=== PATIENT | male | born 1930 | race Caucasian/White ===

== ENCOUNTER 2016-05-13 01:38 | Emergency (ER) | payer MEDICARE, OTHER ==
[2016-05-13 01:48] VITALS: BP 130/61; PULSE 77; RESP 18; TEMP 97.4
[2016-05-13 03:22] LABS: Appearance,Urine Turbid (Clear); Bacteria,Urine Occasional /hpf; Bilirubin,Urine Negative (Negative); Glucose,Urine (UA) Negative (Negative); Ketones,Urine Negative (Negative); Leukocyte Esterase,Urine Large (Negative); Nitrite,Urine Positive (Negative); Particle Count 47344; Protein,Urine 2+ (Negative); RBC,Urine >182 /hpf (0-5); Specific Gravity,Urine 1.015 (1.001-1.035); UA Billing (MACRO vs. MICRO) MICRO; Urobilinogen,Urine <2.0 mg/dL (<2.0); WBC,Urine >182 /hpf (0-5)
[2016-05-13] MEDS ORDERED: cefTRIAXone 1,000 MG VIAL (IM USE) IM STA (03:27)
--- NOTE | 2016-05-13 03:31 | ED ---
Male Urogenital HPI - General Chief complaint: Urogenital Stated complaint: blocked catheter Time Seen by Provider: 05/13/16 02:15 Source: patient, RN notes reviewed Mode of arrival: wheelchair Limitations: no limitations - History of Present Illness Initial comments: Patient is 86-year-old male presenting to the with chief complaint of a blocked catheter his evening. He reports that 10:30 today he attempted to empty his catheter bag when he replaced it in intact to to the Villa would not flush. He states that he has noticed some drainage around the urethra. He reports that he has been to the multiple times in the past few months for similar complaints of problems with his catheter. He reports that he has no abdominal pain or back pain at this time. He denies any fever or chills. Denies any abdominal pain.Patient denies any recent fever, chills, shortness of breath, chest pain, back pain, abdominal pain, nausea vomiting, numbness or tingling, dysuria or hematuria, constipation or diarrhea, headaches or visual changes, or any other current symptoms - Related Data Home Medications Medication Instructions Recorded Confirmed Alfuzosin HCl [Uroxatral ER] 10 mg PO QAM 11/11/14 05/13/16 Finasteride [Proscar] 5 mg PO HS 11/11/14 05/13/16 Multivitamins, Thera [Multivitamin] 1 tab PO DAILY 11/11/14 05/13/16 Fenofibrate Nanocrystallized 145 mg PO HS 02/09/16 05/13/16 [Tricor] Lovastatin 20 mg PO HS 02/09/16 05/13/16 Ferrous Sulfate [Feosol] 325 mg PO HS 03/22/16 05/13/16 Glucosamine Sulfate 500 mg PO DAILY 03/22/16 05/13/16 Docusate [Colace] 100 mg PO BID 04/11/16 05/13/16 Esomeprazole Magnesium [NexIUM] 40 mg PO DAILY 04/11/16 05/13/16 Furosemide [Lasix] 20 mg PO DAILY 04/11/16 05/13/16 Montelukast [Singulair] 10 mg PO HS 04/11/16 05/13/16 Rivaroxaban [Xarelto] 20 mg PO DAILY 04/11/16 05/13/16 predniSONE 20 mg PO DAILY 05/13/16 05/13/16 Previous Rx's Medication Instructions Recorded Cephalexin [Keflex] 500 mg PO Q8HR #21 cap 05/13/16 Allergies Allergy/AdvReac Type Severity Reaction Status Date / Time adhesive tape AdvReac tears skin Verified 05/13/16 01:48 chicken derived [Chicken] AdvReac Nausea & Verified 05/13/16 01:48 Vomiting & Diarrhea Review of Systems ROS Statement: Those systems with pertinent positive or pertinent negative responses have been documented in the HPI. ROS Other: All systems not noted in ROS Statement are negative. Past Medical History Past Medical History: Cancer, Deep Vein Thrombosis (DVT), GERD/Reflux, Hyperlipidemia, Musculoskeletal Disorder, Pneumonia, Prostate Disorder, Renal Disease Additional Past Medical History / Comment(s): Recent pneumonia, CYSTS ON KIDNEYS , ENLARGED PROSTATE, HX OF SKIN CA, 7 crushed vertebrae, BACK PAIN FROM PINCHED NERVES IN BACK- drop foot sharif feet, wears orthotics, hx kidney stones, dx hiatal hernia History of Any Multi-Drug Resistant Organisms: None Reported Additional Past Surgical History / Comment(s): 02/08/16 laparoscopic christopher fundoplasty. Other surgical hx: Hydrocele repair, EGD (2007). EPIDURAL STEROID INJECTIONS WITH DR. DIAZ. EGD 01/2016, skin cancer removals.SEVERAL BRONCHOSCOPIES,SEBACEOUS CYST ON BACK REMOVED Past Anesthesia/Blood Transfusion Reactions: No Reported Reaction Past Psychological History: No Psychological Hx Reported Smoking Status: Former smoker Past Alcohol Use History: None Reported Additional Past Alcohol Use History / Comment(s): smoked 60 years-pipe/cigars/ cigarettes- quit 2003 Past Drug Use History: None Reported - Past Family History Brother(s) Family Medical History: Cancer Additional Family Medical History / Comment(s): lung cancer Father Additional Family Medical History / Comment(s): FROM RESP FAILURE AT AGE 91 Mother Family Medical History: Cancer Additional Family Medical History / Comment(s): UNK TYPE General Exam - General Exam Comments Initial Comments: is a pleasant 86-year-old male. He does not appear to be in any acute distress. Limitations: no limitations General appearance: alert, in no apparent distress Head exam: Present: atraumatic, normocephalic, normal inspection Eye exam: Present: normal appearance, PERRL, EOMI. Absent: scleral icterus, conjunctival injection, periorbital swelling ENT exam: Present: normal exam, mucous membranes moist Neck exam: Present: normal inspection. Absent: tenderness, meningismus, lymphadenopathy Respiratory exam: Present: normal lung sounds bilaterally. Absent: respiratory distress, wheezes, rales, rhonchi, stridor Cardiovascular Exam: Present: regular rate, normal rhythm, normal heart sounds. Absent: systolic murmur, diastolic murmur, rubs, gallop, clicks GI/Abdominal exam: Present: soft, normal bowel sounds. Absent: distended, tenderness, guarding, rebound, rigid exam: Present: urethral discharge (patient has white purulent urethral discharge around meatus and villa). Absent: testicular tenderness, scrotal swelling, vertical testicular lie, circumcision Extremities exam: Present: normal inspection, full ROM, normal capillary refill. Absent: tenderness, pedal edema, joint swelling, calf tenderness Back exam: Present: normal inspection Neurological exam: Present: alert, oriented X3, CN II-XII intact Psychiatric exam: Present: normal affect, normal mood Skin exam: Present: warm, dry, intact, normal color. Absent: rash Course Vital Signs 05/13/16 01:45 Temperature 97.4 F L Pulse Rate 77 Respiratory 18 Rate Blood Pressure 130/61 O2 Sat by Pulse 91 L Oximetry Medical Decision Making - Medical Decision Making Patient is a 6 mL chief complaint of full a catheter complications. Patient's Villa was changed and is suctioning properly. Upon getting the urine is noted to be cloudy. Urinalysis was obtained. Patient has a urinary tract infection. Patient will be given IM Rocephin and a prescription for Keflex as this has worked for him in the past for urinary tract infections. Patient states that he has no abdominal pain or fevers or chills. He denies any back pain. Patient be discharged at this time with a prescription and instructed to follow- up with primary care provider. Patient received treatment plan will comply. - Lab Data Lab Results 05/13/16 Range/Units 03:00 Urine Color Light [place] Urine Appearance Turbid (Clear) Urine pH 8.0 (5.0-8.0) Ur Specific [place] 1.015 (1.001-1.035) Urine Protein 2+ H (Negative) Urine Glucose (UA) Negative (Negative) Urine Ketones Negative (Negative) Urine Blood Moderate H (Negative) Urine Nitrate Positive (Negative) Urine Bilirubin Negative (Negative) Urine Urobilinogen <2.0 (<2.0) mg/dL Ur Leukocyte Esterase Large H (Negative) Urine RBC >182 H (0-5) /hpf Urine WBC >182 H (0-5) /hpf Urine WBC Clumps Moderate H (None) /hpf Urine Bacteria Occasional H (None) /hpf Disposition Clinical Impression: Urinary tract infection, Villa catheter problem Disposition: HOME SELF-CARE Condition: Good Instructions: Urinary Tract Infection in Men (ED) Additional Instructions: Patient instructed to completely antibiotics. Return to the [facility] if any alarming signs or symptoms occur. Follow-up with primary care physician in the next 2-3 days. Prescriptions: Cephalexin [Keflex] 500 mg PO Q8HR #21 cap Referrals: Escobar Mcdaniels DO [Primary Care Provider] - 1-2 days Time of Disposition: 03:28
== END 2016-05-13 04:19 | disposition home or self-care (01) ==
LOC: EC 01:38
DX: N39.0 Urinary tract infection, site not specified (principal); T83.018A Breakdown (mechanical) of other urinary catheter, initial encounter; K21.9 Gastro-esophageal reflux disease without esophagitis; N40.0 Benign prostatic hyperplasia without lower urinary tract symptoms; E78.5 Hyperlipidemia, unspecified; N28.9 Disorder of kidney and ureter, unspecified; Z79.899 Other long term (current) drug therapy; Z79.01 Long term (current) use of anticoagulants; Z86.718 Personal history of other venous thrombosis and embolism; Z85.9 Personal history of malignant neoplasm, unspecified; Z87.442 Personal history of urinary calculi; Z87.891 Personal history of nicotine dependence; Z87.440 Personal history of urinary (tract) infections; Z79.52 Long term (current) use of systemic steroids
CPT/HCPCS: 99283; 96372; 81001; 87070; 87086; 87205; 87077; 87186; J0696

== ENCOUNTER → 2016-05-16 | Outpatient (CLI) | payer MEDICARE, OTHER ==
--- NOTE | 2016-05-16 17:05 | CT ---
EXAMINATION TYPE: CT chest wo con DATE OF EXAM: 05/16/2016 4:50 PM COMPARISON: 05/25/2015 HISTORY: Solitary pulmonary nodule. CT DLP: 464.00 mGycm Automated exposure control for dose reduction was used. FINDINGS: Compression deformities at the thoracolumbar junction appears severe. L1 compression deformity appear s increased from the previous exam. There is no pneumothorax. Subsegmental consolidation bilaterally suggestive of atelectasis or infiltr ate. Diffuse emphysematous changes are noted. The heart is enlarged and there is coronary artery calcification. Esophagus appears to be prominent i n size correlate for previous surgery. Atherosclerotic change of the aorta. Suspect for adenopathy limited. Cystic changes involving the kidneys are stable. Atherosclerotic change of the aorta. Tiny pericardia l effusion seen. Subcentimeter thyroid nodules noted bilaterally. IMPRESSION: NO SIZABLE PULMONARY NODULE. BILATERAL AREAS OF SCATTERED INFILTRATE OR ATELECTASIS NOTED. CORRELATE FOR PNEUMONIA. VAGUE 7 MM POSTERIOR SEGMENT LEFT LOWER LOBE NODULE IMAGE 24 LIKELY IS NONSPECIFIC. NO ADDITIONAL NOD ULES ARE SEEN. ASSESSMENT OF THE LUNG BASES SOMEWHAT LIMITED DUE TO AREAS OF CONSOLIDATION ESOPHAGUS APPEARS TO BE DISTENDED WITH FLUID AND DEBRIS TO THE CERVICAL LEVEL. CORRELATE FOR PREVIOUS COLONIC INTERPOSITION SURGERY. IF THE PATIENT HAS NOT HAD SURGERY THAN THIS MAY BE RELATED TO ACHALA TERRY OR OBSTRUCTIVE PROCESS AT THE GE 2. 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 CORRELATE WITH MRI CLINICALLY WARRANTED.
== END | disposition home or self-care (01) ==
LOC: RADCTMAIN 16:16
PROVIDERS: ATTEND Internal Medicine Sleep Medicine
DX: R91.1 Solitary pulmonary nodule (principal); J18.1 Lobar pneumonia, unspecified organism; G95.20 Unspecified cord compression
CPT/HCPCS: 71250

== ENCOUNTER 2016-05-24 16:10 | Emergency (ER) | payer MEDICARE, OTHER ==
[2016-05-24 16:33] VITALS: TEMP 96.9
[2016-05-24] MEDS ORDERED: RX INFO: IV CONTRAST WAS GIVEN 1 EACH MISC MISCELLANE PRN (17:07)
[2016-05-24] MEDS ORDERED: IOHEXOL 350 MG/ML 25 ML BOTTLE (ORAL USE) PO PRN (17:07)
[2016-05-24] MEDS ORDERED: MORPHINE SULFATE 4 MG/ML SYRINGE IV STA (17:07)
[2016-05-24] MEDS ORDERED: SODIUM CHLORIDE 0.9% 1,000 ML IV STA (17:07)
[2016-05-24] MEDS ORDERED: ONDANSETRON 4 MG/2 ML VIAL IVP STA (17:07)
[2016-05-24] MEDS ORDERED: SODIUM CHLORIDE 0.9% 500 ML IV STA (17:07)
[2016-05-24] MEDS ORDERED: FAMOTIDINE 20 MG/2 ML VIAL IV STA (17:08)
--- NOTE | 2016-05-24 17:11 | ED ---
General Adult HPI - General Chief complaint: Nausea/Vomiting/Diarrhea Stated complaint: VOMITING, POSS DEHYDRATION, ABDOMINAL DISTENTION Time Seen by Provider: 05/24/16 16:56 Source: patient, family, RN notes reviewed Mode of arrival: wheelchair Limitations: no limitations - History of Present Illness Initial comments: Patient is a pleasant 86-year-old male presenting to the emergency Department with concerns regarding nausea and vomiting and abdominal discomfort. Patient has somewhat chronic symptoms however much worse over the past week. did have surgery for his hiatal hernia a couple of months ago. Patient feels like his stomach is distended and feels and looks distended. Discomfort is mostly in the epigastric region. Nausea is not bad at this time however patient vomits almost every meal. Patient is starting to feel dehydrated. Patient had diarrhea several days ago however none in the past few days. - Related Data Home Medications Medication Instructions Recorded Confirmed Alfuzosin HCl [Uroxatral ER] 10 mg PO QA 11/11/14 05/24/16 Finasteride [Proscar] 5 mg PO HS 11/11/14 05/24/16 Multivitamins, Thera [Multivitamin] 1 tab PO DAILY 11/11/14 05/24/16 Fenofibrate Nanocrystallized 145 mg PO HS 02/09/16 05/24/16 [Tricor] Lovastatin 20 mg PO HS 02/09/16 05/24/16 Ferrous Sulfate [Feosol] 325 mg PO HS 03/22/16 05/24/16 Glucosamine Sulfate 500 mg PO DAILY 03/22/16 05/24/16 Docusate [Colace] 100 mg PO BID 04/11/16 05/24/16 Esomeprazole Magnesium [NexIUM] 40 mg PO DAILY 04/11/16 05/24/16 Furosemide [Lasix] 20 mg PO DAILY 04/11/16 05/24/16 Montelukast [Singulair] 10 mg PO HS 04/11/16 05/24/16 Rivaroxaban [Xarelto] 20 mg PO DAILY 04/11/16 05/24/16 predniSONE 20 mg PO DAILY 05/13/16 05/24/16 Cyclobenzaprine [Flexeril] 5 mg PO Q6H PRN 05/24/16 05/24/16 HYDROcodone/APAP 10-325MG [Waldo 1 tab PO Q4-6H PRN 05/24/16 05/24/16 10-325] Previous Rx's Medication Instructions Recorded Ondansetron Odt [Zofran Odt] 4 mg PO Q8HR PRN #10 tab 05/24/16 Allergies Allergy/AdvReac Type Severity Reaction Status Date / Time adhesive tape AdvReac tears skin Verified 05/24/16 17:11 chicken derived [Chicken] AdvReac Nausea & Verified 05/24/16 17:11 Vomiting & Diarrhea Review of Systems ROS Statement: Those systems with pertinent positive or pertinent negative responses have been documented in the HPI. ROS Other: All systems not noted in ROS Statement are negative. Constitutional: Denies: fever, chills Eyes: Denies: eye pain ENT: Denies: ear pain Respiratory: Denies: cough Cardiovascular: Denies: chest pain Endocrine: Denies: fatigue Gastrointestinal: Reports: abdominal pain, nausea, vomiting. Denies: constipation Genitourinary: Denies: dysuria Musculoskeletal: Reports: back pain (Chronic and unchanged) Skin: Denies: rash Past Medical History Past Medical History: Cancer, Deep Vein Thrombosis (DVT), GERD/Reflux, Hyperlipidemia, Musculoskeletal Disorder, Pneumonia, Prostate Disorder, Renal Disease Additional Past Medical History / Comment(s): Recent pneumonia, CYSTS ON KIDNEYS , ENLARGED PROSTATE, HX OF SKIN CA, 7 crushed vertebrae, BACK PAIN FROM PINCHED NERVES IN BACK- drop foot sharif feet, wears orthotics, hx kidney stones, dx hiatal hernia History of Any Multi-Drug Resistant Organisms: None Reported Additional Past Surgical History / Comment(s): 02/08/16 laparoscopic christopher fundoplasty. Other surgical hx: Hydrocele repair, EGD (2007). EPIDURAL STEROID INJECTIONS WITH DR. DIAZ. EGD 01/2016, skin cancer removals.SEVERAL BRONCHOSCOPIES,SEBACEOUS CYST ON BACK REMOVED Past Anesthesia/Blood Transfusion Reactions: No Reported Reaction Past Psychological History: No Psychological Hx Reported Smoking Status: Former smoker Past Alcohol Use History: None Reported Additional Past Alcohol Use History / Comment(s): smoked 60 years-pipe/cigars/ cigarettes- quit 2003 Past Drug Use History: None Reported - Past Family History Brother(s) Family Medical History: Cancer Additional Family Medical History / Comment(s): lung cancer Father Additional Family Medical History / Comment(s): FROM RESP FAILURE AT AGE 91 Mother Family Medical History: Cancer Additional Family Medical History / Comment(s): UNK TYPE General Exam Limitations: no limitations General appearance: alert, in no apparent distress Head exam: Present: atraumatic, normocephalic Eye exam: Present: normal appearance, PERRL ENT exam: Present: normal oropharynx Neck exam: Present: normal inspection Respiratory exam: Present: normal lung sounds bilaterally Cardiovascular Exam: Present: regular rate, normal rhythm GI/Abdominal exam: Present: soft, distended (Mild epigastric tenderness.), tenderness (Mild to moderate epigastric tenderness), normal bowel sounds. Absent: guarding, rebound, rigid, pulsatile mass Extremities exam: Present: normal inspection Neurological exam: Present: alert Psychiatric exam: Present: normal affect, normal mood Skin exam: Absent: rash Course Vital Signs 05/24/16 05/24/16 16:28 19:00 Temperature 96.9 F L Pulse Rate 64 59 L Respiratory 18 20 Rate Blood Pressure 99/51 108/52 O2 Sat by Pulse 96 96 Oximetry Medical Decision Making - Medical Decision Making Patient reexamined and resting comfortably in bed. Patient feels much better. Abdomen is soft and nontender. Patient and family are comfortable with discharge home. Patient does have a Henderson catheter and reportedly just finished antibiotics. Therefore culture will be obtained prior to starting antibiotics again. - Lab Data Result diagrams: 05/24/16 17:20 05/24/16 17:20 Lab Results 05/24/16 05/24/16 05/24/16 Range/Units 17:20 17:20 17:20 WBC 13.3 H (3.8-10.6) k/uL RBC 4.43 (4.30-5.90) m/uL Hgb 12.8 L (13.0-17.5) gm/dL Hct 42.8 (39.0-53.0) % MCV 96.7 (80.0-100.0) fL MCH 28.8 (25.0-35.0) pg MCHC 29.8 L (31.0-37.0) g/dL RDW 15.1 (11.5-15.5) % Plt Count 330 (150-450) k/uL Neutrophils % 85 % Lymphocytes % 8 % Monocytes % 4 % Eosinophils % 2 % Basophils % 1 % Neutrophils # 11.4 H (1.3-7.7) k/uL Lymphocytes # 1.1 (1.0-4.8) k/uL Monocytes # 0.5 (0-1.0) k/uL Eosinophils # 0.2 (0-0.7) k/uL Basophils # 0.1 (0-0.2) k/uL Hypochromasia Slight PT 12.6 H (9.0-12.0) sec INR 1.3 (<1.1) APTT 28.0 (22.0-30.0) sec Sodium 143 (137-145) mmol/L Potassium 4.3 (3.5-5.1) mmol/L Chloride 106 (98-107) mmol/L Carbon Dioxide 27 (22-30) mmol/L Anion Gap 10 mmol/L BUN 29 H (9-20) mg/dL Creatinine 0.98 (0.66-1.25) mg/dL Est GFR (MDRD) Af Amer >60 (>60 ml/min/1.73 sqM) Est GFR (MDRD) Non-Af >60 (>60 ml/min/1.73 sqM) Glucose 81 (74-99) mg/dL Calcium 9.6 (8.4-10.2) mg/dL Total Bilirubin 1.0 (0.2-1.3) mg/dL AST 27 (17-59) U/L ALT 36 (21-72) U/L Alkaline Phosphatase 92 (38-126) U/L Total Protein 6.6 (6.3-8.2) g/dL Albumin 3.3 L (3.5-5.0) g/dL Amylase <30 L (30-110) U/L Lipase 26 (23-300) U/L Urine Color Urine Appearance (Clear) Urine pH (5.0-8.0) Ur Specific [place] (1.001-1.035) Urine Protein (Negative) Urine Glucose (UA) (Negative) Urine Ketones (Negative) Urine Blood (Negative) Urine Nitrate (Negative) Urine Bilirubin (Negative) Urine Urobilinogen (<2.0) mg/dL Ur Leukocyte Esterase (Negative) Urine RBC (0-5) /hpf Urine WBC (0-5) /hpf Urine WBC Clumps (None) /hpf Urine Mucus (None) /hpf 05/24/16 Range/Units 17:30 WBC (3.8-10.6) k/uL RBC (4.30-5.90) m/uL Hgb (13.0-17.5) gm/dL Hct (39.0-53.0) % MCV (80.0-100.0) fL MCH (25.0-35.0) pg MCHC (31.0-37.0) g/dL RDW (11.5-15.5) % Plt Count (150-450) k/uL Neutrophils % % Lymphocytes % % Monocytes % % Eosinophils % % Basophils % % Neutrophils # (1.3-7.7) k/uL Lymphocytes # (1.0-4.8) k/uL Monocytes # (0-1.0) k/uL Eosinophils # (0-0.7) k/uL Basophils # (0-0.2) k/uL Hypochromasia PT (9.0-12.0) sec INR (<1.1) APTT (22.0-30.0) sec Sodium (137-145) mmol/L Potassium (3.5-5.1) mmol/L Chloride (98-107) mmol/L Carbon Dioxide (22-30) mmol/L Anion Gap mmol/L BUN (9-20) mg/dL Creatinine (0.66-1.25) mg/dL Est GFR (MDRD) Af Amer (>60 ml/min/1.73 sqM) Est GFR (MDRD) Non-Af (>60 ml/min/1.73 sqM) Glucose (74-99) mg/dL Calcium (8.4-10.2) mg/dL Total Bilirubin (0.2-1.3) mg/dL AST (17-59) U/L ALT (21-72) U/L Alkaline Phosphatase (38-126) U/L Total Protein (6.3-8.2) g/dL Albumin (3.5-5.0) g/dL Amylase (30-110) U/L Lipase (23-300) U/L Urine Color Yellow Urine Appearance Turbid (Clear) Urine pH 5.5 (5.0-8.0) Ur Specific [place] 1.014 (1.001-1.035) Urine Protein Trace H (Negative) Urine Glucose (UA) Negative (Negative) Urine Ketones Negative (Negative) Urine Blood Small H (Negative) Urine Nitrate Negative (Negative) Urine Bilirubin Negative (Negative) Urine Urobilinogen <2.0 (<2.0) mg/dL Ur Leukocyte Esterase Large H (Negative) Urine RBC 15 H (0-5) /hpf Urine WBC 136 H (0-5) /hpf Urine WBC Clumps Many H (None) /hpf Urine Mucus Moderate H (None) /hpf - Radiology Data Radiology results: image reviewed (Computed tomography scan of the abdomen and pelvis shows enlarged prostate. Multiple compression fractures.) Disposition Clinical Impression: Vomiting, Abdominal pain Disposition: HOME SELF-CARE Condition: Stable Instructions: Abdominal Pain (ED), Acute Nausea and Vomiting (ED) Additional Instructions: Please follow-up Dr. Mcdaniels in the beginning of the week. Return for increased pain, fevers, uncontrolled vomiting or worsening symptoms or any other concerns. Please continue Nexium. Prescriptions: Ondansetron Odt [Zofran Odt] 4 mg PO Q8HR PRN #10 tab PRN Reason: Nausea Referrals: Escobar Mcdaniels DO [Primary Care Provider] - 1-2 days
[2016-05-24 17:32] LABS: Basophils # (A) 0.1 k/uL (0-0.2); Basophils % (A) 1 %; CH 29.8; Eosinophils # (A) 0.2 k/uL (0-0.7); Eosinophils % (A) 2 %; HCT 42.8 % (39.0-53.0); HDW 2.38; HGB 12.8 gm/dL (13.0-17.5); Hypochromasia Slight; Luc # (Auto) 0.12; Luc % (Auto) 1; Lymphocytes # (A) 1.1 k/uL (1.0-4.8); Lymphocytes % (A) 8 %; MCH 28.8 pg (25.0-35.0); MCHC 29.8 g/dL (31.0-37.0); MCV 96.7 fL (80.0-100.0); Mean Platelet Volume 7.3; Monocytes # (A) 0.5 k/uL (0-1.0); Monocytes % (A) 4 %; Neutrophils # (A) 11.4 k/uL (1.3-7.7); Neutrophils % (A) 85 %; RBC 4.43 m/uL (4.30-5.90); RDW 15.1 % (11.5-15.5); WBC 13.3 k/uL (3.8-10.6); WBC (Perox) 13.13
[2016-05-24 17:42] LABS: INR 1.3 (<1.1); Prothrombin Time 12.6 sec (9.0-12.0)
[2016-05-24 17:43] LABS: ALT 36 U/L (21-72); AST 27 U/L (17-59); Alkaline Phosphatase 92 U/L (38-126); Amylase <30 U/L (30-110); Anion Gap 10 mmol/L; Blood Urea Nitrogen 29 mg/dL (9-20); Calcium 9.6 mg/dL (8.4-10.2); Carbon Dioxide 27 mmol/L (22-30); Chloride 106 mmol/L (98-107); Glucose 81 mg/dL (74-99); Non-African American GFR(MDRD) >60 (>60 ml/min/1.73 sqM); Potassium 4.3 mmol/L (3.5-5.1); Sodium 143 mmol/L (137-145); Total Protein 6.6 g/dL (6.3-8.2)
[2016-05-24 17:54] LABS: Appearance,Urine Turbid (Clear); Bilirubin,Urine Negative (Negative); Glucose,Urine (UA) Negative (Negative); Ketones,Urine Negative (Negative); Leukocyte Esterase,Urine Large (Negative); Mucus,Urine Moderate /hpf; Nitrite,Urine Negative (Negative); PH, Urine 5.5 (5.0-8.0); Particle Count 15321; Protein,Urine Trace (Negative); RBC,Urine 15 /hpf (0-5); Specific Gravity,Urine 1.014 (1.001-1.035); UA Billing (MACRO vs. MICRO) MICRO; Urobilinogen,Urine <2.0 mg/dL (<2.0); WBC,Urine 136 /hpf (0-5)
[2016-05-24 19:00] VITALS: BP 108/52; PULSE 59; RESP 20
--- NOTE | 2016-05-24 19:12 | CT ---
EXAMINATION TYPE: CT abdomen pelvis w con DATE OF EXAM: 05/24/2016 6:53 PM COMPARISON: 02/12/2016 HISTORY: Pt states of abdominal pain/distention, diarrhea, and vomiting. CT DLP: 847.9 mGycm Automated exposure control for dose reduction was used. TECHNIQUE: Helical acquisition of images was performed from the lung bases through the pelvis. CONTRAST: Performed with Oral Contrast and with IV Contrast, patient injected with 100 mL of Omnipaque 300. FINDINGS: There is patchy atelectasis at the lung bases. There is no pleural effusion. Liver shows no focal def ect. Spleen appears normal. There is no evidence of a pancreatic mass. Gallbladder appears normal. Bi le ducts are not dilated. There are bilateral multiple renal cortical cysts that measure up to 3 cm. There is no hydronephrosis. There is no retroperitoneal adenopathy. There is a Henderson catheter in the urinary bladder. There is a small amount of air in the bladder. The prostate is enlarged. There is no free fluid in the pelvis. I see no intestinal wall thickening. There are no dilated loops. Abdominal aorta is atheromatous. IMPRESSION: ENLARGED PROSTATE. MULTIPLE BILATERAL RENAL CORTICAL CYSTS. MILD SUBSEGMENTAL ATELECTASIS AT THE LUNG BASES. THERE IS CLEARING OF THE PLEURAL EFFUSIONS COMPARED TO OLD EXAM. NO ACUTE ABNORMALITY SEEN WI THIN THE ABDOMEN AND PELVIS. MULTIPLE THORACIC AND LUMBAR COMPRESSION FRACTURES. THERE IS A NEW L1 CO MPRESSION FRACTURE COMPARED TO OLD EXAM.
== END 2016-05-24 19:33 | disposition home or self-care (01) ==
LOC: EC 16:10
DX: R10.816 Epigastric abdominal tenderness (principal); R11.2 Nausea with vomiting, unspecified; E78.5 Hyperlipidemia, unspecified; G89.29 Other chronic pain; M54.9 Dorsalgia, unspecified; J98.11 Atelectasis; K21.9 Gastro-esophageal reflux disease without esophagitis; M48.56XA Collapsed vertebra, not elsewhere classified, lumbar region, initial encounter for fracture; M48.54XA Collapsed vertebra, not elsewhere classified, thoracic region, initial encounter for fracture; N40.0 Benign prostatic hyperplasia without lower urinary tract symptoms; Z79.01 Long term (current) use of anticoagulants; Z86.718 Personal history of other venous thrombosis and embolism; Z87.442 Personal history of urinary calculi; Z87.891 Personal history of nicotine dependence; Z79.899 Other long term (current) drug therapy; Z79.52 Long term (current) use of systemic steroids
CPT/HCPCS: 36415; 80053; 82150; 83690; 85025; 85610; 85730; 81001; 87086; 74177; 99284; 96374; 96375 ×2; 96361 ×2; J2270; J2405; Q9967; 87077; 87186

== ENCOUNTER 2016-05-27 11:41 | Inpatient (IN) | payer MEDICARE, OTHER ==
[2016-05-27] MEDS ORDERED: MORPHINE SULFATE 4 MG/ML SYRINGE IVP STA (15:56)
[2016-05-27] MEDS ORDERED: SODIUM CHLORIDE 0.9% 1,000 ML IV ONE (15:56)
[2016-05-27] MEDS ORDERED: ONDANSETRON 4 MG/2 ML VIAL IVP STA (15:56)
--- NOTE | 2016-05-27 16:09 | ED ---
Abdominal Pain HPI - General Source: patient, RN notes reviewed Mode of arrival: wheelchair Limitations: no limitations <Gina Page - Last Filed: 05/27/16 20:19> <Edgar Montenegro - Last Filed: 05/27/16 20:36> - General Chief Complaint: Abdominal Pain Stated Complaint: abd pain Time Seen by Provider: 05/27/16 15:19 - History of Present Illness Initial Comments: Patient is an 86-year-old male presents emergency room for evaluation of abdominal pain, nausea, vomiting and diarrhea. Patient states he was here a few days ago with nausea and vomiting. Patient states this morning he vomited more and began having increasing lower abdominal pain. Patient states that he' s had multiple episodes of diarrhea starting today. Patient states he followed up with his primary care provider today and was sent here for possible admission for dehydration. Patient states he's been on antibiotics for urinary tract infection. Patient states he's had persistent urinary tract infections. Patient states he has a Henderson catheter placed. Patient states he was on Cipro a few weeks ago and recently ended Keflex. Patient denies any recent travel outside the country. Patient denies history of C. diff. Patient denies any fevers or chills. Patient denies chest pain or shortness of breath. Patient denies headache or dizziness. (Gina Page) - Related Data Home Medications Medication Instructions Recorded Confirmed Alfuzosin HCl [Uroxatral ER] 10 mg PO QAM 11/11/14 05/27/16 Finasteride [Proscar] 5 mg PO HS 11/11/14 05/27/16 Multivitamins, Thera [Multivitamin] 1 tab PO DAILY 11/11/14 05/27/16 Fenofibrate Nanocrystallized 145 mg PO HS 02/09/16 05/27/16 [Tricor] Lovastatin 20 mg PO HS 02/09/16 05/27/16 Ferrous Sulfate [Feosol] 325 mg PO HS 03/22/16 05/27/16 Glucosamine Sulfate 500 mg PO DAILY 03/22/16 05/27/16 Docusate [Colace] 100 mg PO BID 04/11/16 05/27/16 Esomeprazole Magnesium [NexIUM] 40 mg PO DAILY 04/11/16 05/27/16 Furosemide [Lasix] 20 mg PO DAILY 04/11/16 05/27/16 Montelukast [Singulair] 10 mg PO HS 04/11/16 05/27/16 Rivaroxaban [Xarelto] 20 mg PO DAILY 04/11/16 05/27/16 predniSONE 20 mg PO DAILY 05/13/16 05/27/16 Cyclobenzaprine [Flexeril] 5 mg PO Q6H PRN 05/24/16 05/27/16 HYDROcodone/APAP 10-325MG [[place] 1 tab PO Q4H PRN 05/24/16 05/27/16 10-325] Lidocaine 5% Patch [Lidoderm] 1 patch TRANSDERM DAILY 05/27/16 05/27/16 Mirtazapine [Remeron] 15 mg PO HS 05/27/16 05/27/16 Previous Rx's Medication Instructions Recorded Ondansetron Odt [Zofran Odt] 4 mg PO Q8HR PRN #10 tab 05/24/16 Allergies Allergy/AdvReac Type Severity Reaction Status Date / Time adhesive tape AdvReac tears skin Verified 05/27/16 16:05 chicken derived [Chicken] AdvReac Nausea & Verified 05/27/16 16:05 Vomiting & Diarrhea Review of Systems ROS Other: All systems not noted in ROS Statement are negative. <Gina Page - Last Filed: 05/27/16 20:19> ROS Other: All systems not noted in ROS Statement are negative. <Edgar Montenegro - Last Filed: 05/27/16 20:36> ROS Statement: Those systems with pertinent positive or pertinent negative responses have been documented in the HPI. Past Medical History Past Medical History: Cancer, Deep Vein Thrombosis (DVT), GERD/Reflux, Hyperlipidemia, Musculoskeletal Disorder, Pneumonia, Prostate Disorder, Renal Disease Additional Past Medical History / Comment(s): Recent pneumonia, CYSTS ON KIDNEYS , ENLARGED PROSTATE, HX OF SKIN CA, 7 crushed vertebrae, BACK PAIN FROM PINCHED NERVES IN BACK- drop foot sharif feet, wears orthotics, hx kidney stones, dx hiatal hernia History of Any Multi-Drug Resistant Organisms: None Reported Additional Past Surgical History / Comment(s): 02/08/16 laparoscopic christopher fundoplasty. Other surgical hx: Hydrocele repair, EGD (2007). EPIDURAL STEROID INJECTIONS WITH DR. DIAZ. EGD 01/2016, skin cancer removals.SEVERAL BRONCHOSCOPIES,SEBACEOUS CYST ON BACK REMOVED Past Anesthesia/Blood Transfusion Reactions: No Reported Reaction Past Psychological History: No Psychological Hx Reported Smoking Status: Former smoker Past Alcohol Use History: None Reported Additional Past Alcohol Use History / Comment(s): smoked 60 years-pipe/cigars/ cigarettes- quit 2003 Past Drug Use History: None Reported - Past Family History Brother(s) Family Medical History: Cancer Additional Family Medical History / Comment(s): lung cancer Father Additional Family Medical History / Comment(s): FROM RESP FAILURE AT AGE 91 Mother Family Medical History: Cancer Additional Family Medical History / Comment(s): UNK TYPE <Gina Page - Last Filed: 05/27/16 20:19> General Exam Limitations: no limitations General appearance: alert, in no apparent distress Head exam: Present: atraumatic, normocephalic, normal inspection Eye exam: Present: normal appearance ENT exam: Present: normal exam Neck exam: Present: normal inspection Respiratory exam: Present: normal lung sounds bilaterally. Absent: respiratory distress Cardiovascular Exam: Present: regular rate, normal rhythm, normal heart sounds GI/Abdominal exam: Present: soft, tenderness (RLQ/LLQ), normal bowel sounds. Absent: distended, guarding Extremities exam: Present: normal inspection Back exam: Present: normal inspection Neurological exam: Present: alert, oriented X3, CN II-XII intact, normal gait Psychiatric exam: Present: normal affect, normal mood Skin exam: Present: warm, dry, intact, normal color. Absent: rash <Gina Page - Last Filed: 05/27/16 20:19> <Edgar Montenegro - Last Filed: 05/27/16 20:36> - General Exam Comments Initial Comments: Sitting on exam bed in no acute distress. (Gina Page) Medical Decision Making - Lab Data Result diagrams: 05/27/16 17:12 05/27/16 17:12 <Gina Page - Last Filed: 05/27/16 20:19> - Lab Data Result diagrams: 05/27/16 17:12 05/27/16 17:12 <Edgar Montenegro - Last Filed: 05/27/16 20:36> - Medical Decision Making The patient was seen and examined. All diagnostics were reviewed. The stool sample came back positive for C. diff colitis. The patient also has a urinary tract infection. Is felt as though he would require admission to the hospital. The case is discussed with Dr. Vergara and he is agreeable to Flagyl but would hold off on other antibiotics and consult Dr. Wei. The case is discussed with the PA and I agree with her findings as documented. (Edgar Montenegro) - Lab Data Lab Results 05/27/16 05/27/16 05/27/16 Range/Units 17:12 17:12 17:12 WBC 13.3 H (3.8-10.6) k/uL RBC 4.69 (4.30-5.90) m/uL Hgb 13.9 (13.0-17.5) gm/dL Hct 46.4 (39.0-53.0) % MCV 99.0 (80.0-100.0) fL MCH 29.7 (25.0-35.0) pg MCHC 30.0 L (31.0-37.0) g/dL RDW 14.8 (11.5-15.5) % Plt Count 295 (150-450) k/uL Neutrophils % 81 % Lymphocytes % 11 % Monocytes % 5 % Eosinophils % 1 % Basophils % 0 % Neutrophils # 10.9 H (1.3-7.7) k/uL Lymphocytes # 1.4 (1.0-4.8) k/uL Monocytes # 0.6 (0-1.0) k/uL Eosinophils # 0.2 (0-0.7) k/uL Basophils # 0.1 (0-0.2) k/uL Hypochromasia Marked Sodium 146 H (137-145) mmol/L Potassium 4.7 (3.5-5.1) mmol/L Chloride 110 H (98-107) mmol/L Carbon Dioxide 23 (22-30) mmol/L Anion Gap 13 mmol/L BUN 36 H (9-20) mg/dL Creatinine 0.80 (0.66-1.25) mg/dL Est GFR (MDRD) Af Amer >60 (>60 ml/min/1.73 sqM) Est GFR (MDRD) Non-Af >60 (>60 ml/min/1.73 sqM) Glucose 67 L (74-99) mg/dL Calcium 9.4 (8.4-10.2) mg/dL Magnesium 1.9 (1.6-2.3) mg/dL Total Bilirubin 1.0 (0.2-1.3) mg/dL AST 33 (17-59) U/L ALT 33 (21-72) U/L Alkaline Phosphatase 109 (38-126) U/L Total Protein 6.5 (6.3-8.2) g/dL Albumin 3.1 L (3.5-5.0) g/dL Amylase 37 (30-110) U/L Lipase 19 L (23-300) U/L Urine Color Urine Appearance (Clear) Urine pH (5.0-8.0) Ur Specific [place] (1.001-1.035) Urine Protein (Negative) Urine Glucose (UA) (Negative) Urine Ketones (Negative) Urine Blood (Negative) Urine Nitrate (Negative) Urine Bilirubin (Negative) Urine Urobilinogen (<2.0) mg/dL Ur Leukocyte Esterase (Negative) Urine RBC (0-5) /hpf Urine WBC (0-5) /hpf Urine WBC Clumps (None) /hpf Calcium Oxalate Crystal (None) /hpf Urine Bacteria (None) /hpf Hyaline Casts (0-2) /lpf Urine Mucus (None) /hpf Stool Occult Blood (Negative) C. difficile (EIA) Intrp (Negative) 05/27/16 05/27/16 05/27/16 Range/Units 18:37 19:14 19:14 WBC (3.8-10.6) k/uL RBC (4.30-5.90) m/uL Hgb (13.0-17.5) gm/dL Hct (39.0-53.0) % MCV (80.0-100.0) fL MCH (25.0-35.0) pg MCHC (31.0-37.0) g/dL RDW (11.5-15.5) % Plt Count (150-450) k/uL Neutrophils % % Lymphocytes % % Monocytes % % Eosinophils % % Basophils % % Neutrophils # (1.3-7.7) k/uL Lymphocytes # (1.0-4.8) k/uL Monocytes # (0-1.0) k/uL Eosinophils # (0-0.7) k/uL Basophils # (0-0.2) k/uL Hypochromasia Sodium (137-145) mmol/L Potassium (3.5-5.1) mmol/L Chloride (98-107) mmol/L Carbon Dioxide (22-30) mmol/L Anion Gap mmol/L BUN (9-20) mg/dL Creatinine (0.66-1.25) mg/dL Est GFR (MDRD) Af Amer (>60 ml/min/1.73 sqM) Est GFR (MDRD) Non-Af (>60 ml/min/1.73 sqM) Glucose (74-99) mg/dL Calcium (8.4-10.2) mg/dL Magnesium (1.6-2.3) mg/dL Total Bilirubin (0.2-1.3) mg/dL AST (17-59) U/L ALT (21-72) U/L Alkaline Phosphatase (38-126) U/L Total Protein (6.3-8.2) g/dL Albumin (3.5-5.0) g/dL Amylase (30-110) U/L Lipase (23-300) U/L Urine Color Yellow Urine Appearance Cloudy (Clear) Urine pH 5.0 (5.0-8.0) Ur Specific [place] 1.018 (1.001-1.035) Urine Protein Trace H (Negative) Urine Glucose (UA) Negative (Negative) Urine Ketones Negative (Negative) Urine Blood Trace H (Negative) Urine Nitrate Negative (Negative) Urine Bilirubin Negative (Negative) Urine Urobilinogen <2.0 (<2.0) mg/dL Ur Leukocyte Esterase Large H (Negative) Urine RBC 16 H (0-5) /hpf Urine WBC 109 H (0-5) /hpf Urine WBC Clumps Few H (None) /hpf Calcium Oxalate Crystal Occasional H (None) /hpf Urine Bacteria Occasional H (None) /hpf Hyaline Casts 4 H (0-2) /lpf Urine Mucus Rare H (None) /hpf Stool Occult Blood Negative (Negative) C. difficile (EIA) Intrp Positive (Negative) Disposition Decision Date: 05/27/16 <Gina Page - Last Filed: 05/27/16 20:19> <Edgar Montenegro - Last Filed: 05/27/16 20:36> Clinical Impression: Nausea and vomiting, Urinary tract infection, C. difficile diarrhea Disposition: ADMITTED IP TO THIS HOSP Condition: Stable Referrals: Escobar Mcdaniels DO [Primary Care Provider] - 1-2 days
--- NOTE | 2016-05-27 16:56 | XR ---
EXAMINATION TYPE: XR KUB DATE OF EXAM: 05/27/2016 4:52 PM COMPARISON: NONE HISTORY: Pain TECHNIQUE: Single supine KUB image of the abdomen is obtained FINDINGS: Small bowel demonstrates no evidence for dilatation or air fluid levels. Gas and moderate fecal material is seen in non-distended colon. No convincing evidence for pneumoperitoneum. No unusual calcifications. The lung bases are clear. The osseous structures are intact. IMPRESSION: 1. Overall nonobstructive bowel gas pattern.
[2016-05-27 17:38] LABS: Basophils # (A) 0.1 k/uL (0-0.2); Basophils % (A) 0 %; CH 29.1; CHCM 29.5; Eosinophils # (A) 0.2 k/uL (0-0.7); Eosinophils % (A) 1 %; HCT 46.4 % (39.0-53.0); HDW 2.29; HGB 13.9 gm/dL (13.0-17.5); Hypochromasia Marked; Luc # (Auto) 0.18; Luc % (Auto) 1; Lymphocytes # (A) 1.4 k/uL (1.0-4.8); Lymphocytes % (A) 11 %; MCH 29.7 pg (25.0-35.0); Mean Platelet Volume 7.6; Monocytes # (A) 0.6 k/uL (0-1.0); Monocytes % (A) 5 %; Neutrophils # (A) 10.9 k/uL (1.3-7.7); Neutrophils % (A) 81 %; RBC 4.69 m/uL (4.30-5.90); RDW 14.8 % (11.5-15.5); WBC 13.3 k/uL (3.8-10.6)
[2016-05-27 17:48] LABS: ALT 33 U/L (21-72); AST 33 U/L (17-59); Alkaline Phosphatase 109 U/L (38-126); Amylase 37 U/L (30-110); Anion Gap 13 mmol/L; Blood Urea Nitrogen 36 mg/dL (9-20); Calcium 9.4 mg/dL (8.4-10.2); Carbon Dioxide 23 mmol/L (22-30); Chloride 110 mmol/L (98-107); Glucose 67 mg/dL (74-99); Magnesium 1.9 mg/dL (1.6-2.3); Non-African American GFR(MDRD) >60 (>60 ml/min/1.73 sqM); Potassium 4.7 mmol/L (3.5-5.1); Sodium 146 mmol/L (137-145); Total Protein 6.5 g/dL (6.3-8.2)
[2016-05-27 18:52] LABS: Appearance,Urine Cloudy (Clear); Bacteria,Urine Occasional /hpf; Bilirubin,Urine Negative (Negative); Calcium Oxalate Crystals,Urine Occasional /hpf; Glucose,Urine (UA) Negative (Negative); Ketones,Urine Negative (Negative); Leukocyte Esterase,Urine Large (Negative); Mucus,Urine Rare /hpf; Nitrite,Urine Negative (Negative); Particle Count 26484; Protein,Urine Trace (Negative); RBC,Urine 16 /hpf (0-5); Specific Gravity,Urine 1.018 (1.001-1.035); UA Billing (MACRO vs. MICRO) MICRO; Urobilinogen,Urine <2.0 mg/dL (<2.0); WBC,Urine 109 /hpf (0-5)
[2016-05-27] MEDS ORDERED: LEVOFLOXACIN 500MG-D5W PMX 500 MG in DEXTROSE/WATER 1 100ML.BAG IVPB STA (20:06)
[2016-05-27] MEDS ORDERED: NALOXONE 0.4 MG/ML 1 ML VIAL IV PRN (20:14)
[2016-05-27] MEDS ORDERED: ACETAMINOPHEN TAB 325 MG TAB PO PRN (20:14)
[2016-05-27] MEDS ORDERED: ONDANSETRON 4 MG/2 ML VIAL IVP PRN (20:14)
[2016-05-27] MEDS ORDERED: MORPHINE SULFATE 4 MG/ML SYRINGE IV PRN (20:14)
[2016-05-27 22:23] VITALS: BMI 22.1
[2016-05-27] MEDS: metroNIDAZOLE 500 MG TAB PO SCH (22:57)
[2016-05-27] MEDS: SODIUM CHLORIDE 0.9% 1,000 ML IV SCH (23:10)
[2016-05-28] MEDS: metroNIDAZOLE 500 MG TAB PO SCH ×2 (07:06→12:09)
[2016-05-28] MEDS: LACTOBACILLUS ACIDOPH & BULGAR 1 EACH PACKET PO SCH ×3 (10:04→21:54)
[2016-05-28] MEDS: CHOLESTYRAMINE (WITH SUGAR) 4 GM PACKET PO SCH ×3 (10:04→21:58)
[2016-05-28] MEDS: SODIUM CHLORIDE 0.9% 1,000 ML IV SCH ×2 (10:07→21:56)
[2016-05-28] MEDS ORDERED: CYCLOBENZAPRINE 5 MG TAB PO PRN (12:55)
[2016-05-28] MEDS ORDERED: CHERRY FLAVOR 60 ML BOTTLE PO PRN (13:22)
--- NOTE | 2016-05-28 14:59 | P.CONS ---
History of Present Illness - Reason for Consult Consult date: 05/28/16 C. difficile colitis - History of Present Illness This is an 86-year-old male. He gives history that he has had ongoing problems with enlarged prostate and has a chronic Henderson catheter in place under the care of Dr. Encarnacion. He states he needs to have surgery on his prostate but because of ongoing problems with urinary infections this is been delayed. He is recently been on Cipro a few weeks ago and most recently on Keflex. He presented to [facility] emergency center due to abdominal pain, nausea, vomiting, diarrhea. He states the diarrhea started when he started his second day of Keflex approximately one week ago. He states the diarrhea has been as frequent as every 10-15 minutes and currently is at every 1 hour. He denies having any fever or chills. He states he had some vomiting for 3-4 days which is subsequently stopped. Patient was found to have leukocytosis at 13.3, GFR greater than 60. Urinalysis was leukoesterase large, WBC 109, bacteria occasional. C. difficile toxin was positive. Stool WBC negative. Occult blood in stool was negative. Review of Systems All systems: negative Constitutional: Denies chills, Denies fever Eyes: denies blurred vision, denies pain Ears, nose, mouth and throat: Denies headache, Denies sore throat Cardiovascular: Denies chest pain, Denies shortness of breath Respiratory: Denies cough Gastrointestinal: Reports abdominal pain, Reports diarrhea, Reports nausea, Reports vomiting Genitourinary: Reports urinary retention Musculoskeletal: Denies myalgias Integumentary: Denies pruritus, Denies rash Neurological: Denies numbness, Denies weakness Psychiatric: Denies anxiety, Denies depression Endocrine: Denies fatigue, Denies weight change Past Medical History Past Medical History: Deep Vein Thrombosis (DVT), GERD/Reflux, Hyperlipidemia, Musculoskeletal Disorder, Pneumonia, Prostate Disorder, Renal Disease Additional Past Medical History / Comment(s): Recent pneumonia, CYSTS ON KIDNEYS , ENLARGED PROSTATE, 7 crushed vertebrae, BACK PAIN FROM PINCHED NERVES IN BACK - drop foot sharif feet, wears orthotics, hx kidney stones, dx hiatal hernia History of Any Multi-Drug Resistant Organisms: None Reported Additional Past Surgical History / Comment(s): 02/08/16 laparoscopic christopher fundoplasty. Other surgical hx: Hydrocele repair, EGD (2007). EPIDURAL STEROID INJECTIONS WITH DR. DIAZ. EGD 01/2016, skin cancer removals.SEVERAL BRONCHOSCOPIES,SEBACEOUS CYST ON BACK REMOVED Past Anesthesia/Blood Transfusion Reactions: No Reported Reaction Past Psychological History: No Psychological Hx Reported Smoking Status: Former smoker Past Alcohol Use History: None Reported Additional Past Alcohol Use History / Comment(s): smoked 60 years-pipe/cigars/ cigarettes- quit 2003. He denies any medical marijuana, marijuana, street drug or alcohol use. He lives at home with his . Past Drug Use History: None Reported - Past Family History Brother(s) Family Medical History: Cancer Additional Family Medical History / Comment(s): lung cancer Father Additional Family Medical History / Comment(s): FROM RESP FAILURE AT AGE 91 Mother Family Medical History: Cancer Additional Family Medical History / Comment(s): UNK TYPE Medications and Allergies Home Medications Medication Instructions Recorded Confirmed Type Alfuzosin HCl [Uroxatral ER] 10 mg PO [facility] 11/11/14 05/27/16 History Finasteride [Proscar] 5 mg PO HS 11/11/14 05/27/16 History Multivitamins, Thera [Multivitamin] 1 tab PO DAILY 11/11/14 05/27/16 History Fenofibrate Nanocrystallized 145 mg PO HS 02/09/16 05/27/16 History [Tricor] Lovastatin 20 mg PO HS 02/09/16 05/27/16 History Ferrous Sulfate [Feosol] 325 mg PO HS 03/22/16 05/27/16 History Glucosamine Sulfate 500 mg PO DAILY 03/22/16 05/27/16 History Docusate [Colace] 100 mg PO BID 04/11/16 05/27/16 History Esomeprazole Magnesium [NexIUM] 40 mg PO DAILY 04/11/16 05/27/16 History Furosemide [Lasix] 20 mg PO DAILY 04/11/16 05/27/16 History Montelukast [Singulair] 10 mg PO HS 04/11/16 05/27/16 History Rivaroxaban [Xarelto] 20 mg PO DAILY 04/11/16 05/27/16 History predniSONE 20 mg PO DAILY 05/13/16 05/27/16 History Cyclobenzaprine [Flexeril] 5 mg PO Q6H PRN 05/24/16 05/27/16 History HYDROcodone/APAP 10-325MG [[place] 1 tab PO Q4H PRN 05/24/16 05/27/16 History 10-325] Lidocaine 5% Patch [Lidoderm] 1 patch TRANSDERM DAILY 05/27/16 05/27/16 History Mirtazapine [Remeron] 15 mg PO HS 05/27/16 05/27/16 History Allergies Allergy/AdvReac Type Severity Reaction Status Date / Time adhesive tape AdvReac tears skin Verified 05/27/16 16:05 chicken derived [Chicken] AdvReac Nausea & Verified 05/27/16 16:05 Vomiting & Diarrhea Physical Exam Vitals: Vital Signs Temp Pulse Pulse Resp BP BP Pulse Ox 05/28/16 07:00 97.6 F 89 16 135/80 96 05/28/16 02:00 97 F L 81 18 119/93 93 L 05/27/16 21:52 96.7 F L 84 18 114/70 93 L 05/27/16 20:33 97.4 F L 80 18 101/61 97 Intake and Output 05/27/16 05/28/16 05/28/16 22:59 06:59 14:59 Intake Total 560 Balance 560 Intake: IV 560 Sodium Chloride 0.9% 1, 560 000 ml @ 80 mls/hr IV . [id number] [facility] Rx#:[id number] Other: Voiding Method Indwelling Catheter Indwelling Catheter Weight 69.853 kg Gen: This is an 86-year-old male. He appears to be slightly uncomfortable due to abdominal cramping. HEENT: Head is atraumatic, normocephalic. Pupils equal, round. Sclerae is anicteric. Oral mucous membranes are slightly dry. NECK: Supple. No JVD. No lymphadenopathy. No thyromegaly. LUNGS: Clear to auscultation. No wheezes or rhonchi. No intercostal retractions. HEART: Regular rate and rhythm. No murmur. ABDOMEN: Soft. Bowel sounds are present. No masses. Mild generalized tenderness. Henderson catheter in place. EXTREMITIES: 3+ pedal edema. Dorsalis pedis is weak bilaterally. NEUROLOGICAL: Patient is awake, alert and oriented x3. Cranial nerves 2 through 12 are grossly intact. Results Results: Laboratory Results WBC 13.3 k/uL (3.8-10.6) H 05/27/16 17:12 RBC 4.69 m/uL (4.30-5.90) 05/27/16 17:12 Hgb 13.9 gm/dL (13.0-17.5) 05/27/16 17:12 Hct 46.4 % (39.0-53.0) 05/27/16 17:12 MCV 99.0 fL (80.0-100.0) 05/27/16 17:12 MCH 29.7 pg (25.0-35.0) 05/27/16 17:12 MCHC 30.0 g/dL (31.0-37.0) L 05/27/16 17:12 RDW 14.8 % (11.5-15.5) 05/27/16 17:12 Plt Count 295 k/uL (150-450) 05/27/16 17:12 Neutrophils % 81 % 05/27/16 17:12 Lymphocytes % 11 % 05/27/16 17:12 Monocytes % 5 % 05/27/16 17:12 Eosinophils % 1 % 05/27/16 17:12 Basophils % 0 % 05/27/16 17:12 Neutrophils # 10.9 k/uL (1.3-7.7) H 05/27/16 17:12 Lymphocytes # 1.4 k/uL (1.0-4.8) 05/27/16 17:12 Monocytes # 0.6 k/uL (0-1.0) 05/27/16 17:12 Eosinophils # 0.2 k/uL (0-0.7) 05/27/16 17:12 Basophils # 0.1 k/uL (0-0.2) 05/27/16 17:12 Hypochromasia Marked 05/27/16 17:12 Sodium 146 mmol/L (137-145) H 05/27/16 17:12 Potassium 4.7 mmol/L (3.5-5.1) 05/27/16 17:12 Chloride 110 mmol/L (98-107) H 05/27/16 17:12 Carbon Dioxide 23 mmol/L (22-30) 05/27/16 17:12 Anion Gap 13 mmol/L 05/27/16 17:12 BUN 36 mg/dL (9-20) H 05/27/16 17:12 Creatinine 0.80 mg/dL (0.66-1.25) 05/27/16 17:12 Est GFR (MDRD) Af Amer >60 (>60 ml/min/1.73 sqM) 05/27/16 17:12 Est GFR (MDRD) Non-Af >60 (>60 ml/min/1.73 sqM) 05/27/16 17:12 Glucose 67 mg/dL (74-99) L 05/27/16 17:12 Calcium 9.4 mg/dL (8.4-10.2) 05/27/16 17:12 Magnesium 1.9 mg/dL (1.6-2.3) 05/27/16 17:12 Total Bilirubin 1.0 mg/dL (0.2-1.3) 05/27/16 17:12 AST 33 U/L (17-59) 05/27/16 17:12 ALT 33 U/L (21-72) 05/27/16 17:12 Alkaline Phosphatase 109 U/L (38-126) 05/27/16 17:12 Total Protein 6.5 g/dL (6.3-8.2) 05/27/16 17:12 Albumin 3.1 g/dL (3.5-5.0) L 05/27/16 17:12 Amylase 37 U/L (30-110) 05/27/16 17:12 Lipase 19 U/L (23-300) L 05/27/16 17:12 Urine Color Yellow 05/27/16 18:37 Urine Appearance Cloudy (Clear) 05/27/16 18:37 Urine pH 5.0 (5.0-8.0) 05/27/16 18:37 Ur Specific [place] 1.018 (1.001-1.035) 05/27/16 18:37 Urine Protein Trace (Negative) H 05/27/16 18:37 Urine Glucose (UA) Negative (Negative) 05/27/16 18:37 Urine Ketones Negative (Negative) 05/27/16 18:37 Urine Blood Trace (Negative) H 05/27/16 18:37 Urine Nitrate Negative (Negative) 05/27/16 18:37 Urine Bilirubin Negative (Negative) 01/23/17 18:37 Urine Urobilinogen <2.0 mg/dL (<2.0) 05/27/16 18:37 Ur Leukocyte Esterase Large (Negative) H 05/27/16 18:37 Urine RBC 16 /hpf (0-5) H 05/27/16 18:37 Urine WBC 109 /hpf (0-5) H 05/27/16 18:37 Urine WBC Clumps Few /hpf (None) H 05/27/16 18:37 Calcium Oxalate Crystal Occasional /hpf (None) H 05/27/16 18:37 Urine Bacteria Occasional /hpf (None) H 05/27/16 18:37 Hyaline Casts 4 /lpf (0-2) H 05/27/16 18:37 Urine Mucus Rare /hpf (None) H 05/27/16 18:37 Stool Occult Blood Negative (Negative) 05/27/16 19:14 C. difficile (EIA) Intrp Positive (Negative) 05/27/16 19:14 CBC & Chem 7: 05/27/16 17:12 05/27/16 17:12 Assessment and Plan Plan: This is an 86-year-old male who presented to the hospital with C. difficile colitis after treatment for catheter associated urinary tract infection with history of urinary retention secondary to enlarged prostate. He has been started on Flagyl which will be changed to vancomycin orally. We will also add and Questran and lactobacillus. Patient will not eat yogurt. Urine cultures previously done were Enterococcus faecalis on May 24 and Proteus mirabilis on May 13. Continue supportive care. Further recommendations as patient progresses. The above dictated assessment and findings were discussed with Dr. Wei. The impression and plan of care have been directed as dictated. Do Almanza nurse practitioner acting as scribe for Dr. Wei. Time with Patient: Greater than 30
[2016-05-28] MEDS: HYDROCORTISONE SUCCINATE 100 MG/2 ML VIAL IV SCH ×2 (15:06→21:49)
[2016-05-28] MEDS: VANCOMYCIN ORAL SOLUTION 250 MG/5 ML BOTTLE PO SCH ×3 (15:13→23:35)
[2016-05-28] MEDS: RIVAROXABAN 10 MG TAB PO SCH (15:15)
[2016-05-28] MEDS: TAMSULOSIN 0.4 MG CAP.ER.24H PO SCH (15:15)
[2016-05-28] MEDS: LIDOCAINE 5% PATCH TOPICAL SCH (15:18)
--- NOTE | 2016-05-28 17:46 | HP ---
DATE OF ADMISSION: 05/27/2016 PRESENTING COMPLAINT: Diarrhea. HISTORY OF PRESENTING COMPLAINT: This is very pleasant 86-year-old patient of Dr. Mcdaniels. Patient has a rather extensive medical history. Patient was here in the hospital in February 17. Patient's chronic stable medical conditions include GERD, hyperlipidemia, osteoarthritis, and benign prostatic hypertrophy, chronic bilateral foot drop and COPD. Patient recently about a month ago was diagnosed to have right popliteal DVT for which he is on Xarelto. Also the patient has been diagnosed to have a corkscrew esophagus, which results in him vomiting things up. Patient had diarrhea for about a week, multiple times a day. No blood, abdominal pain, nausea. Feels weak, tired and rundown. Stool had come back positive for Clostridium difficile and patient admitted for the same. REVIEW OF SYSTEMS: CONSTITUTIONAL: Weak and tired. HEENT: None. RESPIRATORY: None. CARDIOVASCULAR: None. GASTROINTESTINAL: As above. GENITOURINARY: Denies urine output. DERMATOLOGICAL: None. HEMATOLOGIC: None. LYMPHATICS: None. PSYCHIATRY: None. NEUROLOGICAL: None. Past medical history of right foot DVT recently on Xarelto, GERD, hyperlipidemia, osteoarthritis, benign prostatic hypertrophy, enlarged prostate, 7 crushed vertebrae with back pain from patient squatting, bilateral foot drop, hiatal hernia. PAST SURGICAL HISTORY: ( ) 10/18, laparoscopic Екатерина fundoplasty, hydrocele repair, epidural injection by Dr. Mcclure, skin cancer removed, several bronchoscopies. SOCIAL HISTORY: The patient smokes 60-years of pipe, cigars, cigarettes, quite in 2003. . FAMILY HISTORY: Cancer, type unknown. HOME MEDICATIONS: 1. Prednisone 20 mg p.o. daily. 2. Xarelto 200 mg p.o. daily. 3. Zofran 4 mg q.8 p.r.n. 4. Multivitamin 1 tablet p.o. daily. 5. Singulair 10 mg p.o. q.h.s. 6. Remeron 50 mg p.o. q.h.s. 7. Lovastatin 20 mg q.h.s. 8. Lidocaine 5% patch daily. 9. [place] 10, 1 tablet q.6 p.r.n. 10. Lasix 20 mg p.o. daily. 11. Proscar 5 mg q.h.s. 12. Iron 355 p.o. q.h.s. 13. TriCor 145 p.o. q.h.s. 14. Nexium 40 mg p.o. daily. 15. Flexeril 5 mg p.o. q.6 p.r.n. 16. Uroxatral ER 10 mg p.o. daily. ALLERGIES: ADHESIVE AND CHICKEN ( ). PHYSICAL EXAMINATION: Vital signs on presentation: Temperature 97.4, pulse 77, respiration 18, blood pressure 110/61, pulse ox 95% on room air. GENERAL APPEARANCE: A thin build, sitting up, tired appearing. EYES: Pupils equal. Conjunctivae pale. HEENT: Oral cavity with dry mucous membrane. NECK: JVD not raised. Mass not palpable. RESPIRATORY: Effort normal. LUNGS: Diminished breath sounds. CARDIOVASCULAR: First and second sounds normal. No edema. ABDOMEN: Soft, mild diffuse tenderness. Liver and spleen not palpable. LYMPHATIC: No lymph node palpable in the neck or axillae. PSYCHIATRY: Alert and oriented x3. Mood and affect normal. MUSCULOSKELETAL: Evidence of osteoarthritis. NEUROLOGICAL: Bilateral foot drop. INVESTIGATIONS: White count 13.3, hemoglobin 13.9, platelets 295. Potassium 4.7. BUN 36, creatinine 0.80, glucose 67. UA positive for leukocyte esterase and WBC. Stool positive for C. difficile. ASSESSMENT: 1. Acute Clostridium difficile colitis. 2. Acute urinary tract infection. 3. Protein calorie malnutrition mild from decreased oral intake. The patient has been having diarrhea for about a week. Also patient has corkscrew esophagus. 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 5. Hypoglycemia with decreased oral intake. 6. Hypernatremia from free water deficit. 7. Chronic gastroesophageal reflux disease. 8. Hyperlipidemia. 9. Primary osteoarthritis of multiple joints, bilateral. 10. Benign prostatic hypertrophy. 11. Chronic bilateral foot drop. 12. Chronic obstructive pulmonary disease in an ex-smoker. PLAN: The patient is started on Flagyl. We will start the patient's home medications including Xarelto and put the patient on stress dose of steroids. Care was discussed with the patient's at the bedside. Questions were answered.
[2016-05-28] MEDS ORDERED: LEVOFLOXACIN 500MG-D5W PMX 500 MG in DEXTROSE/WATER 1 100ML.BAG IVPB SCH (20:15)
[2016-05-28] MEDS: MIRTAZAPINE 15 MG TAB PO SCH (21:48)
[2016-05-28] MEDS: MONTELUKAST 10 MG TAB PO SCH (21:48)
[2016-05-28] MEDS: FINASTERIDE 5 MG TAB PO SCH (21:48)
--- NOTE | 2016-05-28 22:14 | P.CON ---
Consult Note - . Consult date: 05/28/16 Assessment/Plan:: This is an 86-year-old male. He gives history that he has had ongoing problems with enlarged prostate and has a chronic Henderson catheter in place under the care of Dr. Encarnacion. He states he needs to have surgery on his prostate but because of ongoing problems with urinary infections this is been delayed. He is recently been on Cipro a few weeks ago and most recently on Keflex. He presented to [facility] emergency center due to abdominal pain, nausea, vomiting, diarrhea. He states the diarrhea started when he started his second day of Keflex approximately one week ago. He states the diarrhea has been as frequent as every 10-15 minutes and currently is at every 1 hour. He denies having any fever or chills. He states he had some vomiting for 3-4 days which is subsequently stopped. Patient was found to have leukocytosis at 13.3, GFR greater than 60. Urinalysis was leukoesterase large, WBC 109, bacteria occasional. C. difficile toxin was positive. Stool WBC negative. Occult blood in stool was negative. Please see the consult note as dictated by OTOLARYNGOLOGY SURGEON Abimael Almanza. Pleasant 86-year-old retired relates that he had the sudden onset of significant abdominal pain associated with frequent loose bowel movements. There were not grossly bloody. He also had some nausea with emesis. Because he felt so poorly eventually came to Hospital as noted was on evidence of C. difficile colitis. For antibiotic therapy given his age vancomycin will be utilized. Continue supportive care. Probiotic therapy. Questran to improve the quality of his stool. Pain management as needed. Protein supplements as possible. He will be monitored. I agree with evaluation, assessment and plan as dictated by nurse practitioner Mrs. keven Almanza.
[2016-05-29] MEDS: HYDROCORTISONE SUCCINATE 100 MG/2 ML VIAL IV SCH ×3 (05:20→20:54)
[2016-05-29] MEDS: VANCOMYCIN ORAL SOLUTION 250 MG/5 ML BOTTLE PO SCH ×3 (05:20→17:42)
[2016-05-29] MEDS: LACTOBACILLUS ACIDOPH & BULGAR 1 EACH PACKET PO SCH ×3 (07:52→21:00)
[2016-05-29] MEDS: CHOLESTYRAMINE (WITH SUGAR) 4 GM PACKET PO SCH ×3 (07:52→21:00)
[2016-05-29] MEDS: RIVAROXABAN 10 MG TAB PO SCH (07:52)
[2016-05-29] MEDS: LIDOCAINE 5% PATCH TOPICAL SCH (07:52)
[2016-05-29] MEDS: TAMSULOSIN 0.4 MG CAP.ER.24H PO SCH (07:53)
[2016-05-29 07:58] LABS: Basophils % (A) 0 %; CH 29.3; CHCM 30.5; Eosinophils % (A) 0 %; HDW 2.39; Hypochromasia Moderate; Luc # (Auto) 0.05; Luc % (Auto) 1; Lymphocytes # (A) 0.6 k/uL (1.0-4.8); Lymphocytes % (A) 6 %; MCH 29.8 pg (25.0-35.0); MCHC 30.8 g/dL (31.0-37.0); MCV 96.6 fL (80.0-100.0); Mean Platelet Volume 6.9; Monocytes # (A) 0.3 k/uL (0-1.0); Monocytes % (A) 3 %; Neutrophils # (A) 10.2 k/uL (1.3-7.7); Neutrophils % (A) 91 %; RBC 4.04 m/uL (4.30-5.90); WBC 11.2 k/uL (3.8-10.6)
[2016-05-29 08:22] LABS: Anion Gap 9 mmol/L; Blood Urea Nitrogen 19 mg/dL (9-20); Calcium 8.4 mg/dL (8.4-10.2); Carbon Dioxide 24 mmol/L (22-30); Chloride 111 mmol/L (98-107); Glucose 110 mg/dL (74-99); Non-African American GFR(MDRD) >60 (>60 ml/min/1.73 sqM); Potassium 4.1 mmol/L (3.5-5.1); Sodium 144 mmol/L (137-145)
[2016-05-29] MEDS: HYDROcodone/APAP 10-325MG 1 EACH TAB PO PRN ×2 (11:27→20:52)
[2016-05-29] MEDS: SODIUM CHLORIDE 0.9% 1,000 ML IV SCH ×2 (15:42→21:00)
[2016-05-29 19:32] VITALS: RESP 16
[2016-05-29] MEDS: MONTELUKAST 10 MG TAB PO SCH (20:53)
[2016-05-29] MEDS: FINASTERIDE 5 MG TAB PO SCH (20:53)
[2016-05-29] MEDS: MIRTAZAPINE 15 MG TAB PO SCH (20:53)
[2016-05-30] MEDS: VANCOMYCIN ORAL SOLUTION 250 MG/5 ML BOTTLE PO SCH ×3 (01:50→12:04)
[2016-05-30] MEDS: HYDROcodone/APAP 10-325MG 1 EACH TAB PO PRN ×2 (02:39→07:49)
[2016-05-30] MEDS: HYDROCORTISONE SUCCINATE 100 MG/2 ML VIAL IV SCH ×2 (06:14→12:05)
[2016-05-30] MEDS: CHOLESTYRAMINE (WITH SUGAR) 4 GM PACKET PO SCH (08:55)
[2016-05-30] MEDS: LIDOCAINE 5% PATCH TOPICAL SCH ×2 (08:55→12:08)
[2016-05-30] MEDS: LACTOBACILLUS ACIDOPH & BULGAR 1 EACH PACKET PO SCH (08:55)
[2016-05-30] MEDS: RIVAROXABAN 10 MG TAB PO SCH (08:57)
[2016-05-30] MEDS: TAMSULOSIN 0.4 MG CAP.ER.24H PO SCH (08:57)
[2016-05-30] MEDS: SODIUM CHLORIDE 0.9% 1,000 ML IV SCH (11:58)
--- NOTE | 2016-05-30 12:30 | P.GSHP ---
History of Present Illness H&P Date: 05/30/16 Chief Complaint: Dysphagia Is a 86-year-old male well-known to myself. Patient is been admitted to the hospital for treatment of C. diff colitis. He has complaints of dysphagia. He is known to have a corkscrew esophagus. Past Medical History Past Medical History: Deep Vein Thrombosis (DVT), GERD/Reflux, Hyperlipidemia, Musculoskeletal Disorder, Pneumonia, Prostate Disorder, Renal Disease Additional Past Medical History / Comment(s): Recent pneumonia, CYSTS ON KIDNEYS , ENLARGED PROSTATE, 7 crushed vertebrae, BACK PAIN FROM PINCHED NERVES IN BACK - drop foot sharif feet, wears orthotics, hx kidney stones, dx hiatal hernia History of Any Multi-Drug Resistant Organisms: None Reported Additional Past Surgical History / Comment(s): 02/08/16 laparoscopic christopher fundoplasty. Other surgical hx: Hydrocele repair, EGD (2007). EPIDURAL STEROID INJECTIONS WITH DR. DIAZ. EGD 01/2016, skin cancer removals.SEVERAL BRONCHOSCOPIES,SEBACEOUS CYST ON BACK REMOVED Past Anesthesia/Blood Transfusion Reactions: No Reported Reaction Past Psychological History: No Psychological Hx Reported Smoking Status: Former smoker Past Alcohol Use History: None Reported Additional Past Alcohol Use History / Comment(s): smoked 60 years-pipe/cigars/ cigarettes- quit 2003. He denies any medical marijuana, marijuana, street drug or alcohol use. He lives at home with his . Past Drug Use History: None Reported - Past Family History Brother(s) Family Medical History: Cancer Additional Family Medical History / Comment(s): lung cancer Father Additional Family Medical History / Comment(s): FROM RESP FAILURE AT AGE 91 Mother Family Medical History: Cancer Additional Family Medical History / Comment(s): UNK TYPE Medications and Allergies Home Medications Medication Instructions Recorded Confirmed Type Alfuzosin HCl [Uroxatral ER] 10 mg PO QAM 11/11/14 05/27/16 History Finasteride [Proscar] 5 mg PO HS 11/11/14 05/27/16 History Multivitamins, Thera [Multivitamin] 1 tab PO DAILY 11/11/14 05/27/16 History Fenofibrate Nanocrystallized 145 mg PO HS 02/09/16 05/27/16 History [Tricor] Lovastatin 20 mg PO HS 02/09/16 05/27/16 History Ferrous Sulfate [Feosol] 325 mg PO HS 03/22/16 05/27/16 History Glucosamine Sulfate 500 mg PO DAILY 03/22/16 05/27/16 History Docusate [Colace] 100 mg PO BID 04/11/16 05/27/16 History Esomeprazole Magnesium [NexIUM] 40 mg PO DAILY 04/11/16 05/27/16 History Furosemide [Lasix] 20 mg PO DAILY 04/11/16 05/27/16 History Montelukast [Singulair] 10 mg PO HS 04/11/16 05/27/16 History Rivaroxaban [Xarelto] 20 mg PO DAILY 04/11/16 05/27/16 History predniSONE 20 mg PO DAILY 05/13/16 05/27/16 History Cyclobenzaprine [Flexeril] 5 mg PO Q6H PRN 05/24/16 05/27/16 History HYDROcodone/APAP 10-325MG [[place] 1 tab PO Q4H PRN 05/24/16 05/27/16 History 10-325] Lidocaine 5% Patch [Lidoderm] 1 patch TRANSDERM DAILY 05/27/16 05/27/16 History Mirtazapine [Remeron] 15 mg PO HS 05/27/16 05/27/16 History Allergies Allergy/AdvReac Type Severity Reaction Status Date / Time adhesive tape AdvReac tears skin Verified 05/27/16 16:05 chicken derived [Chicken] AdvReac Nausea & Verified 05/27/16 16:05 Vomiting & Diarrhea Surgical - Exam Vital Signs Temp Pulse Resp BP Pulse Ox 98.2 F 83 18 108/55 96 05/27/16 12:33 05/27/16 12:33 05/27/16 12:33 05/27/16 12:33 05/27/16 12:33 - General well developed, no distress - Eyes PERRL - ENT normal pinna - Neck no masses - Respiratory normal expansion - Cardiovascular Rhythm: regular - Abdomen Abdomen: soft, non tender Results - Labs 05/29/16 07:40 05/29/16 07:40 Assessment and Plan Plan: Dysphagia. Corkscrew esophagus. Patient will be discharged home today. We will plan for EGD next week as an outpatient.
[2016-05-30 15:20] VITALS: BP 138/77; PULSE 77; TEMP 96.7
--- NOTE | 2016-05-30 15:47 | PN ---
DATE OF SERVICE: 05/29/2016 PRESENTING COMPLAINT: Diarrhea. INTERVAL HISTORY: This patient was seen by me yesterday on 05/29/2016 morning. I am doing the dictation today. Patient admitted with C. difficile colitis. Actually the diarrhea has gotten much better. Abdominal pain is better. No nausea, vomiting. Patient is requesting diet to be advanced. Review of systems done for constitutional, cardiovascular, GI, pulmonary; relevant findings as above. Current medications are reviewed that include oral vancomycin. On examination, temperature 97.2, pulse 97, respirations 16, blood pressure 110/59, pulse ox 93% on room air. GENERAL APPEARANCE: Lying in bed, comfortable. EYES: Pupils equal. Conjunctivae normal. NECK: JVD not raised. RESPIRATORY: Effort normal. LUNGS: Decreased breath sounds. CARDIOVASCULAR: First and second sounds normal. No edema. ABDOMEN: Soft, nontender. PSYCHIATRY: Alert and oriented x3. Mood and affect normal. INVESTIGATIONS: White count 11.2. Potassium 4.1, BUN and creatinine normal. ASSESSMENT: 1. Acute Clostridium difficile colitis with clinical response. 2. Acute urinary tract infection. 3. Protein calorie malnutrition, mild, from decreased oral intake. 4. 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 Vilchis. 5. Hypoglycemia from decreased oral intake. 6. Hypernatremia from free water deficit improved. 7. Chronic gastroesophageal reflux disease. 8. Hyperlipidemia. 9. Primary osteoarthritis, multiple joints, bilateral. 10. Benign prostatic hypertrophy. 11. Chronic bilateral foot drop. 12. Chronic obstructive pulmonary disease in an ex-smoker. PLAN: Care was discussed with the patient. Diet will be advanced. We will have patient follow up with Dr. Vilchis as an outpatient who he was scheduled to see. Encouraged to be out of bed.
[2016-05-30] MEDS ORDERED: HYDROCORTISONE SUCCINATE 100 MG/2 ML VIAL IV SCH (17:00)
--- NOTE | 2016-05-30 21:53 | P.PN ---
Subjective Principal diagnosis: Diarrhea This is an 86-year-old male. He gives history that he has had ongoing problems with enlarged prostate and has a chronic Henderson catheter in place under the care of Dr. Encarnacion. He states he needs to have surgery on his prostate but because of ongoing problems with urinary infections this is been delayed. He is recently been on Cipro a few weeks ago and most recently on Keflex. He presented to [facility] emergency center due to abdominal pain, nausea, vomiting, diarrhea. He states the diarrhea started when he started his second day of Keflex approximately one week ago. He states the diarrhea has been as frequent as every 10-15 minutes and currently is at every 1 hour. He denies having any fever or chills. He states he had some vomiting for 3-4 days which is subsequently stopped. Patient was found to have leukocytosis at 13.3, GFR greater than 60. Urinalysis was leukoesterase large, WBC 109, bacteria occasional. C. difficile toxin was positive. Patient was placed on therapy with vancomycin oral liquid. He has not had a marked improvement of his diarrhea. He only had 3 stools yesterday that were mostly with 4 material. No abdominal pain. Is getting ready for discharge to home. Objective - Vital Signs Vital signs: Vital Signs Temp 96.7 F L 05/30/16 15:00 Pulse 77 05/30/16 15:00 Resp 16 05/30/16 15:00 BP 138/77 05/30/16 15:00 Pulse Ox 93 L 05/30/16 15:00 Intake & Output 05/30/16 05/30/16 05/31/16 06:59 18:59 06:59 Intake Total 960 360 Output Total 100 1747 Balance 860 -1387 Intake: IV 960 Sodium Chloride 0.9% 1, 960 000 ml @ 80 mls/hr IV . [id number] [facility] Rx#:[id number] Oral 360 Output: Urine 100 1050 Uretheral(Henderson) 100 600 Post Void Residual 697 Other: Voiding Method Indwelling Catheter Indwelling Catheter # Voids 1 560 # Bowel Movements 1 - Exam Gen: This is an 86-year-old male. He appears to be slightly uncomfortable due to abdominal cramping. HEENT: Head is atraumatic, normocephalic. Pupils equal, round. Sclerae is anicteric. Oral mucous membranes are slightly dry. NECK: Supple. No JVD. No lymphadenopathy. No thyromegaly. LUNGS: Clear to auscultation. No wheezes or rhonchi. No intercostal retractions. HEART: Regular rate and rhythm. No murmur. ABDOMEN: Soft. Bowel sounds are present. No masses. Is only minimal left lower quadrant tenderness on deep palpation otherwise is improved on exam. Henderson catheter in place. EXTREMITIES: 3+ pedal edema. Dorsalis pedis is weak bilaterally. NEUROLOGICAL: Patient is awake, alert and oriented x3. - Labs CBC & Chem 7: 05/29/16 07:40 05/29/16 07:40 Labs: Laboratory Results WBC 11.2 k/uL (3.8-10.6) H 05/29/16 07:40 RBC 4.04 m/uL (4.30-5.90) L 05/29/16 07:40 Hgb 12.0 gm/dL (13.0-17.5) L 05/29/16 07:40 Hct 39.0 % (39.0-53.0) 05/29/16 07:40 MCV 96.6 fL (80.0-100.0) 05/29/16 07:40 MCH 29.8 pg (25.0-35.0) 05/29/16 07:40 MCHC 30.8 g/dL (31.0-37.0) L 05/29/16 07:40 RDW 15.0 % (11.5-15.5) 05/29/16 07:40 Plt Count 296 k/uL (150-450) 05/29/16 07:40 Neutrophils % 91 % 05/29/16 07:40 Lymphocytes % 6 % 05/29/16 07:40 Monocytes % 3 % 05/29/16 07:40 Eosinophils % 0 % 05/29/16 07:40 Basophils % 0 % 05/29/16 07:40 Neutrophils # 10.2 k/uL (1.3-7.7) H 05/29/16 07:40 Lymphocytes # 0.6 k/uL (1.0-4.8) L 05/29/16 07:40 Monocytes # 0.3 k/uL (0-1.0) 05/29/16 07:40 Eosinophils # 0.0 k/uL (0-0.7) 05/29/16 07:40 Basophils # 0.0 k/uL (0-0.2) 05/29/16 07:40 Hypochromasia Moderate 05/29/16 07:40 Sodium 144 mmol/L (137-145) 05/29/16 07:40 Potassium 4.1 mmol/L (3.5-5.1) 05/29/16 07:40 Chloride 111 mmol/L (98-107) H 05/29/16 07:40 Carbon Dioxide 24 mmol/L (22-30) 05/29/16 07:40 Anion Gap 9 mmol/L 05/29/16 07:40 BUN 19 mg/dL (9-20) 05/29/16 07:40 Creatinine 0.76 mg/dL (0.66-1.25) 05/29/16 07:40 Est GFR (MDRD) Af Amer >60 (>60 ml/min/1.73 sqM) 05/29/16 07:40 Est GFR (MDRD) Non-Af >60 (>60 ml/min/1.73 sqM) 05/29/16 07:40 Glucose 110 mg/dL (74-99) H 05/29/16 07:40 Calcium 8.4 mg/dL (8.4-10.2) 05/29/16 07:40 Magnesium 1.9 mg/dL (1.6-2.3) 05/27/16 17:12 Total Bilirubin 1.0 mg/dL (0.2-1.3) 05/27/16 17:12 AST 33 U/L (17-59) 05/27/16 17:12 ALT 33 U/L (21-72) 05/27/16 17:12 Alkaline Phosphatase 109 U/L (38-126) 05/27/16 17:12 Total Protein 6.5 g/dL (6.3-8.2) 05/27/16 17:12 Albumin 3.1 g/dL (3.5-5.0) L 05/27/16 17:12 Amylase 37 U/L (30-110) 05/27/16 17:12 Lipase 19 U/L (23-300) L 05/27/16 17:12 Urine Color Yellow 05/27/16 18:37 Urine Appearance Cloudy (Clear) 05/27/16 18:37 Urine pH 5.0 (5.0-8.0) 05/27/16 18:37 Ur Specific [place] 1.018 (1.001-1.035) 05/27/16 18:37 Urine Protein Trace (Negative) H 05/27/16 18:37 Urine Glucose (UA) Negative (Negative) 05/27/16 18:37 Urine Ketones Negative (Negative) 05/27/16 18:37 Urine Blood Trace (Negative) H 05/27/16 18:37 Urine Nitrate Negative (Negative) 05/27/16 18:37 Urine Bilirubin Negative (Negative) 05/27/16 18:37 Urine Urobilinogen <2.0 mg/dL (<2.0) 05/27/16 18:37 Ur Leukocyte Esterase Large (Negative) H 05/27/16 18:37 Urine RBC 16 /hpf (0-5) H 05/27/16 18:37 Urine WBC 109 /hpf (0-5) H 05/27/16 18:37 Urine WBC Clumps Few /hpf (None) H 05/27/16 18:37 Calcium Oxalate Crystal Occasional /hpf (None) H 05/27/16 18:37 Urine Bacteria Occasional /hpf (None) H 05/27/16 18:37 Hyaline Casts 4 /lpf (0-2) H 05/27/16 18:37 Urine Mucus Rare /hpf (None) H 05/27/16 18:37 Stool Occult Blood Negative (Negative) 05/27/16 19:14 C. difficile (EIA) Intrp Positive (Negative) 05/27/16 19:14 Microbiology 05/27/16 19:14 Stool Stool for WBCs - Final Assessment and Plan (1) C. difficile diarrhea Narrative/Plan: Pleasant 86-year-old male presented difficulties with urinary tract infections. Presents to Hospital with significant diarrhea. On evidence of C. difficile positive status. Therapy was initiated with vancomycin therapy. He is now markedly improved. 3 stools a day. His is present. The case is discussed with the patient and his . She is ready to take him home today. He will complete 7 days of oral vancomycin therapy in the home setting. May follow-up with infectious disease and have patient setting is any further issues. We discussed that C. diff may recur after treatment. Status: Acute
--- NOTE | 2016-05-31 09:02 | DS ---
DATE OF ADMISSION: 05/27/2016 DATE OF DISCHARGE: 05/30/2016 FINAL DIAGNOSES: 1. Acute Clostridium difficile colitis present on admission. 2. Acute urinary tract infection. 3. Protein calorie malnutrition mild from decreased oral intake. 4. 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 Vilchis. 5. Hypoglycemia from decreased oral intake on presentation. 6. Hypernatremia from free water deficit, improved. 7. Chronic gastroesophageal reflux disease. 8. Hyperlipidemia. 9. Primary osteoarthritis in multiple joints, bilateral. 10. Benign prostatic hypertrophy. 11. Chronic bilateral foot drop. 12. Chronic obstructive pulmonary disease in an ex-smoker. HOSPITAL COURSE: This patient presented with C. difficile colitis. Responded well to vancomycin. Diarrhea had settled down. By the time of discharge having formed stools. Tolerating a diet. Patient has been diagnosed to have presbyesophagus with occasional throwing up his food. Patient to follow with Dr. Vilchis as an outpatient. On day of discharge, care was discussed with the patient and his . Questions were answered. On exam, abdomen soft, nontender. 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 CONSULTATION: 1. Dr. Wei from Infectious Disease. 2. Dr. Vilchis from General Surgery. DISCHARGE MEDICATIONS: 1. Uroxatral ER 10 mg p.o. daily. 2. Proscar 5 mg p.o. q.h.s. 3. Multivitamin 1 tablet p.o. daily. 4. TriCor 145 mg p.o. q.h.s. 5. Lovastatin 20 mg q.h.s. 6. Glucosamine 500 mg p.o. daily. 7. Nexium 40 mg p.o. daily. 8. Singulair 10 mg p.o. q.h.s. 9. Xarelto 20 mg p.o. daily. 10. Prednisone 20 mg daily. 11. Flexeril 500 mg p.o. q.6 p.r.n. 12. [place] 10, 1 tablet q.4 p.r.n. 13. Zofran 4 mg p.o. q.8 p.r.n. 14. Lidoderm patch 1 patch topical daily. 15. Remeron 50 mg p.o. q.h.s. 16. Lactinex 1 tablet p.o. t.i.d. 17. Vancomycin 250 mg p.o. q.6 for 7 days. DIET: Soft, bland. Follow with Dr. Mcdaniels in one week; follow with Dr. Vilchis in one week. Discharge planning more than 35 minutes. On examination, LUNGS: Clear. CARDIOVASCULAR: First and second sounds are normal. ABDOMEN: Soft, nontender.
== END 2016-05-30 18:25 | disposition home health service (06) | DRG 372 ==
LOC: EC 11:41 → 3SUR 20:14
PROVIDERS: ADMIT Hospitalist; ATTEND Hospitalist
DX: A04.7 Enterocolitis due to Clostridium difficile (principal); E44.1 Mild protein-calorie malnutrition; E87.0 Hyperosmolality and hypernatremia; N39.0 Urinary tract infection, site not specified; J44.9 Chronic obstructive pulmonary disease, unspecified; R13.10 Dysphagia, unspecified; E16.2 Hypoglycemia, unspecified; E78.5 Hyperlipidemia, unspecified; K21.9 Gastro-esophageal reflux disease without esophagitis; K22.4 Dyskinesia of esophagus; M15.9 Polyosteoarthritis, unspecified; M21.371 Foot drop, right foot; M21.372 Foot drop, left foot; N40.0 Benign prostatic hyperplasia without lower urinary tract symptoms; K44.9 Diaphragmatic hernia without obstruction or gangrene; N28.1 Cyst of kidney, acquired; Z68.22 Body mass index [BMI] 22.0-22.9, adult; Z79.01 Long term (current) use of anticoagulants; Z79.52 Long term (current) use of systemic steroids; Z79.899 Other long term (current) drug therapy; Z85.828 Personal history of other malignant neoplasm of skin; Z87.891 Personal history of nicotine dependence
CPT/HCPCS: 36415; 74000; 80048; 80053; 80299; 81001; 82150; 82272; 83690; 83735; 85025; 87324; 89055; 96361; 96374; 96375; 99285

== ENCOUNTER 2016-06-03 07:33 | Day surgery (SDC) | payer MEDICARE, OTHER ==
[2016-05-31 13:36] VITALS: BMI 22.9
[~2016-06-03 07:33] MED LIST: LACTATED RINGERS 1,000 ML IV SCH
[2016-06-03 08:17] VITALS: RESP 18; TEMP 97.8
[2016-06-03] MEDS ORDERED: LIDOCAINE 1% 20 ML VIAL (10MG/ML) FOR IV START INTRADERMA ONE (08:19)
[2016-06-03] MEDS ORDERED: LIDOCAINE 1% INJ 10MG/ML (20 ML MDV) ONE (08:32)
[2016-06-03] MEDS ORDERED: PROPOFOL 10 MG/ML 20 ML VIAL IV ONE (08:32)
--- NOTE | 2016-06-03 08:37 | P.GSHP ---
History of Present Illness H&P Date: 06/03/16 Chief Complaint: Dysphagia This 86-year-old male who presents today for EGD. He's had trouble with dysphagia. Patient is known to have a corkscrew esophagus Past Medical History Past Medical History: Deep Vein Thrombosis (DVT), GERD/Reflux, Hyperlipidemia, Musculoskeletal Disorder, Pneumonia, Prostate Disorder, Renal Disease Additional Past Medical History / Comment(s): ENLARGED PROSTATE, 7 crushed vertebrae, BACK PAIN FROM PINCHED NERVES IN BACK- drop foot sharif feet, HAS A IDC- JONES History of Any Multi-Drug Resistant Organisms: None Reported Additional Past Surgical History / Comment(s): 02/08/16 laparoscopic christopher fundoplasty. Other surgical hx: Hydrocele repair, EGD (2007). EPIDURAL STEROID INJECTIONS WITH DR. DIAZ. skin cancer -LESIONS SEVERAL BRONCHOSCOPIES,SEBACEOUS CYST ON BACK REMOVED Past Anesthesia/Blood Transfusion Reactions: No Reported Reaction Past Psychological History: No Psychological Hx Reported Smoking Status: Former smoker Past Alcohol Use History: None Reported Additional Past Alcohol Use History / Comment(s): STARTED SMOKING AT AGE 16 QUIT 2006 SMOKED 1PPD Past Drug Use History: None Reported - Past Family History Brother(s) Family Medical History: Cancer Additional Family Medical History / Comment(s): COLON CANCER Father Family Medical History: Cancer Additional Family Medical History / Comment(s): FROM RESP FAILURE AT AGE 91 Sister(s) Family Medical History: Cancer Additional Family Medical History / Comment(s): LUNG CANCER Mother Family Medical History: Cancer Additional Family Medical History / Comment(s): COLON CANCER Medications and Allergies Home Medications Medication Instructions Recorded Confirmed Type Alfuzosin HCl [Uroxatral ER] 10 mg PO QAM 11/11/14 06/03/16 History Finasteride [Proscar] 5 mg PO HS 11/11/14 05/31/16 History Multivitamins, Thera [Multivitamin] 1 tab PO DAILY 11/11/14 05/31/16 History Fenofibrate Nanocrystallized 145 mg PO HS 02/09/16 06/03/16 History [Tricor] Lovastatin 20 mg PO HS 02/09/16 06/03/16 History Esomeprazole Magnesium [NexIUM] 40 mg PO DAILY 04/11/16 06/03/16 History Montelukast [Singulair] 10 mg PO HS 04/11/16 06/03/16 History Rivaroxaban [Xarelto] 20 mg PO DAILY 04/11/16 06/03/16 History Cyclobenzaprine [Flexeril] 5 mg PO Q6H PRN 05/24/16 06/03/16 History HYDROcodone/APAP 10-325MG [[place] 1 tab PO Q4H PRN 05/24/16 05/31/16 History 10-325] Lidocaine 5% Patch [Lidoderm 5% 1 patch TRANSDERM DAILY 05/27/16 06/03/16 History Patch] Mirtazapine [Remeron] 15 mg PO HS 05/27/16 06/03/16 History Allergies Allergy/AdvReac Type Severity Reaction Status Date / Time adhesive tape AdvReac tears skin Verified 05/31/16 13:22 chicken derived [Chicken] AdvReac Nausea & Verified 05/31/16 13:22 Vomiting & Diarrhea Surgical - Exam Vital Signs Temp Pulse Resp BP Pulse Ox 97.8 F 81 18 113/73 96 06/03/16 08:16 06/03/16 08:16 06/03/16 08:16 06/03/16 08:16 06/03/16 08:16 - General well developed, no distress - Eyes PERRL - ENT normal pinna - Neck no masses - Respiratory normal expansion - Cardiovascular Rhythm: regular - Abdomen Abdomen: soft, non tender Assessment and Plan Plan: Dysphagia. We'll perform EGD.
--- NOTE | 2016-06-03 08:54 | P.OP ---
Date of Procedure: 06/03/16 Preoperative Diagnosis: Dysphagia Postoperative Diagnosis: Omaira esophagitis Dysphagia Procedure(s) Performed: EGD with balloon dilatation Anesthesia: MAC Surgeon: Ruel Vilchis Pathology: other (Esophagus) Condition: stable Disposition: PACU Description of Procedure: The patient's placed on the endoscopy table in the lateral position. He received IV sedation. The gastroscope some placed oropharynx and passed into the esophagus. The esophagus appeared to have a Omaira infection. The scope was then placed level GE junction. The scope was then easily passed into the stomach. The stomach appeared normal. Scope was placed through the pylorus this appeared normal. Scope was withdrawn. Due to the patient's symptoms and dysphagia a 20 mm balloon was placed across the GE junction. This was held in position for 3 minutes. This was done sequentially 3 times. Scope was then withdrawn and there was a large amount of liquid fluid within the esophagus. This was aspirated. A biopsy the esophagus performed. Scope was withdrawn for patient.
[2016-06-03 10:05] VITALS: BP 121/70; PULSE 76
== END 2016-06-03 10:34 | disposition home or self-care (01) ==
LOC: ORWHC2ENDO 07:33
PROVIDERS: ATTEND Surgery
DX: B37.81 Candidal esophagitis (principal); K21.0 Gastro-esophageal reflux disease with esophagitis; E78.5 Hyperlipidemia, unspecified; N40.0 Benign prostatic hyperplasia without lower urinary tract symptoms; I12.9 Hypertensive chronic kidney disease with stage 1 through stage 4 chronic kidney disease, or unspecified chronic kidney disease; N18.9 Chronic kidney disease, unspecified; Z86.718 Personal history of other venous thrombosis and embolism; Z79.01 Long term (current) use of anticoagulants; Z79.891 Long term (current) use of opiate analgesic; Z79.899 Other long term (current) drug therapy; Z87.891 Personal history of nicotine dependence
CPT/HCPCS: 88305; 43239; 43249; J2001; J2704; C1726; 99153

== ENCOUNTER 2016-06-15 07:01 | Inpatient (IN) | payer MEDICARE, OTHER ==
--- NOTE | 2016-06-15 08:15 | ED ---
General Adult HPI - General Source: patient, family, RN notes reviewed Mode of arrival: wheelchair Limitations: no limitations <Jenaro Schultz - Last Filed: 06/15/16 08:43> - General Source: patient, family, RN notes reviewed <Power Wolff - Last Filed: 06/15/16 12:25> - General Chief complaint: Urogenital Stated complaint: Male Time Seen by Provider: 06/15/16 07:58 - History of Present Illness Initial comments: 86-year-old male presents emergency Department with chief complaint of Jones catheter problem. Patient states he has not been able to urinate since 2:00. Patient states is very uncomfortable states he needs to go to the bathroom. Patient states he tried flushing at home states that did not help. Patient states he had a Jones change on Friday. Patient had Jones for a long period of time. Patient denies fever, chills. Patient also complains of bilateral lower extremity swelling and some shortness breath. Patient has a chest pain or palpitations. Patient states that he said some swelling in the past but never to this extent. Patient denies any change in diet. Significant other the room states that he was on Lasix and was given a prescription recently but has not started it (Jenaro Schultz) Patient also examined by myself, Dr. Wolff. Patient resting in bed. Patient does complain of diffuse discomfort. Patient has had right lower abdominal discomfort. Patient had symptoms over mild this morning however have gotten much more severe since in route to the emergency department. Patient was unable to pass urine this morning and he felt the catheter does need to be changed. Patient now complains of fevers and myalgias. (Power Wolff) - Related Data Home Medications Medication Instructions Recorded Confirmed Alfuzosin HCl [Uroxatral ER] 10 mg PO QAM 11/11/14 06/15/16 Finasteride [Proscar] 5 mg PO HS 11/11/14 06/15/16 Multivitamins, Thera [Multivitamin] 1 tab PO DAILY 11/11/14 06/15/16 Fenofibrate Nanocrystallized 145 mg PO HS 02/09/16 06/15/16 [Tricor] Lovastatin 20 mg PO HS 02/09/16 06/15/16 Esomeprazole Magnesium [NexIUM] 40 mg PO DAILY 04/11/16 06/15/16 Montelukast [Singulair] 10 mg PO HS 04/11/16 06/15/16 Rivaroxaban [Xarelto] 20 mg PO DAILY 04/11/16 06/15/16 Cyclobenzaprine [Flexeril] 5 mg PO Q6H PRN 05/24/16 06/15/16 HYDROcodone/APAP 10-325MG [Banner 1 tab PO Q4H PRN 05/24/16 06/15/16 10-325] Lidocaine 5% Patch [Lidoderm 5% 1 patch TRANSDERM DAILY 05/27/16 06/15/16 Patch] Mirtazapine [Remeron] 15 mg PO HS 05/27/16 06/15/16 Furosemide [Lasix] 20 mg PO DAILY 06/15/16 06/15/16 Lactobacillus Acidoph & Bulgar 1 packet PO TID 06/15/16 06/15/16 [Lactinex] Nystatin 100,000 Unit/ml Susp 400,000 unit PO QID 06/15/16 06/15/16 [Mycostatin Oral Susp] Previous Rx's Medication Instructions Recorded Ondansetron Odt [Zofran ODT] 4 mg PO Q8HR PRN #10 tab 05/24/16 Allergies Allergy/AdvReac Type Severity Reaction Status Date / Time adhesive tape AdvReac tears skin Verified 06/15/16 12:05 chicken derived [Chicken] AdvReac Nausea & Verified 06/15/16 12:05 Vomiting & Diarrhea Review of Systems ROS Other: All systems not noted in ROS Statement are negative. <Jenaro Schultz - Last Filed: 06/15/16 08:43> ROS Other: All systems not noted in ROS Statement are negative. Constitutional: Reports: fever, chills Eyes: Denies: eye pain ENT: Denies: ear pain Respiratory: Denies: cough Cardiovascular: Denies: chest pain Endocrine: Reports: fatigue Gastrointestinal: Reports: abdominal pain Genitourinary: Reports: urgency Musculoskeletal: Denies: back pain Skin: Denies: rash Neurological: Reports: weakness <Power Wolff - Last Filed: 06/15/16 12:25> ROS Statement: Those systems with pertinent positive or pertinent negative responses have been documented in the HPI. Past Medical History Past Medical History: Deep Vein Thrombosis (DVT), GERD/Reflux, Hyperlipidemia, Musculoskeletal Disorder, Pneumonia, Prostate Disorder, Renal Disease Additional Past Medical History / Comment(s): ENLARGED PROSTATE, 7 crushed vertebrae, BACK PAIN FROM PINCHED NERVES IN BACK- drop foot sharif feet, HAS A IDC- JONES History of Any Multi-Drug Resistant Organisms: None Reported Additional Past Surgical History / Comment(s): 02/08/16 laparoscopic christopher fundoplasty. Other surgical hx: Hydrocele repair, EGD (2007). EPIDURAL STEROID INJECTIONS WITH DR. DIAZ. skin cancer -LESIONS SEVERAL BRONCHOSCOPIES,SEBACEOUS CYST ON BACK REMOVED Past Anesthesia/Blood Transfusion Reactions: No Reported Reaction Past Psychological History: No Psychological Hx Reported Smoking Status: Former smoker Past Alcohol Use History: None Reported Additional Past Alcohol Use History / Comment(s): STARTED SMOKING AT AGE 16 QUIT 2006 SMOKED 1PPD Past Drug Use History: None Reported - Past Family History Brother(s) Family Medical History: Cancer Additional Family Medical History / Comment(s): COLON CANCER Father Family Medical History: Cancer Additional Family Medical History / Comment(s): FROM RESP FAILURE AT AGE 91 Sister(s) Family Medical History: Cancer Additional Family Medical History / Comment(s): LUNG CANCER Mother Family Medical History: Cancer Additional Family Medical History / Comment(s): COLON CANCER <Jenaro Schultz M - Last Filed: 06/15/16 08:43> General Exam Limitations: no limitations General appearance: alert, in no apparent distress Head exam: Present: atraumatic, normocephalic, normal inspection Respiratory exam: Present: normal lung sounds bilaterally. Absent: respiratory distress, wheezes, rales, rhonchi, stridor Cardiovascular Exam: Present: normal rhythm, tachycardia, normal heart sounds. Absent: systolic murmur, diastolic murmur, rubs, gallop, clicks GI/Abdominal exam: Present: soft, tenderness (Suprapubic tenderness), normal bowel sounds. Absent: distended, guarding, rebound, rigid Extremities exam: Present: pedal edema (2+ pitting edema), other (Pulses equal bilaterally) Neurological exam: Present: alert, oriented X3, CN II-XII intact Skin exam: Present: warm, dry, intact, normal color. Absent: rash <Jenaro Schultz - Last Filed: 06/15/16 08:43> Limitations: no limitations General appearance: alert Head exam: Present: atraumatic Eye exam: Present: normal appearance ENT exam: Present: normal exam Neck exam: Present: normal inspection Respiratory exam: Present: normal lung sounds bilaterally Cardiovascular Exam: Present: tachycardia GI/Abdominal exam: Present: soft, tenderness (Right lower quadrant tenderness) Extremities exam: Present: pedal edema. Absent: calf tenderness Neurological exam: Present: alert Psychiatric exam: Present: normal affect, normal mood Skin exam: Present: normal color. Absent: rash <Power Wolff - Last Filed: 06/15/16 12:25> Course <Jenaro Schultz - Last Filed: 06/15/16 08:43> <Power Wolff - Last Filed: 06/15/16 12:25> Vital Signs 06/15/16 06/15/16 06/15/16 07:07 08:15 09:04 Temperature 98.0 F 106.0 F H Pulse Rate 63 134 H 142 H Pulse Rate [ [place] Polisher Operator ] Respiratory 20 22 22 Rate Blood Pressure 116/68 94/54 101/46 O2 Sat by Pulse 95 92 L Oximetry 06/15/16 06/15/16 06/15/16 09:18 09:22 09:27 Temperature Pulse Rate 140 H 140 H 137 H Pulse Rate [ [place] Polisher Operator ] Respiratory 26 H 26 H 24 Rate Blood Pressure 77/51 90/47 104/51 O2 Sat by Pulse 72 L 99 99 Oximetry 06/15/16 06/15/16 06/15/16 09:32 09:51 11:13 Temperature 103.4 F H 99.4 F Pulse Rate 138 H 118 H Pulse Rate [ 125 H [employer] Polisher Operator ] Respiratory 26 H 26 H 24 Rate Blood Pressure 96/46 68/39 O2 Sat by Pulse 100 95 Oximetry 06/15/16 06/15/16 06/15/16 11:23 11:27 11:29 Temperature Pulse Rate 114 H 116 H Pulse Rate [ [place] Polisher Operator ] Respiratory 22 24 Rate Blood Pressure 71/42 73/45 79/48 O2 Sat by Pulse 96 92 L Oximetry 06/15/16 06/15/16 06/15/16 11:35 11:41 12:12 Temperature Pulse Rate 111 H 112 H 114 H Pulse Rate [ [place] Polisher Operator ] Respiratory 22 18 24 Rate Blood Pressure 81/43 78/42 74/42 O2 Sat by Pulse 96 96 95 Oximetry 06/15/16 12:19 Temperature Pulse Rate 117 H Pulse Rate [ [place] Polisher Operator ] Respiratory 22 Rate Blood Pressure 66/32 O2 Sat by Pulse 97 Oximetry - Reevaluation(s) Reevaluation #1: 06/15/16 09:34 Patient does meet criteria for severe sepsis. IV antibiotics and IV fluid bolus has been started. 06/15/16 10:02 Repeat EKG shows sinus tachycardia 128. VT 154. QRS 118. QT 312. QTC 455. Left axis. I bundle branch block. No acute ST change. 06/15/16 11:[address] Rasmussen, who will consult. 06/15/16 12:22 Blood pressure has been intermittent despite fluids. Levophed will be started. Case was discussed in detail Dr. Rainey, who will admit for Dr. Mcdaniels. Admission orders written. Patient will be admitted to intensive care unit. Dr. Gutierrez has been paged. 06/15/16 12:24 Case was discussed with Dr. Gutierrez. (Power Wolff) EKG Findings - EKG Comments: EKG Findings:: Sinus tachycardia 140. VT 122. QRS 106. QT of 6. QTc 467. Superior axis. Incomplete right bundle-branch block. RVH nonspecific T waves. <Power Wolff - Last Filed: 06/15/16 12:25> Medical Decision Making <Jenaro Schultz - Last Filed: 06/15/16 08:43> - Lab Data Result diagrams: 06/15/16 08:51 06/15/16 08:51 - Radiology Data Radiology results: report reviewed (Abdominal x-ray concerning for constipation. Chest x-ray questions left lower lobe infiltrate), image reviewed (Computed tomography scan of the abdomen and pelvis shows possible urinary bladder mass. Limited evaluation. 0.3 cm right UVJ stone with mild Hudson. Prominent prostate.) <Power Wolff - Last Filed: 06/15/16 12:25> - Medical Decision Making Patient reevaluated again. 11:06 AM. Heart rate remains elevated. Heart sounds with regular tachycardia, no murmur. Lungs are clear to auscultation. Vital signs reviewed. Refill 3 seconds. Peripheral pulses radial and dorsalis pedis 2/4 throughout. Skin is normal color. Patient and family are updated on results and plan. is made aware of patient's severe illness. Patient does meet criteria for septic shock. Dr. Rainey has been paged her admission for Dr. Mcdaniels. Urology has also been paged. O2 sat 95% on nasal cannula. (Power Wolff) - Lab Data Lab Results 06/15/16 06/15/16 06/15/16 Range/Units 08:51 08:51 08:51 WBC 1.1 L* (3.8-10.6) k/uL RBC 4.43 (4.30-5.90) m/uL Hgb 13.1 (13.0-17.5) gm/dL Hct 43.2 (39.0-53.0) % MCV 97.6 (80.0-100.0) fL MCH 29.6 (25.0-35.0) pg MCHC 30.3 L (31.0-37.0) g/dL RDW 15.6 H (11.5-15.5) % Plt Count 245 (150-450) k/uL Neutrophils % 76 % Lymphocytes % 18 % Monocytes % 4 % Eosinophils % 1 % Basophils % 0 % Neutrophils # 0.8 L (1.3-7.7) k/uL Lymphocytes # 0.2 L (1.0-4.8) k/uL Monocytes # 0.0 (0-1.0) k/uL Eosinophils # 0.0 (0-0.7) k/uL Basophils # 0.0 (0-0.2) k/uL Hypochromasia Moderate Sodium 146 H (137-145) mmol/L Potassium 3.8 (3.5-5.1) mmol/L Chloride 109 H (98-107) mmol/L Carbon Dioxide 22 (22-30) mmol/L Anion Gap 15 mmol/L BUN 25 H (9-20) mg/dL Creatinine 1.53 H (0.66-1.25) mg/dL Est GFR (MDRD) Af Amer 53 (>60 ml/min/1.73 sqM) Est GFR (MDRD) Non-Af 43 (>60 ml/min/1.73 sqM) Glucose 82 (74-99) mg/dL Plasma Lactic Acid Michael (0.7-2.0) mmol/L Calcium 8.8 (8.4-10.2) mg/dL Total Bilirubin 0.8 (0.2-1.3) mg/dL AST 28 (17-59) U/L ALT 33 (21-72) U/L Alkaline Phosphatase 166 H (38-126) U/L Total Protein 5.7 L (6.3-8.2) g/dL Albumin 2.6 L (3.5-5.0) g/dL Lipase 50 (23-300) U/L Urine Color Red Urine Appearance Bloody (Clear) Urine RBC >182 H (0-5) /hpf Urine WBC >182 H (0-5) /hpf Urine WBC Clumps Many H (None) /hpf Urine Mucus Many H (None) /hpf 06/15/16 Range/Units 08:51 WBC (3.8-10.6) k/uL RBC (4.30-5.90) m/uL Hgb (13.0-17.5) gm/dL Hct (39.0-53.0) % MCV (80.0-100.0) fL MCH (25.0-35.0) pg MCHC (31.0-37.0) g/dL RDW (11.5-15.5) % Plt Count (150-450) k/uL Neutrophils % % Lymphocytes % % Monocytes % % Eosinophils % % Basophils % % Neutrophils # (1.3-7.7) k/uL Lymphocytes # (1.0-4.8) k/uL Monocytes # (0-1.0) k/uL Eosinophils # (0-0.7) k/uL Basophils # (0-0.2) k/uL Hypochromasia Sodium (137-145) mmol/L Potassium (3.5-5.1) mmol/L Chloride (98-107) mmol/L Carbon Dioxide (22-30) mmol/L Anion Gap mmol/L BUN (9-20) mg/dL Creatinine (0.66-1.25) mg/dL Est GFR (MDRD) Af Amer (>60 ml/min/1.73 sqM) Est GFR (MDRD) Non-Af (>60 ml/min/1.73 sqM) Glucose (74-99) mg/dL Plasma Lactic Acid Michael 5.7 H* (0.7-2.0) mmol/L Calcium (8.4-10.2) mg/dL Total Bilirubin (0.2-1.3) mg/dL AST (17-59) U/L ALT (21-72) U/L Alkaline Phosphatase (38-126) U/L Total Protein (6.3-8.2) g/dL Albumin (3.5-5.0) g/dL Lipase (23-300) U/L Urine Color Urine Appearance (Clear) Urine RBC (0-5) /hpf Urine WBC (0-5) /hpf Urine WBC Clumps (None) /hpf Urine Mucus (None) /hpf Critical Care Time Critical Care Time: Yes Total Critical Care Time: 52 <Power Wolff - Last Filed: 06/15/16 12:25> Disposition <Jenaro Schultz - Last Filed: 06/15/16 08:43> <Power Wolff - Last Filed: 06/15/16 12:25> Clinical Impression: Septic shock, Urinary tract infection Disposition: ADMITTED IP TO THIS HOSP Condition: Critical Referrals: Escobar Mcdaniels DO [Primary Care Provider] - 1-2 days
[2016-06-15] MEDS ORDERED: HYDROmorphone 1 MG/ML 1 ML SYRINGE IVP STA (08:25)
[2016-06-15] MEDS ORDERED: ONDANSETRON 4 MG/2 ML VIAL IVP STA (08:25)
[2016-06-15] MEDS ORDERED: SODIUM CHLORIDE 0.9% 500 ML IV ONE (08:33)
[2016-06-15 09:05] LABS: Basophils % (A) 0 %; CH 29.6; CHCM 30.4; Eosinophils % (A) 1 %; HCT 43.2 % (39.0-53.0); HDW 2.33; HGB 13.1 gm/dL (13.0-17.5); Hypochromasia Moderate; Luc # (Auto) 0.02; Luc % (Auto) 2; Lymphocytes # (A) 0.2 k/uL (1.0-4.8); Lymphocytes % (A) 18 %; MCH 29.6 pg (25.0-35.0); MCHC 30.3 g/dL (31.0-37.0); MCV 97.6 fL (80.0-100.0); Mean Platelet Volume 7.5; Monocytes % (A) 4 %; Neutrophils # (A) 0.8 k/uL (1.3-7.7); Neutrophils % (A) 76 %; RBC 4.43 m/uL (4.30-5.90); RDW 15.6 % (11.5-15.5); WBC (Perox) 1.23
[2016-06-15] MEDS ORDERED: IBUPROFEN 800 MG TAB PO STA (09:14)
[2016-06-15] MEDS ORDERED: LEVOFLOXACIN 750MG-D5W PMX 750 MG in DEXTROSE/WATER 1 150ML.BAG IVPB STA (09:14)
[2016-06-15] MEDS ORDERED: SODIUM CHLORIDE 0.9% 1,000 ML IV ONE ×2 (09:14→20:00)
[2016-06-15] MEDS ORDERED: ACETAMINOPHEN IV (For NPO) 1,000 MG in EMPTY BAG 1 BAG IVPB STA (09:14)
[2016-06-15 09:15] LABS: Calcium 8.8 mg/dL (8.4-10.2); Potassium 3.8 mmol/L (3.5-5.1); Total Bilirubin 0.8 mg/dL (0.2-1.3); Total Protein 5.7 g/dL (6.3-8.2); WBC 1.1 k/uL (3.8-10.6)
[2016-06-15 09:18] LABS: Mucus,Urine Many /hpf; Particle Count 347160; RBC,Urine >182 /hpf (0-5); WBC,Urine >182 /hpf (0-5)
[2016-06-15 09:27] LABS: Appearance,Urine Bloody (Clear)
[2016-06-15 09:28] LABS: UA Billing (MACRO vs. MICRO) MICRO
[2016-06-15] MEDS ORDERED: SODIUM CHLORIDE 0.9% 500 ML IV STA ×2 (10:13)
--- NOTE | 2016-06-15 10:40 | CT ---
EXAMINATION TYPE: CT abdomen pelvis wo con DATE OF EXAM: 06/15/2016 10:23 AM COMPARISON: 05/24/2016 INDICATION: Pain DLP: 607.2 mGycm, Automated exposure control for dose reduction was used. CONTRAST: TECHNIQUE: Axial images were obtained from above the diaphragm to the pubic rami in the axial plane a t 5 mm thick sections. Reconstructed images are reviewed on the computer in the coronal plane. FINDINGS: Limited CT sections are obtained the lung bases. The lung bases are clear. Distal esophagus appears patulous and filled with air CT ABDOMEN: Liver: Normal Spleen: Normal Pancreas: Atrophic fatty infiltrated Adrenal glands: The adrenal glands are normal. Gallbladder: Normal Kidneys: No masses are evident. No hydronephrosis is present. There is a cyst at the superior pole right kidney, Medial pole left kidney. Punctate calcification is within the mid left kidney without e vidence of obstruction. Some vascular calcifications also present. Aorta: Vascular calcification is within the aorta. Inferior vena cava: Normal. CT PELVIS: Loops of bowel within the abdomen and pelvis are normal. There are loops of bowel which are incom pletely distended or lack oral contrast limiting their evaluation. Appendix: Normal as visualized. Urinary bladder: Decompressed with Henderson catheter. Wall is suspected underlying mass may be present. There is a punctate calcification right ureterovesical junction. Correlate for obstructing stone. Mil d left hydroureter may be present. Calcification 0.3 cm present previously. Genitourinary structures: Prostate is enlarged and contains calcification Osseous structures: No suspicious lytic or sclerotic lesions. Facet degenerative change is present. Compression deformities of L4, L5 T12 are evident. Mild compression of L1 may be present and superior endplate of L2. IMPRESSIONS: 1. Suspected urinary bladder mass. Urinary bladder is limited in evaluation. 2. 0.3 cm right ureterovesical junction stone with mild right hydroureter. 3. Prominent prostate
--- NOTE | 2016-06-15 10:57 | XR ---
EXAMINATION TYPE: XR chest 1V DATE OF EXAM: 06/15/2016 10:42 AM COMPARISON: CT chest 05/16/2016 INDICATION: Cough TECHNIQUE: Single frontal view of the chest is obtained. FINDINGS: The heart size is normal. The pulmonary vasculature is normal. A mild right lower lobe infiltrate is present. Small amount of air is adjacent to the trachea which is likely related to the colonic interposition. Note is made of chronic rotator cuff tears bilaterally. IMPRESSION: 1. Mild left lower lobe infiltrate.
--- NOTE | 2016-06-15 10:58 | XR ---
EXAMINATION TYPE: XR KUB DATE OF EXAM: 06/15/2016 10:42 AM COMPARISON: 05/27/2016 INDICATION: Pain TECHNIQUE: Single view abdomen supine view FINDINGS: There is a normal bowel gas pattern. Psoas margins are normal. No organomegaly is present. Large fecal bolus at the level the rectum. Correlate for fecal impaction IMPRESSION: 1. Clinical correlation recommended
[2016-06-15] MEDS ORDERED: SODIUM CHLORIDE 0.9% 1,000 ML IV STA (11:36)
[2016-06-15] MEDS ORDERED: ACETAMINOPHEN TAB 325 MG TAB PO PRN (12:25)
[2016-06-15] MEDS ORDERED: NALOXONE 0.4 MG/ML 1 ML VIAL IV PRN ×2 (12:25→14:30)
[2016-06-15] MEDS ORDERED: PIPERACILLIN-TAZOBACTAM 3.375 GM in DEXTROSE/WATER 1 50ML.BAG IVPB STA (12:27)
[2016-06-15] MEDS: NOREPINEPHRIN 4 MG-0.9% NS PMX 4 MG in SALINE 1 250ML.BAG IV ONE ×2 (12:30→12:46)
[2016-06-15] MEDS ORDERED: SODIUM CHLORIDE 0.9% 1,000 ML IV SCH (12:30)
[2016-06-15] MEDS ORDERED: NOREPINEPHRINE 4 MG in SODIUM CHLORIDE 0.9% 250 ML IV SCH (12:45)
--- NOTE | 2016-06-15 13:35 | ED ---
Medical Decision Making - Lab Data Result diagrams: 06/15/16 08:51 06/15/16 08:51 Lab Results 06/15/16 06/15/16 06/15/16 Range/Units 08:51 08:51 08:51 WBC 1.1 L* (3.8-10.6) k/uL RBC 4.43 (4.30-5.90) m/uL Hgb 13.1 (13.0-17.5) gm/dL Hct 43.2 (39.0-53.0) % MCV 97.6 (80.0-100.0) fL MCH 29.6 (25.0-35.0) pg MCHC 30.3 L (31.0-37.0) g/dL RDW 15.6 H (11.5-15.5) % Plt Count 245 (150-450) k/uL Neutrophils % 76 % Lymphocytes % 18 % Monocytes % 4 % Eosinophils % 1 % Basophils % 0 % Neutrophils # 0.8 L (1.3-7.7) k/uL Lymphocytes # 0.2 L (1.0-4.8) k/uL Monocytes # 0.0 (0-1.0) k/uL Eosinophils # 0.0 (0-0.7) k/uL Basophils # 0.0 (0-0.2) k/uL Hypochromasia Moderate Sodium 146 H (137-145) mmol/L Potassium 3.8 (3.5-5.1) mmol/L Chloride 109 H (98-107) mmol/L Carbon Dioxide 22 (22-30) mmol/L Anion Gap 15 mmol/L BUN 25 H (9-20) mg/dL Creatinine 1.53 H (0.66-1.25) mg/dL Est GFR (MDRD) Af Amer 53 (>60 ml/min/1.73 sqM) Est GFR (MDRD) Non-Af 43 (>60 ml/min/1.73 sqM) Glucose 82 (74-99) mg/dL Plasma Lactic Acid Michael (0.7-2.0) mmol/L Calcium 8.8 (8.4-10.2) mg/dL Total Bilirubin 0.8 (0.2-1.3) mg/dL AST 28 (17-59) U/L ALT 33 (21-72) U/L Alkaline Phosphatase 166 H (38-126) U/L Total Protein 5.7 L (6.3-8.2) g/dL Albumin 2.6 L (3.5-5.0) g/dL Lipase 50 (23-300) U/L Urine Color Red Urine Appearance Bloody (Clear) Urine RBC >182 H (0-5) /hpf Urine WBC >182 H (0-5) /hpf Urine WBC Clumps Many H (None) /hpf Urine Mucus Many H (None) /hpf 06/15/16 Range/Units 08:51 WBC (3.8-10.6) k/uL RBC (4.30-5.90) m/uL Hgb (13.0-17.5) gm/dL Hct (39.0-53.0) % MCV (80.0-100.0) fL MCH (25.0-35.0) pg MCHC (31.0-37.0) g/dL RDW (11.5-15.5) % Plt Count (150-450) k/uL Neutrophils % % Lymphocytes % % Monocytes % % Eosinophils % % Basophils % % Neutrophils # (1.3-7.7) k/uL Lymphocytes # (1.0-4.8) k/uL Monocytes # (0-1.0) k/uL Eosinophils # (0-0.7) k/uL Basophils # (0-0.2) k/uL Hypochromasia Sodium (137-145) mmol/L Potassium (3.5-5.1) mmol/L Chloride (98-107) mmol/L Carbon Dioxide (22-30) mmol/L Anion Gap mmol/L BUN (9-20) mg/dL Creatinine (0.66-1.25) mg/dL Est GFR (MDRD) Af Amer (>60 ml/min/1.73 sqM) Est GFR (MDRD) Non-Af (>60 ml/min/1.73 sqM) Glucose (74-99) mg/dL Plasma Lactic Acid Michael 5.7 H* (0.7-2.0) mmol/L Calcium (8.4-10.2) mg/dL Total Bilirubin (0.2-1.3) mg/dL AST (17-59) U/L ALT (21-72) U/L Alkaline Phosphatase (38-126) U/L Total Protein (6.3-8.2) g/dL Albumin (3.5-5.0) g/dL Lipase (23-300) U/L Urine Color Urine Appearance (Clear) Urine RBC (0-5) /hpf Urine WBC (0-5) /hpf Urine WBC Clumps (None) /hpf Urine Mucus (None) /hpf - Radiology Data Interpreted by me: Chest x-ray shows central line in appropriate position without evidence of pneumothorax. Disposition Clinical Impression: Septic shock, Urinary tract infection Disposition: ADMITTED IP TO THIS [facility] Condition: Critical Procedures - Central Line Placement Right SC Consent Obtained: verbal consent, written consent Time Out Performed: Yes Patient Placed on Monitor/Pulse Ox: Yes Prep: mask, gown, gloves Central Line Prep: Povidone-Iodine 1% Local Anesthesia Used: Lidocaine 1% Amount of Anesthesia Used (mls): 2 Ultrasound Used for Placement: No Central Line Lumen Inserted: triple Central Line Position: good blood return, all ports aspirated, flushed, capped, sutured in place with 3-0 nylon Dressing Applied: Tegaderm Post Procedure X-Ray: tip of catheter in good position Patient Tolerated Procedure: well Complications: none
--- NOTE | 2016-06-15 14:05 | XR ---
EXAMINATION TYPE: XR chest 1V portable DATE OF EXAM: 06/15/2016 1:44 PM COMPARISON: Today HISTORY: Central line placement TECHNIQUE: Single frontal view of the chest is obtained. FINDINGS: There is a right central venous catheter with the tip in the right atrium. There is no pne umothorax. There are bilateral pulmonary interstitial infiltrates. Heart size is normal. There are ch est leads. IMPRESSION: Catheter appears in good position.
[2016-06-15 14:13] LABS: Glucose,Whole Blood 31 mg/dL (75-99)
[2016-06-15 14:13] LABS: Glucose,Whole Blood 33 mg/dL (75-99)
--- NOTE | 2016-06-15 14:16 | P.CNPUL ---
History of Present Illness Consult date: 06/15/16 Requesting physician: Nora Rainey Reason for consult: other (Sepsis/critical care management) Chief complaint: Generalized weakness History of present illness: This is an 87-year-old gentleman who has a history of DVT, GERD, hyperlipidemia , enlarged prostate with home indwelling Jones catheter. He presented to the emergency room this morning with complaints of problems with his catheter. He stated he hadn't been able to urinate since approximately 2:00 this morning. He is quite uncomfortable and felt as though he needed to void. They tried flushing the catheter at home in the outpatient setting with without success. He is making urine currently but it is quite bloody. The patient has also had increasing bilateral lower extremity edema and shortness of breath. He had a lactic acid of 5.7. In the ER he is found to be quite hypotensive and has received 3.5 L of 0.9 normal saline fluid boluses and required initiation of norepinephrine currently at 15 mcg/m. His chest x-ray revealed a mild left lower lobe infiltrate. He has been initiated on Zosyn and Levaquin. His white count is 1.1. Creatinine 1.53. 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 There is also noted prominent prostate. Review of Systems 14 point review of system was conducted. All negative other than as mentioned in HPI. Past Medical History Past Medical History: Deep Vein Thrombosis (DVT), GERD/Reflux, Hyperlipidemia, Musculoskeletal Disorder, Pneumonia, Prostate Disorder, Renal Disease Additional Past Medical History / Comment(s): ENLARGED PROSTATE, 7 crushed vertebrae, BACK PAIN FROM PINCHED NERVES IN BACK- drop foot sharif feet, HAS A IDC- JONES History of Any Multi-Drug Resistant Organisms: None Reported Additional Past Surgical History / Comment(s): 02/08/16 laparoscopic christopher fundoplasty. Other surgical hx: Hydrocele repair, EGD (2007). EPIDURAL STEROID INJECTIONS WITH DR. DIAZ. skin cancer -LESIONS SEVERAL BRONCHOSCOPIES,SEBACEOUS CYST ON BACK REMOVED Past Anesthesia/Blood Transfusion Reactions: No Reported Reaction Past Psychological History: No Psychological Hx Reported Smoking Status: Former smoker Past Alcohol Use History: None Reported Additional Past Alcohol Use History / Comment(s): STARTED SMOKING AT AGE 16 QUIT 2006 SMOKED 1PPD Past Drug Use History: None Reported - Past Family History Brother(s) Family Medical History: Cancer Additional Family Medical History / Comment(s): COLON CANCER Father Family Medical History: Cancer Additional Family Medical History / Comment(s): FROM RESP FAILURE AT AGE 91 Sister(s) Family Medical History: Cancer Additional Family Medical History / Comment(s): LUNG CANCER Mother Family Medical History: Cancer Additional Family Medical History / Comment(s): COLON CANCER Medications and Allergies Home Medications Medication Instructions Recorded Confirmed Type Alfuzosin HCl [Uroxatral ER] 10 mg PO QAM 11/11/14 06/15/16 History Finasteride [Proscar] 5 mg PO HS 11/11/14 06/15/16 History Multivitamins, Thera [Multivitamin] 1 tab PO DAILY 11/11/14 06/15/16 History Fenofibrate Nanocrystallized 145 mg PO HS 02/09/16 06/15/16 History [Tricor] Lovastatin 20 mg PO HS 02/09/16 06/15/16 History Esomeprazole Magnesium [NexIUM] 40 mg PO DAILY 04/11/16 06/15/16 History Montelukast [Singulair] 10 mg PO HS 04/11/16 06/15/16 History Rivaroxaban [Xarelto] 20 mg PO DAILY 04/11/16 06/15/16 History Cyclobenzaprine [Flexeril] 5 mg PO Q6H PRN 05/24/16 06/15/16 History HYDROcodone/APAP 10-325MG [[place] 1 tab PO Q4H PRN 05/24/16 06/15/16 History 10-325] Lidocaine 5% Patch [Lidoderm 5% 1 patch TRANSDERM DAILY 05/27/16 06/15/16 History Patch] Mirtazapine [Remeron] 15 mg PO HS 05/27/16 06/15/16 History Furosemide [Lasix] 20 mg PO DAILY 06/15/16 06/15/16 History Lactobacillus Acidoph & Bulgar 1 packet PO TID 06/15/16 06/15/16 History [Lactinex] Nystatin 100,000 Unit/ml Susp 400,000 unit PO QID 06/15/16 06/15/16 History [Mycostatin Oral Susp] Allergies Allergy/AdvReac Type Severity Reaction Status Date / Time adhesive tape AdvReac tears skin Verified 06/15/16 12:05 chicken derived [Chicken] AdvReac Nausea & Verified 06/15/16 12:05 Vomiting & Diarrhea Physical Exam Vitals: Vital Signs Temp Pulse Resp BP Pulse Ox 06/15/16 12:54 99.3 F 124 H 20 87/47 96 06/15/16 12:36 127 H 22 73/37 96 Intake and Output 06/14/16 06/15/16 06/15/16 22:59 06:59 14:59 Intake Total 14.922 Balance 14.922 Intake: Intake, IV Titration 14.922 Amount Norepinephrine 4 mg In 14.922 Sodium Chloride 0.9% 250 ml @ Titrate IV .Q0M [facility] Rx#:[id number] GENERAL EXAM: Alert, weak, dyspneic. Cachectic appearing. HEAD: Normocephalic. EYES: Normal reaction of pupils, equal size. NOSE: Clear with pink turbinates. THROAT: No erythema or exudates. NECK: No masses, no JVD. CHEST: No chest wall deformity. Right central line in place. LUNGS: Equal air entry with crackles in left posterior base.. CVS: S1 and S2 normal with no audible murmurs, regular rhythm. ABDOMEN: Slightly distended, normal bowel sounds, no guarding or rigidity. SKIN: No rashes CENTRAL NERVOUS SYSTEM: No focal deficits, tone is normal in all 4 extremities. Extremities: There is 2-3+ lower extremity peripheral edema. No clubbing no cyanosis. Peripheral pulses are intact. Results - Laboratory Findings CBC and BMP: 06/15/16 08:51 06/15/16 08:51 - Diagnostic Findings Chest x-ray: image reviewed Assessment and Plan Plan: Impression: #1 Acute sepsis secondary to suspected urinary tract infection. #2 Lactic acidosis secondary to above. 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 #4 History of DVT, maintained on Xarelto. #5 Acute renal failure, creatinine 1.53. #6 Leukopenia of unclear etiology. #7 Gastroesophageal reflux disease. #8 Hyperlipidemia. Plan: The patient was seen and evaluated by Dr. Gutierrez. His chest x-ray and labs were reviewed. He is been fluid resuscitated and show some evidence of fluid volume overload. We'll decrease his IV rate. Dr. Encarnacion is planning to see the patient and may take him for a stent placement if obstruction is noted.
[2016-06-15 14:33] LABS: Glucose,Whole Blood 91 mg/dL (75-99)
[2016-06-15] MEDS: DEXTROSE 50%-WATER 50 ML SYRINGE IVP ONE ×2 (14:52→15:40)
[2016-06-15] MEDS: PANTOPRAZOLE 40 MG/10 ML VIAL IV SCH (14:53)
[2016-06-15 15:38] LABS: Glucose,Whole Blood 50 mg/dL (75-99)
[2016-06-15] MEDS ORDERED: DEXTROSE 50%-WATER 50 ML SYRINGE IVP ONE ×2 (15:39→19:56)
[2016-06-15 16:13] LABS: Glucose,Whole Blood 86 mg/dL (75-99)
--- NOTE | 2016-06-15 16:18 | P.GSCN ---
History of Present Illness Consult date: 06/15/16 History of present illness: The patient is an 86-year-old gentleman known to me for urinary retention. The patient has multiple medical issues. He has had an indwelling catheter for several months due to the urine retention. Due to medical reasons we have been unable to proceed with a TURP. Most recent problem is that of deep venous thrombosis requiring anticoagulation. The patient has had right lower quadrant for the last couple days and then problems with his catheter subsequently. Presented to the emergency room was found to have uptake shock due to the urine infection, obstructing right ureteral stone. His white count is 1000, his creatinine is 1.6, his blood pressure requires Levophed, his heart rate is 122. Review of Systems - Constitutional Reports chills - Gastrointestinal Reports abdominal pain Past Medical History Past Medical History: Deep Vein Thrombosis (DVT), GERD/Reflux, Hyperlipidemia, Musculoskeletal Disorder, Pneumonia, Prostate Disorder, Renal Disease Additional Past Medical History / Comment(s): ENLARGED PROSTATE, 7 crushed vertebrae, BACK PAIN FROM PINCHED NERVES IN BACK- drop foot sharif feet, HAS A IDC- JONES History of Any Multi-Drug Resistant Organisms: None Reported Additional Past Surgical History / Comment(s): 02/08/16 laparoscopic christopher fundoplasty. Other surgical hx: Hydrocele repair, EGD (2007). EPIDURAL STEROID INJECTIONS WITH DR. DIAZ. skin cancer -LESIONS SEVERAL BRONCHOSCOPIES,SEBACEOUS CYST ON BACK REMOVED Past Anesthesia/Blood Transfusion Reactions: No Reported Reaction Past Psychological History: No Psychological Hx Reported Smoking Status: Former smoker Past Alcohol Use History: None Reported Additional Past Alcohol Use History / Comment(s): STARTED SMOKING AT AGE 16 QUIT 2006 SMOKED 1PPD Past Drug Use History: None Reported - Past Family History Brother(s) Family Medical History: Cancer Additional Family Medical History / Comment(s): COLON CANCER Father Family Medical History: Cancer Additional Family Medical History / Comment(s): FROM RESP FAILURE AT AGE 91 Sister(s) Family Medical History: Cancer Additional Family Medical History / Comment(s): LUNG CANCER Mother Family Medical History: Cancer Additional Family Medical History / Comment(s): COLON CANCER Medications and Allergies Home Medications Medication Instructions Recorded Confirmed Type Alfuzosin HCl [Uroxatral ER] 10 mg PO QAM 11/11/14 06/15/16 History Finasteride [Proscar] 5 mg PO HS 11/11/14 06/15/16 History Multivitamins, Thera [Multivitamin] 1 tab PO DAILY 11/11/14 06/15/16 History Fenofibrate Nanocrystallized 145 mg PO HS 02/09/16 06/15/16 History [Tricor] Lovastatin 20 mg PO HS 02/09/16 06/15/16 History Esomeprazole Magnesium [NexIUM] 40 mg PO DAILY 04/11/16 06/15/16 History Montelukast [Singulair] 10 mg PO HS 04/11/16 06/15/16 History Rivaroxaban [Xarelto] 20 mg PO DAILY 04/11/16 06/15/16 History Cyclobenzaprine [Flexeril] 5 mg PO Q6H PRN 05/24/16 06/15/16 History HYDROcodone/APAP 10-325MG [[place] 1 tab PO Q4H PRN 05/24/16 06/15/16 History 10-325] Lidocaine 5% Patch [Lidoderm 5% 1 patch TRANSDERM DAILY 05/27/16 06/15/16 History Patch] Mirtazapine [Remeron] 15 mg PO HS 05/27/16 06/15/16 History Furosemide [Lasix] 20 mg PO DAILY 06/15/16 06/15/16 History Lactobacillus Acidoph & Bulgar 1 packet PO TID 06/15/16 06/15/16 History [Lactinex] Nystatin 100,000 Unit/ml Susp 400,000 unit PO QID 06/15/16 06/15/16 History [Mycostatin Oral Susp] Allergies Allergy/AdvReac Type Severity Reaction Status Date / Time adhesive tape AdvReac tears skin Verified 06/15/16 12:05 chicken derived [Chicken] AdvReac Nausea & Verified 06/15/16 12:05 Vomiting & Diarrhea Surgical - Exam Vital Signs Temp Pulse Resp BP Pulse Ox 98.0 F 63 20 116/68 95 06/15/16 07:07 06/15/16 07:07 06/15/16 07:07 06/15/16 07:07 06/15/16 07:07 - General well developed, well nourished, moderate distress - Eyes PERRL - ENT no hearing loss - Neck no masses - Respiratory normal expansion, normal respiratory effort - Cardiovascular Heart Rate: 122 - Abdomen Abdomen: soft, non tender, tender - Genitourinary Chronic indwelling catheter with old dark urine normal penis with no external lesions, testicles present - Integumentary no rash - Neurologic normal coordination, normal sensation - Psychiatric oriented to time, oriented to person, oriented to place Results - Labs 06/15/16 08:51 06/15/16 08:51 Abnormal Lab Results - Last 24 Hours (Table) 06/15/16 06/15/16 06/15/16 Range/Units 14:09 14:10 14:42 POC Glucose (mg/dL) 31 L 33 L (75-99) mg/dL Plasma Lactic Acid Michael 6.9 H* (0.7-2.0) mmol/L 06/15/16 Range/Units 15:36 POC Glucose (mg/dL) 50 L (75-99) mg/dL Plasma Lactic Acid Michael (0.7-2.0) mmol/L Assessment and Plan Plan: Impression: Urinary tract infection with septic shock. Chronic indwelling catheter. Obstructing right ureteral stone with pyelonephrosis leading to the septic shock. The patient has multiple medical problems outlined in the history and physical. Recommendations: The patient needs an urgent placement of a double-J catheter to relieve the obstruction and drain the pyonephrosis to aid in the treatment of his septic shock.
[2016-06-15 16:36] LABS: Glucose,Whole Blood 100 mg/dL (75-99)
[2016-06-15] MEDS ORDERED: PROPOFOL 10 MG/ML 20 ML VIAL IV ONE (17:27)
[2016-06-15] MEDS ORDERED: KETAMINE 10 MG/ML 20 ML VIAL ONE (17:27)
[2016-06-15] MEDS ORDERED: LACTATED RINGERS 1,000 ML IV ONE (17:27)
[2016-06-15] MEDS ORDERED: MIDAZOLAM 2 MG/2 ML VIAL ONE (17:27)
[2016-06-15] MEDS ORDERED: HYDROmorphone (PF) 1 MG/ML ONE (17:27)
--- NOTE | 2016-06-15 17:42 | P.HPIM ---
History of Present Illness H&P Date: 06/15/16 Chief Complaint: abd distention 86 year old gentleman with history of DVT, GERD, enlarged prostate with chronic indwelling Jones catheter which was changed over on Friday by his home care nurse comes in to the hospital with abdominal distention, inability to urinate. Patient's Jones catheter was changed in the ER was noted to have a significant amount of urine. Patient was noted to have multiple clots that were seen in the Jones bag. Patient was noted to have a lactic acid, was also hypotensive. Patient received 3.5 L of crystalloids and was started on Levaquin initially. 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 At the time of my examination patient was seen in the ICU states that he feels much better. Patient is currently on 4 L supplement oxygen. Apparently at baseline he is pretty much bedbound. Review of Systems All systems: negative (Noted in HPI) Past Medical History Past Medical History: Deep Vein Thrombosis (DVT), GERD/Reflux, Hyperlipidemia, Musculoskeletal Disorder, Pneumonia, Prostate Disorder, Renal Disease Additional Past Medical History / Comment(s): ENLARGED PROSTATE, 7 crushed vertebrae, BACK PAIN FROM PINCHED NERVES IN BACK- drop foot sharif feet, HAS A IDC- JONES History of Any Multi-Drug Resistant Organisms: None Reported Additional Past Surgical History / Comment(s): 02/08/16 laparoscopic christopher fundoplasty. Other surgical hx: Hydrocele repair, EGD (2007). EPIDURAL STEROID INJECTIONS WITH DR. DIAZ. skin cancer -LESIONS SEVERAL BRONCHOSCOPIES,SEBACEOUS CYST ON BACK REMOVED Past Anesthesia/Blood Transfusion Reactions: No Reported Reaction Past Psychological History: No Psychological Hx Reported Smoking Status: Former smoker Past Alcohol Use History: None Reported Additional Past Alcohol Use History / Comment(s): STARTED SMOKING AT AGE 16 QUIT 2006 SMOKED 1PPD Past Drug Use History: None Reported - Past Family History Brother(s) Family Medical History: Cancer Additional Family Medical History / Comment(s): COLON CANCER Father Family Medical History: Cancer Additional Family Medical History / Comment(s): FROM RESP FAILURE AT AGE 91 Sister(s) Family Medical History: Cancer Additional Family Medical History / Comment(s): LUNG CANCER Mother Family Medical History: Cancer Additional Family Medical History / Comment(s): COLON CANCER Medications and Allergies Home Medications Medication Instructions Recorded Confirmed Type Alfuzosin HCl [Uroxatral ER] 10 mg PO QAM 11/11/14 06/15/16 History Finasteride [Proscar] 5 mg PO HS 11/11/14 06/15/16 History Multivitamins, Thera [Multivitamin] 1 tab PO DAILY 11/11/14 06/15/16 History Fenofibrate Nanocrystallized 145 mg PO HS 02/09/16 06/15/16 History [Tricor] Lovastatin 20 mg PO HS 02/09/16 06/15/16 History Esomeprazole Magnesium [NexIUM] 40 mg PO DAILY 04/11/16 06/15/16 History Montelukast [Singulair] 10 mg PO HS 04/11/16 06/15/16 History Rivaroxaban [Xarelto] 20 mg PO DAILY 04/11/16 06/15/16 History Cyclobenzaprine [Flexeril] 5 mg PO Q6H PRN 05/24/16 06/15/16 History HYDROcodone/APAP 10-325MG [[place] 1 tab PO Q4H PRN 05/24/16 06/15/16 History 10-325] Lidocaine 5% Patch [Lidoderm 5% 1 patch TRANSDERM DAILY 05/27/16 06/15/16 History Patch] Mirtazapine [Remeron] 15 mg PO HS 05/27/16 06/15/16 History Furosemide [Lasix] 20 mg PO DAILY 06/15/16 06/15/16 History Lactobacillus Acidoph & Bulgar 1 packet PO TID 06/15/16 06/15/16 History [Lactinex] Nystatin 100,000 Unit/ml Susp 400,000 unit PO QID 06/15/16 06/15/16 History [Mycostatin Oral Susp] Allergies Allergy/AdvReac Type Severity Reaction Status Date / Time adhesive tape AdvReac tears skin Verified 06/15/16 12:05 chicken derived [Chicken] AdvReac Nausea & Verified 06/15/16 12:05 Vomiting & Diarrhea Physical Exam Vitals: Vital Signs Temp Pulse Resp BP Pulse Ox 06/15/16 15:30 125 H 21 94/45 95 06/15/16 15:15 123 H 17 96/47 94 L 06/15/16 15:00 121 H 15 124/55 95 06/15/16 14:45 114 H 16 66/43 95 06/15/16 14:30 124 H 17 89/45 94 L 06/15/16 14:15 119 H 14 97/46 92 L 06/15/16 14:01 89 L 06/15/16 13:51 124 H 20 101/49 97 06/15/16 12:54 99.3 F 124 H 20 87/47 96 06/15/16 12:36 127 H 22 73/37 96 Intake and Output 06/15/16 06/15/16 06/15/16 06:59 14:59 22:59 Intake Total 14.922 200 Output Total 101 Balance 14.922 99 Intake: IV 150 Sodium Chloride 0.9% 1, 75 000 ml @ 75 mls/hr IV . [id number] [facility] Rx#:[id number] d5w 75 Intake, IV Titration 14.922 50 Amount Norepinephrine 4 mg In 14.922 Sodium Chloride 0.9% 250 ml @ Titrate IV .Q0M [facility] Rx#:[id number] Piperacillin-Tazobactam 3 50 .375 gm In Dextrose/Water 1 50ml.bag @ 12.5 mls/hr IVPB ONCE [facility] Rx#: [id number] Output: Urine 101 Other: Weight 73.2 kg Patient Weight 06/16/16 06:59 Weight 73.2 kg Gen. appearance oriented times he does not appear to be in distress Neck is supple no JVD Lungs diminished breath sounds however no rhonchi or wheezing noted Heart S1-S2 heard no murmurs appreciated Abdomen is soft nontender no organomegaly Patient has a Jones catheter in place Lower extremity is 2+ pitting edema that is noted. Results CBC & Chem 7: 06/15/16 08:51 06/15/16 08:51 Labs: Abnormal Lab Results - Last 24 Hours (Table) 06/15/16 06/15/16 06/15/16 Range/Units 14:09 14:10 14:42 POC Glucose (mg/dL) 31 L 33 L (75-99) mg/dL Plasma Lactic Acid Michael 6.9 H* (0.7-2.0) mmol/L 06/15/16 06/15/16 Range/Units 15:36 16:34 POC Glucose (mg/dL) 50 L 100 H (75-99) mg/dL Plasma Lactic Acid Michael (0.7-2.0) mmol/L Thrombosis Risk Factor Assmnt - Choose All That Apply Any of the Below Risk Factors Present?: Yes Each Factor Represents 1 point: Medical pt on bed rest, Minor surgery planned Each Risk Factor Represents 2 Points: Patient confined to bed Each Risk Factor Represents 3 Points: Age 75 years or older, History of DVT/PE Thrombosis Risk Factor Assessment Total Risk Factor Score: 10 Thrombosis Risk Factor Assessment Level: High Risk Assessment and Plan Plan: #1 septic shock likely secondary to urinary tract infection #2 leukopenia 1 radiology #3 lactic acidosis secondary to #1 #4 acute kidney injury likely secondary to dehydration #5 bladder mass #6 GERD #7 bph #8 acute DVT maintained on Cymbalta #9 chronic indwelling Jones catheter #10 hypernatremia likely hypovolemic #11 history of asthma #12 hypoglycemia, asymptomatic. Plan Asians case was discussed with Dr. Rasmussen by the pulmonology's. Patient apparently undergo a cystoscopy. Continue full ICU supportive including maintaining map greater than 65 and vasopressors. Empiric antibiotic therapy. Patient's case was discussed with the family and the instrument designer.
--- NOTE | 2016-06-15 18:03 | P.OP ---
Date of Procedure: 06/15/16 Preoperative Diagnosis: Urinary tract infection with septic shock, obstructing right ureteral calculus with pyonephrosis Postoperative Diagnosis: Same Procedure(s) Performed: Cystoscopy, placement of double-J catheter right 6 x 26 Anesthesia: MAC Surgeon: Jason Encarnacion Estimated Blood Loss (ml): 0 Pathology: none sent Disposition: PACU Indications for Procedure: The patient is an 86-year-old gentleman who came in the hospital in septic shock. Urine infection and obstructing ureteral calculus with pyelonephrosis. His white count is 1000. He is on levo fed for his blood pressure he comes for a placement of a stent to relieve the obstruction and drain the pyonephrosis Description of Procedure: The patient is brought to the operating suite and on the operating table he is given IV sedation. He is prepped and draped sterilely. Xylocaine jelly was introduced per urethra. Cystoscopy with a 22-Khmer sheath identifies normal urethra. The prostate is long large and obstructing, trilobar. Latter is entered. It is heavily trabeculated with multiple cellules. There is a bladder stone. Both ureteral orifices are identified. The right ureteral orifice is intubated with a 6-Khmer open-ended catheter and then through the open-ended catheters passed an 035 wire by the stone up into the renal pelvis. I remove the open-ended catheter. Over the wire is placed a 6 x 26 double-J catheter that coils in the renal pelvis and in the bladder. The cystoscope was removed. A Henderson is replaced. The patient returned to recovery room
[2016-06-15] MEDS ORDERED: CYCLOBENZAPRINE 5 MG TAB PO PRN (18:47)
[2016-06-15] MEDS ORDERED: ONDANSETRON ODT 4 MG TAB PO PRN (18:47)
[2016-06-15 19:26] LABS: Glucose,Whole Blood 60 mg/dL (75-99)
[2016-06-15] MEDS: NOREPINEPHRINE 16 MG in SODIUM CHLORIDE 0.9% 250 ML IV SCH (19:30)
[2016-06-15] MEDS: NYSTATIN 100,000 UNIT/ML SUSP 500,000 UNIT/5 ML CUP PO SCH ×2 (19:42→23:22)
[2016-06-15] MEDS: DEXTROSE 5% IN WATER 1,000 ML IV ONE (19:47)
[2016-06-15 19:57] LABS: Glucose,Whole Blood 64 mg/dL (75-99)
[2016-06-15 20:03] LABS: Glucose,Whole Blood 61 mg/dL (75-99)
[2016-06-15 20:17] LABS: Glucose,Whole Blood 101 mg/dL (75-99)
[2016-06-15 20:29] LABS: Calcium 7.5 mg/dL (8.4-10.2); Potassium 3.9 mmol/L (3.5-5.1)
[2016-06-15] MEDS: SODIUM CHLORIDE 0.9% 99 ML with VASOPRESSIN 20 UNIT IV SCH ×2 (20:31)
[2016-06-15 21:01] LABS: Glucose,Whole Blood 114 mg/dL (75-99)
[2016-06-15 22:11] LABS: Magnesium 1.3 mg/dL (1.6-2.3); Phosphorous 3.9 mg/dL (2.5-4.5)
[2016-06-15 22:14] LABS: Glucose,Whole Blood 100 mg/dL (75-99)
[2016-06-15] MEDS ORDERED: Potassium Replacement Protocol 1 EACH MISC MISCELLANE PRN (22:56)
[2016-06-15] MEDS ORDERED: Phosphorus Replacement Protoco 1 EACH MISC MISCELLANE PRN (22:56)
[2016-06-15] MEDS ORDERED: Magnesium Replacement Protocol 1 EACH MISC MISCELLANE PRN (22:56)
[2016-06-15] MEDS ORDERED: POTASSIUM CHLORIDE ER 20 MEQ TAB.ER PO SCH (23:00)
[2016-06-15 23:09] LABS: Glucose,Whole Blood 116 mg/dL (75-99)
[2016-06-15] MEDS: MAGNESIUM SULFATE-D5W PMX 1 GM in DEXTROSE/WATER 1 100ML.BAG IVPB SCH (23:18)
[2016-06-15] MEDS: FENOFIBRATE 160 MG TAB PO SCH (23:20)
[2016-06-15] MEDS: ATORVASTATIN 10 MG TAB PO SCH (23:20)
[2016-06-15] MEDS: MONTELUKAST 10 MG TAB PO SCH (23:21)
[2016-06-15] MEDS: FINASTERIDE 5 MG TAB PO SCH (23:21)
[2016-06-15] MEDS: MIRTAZAPINE 15 MG TAB PO SCH (23:21)
[2016-06-15] MEDS: LACTOBACILLUS ACIDOPH & BULGAR 1 EACH PACKET PO SCH (23:22)
[2016-06-16 00:06] LABS: Glucose,Whole Blood 119 mg/dL (75-99)
[2016-06-16] MEDS: MAGNESIUM SULFATE-D5W PMX 1 GM in DEXTROSE/WATER 1 100ML.BAG IVPB SCH ×2 (00:41→02:02)
[2016-06-16] MEDS: PIPERACILLIN-TAZOBACTAM 3.375 GM in DEXTROSE/WATER 1 50ML.BAG IVPB SCH ×3 (00:50→15:33)
[2016-06-16 01:03] LABS: Glucose,Whole Blood 115 mg/dL (75-99)
[2016-06-16 02:06] LABS: Glucose,Whole Blood 127 mg/dL (75-99)
[2016-06-16 03:12] LABS: Glucose,Whole Blood 114 mg/dL (75-99)
[2016-06-16] MEDS: HYDROcodone/APAP 10-325MG 1 EACH TAB PO PRN ×3 (04:09→21:30)
[2016-06-16 04:16] LABS: Glucose,Whole Blood 119 mg/dL (75-99)
[2016-06-16] MEDS: SODIUM CHLORIDE 0.9% 99 ML with VASOPRESSIN 20 UNIT IV SCH ×2 (04:24)
[2016-06-16] MEDS: DEXTROSE 5% IN WATER 1,000 ML IV ONE (04:25)
[2016-06-16 04:57] LABS: INR 2.1 (<1.1); Partial Thromboplastin Time 40.2 sec (22.0-30.0); Prothrombin Time 20.1 sec (9.0-12.0)
[2016-06-16 05:01] LABS: Calcium 7.6 mg/dL (8.4-10.2); Magnesium 2.2 mg/dL (1.6-2.3); Phosphorous 3.6 mg/dL (2.5-4.5); Potassium 3.7 mmol/L (3.5-5.1)
[2016-06-16 05:44] LABS: Glucose,Whole Blood 114 mg/dL (75-99)
[2016-06-16 06:24] LABS: CH 29.3; HCT 40.5 % (39.0-53.0); HDW 2.59; Hypochromasia Marked; Immature Gran Flag Marked; MCH 29.2 pg (25.0-35.0); MCHC 29.7 g/dL (31.0-37.0); MCV 98.5 fL (80.0-100.0); Macrocytosis Slight; Mean Platelet Volume 8.7; RBC 4.12 m/uL (4.30-5.90); RDW 15.8 % (11.5-15.5); WBC (Perox) 28.68
[2016-06-16 06:28] LABS: WBC 29.6 k/uL (3.8-10.6)
[2016-06-16 06:30] LABS: Add Differential Manual Differential
[2016-06-16 06:32] LABS: Nucleated Red Blood Cells 0 /100 WBC (0-0); Total Cells Counted 100
[2016-06-16] MEDS: NYSTATIN 100,000 UNIT/ML SUSP 500,000 UNIT/5 ML CUP PO SCH ×4 (07:50→21:31)
[2016-06-16] MEDS: MULTIVITAMINS, THERA 1 EACH TAB PO SCH (07:50)
[2016-06-16] MEDS: LACTOBACILLUS ACIDOPH & BULGAR 1 EACH PACKET PO SCH ×3 (07:50→21:31)
[2016-06-16] MEDS: RIVAROXABAN 10 MG TAB PO SCH (07:51)
[2016-06-16] MEDS: PANTOPRAZOLE 40 MG/10 ML VIAL IV SCH (07:52)
[2016-06-16] MEDS: TAMSULOSIN 0.4 MG CAP.ER.24H PO SCH (07:53)
[2016-06-16] MEDS: FUROSEMIDE 20 MG TAB PO SCH (07:54)
[2016-06-16 07:55] LABS: Glucose,Whole Blood 94 mg/dL (75-99)
[2016-06-16] MEDS ORDERED: POTASSIUM CHLORIDE ER 20 MEQ TAB.ER PO SCH (08:00)
[2016-06-16] MEDS: LIDOCAINE 5% PATCH TOPICAL SCH (08:41)
[2016-06-16] MEDS ORDERED: NON-FORMULARY DRUG (Esomeprazole Magnesium [Nexium] 40 MG) PO SCH (09:00)
[2016-06-16] MEDS ORDERED: LEVOFLOXACIN 750MG-D5W PMX 750 MG in DEXTROSE/WATER 1 150ML.BAG IVPB SCH (09:00)
--- NOTE | 2016-06-16 09:27 | FL ---
EXAMINATION TYPE: FL guidance operating room DATE OF EXAM: 06/15/2016 6:09 PM COMPARISON: KUB abdominal x-ray dated 05/27/2016. HISTORY: Nephrolithiasis TECHNIQUE: 8 seconds of fluoroscopy was utilized intraoperatively by Dr. Encarnacion with no images saved. FINDINGS/IMPRESSION: No fluoroscopic images were submitted, however 8 seconds of fluoroscopy was uti lized intraoperatively for right-sided nephrolithiasis.
--- NOTE | 2016-06-16 09:46 | P.PN ---
Subjective The patient is status post placement of a double-J catheter for an obstructing ureteral stone, urinary tract infection with septic shock. He is still requiring blood pressure support. His urine output is adequate. His creatinine is down to 1.5. He mounted a white count today of 29,000 which is an improvement from the leukopenia. The technical training specialist continue to care for him. Objective - Vital Signs Vital signs: Vital Signs Temp 97.9 F 06/16/16 08:00 Pulse 124 H 06/16/16 09:30 Resp 26 H 06/16/16 09:30 BP 98/51 06/16/16 09:30 Pulse Ox 99 06/16/16 09:30 Intake & Output 06/15/16 06/16/16 06/16/16 18:59 06:59 18:59 Intake Total 012.059 2404.087 462 Output Total 127 520 70 Balance 546.894 9897.087 392 Weight 73.2 kg 76 kg Intake: IV 325 300 Sodium Chloride 0.9% 1, 75 000 ml @ 75 mls/hr IV . [id number] [facility] Rx#:[id number] d5w 150 300 Intake, IV Titration 64.922 2255.087 462 Amount Dextrose 5% in Water 1, 450 225 000 ml @ 75 mls/hr IV . [id number] [facility] Rx#:[id number] Levofloxacin 750Mg-D5w 100 Pmx 750 mg In Dextrose/ Water 1 150ml.bag @ 100 mls/hr IVPB Q24H [facility] Rx#: [id number] Magnesium Sulfate-D5w Pmx 300 1 gm In Dextrose/Water 1 100ml.bag @ 100 mls/hr IVPB Q1H [facility] Rx#: [id number] Norepinephrine 16 mg In 258.587 Sodium Chloride 0.9% 250 ml @ Titrate IV .Q0M [facility] Rx#:[id number] Norepinephrine 4 mg In 14.922 Sodium Chloride 0.9% 250 ml @ Titrate IV .Q0M [facility] Rx#:[id number] Piperacillin-Tazobactam 3 50 .375 gm In Dextrose/Water 1 50ml.bag @ 12.5 mls/hr IVPB ONCE STA Rx#: [id number] Piperacillin-Tazobactam 3 50.0 50 .375 gm In Dextrose/Water 1 50ml.bag @ 12.5 mls/hr IVPB Q8HR [facility] Rx#: [id number] Sodium Chloride 0.9% 1, 120 60 000 ml @ 75 mls/hr IV . [id number] [facility] Rx#:[id number] Sodium Chloride 0.9% 1, 1000 000 ml @ 999 mls/hr IV . Q1H1M [facility] Rx#:[id number] Sodium Chloride 0.9% 99 76.5 27 ml @ 0.03 UNITS/MIN 9 mls /hr IV .Q11H7M [facility] with Vasopressin 20 unit Rx#: [id number] Oral 462 Output: Urine 127 520 70 Estimated Blood Loss 0 Other: Voiding Method Indwelling Catheter Indwelling Catheter ABP, PAP, CO, CI - Last Documented Arterial Blood Pressure 117/48 - Labs CBC & Chem 7: 06/16/16 05:40 06/16/16 04:14 Labs: Abnormal Lab Results - Last 24 Hours (Table) 06/15/16 06/15/16 06/15/16 Range/Units 14:09 14:10 14:42 WBC (3.8-10.6) k/uL RBC (4.30-5.90) m/uL Hgb (13.0-17.5) gm/dL MCHC (31.0-37.0) g/dL RDW (11.5-15.5) % Neutrophils # (Manual) (1.3-7.7) k/uL Lymphocytes # (Manual) (1.0-4.8) k/uL PT (9.0-12.0) sec APTT (22.0-30.0) sec ABG Lactic Acid (0.5-1.6) mmol/L Chloride (98-107) mmol/L Carbon Dioxide (22-30) mmol/L BUN (9-20) mg/dL Creatinine (0.66-1.25) mg/dL Glucose (74-99) mg/dL POC Glucose (mg/dL) 31 L 33 L (75-99) mg/dL Plasma Lactic Acid Michael 6.9 H* (0.7-2.0) mmol/L Calcium (8.4-10.2) mg/dL Magnesium (1.6-2.3) mg/dL 06/15/16 06/15/16 06/15/16 Range/Units 15:36 16:34 19:09 WBC (3.8-10.6) k/uL RBC (4.30-5.90) m/uL Hgb (13.0-17.5) gm/dL MCHC (31.0-37.0) g/dL RDW (11.5-15.5) % Neutrophils # (Manual) (1.3-7.7) k/uL Lymphocytes # (Manual) (1.0-4.8) k/uL PT (9.0-12.0) sec APTT (22.0-30.0) sec ABG Lactic Acid (0.5-1.6) mmol/L Chloride (98-107) mmol/L Carbon Dioxide (22-30) mmol/L BUN (9-20) mg/dL Creatinine (0.66-1.25) mg/dL Glucose (74-99) mg/dL POC Glucose (mg/dL) 50 L 100 H (75-99) mg/dL Plasma Lactic Acid Michael 6.3 H* (0.7-2.0) mmol/L Calcium (8.4-10.2) mg/dL Magnesium (1.6-2.3) mg/dL 06/15/16 06/15/16 06/15/16 Range/Units 19:09 19:23 19:30 WBC (3.8-10.6) k/uL RBC (4.30-5.90) m/uL Hgb (13.0-17.5) gm/dL MCHC (31.0-37.0) g/dL RDW (11.5-15.5) % Neutrophils # (Manual) (1.3-7.7) k/uL Lymphocytes # (Manual) (1.0-4.8) k/uL PT (9.0-12.0) sec APTT (22.0-30.0) sec ABG Lactic Acid (0.5-1.6) mmol/L Chloride 110 H (98-107) mmol/L Carbon Dioxide (22-30) mmol/L BUN 27 H (9-20) mg/dL Creatinine 1.72 H (0.66-1.25) mg/dL Glucose (74-99) mg/dL POC Glucose (mg/dL) 60 L (75-99) mg/dL Plasma Lactic Acid Michael (0.7-2.0) mmol/L Calcium 7.5 L (8.4-10.2) mg/dL Magnesium 1.3 L (1.6-2.3) mg/dL 06/15/16 06/15/16 06/15/16 Range/Units 19:55 19:59 20:15 WBC (3.8-10.6) k/uL RBC (4.30-5.90) m/uL Hgb (13.0-17.5) gm/dL MCHC (31.0-37.0) g/dL RDW (11.5-15.5) % Neutrophils # (Manual) (1.3-7.7) k/uL Lymphocytes # (Manual) (1.0-4.8) k/uL PT (9.0-12.0) sec APTT (22.0-30.0) sec ABG Lactic Acid (0.5-1.6) mmol/L Chloride (98-107) mmol/L Carbon Dioxide (22-30) mmol/L BUN (9-20) mg/dL Creatinine (0.66-1.25) mg/dL Glucose (74-99) mg/dL POC Glucose (mg/dL) 64 L 61 L 101 H (75-99) mg/dL Plasma Lactic Acid Michael (0.7-2.0) mmol/L Calcium (8.4-10.2) mg/dL Magnesium (1.6-2.3) mg/dL 06/15/16 06/15/16 06/15/16 Range/Units 20:40 20:59 22:12 WBC (3.8-10.6) k/uL RBC (4.30-5.90) m/uL Hgb (13.0-17.5) gm/dL MCHC (31.0-37.0) g/dL RDW (11.5-15.5) % Neutrophils # (Manual) (1.3-7.7) k/uL Lymphocytes # (Manual) (1.0-4.8) k/uL PT (9.0-12.0) sec APTT (22.0-30.0) sec ABG Lactic Acid 6.2 H* (0.5-1.6) mmol/L Chloride (98-107) mmol/L Carbon Dioxide (22-30) mmol/L BUN (9-20) mg/dL Creatinine (0.66-1.25) mg/dL Glucose (74-99) mg/dL POC Glucose (mg/dL) 114 H 100 H (75-99) mg/dL Plasma Lactic Acid Michael (0.7-2.0) mmol/L Calcium (8.4-10.2) mg/dL Magnesium (1.6-2.3) mg/dL 06/15/16 06/16/16 06/16/16 Range/Units 23:05 00:04 01:01 WBC (3.8-10.6) k/uL RBC (4.30-5.90) m/uL Hgb (13.0-17.5) gm/dL MCHC (31.0-37.0) g/dL RDW (11.5-15.5) % Neutrophils # (Manual) (1.3-7.7) k/uL Lymphocytes # (Manual) (1.0-4.8) k/uL PT (9.0-12.0) sec APTT (22.0-30.0) sec ABG Lactic Acid (0.5-1.6) mmol/L Chloride (98-107) mmol/L Carbon Dioxide (22-30) mmol/L BUN (9-20) mg/dL Creatinine (0.66-1.25) mg/dL Glucose (74-99) mg/dL POC Glucose (mg/dL) 116 H 119 H 115 H (75-99) mg/dL Plasma Lactic Acid Michael (0.7-2.0) mmol/L Calcium (8.4-10.2) mg/dL Magnesium (1.6-2.3) mg/dL 06/16/16 06/16/16 06/16/16 Range/Units 02:04 03:09 04:12 WBC (3.8-10.6) k/uL RBC (4.30-5.90) m/uL Hgb (13.0-17.5) gm/dL MCHC (31.0-37.0) g/dL RDW (11.5-15.5) % Neutrophils # (Manual) (1.3-7.7) k/uL Lymphocytes # (Manual) (1.0-4.8) k/uL PT (9.0-12.0) sec APTT (22.0-30.0) sec ABG Lactic Acid (0.5-1.6) mmol/L Chloride (98-107) mmol/L Carbon Dioxide (22-30) mmol/L BUN (9-20) mg/dL Creatinine (0.66-1.25) mg/dL Glucose (74-99) mg/dL POC Glucose (mg/dL) 127 H 114 H 119 H (75-99) mg/dL Plasma Lactic Acid Michael (0.7-2.0) mmol/L Calcium (8.4-10.2) mg/dL Magnesium (1.6-2.3) mg/dL 06/16/16 06/16/16 06/16/16 Range/Units 04:14 04:14 04:14 WBC (3.8-10.6) k/uL RBC (4.30-5.90) m/uL Hgb (13.0-17.5) gm/dL MCHC (31.0-37.0) g/dL RDW (11.5-15.5) % Neutrophils # (Manual) (1.3-7.7) k/uL Lymphocytes # (Manual) (1.0-4.8) k/uL PT 20.1 H (9.0-12.0) sec APTT 40.2 H (22.0-30.0) sec ABG Lactic Acid 5.2 H* (0.5-1.6) mmol/L Chloride 110 H (98-107) mmol/L Carbon Dioxide 16 L (22-30) mmol/L BUN 30 H (9-20) mg/dL Creatinine 1.50 H (0.66-1.25) mg/dL Glucose 125 H (74-99) mg/dL POC Glucose (mg/dL) (75-99) mg/dL Plasma Lactic Acid Michael (0.7-2.0) mmol/L Calcium 7.6 L (8.4-10.2) mg/dL Magnesium (1.6-2.3) mg/dL 06/16/16 06/16/16 Range/Units 05:40 05:41 WBC 29.6 H* (3.8-10.6) k/uL RBC 4.12 L (4.30-5.90) m/uL Hgb 12.0 L (13.0-17.5) gm/dL MCHC 29.7 L (31.0-37.0) g/dL RDW 15.8 H (11.5-15.5) % Neutrophils # (Manual) 28.4 H (1.3-7.7) k/uL Lymphocytes # (Manual) 0.3 L (1.0-4.8) k/uL PT (9.0-12.0) sec APTT (22.0-30.0) sec ABG Lactic Acid (0.5-1.6) mmol/L Chloride (98-107) mmol/L Carbon Dioxide (22-30) mmol/L BUN (9-20) mg/dL Creatinine (0.66-1.25) mg/dL Glucose (74-99) mg/dL POC Glucose (mg/dL) 114 H (75-99) mg/dL Plasma Lactic Acid Michael (0.7-2.0) mmol/L Calcium (8.4-10.2) mg/dL Magnesium (1.6-2.3) mg/dL
[2016-06-16 10:00] LABS: Glucose,Whole Blood 125 mg/dL (75-99)
--- NOTE | 2016-06-16 10:31 | XR ---
EXAMINATION TYPE: XR chest 1V portable DATE OF EXAM: 06/16/2016 10:20 AM COMPARISON: Chest radiograph dated June 15, 2016 HISTORY: CHF and shortness of breath TECHNIQUE: Single frontal view of the chest is obtained. FINDINGS: There is a new right infrahilar and right lung base focal opacity in addition to chronic i nterstitial prominence and mild pulmonary vascular congestion. Pleural parenchymal scarring is apprec iated along the periphery of the left mid-upper lung. There is thickening of the right minor fissure with a small amount of intrafissural fluid and new trace pleural effusions. There is generalized oste openia and degenerative changes of the left acromioclavicular joint as well as a high riding right hu meral head. Cardia mediastinal silhouette is obscured. Right central venous catheter is unchanged. IMPRESSION: 1. New right infrahilar/right lower lobe opacity worrisome for new developing pneumonia. 2. New mild pulmonary vascular congestion superimposed upon coarse chronic interstitial lung changes. 3. Unchanged right central venous catheter.
[2016-06-16 12:11] LABS: Glucose,Whole Blood 120 mg/dL (75-99)
--- NOTE | 2016-06-16 13:03 | P.PN ---
Subjective Principal diagnosis: Acute septic shock secondary to urinary tract infection This is an 87-year-old gentleman who has a history of DVT, GERD, hyperlipidemia , enlarged prostate with home indwelling Henderson catheter. He presented to the emergency room this morning with complaints of problems with his catheter. He stated he hadn't been able to urinate since approximately 2:00 this morning. He is quite uncomfortable and felt as though he needed to void. They tried flushing the catheter at home in the outpatient setting with without success. He is making urine currently but it is quite bloody. The patient has also had increasing bilateral lower extremity edema and shortness of breath. He had a lactic acid of 5.7. In the ER he is found to be quite hypotensive and has received 3.5 L of 0.9 normal saline fluid boluses and required initiation of norepinephrine currently at 15 mcg/m. His chest x-ray revealed a mild left lower lobe infiltrate. He has been initiated on Zosyn and Levaquin. His white count is 1.1. Creatinine 1.53. 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 There is also noted prominent prostate. Patient was reevaluated today on 06/16/2016, remains on significant amount of pressors including norepinephrine and on vasopressin. Remains on antibiotics in the form of Zosyn and Levaquin, his blood cultures came back positive for gram-negative bacilli however the final sensitivity and identification is pending. Patient is presently on 30 g of norepinephrine, and on 0.03 units per minute of vasopressin. Urine output has been marginal, hence I recommended more fluid boluses today, and he seems to have responded well to 500 mL of 0.9 normal saline, with a bit of improvement in the urine output, and we were able to come down a bit on his norepinephrine. Chest x-ray today is showing mild pulmonary vascular congestion, and the patient may have history of chronic interstitial lung disease changes. CVP however is ranging between 7 and 10. On 06/15/2016, patient underwent cystoscopy and placement of a double-J catheter right 626. This was done mostly because the patient presented with urine infection and obstructing ureteral calculus with pyelonephritis. Patient was clearly septic and his white count was very low. And he required pressors, overall presentation was a picture of sepsis and septic shock. Labs today showed a WBC count of 29.6, his bicarb is 16 BUN is 30 and creatinine is 1.50 hemoglobin of 12. Lactic acid this morning was 5.2. His urine Gram stain is showing gram-negative rods and his blood culture is showing gram-negative bacilli again the final sensitivity is pending. Objective - Vital Signs Vital signs: Vital Signs Temp 97.9 F 06/16/16 08:00 Pulse 124 H 06/16/16 09:30 Resp 26 H 06/16/16 09:30 BP 98/51 06/16/16 09:30 Pulse Ox 99 06/16/16 09:30 Intake & Output 06/15/16 06/16/16 06/16/16 18:59 06:59 18:59 Intake Total 776.559 2574.087 462 Output Total 127 520 70 Balance 434.885 8136.087 392 Weight 73.2 kg 76 kg Intake: IV 325 300 Sodium Chloride 0.9% 1, 75 000 ml @ 75 mls/hr IV . [id number] [facility] Rx#:[id number] d5w 150 300 Intake, IV Titration 64.922 2255.087 462 Amount Dextrose 5% in Water 1, 450 225 000 ml @ 75 mls/hr IV . [id number] [facility] Rx#:[id number] Levofloxacin 750Mg-D5w 100 Pmx 750 mg In Dextrose/ Water 1 150ml.bag @ 100 mls/hr IVPB Q24H [facility] Rx#: [id number] Magnesium Sulfate-D5w Pmx 300 1 gm In Dextrose/Water 1 100ml.bag @ 100 mls/hr IVPB Q1H [facility] Rx#: [id number] Norepinephrine 16 mg In 258.587 Sodium Chloride 0.9% 250 ml @ Titrate IV .Q0M [facility] Rx#:[id number] Norepinephrine 4 mg In 14.922 Sodium Chloride 0.9% 250 ml @ Titrate IV .Q0M [facility] Rx#:[id number] Piperacillin-Tazobactam 3 50 .375 gm In Dextrose/Water 1 50ml.bag @ 12.5 mls/hr IVPB ONCE STA Rx#: [id number] Piperacillin-Tazobactam 3 50.0 50 .375 gm In Dextrose/Water 1 50ml.bag @ 12.5 mls/hr IVPB Q8HR [facility] Rx#: [id number] Sodium Chloride 0.9% 1, 120 60 000 ml @ 75 mls/hr IV . [id number] [facility] Rx#:[id number] Sodium Chloride 0.9% 1, 1000 000 ml @ 999 mls/hr IV . Q1H1M [facility] Rx#:[id number] Sodium Chloride 0.9% 99 76.5 27 ml @ 0.03 UNITS/MIN 9 mls /hr IV .Q11H7M [facility] with Vasopressin 20 unit Rx#: [id number] Oral 462 Output: Urine 127 520 70 Estimated Blood Loss 0 Other: Voiding Method Indwelling Catheter Indwelling Catheter Indwelling Catheter ABP, PAP, CO, CI - Last Documented Arterial Blood Pressure 117/48 - Exam GENERAL EXAM: Alert, weak, dyspneic. Cachectic appearing. HEAD: Normocephalic. EYES: Normal reaction of pupils, equal size. NOSE: Clear with pink turbinates. THROAT: No erythema or exudates. NECK: No masses, no JVD. CHEST: No chest wall deformity. Right central line in place. LUNGS: Equal air entry with crackles in left posterior base.. CVS: S1 and S2 normal with no audible murmurs, regular rhythm. ABDOMEN: Slightly distended, normal bowel sounds, no guarding or rigidity. SKIN: No rashes CENTRAL NERVOUS SYSTEM: No focal deficits, tone is normal in all 4 extremities. Extremities: There is 2-3+ lower extremity peripheral edema. No clubbing no cyanosis. Peripheral pulses are intact. - Labs CBC & Chem 7: 06/16/16 05:40 06/16/16 04:14 Labs: Abnormal Lab Results - Last 24 Hours (Table) 06/15/16 06/15/16 06/15/16 Range/Units 14:09 14:10 14:42 WBC (3.8-10.6) k/uL RBC (4.30-5.90) m/uL Hgb (13.0-17.5) gm/dL MCHC (31.0-37.0) g/dL RDW (11.5-15.5) % Neutrophils # (Manual) (1.3-7.7) k/uL Lymphocytes # (Manual) (1.0-4.8) k/uL PT (9.0-12.0) sec APTT (22.0-30.0) sec ABG Lactic Acid (0.5-1.6) mmol/L Chloride (98-107) mmol/L Carbon Dioxide (22-30) mmol/L BUN (9-20) mg/dL Creatinine (0.66-1.25) mg/dL Glucose (74-99) mg/dL POC Glucose (mg/dL) 31 L 33 L (75-99) mg/dL Plasma Lactic Acid Michael 6.9 H* (0.7-2.0) mmol/L Calcium (8.4-10.2) mg/dL Magnesium (1.6-2.3) mg/dL 06/15/16 06/15/16 06/15/16 Range/Units 15:36 16:34 19:09 WBC (3.8-10.6) k/uL RBC (4.30-5.90) m/uL Hgb (13.0-17.5) gm/dL MCHC (31.0-37.0) g/dL RDW (11.5-15.5) % Neutrophils # (Manual) (1.3-7.7) k/uL Lymphocytes # (Manual) (1.0-4.8) k/uL PT (9.0-12.0) sec APTT (22.0-30.0) sec ABG Lactic Acid (0.5-1.6) mmol/L Chloride (98-107) mmol/L Carbon Dioxide (22-30) mmol/L BUN (9-20) mg/dL Creatinine (0.66-1.25) mg/dL Glucose (74-99) mg/dL POC Glucose (mg/dL) 50 L 100 H (75-99) mg/dL Plasma Lactic Acid Michael 6.3 H* (0.7-2.0) mmol/L Calcium (8.4-10.2) mg/dL Magnesium (1.6-2.3) mg/dL 06/15/16 06/15/16 06/15/16 Range/Units 19:09 19:23 19:30 WBC (3.8-10.6) k/uL RBC (4.30-5.90) m/uL Hgb (13.0-17.5) gm/dL MCHC (31.0-37.0) g/dL RDW (11.5-15.5) % Neutrophils # (Manual) (1.3-7.7) k/uL Lymphocytes # (Manual) (1.0-4.8) k/uL PT (9.0-12.0) sec APTT (22.0-30.0) sec ABG Lactic Acid (0.5-1.6) mmol/L Chloride 110 H (98-107) mmol/L Carbon Dioxide (22-30) mmol/L BUN 27 H (9-20) mg/dL Creatinine 1.72 H (0.66-1.25) mg/dL Glucose (74-99) mg/dL POC Glucose (mg/dL) 60 L (75-99) mg/dL Plasma Lactic Acid Michael (0.7-2.0) mmol/L Calcium 7.5 L (8.4-10.2) mg/dL Magnesium 1.3 L (1.6-2.3) mg/dL 06/15/16 06/15/16 06/15/16 Range/Units 19:55 19:59 20:15 WBC (3.8-10.6) k/uL RBC (4.30-5.90) m/uL Hgb (13.0-17.5) gm/dL MCHC (31.0-37.0) g/dL RDW (11.5-15.5) % Neutrophils # (Manual) (1.3-7.7) k/uL Lymphocytes # (Manual) (1.0-4.8) k/uL PT (9.0-12.0) sec APTT (22.0-30.0) sec ABG Lactic Acid (0.5-1.6) mmol/L Chloride (98-107) mmol/L Carbon Dioxide (22-30) mmol/L BUN (9-20) mg/dL Creatinine (0.66-1.25) mg/dL Glucose (74-99) mg/dL POC Glucose (mg/dL) 64 L 61 L 101 H (75-99) mg/dL Plasma Lactic Acid Michael (0.7-2.0) mmol/L Calcium (8.4-10.2) mg/dL Magnesium (1.6-2.3) mg/dL 02/11/17 02/11/17 02/11/17 Range/Units 20:40 20:59 22:12 WBC (3.8-10.6) k/uL RBC (4.30-5.90) m/uL Hgb (13.0-17.5) gm/dL MCHC (31.0-37.0) g/dL RDW (11.5-15.5) % Neutrophils # (Manual) (1.3-7.7) k/uL Lymphocytes # (Manual) (1.0-4.8) k/uL PT (9.0-12.0) sec APTT (22.0-30.0) sec ABG Lactic Acid 6.2 H* (0.5-1.6) mmol/L Chloride (98-107) mmol/L Carbon Dioxide (22-30) mmol/L BUN (9-20) mg/dL Creatinine (0.66-1.25) mg/dL Glucose (74-99) mg/dL POC Glucose (mg/dL) 114 H 100 H (75-99) mg/dL Plasma Lactic Acid Michael (0.7-2.0) mmol/L Calcium (8.4-10.2) mg/dL Magnesium (1.6-2.3) mg/dL 06/15/16 06/16/16 06/16/16 Range/Units 23:05 00:04 01:01 WBC (3.8-10.6) k/uL RBC (4.30-5.90) m/uL Hgb (13.0-17.5) gm/dL MCHC (31.0-37.0) g/dL RDW (11.5-15.5) % Neutrophils # (Manual) (1.3-7.7) k/uL Lymphocytes # (Manual) (1.0-4.8) k/uL PT (9.0-12.0) sec APTT (22.0-30.0) sec ABG Lactic Acid (0.5-1.6) mmol/L Chloride (98-107) mmol/L Carbon Dioxide (22-30) mmol/L BUN (9-20) mg/dL Creatinine (0.66-1.25) mg/dL Glucose (74-99) mg/dL POC Glucose (mg/dL) 116 H 119 H 115 H (75-99) mg/dL Plasma Lactic Acid Michael (0.7-2.0) mmol/L Calcium (8.4-10.2) mg/dL Magnesium (1.6-2.3) mg/dL 06/16/16 06/16/16 06/16/16 Range/Units 02:04 03:09 04:12 WBC (3.8-10.6) k/uL RBC (4.30-5.90) m/uL Hgb (13.0-17.5) gm/dL MCHC (31.0-37.0) g/dL RDW (11.5-15.5) % Neutrophils # (Manual) (1.3-7.7) k/uL Lymphocytes # (Manual) (1.0-4.8) k/uL PT (9.0-12.0) sec APTT (22.0-30.0) sec ABG Lactic Acid (0.5-1.6) mmol/L Chloride (98-107) mmol/L Carbon Dioxide (22-30) mmol/L BUN (9-20) mg/dL Creatinine (0.66-1.25) mg/dL Glucose (74-99) mg/dL POC Glucose (mg/dL) 127 H 114 H 119 H (75-99) mg/dL Plasma Lactic Acid Michael (0.7-2.0) mmol/L Calcium (8.4-10.2) mg/dL Magnesium (1.6-2.3) mg/dL 06/16/16 06/16/16 06/16/16 Range/Units 04:14 04:14 04:14 WBC (3.8-10.6) k/uL RBC (4.30-5.90) m/uL Hgb (13.0-17.5) gm/dL MCHC (31.0-37.0) g/dL RDW (11.5-15.5) % Neutrophils # (Manual) (1.3-7.7) k/uL Lymphocytes # (Manual) (1.0-4.8) k/uL PT 20.1 H (9.0-12.0) sec APTT 40.2 H (22.0-30.0) sec ABG Lactic Acid 5.2 H* (0.5-1.6) mmol/L Chloride 110 H (98-107) mmol/L Carbon Dioxide 16 L (22-30) mmol/L BUN 30 H (9-20) mg/dL Creatinine 1.50 H (0.66-1.25) mg/dL Glucose 125 H (74-99) mg/dL POC Glucose (mg/dL) (75-99) mg/dL Plasma Lactic Acid Michael (0.7-2.0) mmol/L Calcium 7.6 L (8.4-10.2) mg/dL Magnesium (1.6-2.3) mg/dL 06/16/16 06/16/16 06/16/16 Range/Units 05:40 05:41 09:58 WBC 29.6 H* (3.8-10.6) k/uL RBC 4.12 L (4.30-5.90) m/uL Hgb 12.0 L (13.0-17.5) gm/dL MCHC 29.7 L (31.0-37.0) g/dL RDW 15.8 H (11.5-15.5) % Neutrophils # (Manual) 28.4 H (1.3-7.7) k/uL Lymphocytes # (Manual) 0.3 L (1.0-4.8) k/uL PT (9.0-12.0) sec APTT (22.0-30.0) sec ABG Lactic Acid (0.5-1.6) mmol/L Chloride (98-107) mmol/L Carbon Dioxide (22-30) mmol/L BUN (9-20) mg/dL Creatinine (0.66-1.25) mg/dL Glucose (74-99) mg/dL POC Glucose (mg/dL) 114 H 125 H (75-99) mg/dL Plasma Lactic Acid Michael (0.7-2.0) mmol/L Calcium (8.4-10.2) mg/dL Magnesium (1.6-2.3) mg/dL 06/16/16 Range/Units 12:10 WBC (3.8-10.6) k/uL RBC (4.30-5.90) m/uL Hgb (13.0-17.5) gm/dL MCHC (31.0-37.0) g/dL RDW (11.5-15.5) % Neutrophils # (Manual) (1.3-7.7) k/uL Lymphocytes # (Manual) (1.0-4.8) k/uL PT (9.0-12.0) sec APTT (22.0-30.0) sec ABG Lactic Acid (0.5-1.6) mmol/L Chloride (98-107) mmol/L Carbon Dioxide (22-30) mmol/L BUN (9-20) mg/dL Creatinine (0.66-1.25) mg/dL Glucose (74-99) mg/dL POC Glucose (mg/dL) 120 H (75-99) mg/dL Plasma Lactic Acid Michael (0.7-2.0) mmol/L Calcium (8.4-10.2) mg/dL Magnesium (1.6-2.3) mg/dL Assessment and Plan Plan: #1 Acute sepsis and septic shock secondary to acute urinary tract infection and acute pyelonephritis #2 Lactic acidosis secondary to above. 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 #4 History of DVT, maintained on Xarelto. #5 Acute renal failure, creatinine 1.53. This is an acute kidney injury most likely secondary to acute tubular necrosis and hypotension #6 Leukopenia of unclear etiology. #7 Gastroesophageal reflux disease. #8 Hyperlipidemia. #9 status post cystoscopy and ureteral stent placement by urology. Postoperative day #1 10 acute gram-negative bacteremia secondary to urinary tract infection and pyelonephritis. Recommendation: Continue fluid resuscitation, pressors and titrate to maintain a mean arterial pressure of 65, antibiotics broad-spectrum in the form of Zosyn and Levaquin will continue for now continue GI prophylaxis, and continue to follow the sepsis protocol. The patient will remain in the ICU, he remains critically ill, and we'll continue to follow closely. Critical care time is 45 minutes. Time with Patient: Greater than 30
[2016-06-16] MEDS: HYDROCORTISONE SUCCINATE 100 MG/2 ML VIAL IV SCH (15:33)
[2016-06-16] MEDS ORDERED: HYDROmorphone 1 MG/ML 1 ML SYRINGE IVP PRN (16:44)
[2016-06-16] MEDS: NOREPINEPHRINE 16 MG in SODIUM CHLORIDE 0.9% 250 ML IV SCH (17:55)
--- NOTE | 2016-06-16 18:55 | P.PN ---
Subjective 86 year old gentleman with history of DVT, GERD, enlarged prostate with chronic indwelling Henderson catheter which was changed over on Friday by his home care nurse comes in to the hospital with abdominal distention, inability to urinate. Patient's Henderson catheter was changed in the ER was noted to have a significant amount of urine. Patient was noted to have multiple clots that were seen in the Henderson bag. Patient was noted to have a lactic acid, was also hypotensive. Patient received 3.5 L of crystalloids and was started on Levaquin initially. 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 At the time of my examination patient was seen in the ICU states that he feels much better. Patient is currently on 4 L supplement oxygen. Apparently at baseline he is pretty much bedbound. 2016 Currently on vasopressor support, complaints of pain in his abdomen. Underwent a stent placement. . Objective - Vital Signs Vital signs: Vital Signs Temp 98.2 F 06/16/16 16:00 Pulse 115 H 06/16/16 17:00 Resp 19 06/16/16 17:00 BP 92/51 06/16/16 15:45 Pulse Ox 96 06/16/16 17:00 Intake & Output 06/15/16 06/16/16 06/16/16 18:59 06:59 18:59 Intake Total 858.594 6091.087 1295.413 Output Total 127 520 340 Balance 192.863 4441.087 955.413 Weight 73.2 kg 76 kg Intake: IV 325 300 Sodium Chloride 0.9% 1, 75 000 ml @ 75 mls/hr IV . [id number] [facility] Rx#:[id number] d5w 150 300 Intake, IV Titration 64.922 2255.087 1295.413 Amount Dextrose 5% in Water 1, 450 825 000 ml @ 75 mls/hr IV . [id number] [facility] Rx#:[id number] Levofloxacin 750Mg-D5w 100 Pmx 750 mg In Dextrose/ Water 1 150ml.bag @ 100 mls/hr IVPB Q24H [facility] Rx#: [id number] Magnesium Sulfate-D5w Pmx 300 1 gm In Dextrose/Water 1 100ml.bag @ 100 mls/hr IVPB Q1H [facility] Rx#: [id number] Norepinephrine 16 mg In 258.587 7.413 Sodium Chloride 0.9% 250 ml @ Titrate IV .Q0M [facility] Rx#:[id number] Norepinephrine 4 mg In 14.922 Sodium Chloride 0.9% 250 ml @ Titrate IV .Q0M [facility] Rx#:[id number] Piperacillin-Tazobactam 3 50 .375 gm In Dextrose/Water 1 50ml.bag @ 12.5 mls/hr IVPB ONCE [facility] Rx#: [id number] Piperacillin-Tazobactam 3 50.0 50 .375 gm In Dextrose/Water 1 50ml.bag @ 12.5 mls/hr IVPB Q8HR [facility] Rx#: [id number] Sodium Chloride 0.9% 1, 120 220 000 ml @ 75 mls/hr IV . [id number] [facility] Rx#:[id number] Sodium Chloride 0.9% 1, 1000 000 ml @ 999 mls/hr IV . Q1H1M [facility] Rx#:[id number] Sodium Chloride 0.9% 99 76.5 93 ml @ 0.03 UNITS/MIN 9 mls /hr IV .Q11H7M [facility] with Vasopressin 20 unit Rx#: [id number] Oral 462 Output: Urine 127 520 340 Estimated Blood Loss 0 Other: Voiding Method Indwelling Catheter Indwelling Catheter Indwelling Catheter ABP, PAP, CO, CI - Last Documented Arterial Blood Pressure 108/48 - Exam Gen. appearance oriented times he does not appear to be in distress Neck is supple no JVD Lungs diminished breath sounds however no rhonchi or wheezing noted Heart S1-S2 heard no murmurs appreciated Abdomen is soft nontender no organomegaly Patient has a Henderson catheter in place Lower extremity is 2+ pitting edema that is noted - Labs CBC & Chem 7: 06/16/16 05:40 06/16/16 04:14 Labs: Abnormal Lab Results - Last 24 Hours (Table) 06/15/16 06/15/16 06/15/16 Range/Units 19:09 19:09 19:23 WBC (3.8-10.6) k/uL RBC (4.30-5.90) m/uL Hgb (13.0-17.5) gm/dL MCHC (31.0-37.0) g/dL RDW (11.5-15.5) % Neutrophils # (Manual) (1.3-7.7) k/uL Lymphocytes # (Manual) (1.0-4.8) k/uL PT (9.0-12.0) sec APTT (22.0-30.0) sec ABG Lactic Acid (0.5-1.6) mmol/L Chloride 110 H (98-107) mmol/L Carbon Dioxide (22-30) mmol/L BUN 27 H (9-20) mg/dL Creatinine 1.72 H (0.66-1.25) mg/dL Glucose (74-99) mg/dL POC Glucose (mg/dL) 60 L (75-99) mg/dL Plasma Lactic Acid Michael 6.3 H* (0.7-2.0) mmol/L Calcium 7.5 L (8.4-10.2) mg/dL Magnesium (1.6-2.3) mg/dL 06/15/16 06/15/16 06/15/16 Range/Units 19:30 19:55 19:59 WBC (3.8-10.6) k/uL RBC (4.30-5.90) m/uL Hgb (13.0-17.5) gm/dL MCHC (31.0-37.0) g/dL RDW (11.5-15.5) % Neutrophils # (Manual) (1.3-7.7) k/uL Lymphocytes # (Manual) (1.0-4.8) k/uL PT (9.0-12.0) sec APTT (22.0-30.0) sec ABG Lactic Acid (0.5-1.6) mmol/L Chloride (98-107) mmol/L Carbon Dioxide (22-30) mmol/L BUN (9-20) mg/dL Creatinine (0.66-1.25) mg/dL Glucose (74-99) mg/dL POC Glucose (mg/dL) 64 L 61 L (75-99) mg/dL Plasma Lactic Acid Michael (0.7-2.0) mmol/L Calcium (8.4-10.2) mg/dL Magnesium 1.3 L (1.6-2.3) mg/dL 06/15/16 06/15/16 06/15/16 Range/Units 20:15 20:40 20:59 WBC (3.8-10.6) k/uL RBC (4.30-5.90) m/uL Hgb (13.0-17.5) gm/dL MCHC (31.0-37.0) g/dL RDW (11.5-15.5) % Neutrophils # (Manual) (1.3-7.7) k/uL Lymphocytes # (Manual) (1.0-4.8) k/uL PT (9.0-12.0) sec APTT (22.0-30.0) sec ABG Lactic Acid 6.2 H* (0.5-1.6) mmol/L Chloride (98-107) mmol/L Carbon Dioxide (22-30) mmol/L BUN (9-20) mg/dL Creatinine (0.66-1.25) mg/dL Glucose (74-99) mg/dL POC Glucose (mg/dL) 101 H 114 H (75-99) mg/dL Plasma Lactic Acid Michael (0.7-2.0) mmol/L Calcium (8.4-10.2) mg/dL Magnesium (1.6-2.3) mg/dL 06/15/16 06/15/16 06/16/16 Range/Units 22:12 23:05 00:04 WBC (3.8-10.6) k/uL RBC (4.30-5.90) m/uL Hgb (13.0-17.5) gm/dL MCHC (31.0-37.0) g/dL RDW (11.5-15.5) % Neutrophils # (Manual) (1.3-7.7) k/uL Lymphocytes # (Manual) (1.0-4.8) k/uL PT (9.0-12.0) sec APTT (22.0-30.0) sec ABG Lactic Acid (0.5-1.6) mmol/L Chloride (98-107) mmol/L Carbon Dioxide (22-30) mmol/L BUN (9-20) mg/dL Creatinine (0.66-1.25) mg/dL Glucose (74-99) mg/dL POC Glucose (mg/dL) 100 H 116 H 119 H (75-99) mg/dL Plasma Lactic Acid Michael (0.7-2.0) mmol/L Calcium (8.4-10.2) mg/dL Magnesium (1.6-2.3) mg/dL 06/16/16 06/16/16 06/16/16 Range/Units 01:01 02:04 03:09 WBC (3.8-10.6) k/uL RBC (4.30-5.90) m/uL Hgb (13.0-17.5) gm/dL MCHC (31.0-37.0) g/dL RDW (11.5-15.5) % Neutrophils # (Manual) (1.3-7.7) k/uL Lymphocytes # (Manual) (1.0-4.8) k/uL PT (9.0-12.0) sec APTT (22.0-30.0) sec ABG Lactic Acid (0.5-1.6) mmol/L Chloride (98-107) mmol/L Carbon Dioxide (22-30) mmol/L BUN (9-20) mg/dL Creatinine (0.66-1.25) mg/dL Glucose (74-99) mg/dL POC Glucose (mg/dL) 115 H 127 H 114 H (75-99) mg/dL Plasma Lactic Acid Michael (0.7-2.0) mmol/L Calcium (8.4-10.2) mg/dL Magnesium (1.6-2.3) mg/dL 06/16/16 06/16/16 06/16/16 Range/Units 04:12 04:14 04:14 WBC (3.8-10.6) k/uL RBC (4.30-5.90) m/uL Hgb (13.0-17.5) gm/dL MCHC (31.0-37.0) g/dL RDW (11.5-15.5) % Neutrophils # (Manual) (1.3-7.7) k/uL Lymphocytes # (Manual) (1.0-4.8) k/uL PT (9.0-12.0) sec APTT (22.0-30.0) sec ABG Lactic Acid 5.2 H* (0.5-1.6) mmol/L Chloride 110 H (98-107) mmol/L Carbon Dioxide 16 L (22-30) mmol/L BUN 30 H (9-20) mg/dL Creatinine 1.50 H (0.66-1.25) mg/dL Glucose 125 H (74-99) mg/dL POC Glucose (mg/dL) 119 H (75-99) mg/dL Plasma Lactic Acid Michael (0.7-2.0) mmol/L Calcium 7.6 L (8.4-10.2) mg/dL Magnesium (1.6-2.3) mg/dL 06/16/16 06/16/16 06/16/16 Range/Units 04:14 05:40 05:41 WBC 29.6 H* (3.8-10.6) k/uL RBC 4.12 L (4.30-5.90) m/uL Hgb 12.0 L (13.0-17.5) gm/dL MCHC 29.7 L (31.0-37.0) g/dL RDW 15.8 H (11.5-15.5) % Neutrophils # (Manual) 28.4 H (1.3-7.7) k/uL Lymphocytes # (Manual) 0.3 L (1.0-4.8) k/uL PT 20.1 H (9.0-12.0) sec APTT 40.2 H (22.0-30.0) sec ABG Lactic Acid (0.5-1.6) mmol/L Chloride (98-107) mmol/L Carbon Dioxide (22-30) mmol/L BUN (9-20) mg/dL Creatinine (0.66-1.25) mg/dL Glucose (74-99) mg/dL POC Glucose (mg/dL) 114 H (75-99) mg/dL Plasma Lactic Acid Michael (0.7-2.0) mmol/L Calcium (8.4-10.2) mg/dL Magnesium (1.6-2.3) mg/dL 06/16/16 06/16/16 Range/Units 09:58 12:10 WBC (3.8-10.6) k/uL RBC (4.30-5.90) m/uL Hgb (13.0-17.5) gm/dL MCHC (31.0-37.0) g/dL RDW (11.5-15.5) % Neutrophils # (Manual) (1.3-7.7) k/uL Lymphocytes # (Manual) (1.0-4.8) k/uL PT (9.0-12.0) sec APTT (22.0-30.0) sec ABG Lactic Acid (0.5-1.6) mmol/L Chloride (98-107) mmol/L Carbon Dioxide (22-30) mmol/L BUN (9-20) mg/dL Creatinine (0.66-1.25) mg/dL Glucose (74-99) mg/dL POC Glucose (mg/dL) 125 H 120 H (75-99) mg/dL Plasma Lactic Acid Michael (0.7-2.0) mmol/L Calcium (8.4-10.2) mg/dL Magnesium (1.6-2.3) mg/dL Assessment and Plan Plan: #1 septic shock likely secondary to urinary tract infection #2 leukopenia 1 radiology #3 lactic acidosis secondary to #1 #4 acute kidney injury likely secondary to dehydration #5 bladder mass #6 GERD #7 bph #8 acute DVT maintained on Cymbalta #9 chronic indwelling Henderson catheter #10 hypernatremia likely hypovolemic #11 history of asthma #12 hypoglycemia, asymptomatic. 13. Acute hypoxic respiratory failure Plan Continue vasopressor support. Add solucortef ABx per ID Code status DNR Pain control o2 as needed DVT prophylaxis.
--- NOTE | 2016-06-16 20:05 | P.CONS ---
History of Present Illness - Reason for Consult Consult date: 06/16/16 - Chief Complaint Fever - History of Present Illness 86-year-old male who is known to the infectious disease service from his recent hospitalization where he had difficulties with urinary tract infection and the development of Clostridium difficile colitis. The colitis was being treated with vancomycin with significant improvement. The patient however developed significant fever generalized malaise and weakness. And upon presenting to the emergency center was found evidence of sepsis with shock. He was seen by urology and taken to the operating room where cystoscopy was performed. Double-J catheter was placed into the right collecting system for the pyelonephritis from the obstructive right ureteral calculus. Patient continues to have hypotension after fluid resuscitation requiring vasopressor therapy for his septic shock. Although is doing slightly better at this time. Patient is lethargic and somewhat of a poor historian at this time. It is not at his baseline mental status as noted on his last admission. Review of Systems ROS unobtainable: due to mental status Past Medical History Past Medical History: Deep Vein Thrombosis (DVT), GERD/Reflux, Hyperlipidemia, Musculoskeletal Disorder, Pneumonia, Prostate Disorder, Renal Disease Additional Past Medical History / Comment(s): ENLARGED PROSTATE, 7 crushed vertebrae, BACK PAIN FROM PINCHED NERVES IN BACK- drop foot sharif feet, HAS A IDC- JONES History of Any Multi-Drug Resistant Organisms: None Reported Additional Past Surgical History / Comment(s): 02/08/16 laparoscopic christopher fundoplasty. Other surgical hx: Hydrocele repair, EGD (2007). EPIDURAL STEROID INJECTIONS WITH DR. DIAZ. skin cancer -LESIONS SEVERAL BRONCHOSCOPIES,SEBACEOUS CYST ON BACK REMOVED Past Anesthesia/Blood Transfusion Reactions: No Reported Reaction Past Psychological History: No Psychological Hx Reported Smoking Status: Former smoker Past Alcohol Use History: None Reported Additional Past Alcohol Use History / Comment(s): STARTED SMOKING AT AGE 16 QUIT 2006 SMOKED 1PPD Past Drug Use History: None Reported - Past Family History Brother(s) Family Medical History: Cancer Additional Family Medical History / Comment(s): COLON CANCER Father Family Medical History: Cancer Additional Family Medical History / Comment(s): FROM RESP FAILURE AT AGE 91 Sister(s) Family Medical History: Cancer Additional Family Medical History / Comment(s): LUNG CANCER Mother Family Medical History: Cancer Additional Family Medical History / Comment(s): COLON CANCER Medications and Allergies Home Medications and Allergies Comment(s): Current Medications Acetaminophen (Tylenol Tab) 650 mg PO Q4HR PRN PRN Reason: Fever and/or Mild Pain Acetaminophen/Hydrocodone Bitart ([place] 10) 1 each PO Q4H PRN PRN Reason: Pain Last Admin: 06/16/16 13:13 Dose: 1 each Atorvastatin Calcium (Lipitor) 10 mg PO HS [facility] Last Admin: 06/15/16 23:20 Dose: 10 mg Cyclobenzaprine HCl (Flexeril) 5 mg PO Q6H PRN PRN Reason: Muscle Spasm Fenofibrate (Lofibra) 160 mg PO HS [facility] Last Admin: 06/15/16 23:20 Dose: 160 mg Finasteride (Proscar) 5 mg PO HS [facility] Last Admin: 06/15/16 23:21 Dose: 5 mg Furosemide (Lasix) 20 mg PO DAILY [facility] Last Admin: 06/16/16 07:54 Dose: Not Given Hydrocortisone Sodium Succinate (Solu-Cortef) 50 mg IV Q6HR [facility] Last Admin: 06/16/16 15:33 Dose: 50 mg Hydromorphone HCl (Dilaudid) 0.5 mg IVP Q6HR PRN PRN Reason: Breakthrough Pain Last Admin: 06/16/16 17:54 Dose: 0.5 mg Piperacillin/Tazobactam/ (Dextrose 3.375 gm/ IV Solution) 50 mls @ 12.5 mls/hr IVPB Q8HR [facility] Last Admin: 06/16/16 15:33 Dose: 12.5 mls/hr Norepinephrine Bitartrate 16 (mg/ Sodium Chloride) 266 mls @ 0 mls/hr IV .Q0M [facility]; Titrate PRN Reason: Protocol Last Admin: 06/16/16 17:55 Dose: 28 mcg/min, 27.93 mls/hr Vasopressin 20 unit/ Sodium (Chloride) 100 mls @ 9 mls/hr IV .Q11H7M AMELIA PRN Reason: 0.03 UNITS/MIN Last Admin: 06/16/16 04:24 Dose: 9 mls/hr Lactobacillus Acidoph/Bulgaricus (Lactinex) 1 each PO TID [facility] Last Admin: 06/16/16 15:33 Dose: 1 each Lidocaine (Lidoderm) 1 patch TOPICAL DAILY [facility] Last Admin: 06/16/16 08:41 Dose: 1 patch Mirtazapine (Remeron) 15 mg PO [facility] Last Admin: 06/15/16 23:21 Dose: 15 mg Miscellaneous Information (Magnesium Per Protocol) 1 each MISCELLANE DAILY PRN ; Protocol PRN Reason: Per Protocol Miscellaneous Information (Phosphorus Per Protocol) 1 each MISCELLANE DAILY PRN ; Protocol PRN Reason: Per Protocol Miscellaneous Information (Potassium Per Protocol) 1 each MISCELLANE DAILY PRN ; Protocol PRN Reason: Per Protocol Montelukast Sodium (Singulair) 10 mg PO [facility] Last Admin: 06/15/16 23:21 Dose: 10 mg Multivitamins (Theragran) 1 each PO 1200 [facility] Last Admin: 06/16/16 07:50 Dose: 1 each Naloxone HCl (Narcan) 0.2 mg IV Q2M PRN PRN Reason: Opioid Reversal Nystatin (Mycostatin Oral Susp) 400,000 unit PO QID [facility] Last Admin: 06/16/16 17:54 Dose: 400,000 unit Ondansetron HCl (Zofran Odt) 4 mg PO Q8HR PRN PRN Reason: Nausea Pantoprazole Sodium (Protonix) 40 mg IV DAILY [facility] Last Admin: 06/16/16 07:52 Dose: 40 mg Rivaroxaban (Xarelto) 20 mg PO DAILY [facility] Last Admin: 06/16/16 07:51 Dose: 20 mg Tamsulosin HCl (Flomax) 0.4 mg PO QAM [facility] Last Admin: 06/16/16 07:53 Dose: 0.4 mg Home Medications Medication Instructions Recorded Confirmed Type Alfuzosin HCl [Uroxatral ER] 10 mg PO [facility] 11/11/14 06/15/16 History Finasteride [Proscar] 5 mg PO 11/11/14 06/15/16 History Multivitamins, Thera [Multivitamin] 1 tab PO DAILY 11/11/14 06/15/16 History Fenofibrate Nanocrystallized 145 mg PO 02/09/16 06/15/16 History [Tricor] Lovastatin 20 mg PO 02/09/16 06/15/16 History Esomeprazole Magnesium [NexIUM] 40 mg PO DAILY 04/11/16 06/15/16 History Montelukast [Singulair] 10 mg PO HS 04/11/16 06/15/16 History Rivaroxaban [Xarelto] 20 mg PO DAILY 04/11/16 06/15/16 History Cyclobenzaprine [Flexeril] 5 mg PO Q6H PRN 05/24/16 06/15/16 History HYDROcodone/APAP 10-325MG [[place] 1 tab PO Q4H PRN 05/24/16 06/15/16 History 10-325] Lidocaine 5% Patch [Lidoderm 5% 1 patch TRANSDERM DAILY 05/27/16 06/15/16 History Patch] Mirtazapine [Remeron] 15 mg PO HS 05/27/16 06/15/16 History Furosemide [Lasix] 20 mg PO DAILY 06/15/16 06/15/16 History Lactobacillus Acidoph & Bulgar 1 packet PO TID 06/15/16 06/15/16 History [Lactinex] Nystatin 100,000 Unit/ml Susp 400,000 unit PO QID 06/15/16 06/15/16 History [Mycostatin Oral Susp] Allergies Allergy/AdvReac Type Severity Reaction Status Date / Time adhesive tape AdvReac tears skin Verified 06/15/16 12:05 chicken derived [Chicken] AdvReac Nausea & Verified 06/15/16 12:05 Vomiting & Diarrhea Physical Exam Vitals: Vital Signs Temp Pulse Pulse Resp BP Pulse Ox 06/16/16 19:00 115 H 22 97 06/16/16 18:45 116 H 22 98 06/16/16 18:30 113 H 20 98 06/16/16 18:15 118 H 20 97 06/16/16 18:00 115 H 22 98 06/16/16 17:45 123 H 24 95 06/16/16 17:30 112 H 23 97 06/16/16 17:15 109 H 21 98 06/16/16 17:00 115 H 19 96 06/16/16 16:45 115 H 23 97 06/16/16 16:30 109 H 21 96 06/16/16 16:15 110 H 21 97 06/16/16 16:00 98.2 F 112 H 22 97 06/16/16 15:45 112 H 17 92/51 97 06/16/16 15:30 112 H 21 92/51 97 06/16/16 15:15 112 H 21 92/51 97 06/16/16 15:00 113 H 23 92/51 97 06/16/16 14:45 124 H 29 H 92 L 06/16/16 14:30 122 H 24 97 06/16/16 14:15 115 H 23 98 06/16/16 14:00 118 H 27 H 76/39 96 06/16/16 13:45 116 H 23 95/58 97 06/16/16 13:30 120 H 23 95/58 96 06/16/16 13:15 125 H 23 95/58 94 L 06/16/16 13:00 114 H 19 95/58 97 06/16/16 12:45 113 H 21 95/46 98 06/16/16 12:30 107 H 18 95/46 98 06/16/16 12:15 119 H 29 H 95/46 96 06/16/16 12:00 98.3 F 115 H 25 H 95/46 99 06/16/16 11:45 109 H 20 97/53 96 06/16/16 11:30 124 H 23 97/53 96 06/16/16 11:15 121 H 21 97/53 98 06/16/16 11:00 121 H 24 97 06/16/16 10:45 117 H 22 97 06/16/16 10:30 124 H 24 88/51 96 06/16/16 10:15 124 H 24 89/52 97 06/16/16 10:00 134 H 20 89/52 06/16/16 09:45 128 H 28 H 98/51 96 06/16/16 09:30 124 H 26 H 98/51 99 06/16/16 09:15 129 H 18 98/51 98 06/16/16 09:00 123 H 24 98/51 98 06/16/16 08:45 123 H 24 91/54 98 06/16/16 08:30 120 H 23 91/54 97 06/16/16 08:15 121 H 23 91/54 94 L 06/16/16 08:00 97.9 F 126 H 119 H 26 H 91/54 94 L 06/16/16 07:45 121 H 23 101/50 06/16/16 07:30 130 H 19 101/50 97 06/16/16 07:15 124 H 19 101/50 98 06/16/16 07:00 114 H 21 101/50 98 06/16/16 06:45 114 H 20 99/52 96 06/16/16 06:30 116 H 21 99/52 96 06/16/16 06:15 116 H 23 99/52 97 06/16/16 06:00 113 H 22 99/52 98 06/16/16 05:45 118 H 20 93/53 97 06/16/16 05:30 109 H 22 93/53 97 06/16/16 05:15 119 H 22 93/53 97 06/16/16 05:00 121 H 17 93/53 98 06/16/16 04:45 117 H 21 107/57 06/16/16 04:30 114 H 20 98 06/16/16 04:15 113 H 20 98 06/16/16 04:00 97.7 F 124 H 22 107/57 98 06/16/16 03:45 112 H 21 98 06/16/16 03:30 113 H 19 98 06/16/16 03:15 110 H 20 98 06/16/16 03:00 115 H 21 95/47 98 06/16/16 02:45 127 H 21 114/53 96 06/16/16 02:30 110 H 19 114/53 98 06/16/16 02:15 108 H 18 114/53 98 06/16/16 02:00 107 H 19 114/53 96 06/16/16 01:45 94 24 106/52 97 06/16/16 01:30 116 H 20 106/52 98 06/16/16 01:15 111 H 18 106/52 97 06/16/16 01:00 115 H 24 106/52 97 06/16/16 00:45 114 H 22 97 06/16/16 00:30 121 H 27 H 95 06/16/16 00:15 124 H 22 97 06/16/16 00:00 97.9 F 126 H 20 68/52 93 L 06/15/16 23:45 127 H 22 99/52 95 06/15/16 23:30 131 H 19 99/52 95 06/15/16 23:15 115 H 17 99/52 98 06/15/16 23:00 118 H 20 99/52 98 06/15/16 22:45 116 H 19 98 06/15/16 22:30 120 H 18 99 06/15/16 22:15 120 H 19 98 06/15/16 22:00 119 H 18 79/40 98 06/15/16 21:45 123 H 20 99 06/15/16 21:30 121 H 18 78/43 99 06/15/16 21:15 120 H 21 107/46 99 06/15/16 21:00 111 H 16 107/57 99 06/15/16 20:45 121 H 18 97/42 98 06/15/16 20:30 126 H 21 97 06/15/16 20:15 127 H 19 108/47 97 06/15/16 20:00 97.6 F 125 H 24 69/36 97 Intake and Output 06/16/16 06/16/16 06/16/16 06:59 14:59 22:59 Intake Total 1129.354 982 515.413 Output Total 165 230 195 Balance 964.354 752 320.413 Intake: Intake, IV Titration 1129.354 982 515.413 Amount Dextrose 5% in Water 1, 450 600 375 000 ml @ 75 mls/hr IV . [id number] [facility] Rx#:[id number] Levofloxacin 750Mg-D5w 100 Pmx 750 mg In Dextrose/ Water 1 150ml.bag @ 100 mls/hr IVPB Q24H [facility] Rx#: [id number] Magnesium Sulfate-D5w Pmx 300 1 gm In Dextrose/Water 1 100ml.bag @ 100 mls/hr IVPB Q1H [facility] Rx#: [id number] Norepinephrine 16 mg In 155.354 7.413 Sodium Chloride 0.9% 250 ml @ Titrate IV .Q0M [facility] Rx#:[id number] Piperacillin-Tazobactam 3 50.0 50 .375 gm In Dextrose/Water 1 50ml.bag @ 12.5 mls/hr IVPB Q8HR [facility] Rx#: [id number] Sodium Chloride 0.9% 1, 120 160 100 000 ml @ 75 mls/hr IV . [id number] [facility] Rx#:[id number] Sodium Chloride 0.9% 99 54 72 33 ml @ 0.03 UNITS/MIN 9 mls /hr IV .Q11H7M AMELIA with Vasopressin 20 unit Rx#: [id number] Output: Urine 165 230 195 Other: Voiding Method Indwelling Catheter Indwelling Catheter Indwelling Catheter Weight 76 kg ABP, PAP, CO, CI - Last 8 Hours Arterial Blood Pressure 107/47 Arterial Blood Pressure 110/48 Arterial Blood Pressure 108/48 Arterial Blood Pressure 110/48 Arterial Blood Pressure 113/47 Arterial Blood Pressure 119/49 Arterial Blood Pressure 113/49 Arterial Blood Pressure 103/47 Arterial Blood Pressure 108/48 Arterial Blood Pressure 108/49 Arterial Blood Pressure 106/47 Arterial Blood Pressure 117/47 Arterial Blood Pressure 120/48 Arterial Blood Pressure 127/50 Arterial Blood Pressure 121/49 Arterial Blood Pressure 114/48 Arterial Blood Pressure 126/51 Arterial Blood Pressure 82/49 Arterial Blood Pressure 109/47 Arterial Blood Pressure 113/47 Arterial Blood Pressure 94/44 Arterial Blood Pressure 112/45 Arterial Blood Pressure 108/45 Arterial Blood Pressure 116/48 Arterial Blood Pressure 116/45 Arterial Blood Pressure 135/52 Arterial Blood Pressure 117/45 Arterial Blood Pressure 106/43 Arterial Blood Pressure 122/47 86-year-old male comfortable at this time. Cloudy urine is draining. Not having large amounts of diarrhea at this time HEENT: Anicteric conjunctiva are with pallor but moist nasal mucosa grossly intact without significant lesions, there is no thrush. Neck: The neck is supple without significant lymphadenopathy or thyromegaly. Lungs: Good bilateral air entry without significant crackles or wheezing. There is no significant bronchial sounds. There is no egophony or dullness. Heart: Irregular with an audible S1 and S2 without S4 no distinct murmur click or rub is noted. PMI is nondisplaced Abdomen: Nondistended, Positive bowel sounds soft and nontender without palpable masses or organomegaly. There was no guarding or rebound. Extremities: The upper extremities have excellent pulses they are symmetric, no significant petechiae or telangiectasia. No splinter hemorrhages were noted. The lower extremities are free from significant edema. The peripheral pulses were 2+ and symmetric. Neuro: Awake alert to person and place is very lethargic able to follow some simple commands. Not a good historian his last visit. Results CBC & Chem 7: 06/16/16 05:40 06/16/16 04:14 Labs: Abnormal Lab Results - Last 24 Hours (Table) 06/15/16 06/15/16 06/15/16 Range/Units 19:09 19:09 19:30 WBC (3.8-10.6) k/uL RBC (4.30-5.90) m/uL Hgb (13.0-17.5) gm/dL MCHC (31.0-37.0) g/dL RDW (11.5-15.5) % Neutrophils # (Manual) (1.3-7.7) k/uL Lymphocytes # (Manual) (1.0-4.8) k/uL PT (9.0-12.0) sec APTT (22.0-30.0) sec ABG Lactic Acid (0.5-1.6) mmol/L Chloride 110 H (98-107) mmol/L Carbon Dioxide (22-30) mmol/L BUN 27 H (9-20) mg/dL Creatinine 1.72 H (0.66-1.25) mg/dL Glucose (74-99) mg/dL POC Glucose (mg/dL) (75-99) mg/dL Plasma Lactic Acid Michael 6.3 H* (0.7-2.0) mmol/L Calcium 7.5 L (8.4-10.2) mg/dL Magnesium 1.3 L (1.6-2.3) mg/dL 06/15/16 06/15/16 06/15/16 Range/Units 19:55 19:59 20:15 WBC (3.8-10.6) k/uL RBC (4.30-5.90) m/uL Hgb (13.0-17.5) gm/dL MCHC (31.0-37.0) g/dL RDW (11.5-15.5) % Neutrophils # (Manual) (1.3-7.7) k/uL Lymphocytes # (Manual) (1.0-4.8) k/uL PT (9.0-12.0) sec APTT (22.0-30.0) sec ABG Lactic Acid (0.5-1.6) mmol/L Chloride (98-107) mmol/L Carbon Dioxide (22-30) mmol/L BUN (9-20) mg/dL Creatinine (0.66-1.25) mg/dL Glucose (74-99) mg/dL POC Glucose (mg/dL) 64 L 61 L 101 H (75-99) mg/dL Plasma Lactic Acid Michael (0.7-2.0) mmol/L Calcium (8.4-10.2) mg/dL Magnesium (1.6-2.3) mg/dL 06/15/16 06/15/16 06/15/16 Range/Units 20:40 20:59 22:12 WBC (3.8-10.6) k/uL RBC (4.30-5.90) m/uL Hgb (13.0-17.5) gm/dL MCHC (31.0-37.0) g/dL RDW (11.5-15.5) % Neutrophils # (Manual) (1.3-7.7) k/uL Lymphocytes # (Manual) (1.0-4.8) k/uL PT (9.0-12.0) sec APTT (22.0-30.0) sec ABG Lactic Acid 6.2 H* (0.5-1.6) mmol/L Chloride (98-107) mmol/L Carbon Dioxide (22-30) mmol/L BUN (9-20) mg/dL Creatinine (0.66-1.25) mg/dL Glucose (74-99) mg/dL POC Glucose (mg/dL) 114 H 100 H (75-99) mg/dL Plasma Lactic Acid Michael (0.7-2.0) mmol/L Calcium (8.4-10.2) mg/dL Magnesium (1.6-2.3) mg/dL 06/15/16 06/16/16 06/16/16 Range/Units 23:05 00:04 01:01 WBC (3.8-10.6) k/uL RBC (4.30-5.90) m/uL Hgb (13.0-17.5) gm/dL MCHC (31.0-37.0) g/dL RDW (11.5-15.5) % Neutrophils # (Manual) (1.3-7.7) k/uL Lymphocytes # (Manual) (1.0-4.8) k/uL PT (9.0-12.0) sec APTT (22.0-30.0) sec ABG Lactic Acid (0.5-1.6) mmol/L Chloride (98-107) mmol/L Carbon Dioxide (22-30) mmol/L BUN (9-20) mg/dL Creatinine (0.66-1.25) mg/dL Glucose (74-99) mg/dL POC Glucose (mg/dL) 116 H 119 H 115 H (75-99) mg/dL Plasma Lactic Acid Michael (0.7-2.0) mmol/L Calcium (8.4-10.2) mg/dL Magnesium (1.6-2.3) mg/dL 06/16/16 06/16/16 06/16/16 Range/Units 02:04 03:09 04:12 WBC (3.8-10.6) k/uL RBC (4.30-5.90) m/uL Hgb (13.0-17.5) gm/dL MCHC (31.0-37.0) g/dL RDW (11.5-15.5) % Neutrophils # (Manual) (1.3-7.7) k/uL Lymphocytes # (Manual) (1.0-4.8) k/uL PT (9.0-12.0) sec APTT (22.0-30.0) sec ABG Lactic Acid (0.5-1.6) mmol/L Chloride (98-107) mmol/L Carbon Dioxide (22-30) mmol/L BUN (9-20) mg/dL Creatinine (0.66-1.25) mg/dL Glucose (74-99) mg/dL POC Glucose (mg/dL) 127 H 114 H 119 H (75-99) mg/dL Plasma Lactic Acid Michael (0.7-2.0) mmol/L Calcium (8.4-10.2) mg/dL Magnesium (1.6-2.3) mg/dL 06/16/16 06/16/16 06/16/16 Range/Units 04:14 04:14 04:14 WBC (3.8-10.6) k/uL RBC (4.30-5.90) m/uL Hgb (13.0-17.5) gm/dL MCHC (31.0-37.0) g/dL RDW (11.5-15.5) % Neutrophils # (Manual) (1.3-7.7) k/uL Lymphocytes # (Manual) (1.0-4.8) k/uL PT 20.1 H (9.0-12.0) sec APTT 40.2 H (22.0-30.0) sec ABG Lactic Acid 5.2 H* (0.5-1.6) mmol/L Chloride 110 H (98-107) mmol/L Carbon Dioxide 16 L (22-30) mmol/L BUN 30 H (9-20) mg/dL Creatinine 1.50 H (0.66-1.25) mg/dL Glucose 125 H (74-99) mg/dL POC Glucose (mg/dL) (75-99) mg/dL Plasma Lactic Acid Michael (0.7-2.0) mmol/L Calcium 7.6 L (8.4-10.2) mg/dL Magnesium (1.6-2.3) mg/dL 06/16/16 06/16/16 06/16/16 Range/Units 05:40 05:41 09:58 WBC 29.6 H* (3.8-10.6) k/uL RBC 4.12 L (4.30-5.90) m/uL Hgb 12.0 L (13.0-17.5) gm/dL MCHC 29.7 L (31.0-37.0) g/dL RDW 15.8 H (11.5-15.5) % Neutrophils # (Manual) 28.4 H (1.3-7.7) k/uL Lymphocytes # (Manual) 0.3 L (1.0-4.8) k/uL PT (9.0-12.0) sec APTT (22.0-30.0) sec ABG Lactic Acid (0.5-1.6) mmol/L Chloride (98-107) mmol/L Carbon Dioxide (22-30) mmol/L BUN (9-20) mg/dL Creatinine (0.66-1.25) mg/dL Glucose (74-99) mg/dL POC Glucose (mg/dL) 114 H 125 H (75-99) mg/dL Plasma Lactic Acid Michael (0.7-2.0) mmol/L Calcium (8.4-10.2) mg/dL Magnesium (1.6-2.3) mg/dL 06/16/16 Range/Units 12:10 WBC (3.8-10.6) k/uL RBC (4.30-5.90) m/uL Hgb (13.0-17.5) gm/dL MCHC (31.0-37.0) g/dL RDW (11.5-15.5) % Neutrophils # (Manual) (1.3-7.7) k/uL Lymphocytes # (Manual) (1.0-4.8) k/uL PT (9.0-12.0) sec APTT (22.0-30.0) sec ABG Lactic Acid (0.5-1.6) mmol/L Chloride (98-107) mmol/L Carbon Dioxide (22-30) mmol/L BUN (9-20) mg/dL Creatinine (0.66-1.25) mg/dL Glucose (74-99) mg/dL POC Glucose (mg/dL) 120 H (75-99) mg/dL Plasma Lactic Acid Michael (0.7-2.0) mmol/L Calcium (8.4-10.2) mg/dL Magnesium (1.6-2.3) mg/dL Laboratory Results WBC 29.6 k/uL (3.8-10.6) H* 06/16/16 05:40 RBC 4.12 m/uL (4.30-5.90) L 06/16/16 05:40 Hgb 12.0 gm/dL (13.0-17.5) L 06/16/16 05:40 Hct 40.5 % (39.0-53.0) 06/16/16 05:40 MCV 98.5 fL (80.0-100.0) 06/16/16 05:40 MCH 29.2 pg (25.0-35.0) 06/16/16 05:40 MCHC 29.7 g/dL (31.0-37.0) L 06/16/16 05:40 RDW 15.8 % (11.5-15.5) H 06/16/16 05:40 Plt Count 184 k/uL (150-450) 06/16/16 05:40 Neutrophils % 76 % 06/15/16 08:51 Neutrophils % (Manual) 88.0 % 06/16/16 05:40 Band Neutrophils % 8.0 % 06/16/16 05:40 Lymphocytes % 18 % 06/15/16 08:51 Lymphocytes % (Manual) 1.0 % 06/16/16 05:40 Monocytes % 4 % 06/15/16 08:51 Monocytes % (Manual) 3.0 % 06/16/16 05:40 Eosinophils % 1 % 06/15/16 08:51 Basophils % 0 % 06/15/16 08:51 Neutrophils # 0.8 k/uL (1.3-7.7) L 06/15/16 08:51 Neutrophils # (Manual) 28.4 k/uL (1.3-7.7) H 06/16/16 05:40 Lymphocytes # 0.2 k/uL (1.0-4.8) L 06/15/16 08:51 Lymphocytes # (Manual) 0.3 k/uL (1.0-4.8) L 06/16/16 05:40 Monocytes # 0.0 k/uL (0-1.0) 06/15/16 08:51 Monocytes # (Manual) 0.9 k/uL (0-1.0) 06/16/16 05:40 Eosinophils # 0.0 k/uL (0-0.7) 06/15/16 08:51 Basophils # 0.0 k/uL (0-0.2) 06/15/16 08:51 Nucleated RBCs 0 /100 WBC (0-0) 06/16/16 05:40 Hypochromasia Marked 06/16/16 05:40 Macrocytosis Slight 06/16/16 05:40 PT 20.1 sec (9.0-12.0) H 06/16/16 04:14 INR 2.1 (<1.1) 06/16/16 04:14 APTT 40.2 sec (22.0-30.0) H 06/16/16 04:14 ABG Lactic Acid 5.2 mmol/L (0.5-1.6) H* 06/16/16 04:14 Sodium 139 mmol/L (137-145) 06/16/16 04:14 Potassium 3.7 mmol/L (3.5-5.1) 06/16/16 04:14 Chloride 110 mmol/L (98-107) H 06/16/16 04:14 Carbon Dioxide 16 mmol/L (22-30) L 06/16/16 04:14 Anion Gap 13 mmol/L 06/16/16 04:14 BUN 30 mg/dL (9-20) H 06/16/16 04:14 Creatinine 1.50 mg/dL (0.66-1.25) H 06/16/16 04:14 Est GFR (MDRD) Af Amer 54 (>60 ml/min/1.73 sqM) 06/16/16 04:14 Est GFR (MDRD) Non-Af 44 (>60 ml/min/1.73 sqM) 06/16/16 04:14 Glucose 125 mg/dL (74-99) H 06/16/16 04:14 POC Glucose (mg/dL) 120 mg/dL (75-99) H 06/16/16 12:10 POC Glu Set Builder ID Kristen Lo 06/16/16 12:10 Plasma Lactic Acid Michael 6.3 mmol/L (0.7-2.0) H* 06/15/16 19:09 Calcium 7.6 mg/dL (8.4-10.2) L 06/16/16 04:14 Phosphorus 3.6 mg/dL (2.5-4.5) 06/16/16 04:14 Magnesium 2.2 mg/dL (1.6-2.3) 06/16/16 04:14 Total Bilirubin 0.8 mg/dL (0.2-1.3) 06/15/16 08:51 AST 28 U/L (17-59) 06/15/16 08:51 ALT 33 U/L (21-72) 06/15/16 08:51 Alkaline Phosphatase 166 U/L (38-126) H 06/15/16 08:51 Total Protein 5.7 g/dL (6.3-8.2) L 06/15/16 08:51 Albumin 2.6 g/dL (3.5-5.0) L 06/15/16 08:51 Lipase 50 U/L (23-300) 06/15/16 08:51 Urine Color Red 06/15/16 08:51 Urine Appearance Bloody (Clear) 06/15/16 08:51 Urine RBC >182 /hpf (0-5) H 06/15/16 08:51 Urine WBC >182 /hpf (0-5) H 06/15/16 08:51 Urine WBC Clumps Many /hpf (None) H 06/15/16 08:51 Urine Mucus Many /hpf (None) H 06/15/16 08:51 Microbiology 06/15/16 08:51 Blood Blood Culture Gram Stain - Preliminary 06/15/16 08:51 Blood Blood Culture - Preliminary Gram Neg Bacilli 06/15/16 08:51 Urine,Catheterized Urine Culture - Preliminary Gram Neg Bacilli 06/15/16 08:51 Blood Blood Culture - Preliminary Assessment and Plan (1) Septic shock Narrative/Plan: 86-year-old male presents to Hospital feeling quite poorly presented with evidence of septic shock on the basis of obstructive uropathy. There is evidence of positive blood cultures with gram-negative bacilli as well as a positive urine culture. Review of prior culture shows evidence of Proteus mirabilis as a common agent in the past. However he is also had enterococcus and MSSA in his urine in the recent past. For antibiotic therapy for persistent on tazobactam can be utilized to cover for the 3 recent pathogens. And we'll streamline antibiotic therapy as soon as possible especially given his history of recent Clostridium difficile colitis. We'll monitor him for recurrence of the C. diff. He has just completed his course of vancomycin therapy. He is at high risk of relapse. He does have acute renal failure with a peak creatinine of 1.72. Slightly improved today with hydration. He does have septic shock requiring multiple vasopressors. Receiving further fluid and will be receiving hydrocortisone to ensure there is not some adrenal insufficiency with his advanced age and current sepsis and multiple recent illnesses. Follow up blood cultures have been requested At admission the patient actually had leukopenia from his overwhelming sepsis and now has rebounded back to significant leukocytosis also on the basis of his significant sepsis. Prognosis is somewhat poor. Status: Acute (2) Urinary tract infection Status: Acute (3) Pyonephrosis Status: Acute
[2016-06-16] MEDS: DEXTROSE 50%-WATER 50 ML SYRINGE IVP ONE ×2 (20:25→21:38)
[2016-06-16 20:29] LABS: Glucose,Whole Blood 62 mg/dL (75-99)
[2016-06-16 20:29] LABS: Glucose,Whole Blood 67 mg/dL (75-99)
[2016-06-16 20:44] LABS: Glucose,Whole Blood 159 mg/dL (75-99)
[2016-06-16] MEDS: MIRTAZAPINE 15 MG TAB PO SCH (21:30)
[2016-06-16] MEDS: MONTELUKAST 10 MG TAB PO SCH (21:30)
[2016-06-16] MEDS: FINASTERIDE 5 MG TAB PO SCH (21:31)
[2016-06-16] MEDS: ATORVASTATIN 10 MG TAB PO SCH (21:31)
[2016-06-17] MEDS ORDERED: HALOPERIDOL LACTATE 5 MG/ML 1 ML VIAL IM PRN (03:05)
[2016-06-17] MEDS: HYDROCORTISONE SUCCINATE 100 MG/2 ML VIAL IV SCH ×4 (03:22→17:17)
[2016-06-17] MEDS: PIPERACILLIN-TAZOBACTAM 3.375 GM in DEXTROSE/WATER 1 50ML.BAG IVPB SCH ×2 (03:23→09:57)
[2016-06-17] MEDS: NOREPINEPHRINE 16 MG in SODIUM CHLORIDE 0.9% 250 ML IV SCH (03:27)
[2016-06-17 05:39] LABS: CH 29.4; CHCM 30.4; HCT 36.2 % (39.0-53.0); HDW 2.63; HGB 11.3 gm/dL (13.0-17.5); Hypochromasia Moderate; Immature Gran Flag Marked; MCH 30.3 pg (25.0-35.0); MCHC 31.2 g/dL (31.0-37.0); MCV 97.1 fL (80.0-100.0); Mean Platelet Volume 8.9; RBC 3.72 m/uL (4.30-5.90); RDW 15.8 % (11.5-15.5); WBC (Perox) 26.42
[2016-06-17 05:51] LABS: Anion Gap 12 mmol/L; Blood Urea Nitrogen 35 mg/dL (9-20); Calcium 7.8 mg/dL (8.4-10.2); Carbon Dioxide 15 mmol/L (22-30); Chloride 110 mmol/L (98-107); Glucose 77 mg/dL (74-99); Magnesium 1.9 mg/dL (1.6-2.3); Non-African American GFR(MDRD) 57 (>60 ml/min/1.73 sqM); Phosphorous 3.7 mg/dL (2.5-4.5); Potassium 3.9 mmol/L (3.5-5.1); Sodium 137 mmol/L (137-145)
[2016-06-17 06:02] LABS: WBC 25.9 k/uL (3.8-10.6)
[2016-06-17 07:18] LABS: Add Differential Manual Differential
[2016-06-17 07:23] LABS: Nucleated Red Blood Cells 0 /100 WBC (0-0); Total Cells Counted 100
[2016-06-17 07:27] LABS: Toxic Vacuolation Present
[2016-06-17 07:31] LABS: Manual Review Performed
--- NOTE | 2016-06-17 07:35 | P.PN ---
Subjective The patient is slightly improved today. He is down to 10 g of Levophed. White count is down to 25,000 from 29,000. He is confused probably due to the sepsis. He continues with medical treatment there is nothing further urologically can be done at point in time. Objective - Vital Signs Vital signs: Vital Signs Temp 98.1 F 06/16/16 20:00 Pulse 114 H 06/16/16 22:00 Resp 23 06/16/16 22:00 BP 101/55 06/16/16 21:00 Pulse Ox 96 06/16/16 22:00 Intake & Output 06/16/16 06/17/16 06/17/16 18:59 06:59 18:59 Intake Total 1396.413 580.152 Output Total 385 280 Balance 1011.413 300.152 Intake: IV 18 Pressure bags 18 Intake, IV Titration 1396.413 562.152 Amount Dextrose 5% in Water 1, 900 300 000 ml @ 75 mls/hr IV . [id number] [facility] Rx#:[id number] Levofloxacin 750Mg-D5w 100 Pmx 750 mg In Dextrose/ Water 1 150ml.bag @ 100 mls/hr IVPB Q24H [facility] Rx#: [id number] Norepinephrine 16 mg In 7.413 218.152 Sodium Chloride 0.9% 250 ml @ Titrate IV .Q0M [facility] Rx#:[id number] Piperacillin-Tazobactam 3 50 .375 gm In Dextrose/Water 1 50ml.bag @ 12.5 mls/hr IVPB Q8HR [facility] Rx#: [id number] Sodium Chloride 0.9% 1, 240 20 000 ml @ 75 mls/hr IV . [id number] [facility] Rx#:[id number] Sodium Chloride 0.9% 99 99 24 ml @ 0.03 UNITS/MIN 9 mls /hr IV .Q11H7M [facility] with Vasopressin 20 unit Rx#: [id number] Output: Urine 385 280 Other: Voiding Method Indwelling Catheter Indwelling Catheter ABP, PAP, CO, CI - Last Documented Arterial Blood Pressure 102/48 - Labs CBC & Chem 7: 06/17/16 05:20 06/17/16 05:20 Labs: Abnormal Lab Results - Last 24 Hours (Table) 06/16/16 06/16/16 06/16/16 Range/Units 09:58 12:10 20:14 WBC (3.8-10.6) k/uL RBC (4.30-5.90) m/uL Hgb (13.0-17.5) gm/dL Hct (39.0-53.0) % RDW (11.5-15.5) % Plt Count (150-450) k/uL Neutrophils # (Manual) (1.3-7.7) k/uL Monocytes # (Manual) (0-1.0) k/uL ABG Lactic Acid (0.5-1.6) mmol/L Chloride (98-107) mmol/L Carbon Dioxide (22-30) mmol/L BUN (9-20) mg/dL POC Glucose (mg/dL) 125 H 120 H 62 L (75-99) mg/dL Calcium (8.4-10.2) mg/dL 06/16/16 06/16/16 06/17/16 Range/Units 20:16 20:41 05:20 WBC 25.9 H* (3.8-10.6) k/uL RBC 3.72 L (4.30-5.90) m/uL Hgb 11.3 L (13.0-17.5) gm/dL Hct 36.2 L (39.0-53.0) % RDW 15.8 H (11.5-15.5) % Plt Count 77 L D (150-450) k/uL Neutrophils # (Manual) 22.8 H (1.3-7.7) k/uL Monocytes # (Manual) 2.1 H (0-1.0) k/uL ABG Lactic Acid (0.5-1.6) mmol/L Chloride (98-107) mmol/L Carbon Dioxide (22-30) mmol/L BUN (9-20) mg/dL POC Glucose (mg/dL) 67 L 159 H (75-99) mg/dL Calcium (8.4-10.2) mg/dL 06/17/16 06/17/16 Range/Units 05:20 05:20 WBC (3.8-10.6) k/uL RBC (4.30-5.90) m/uL Hgb (13.0-17.5) gm/dL Hct (39.0-53.0) % RDW (11.5-15.5) % Plt Count (150-450) k/uL Neutrophils # (Manual) (1.3-7.7) k/uL Monocytes # (Manual) (0-1.0) k/uL ABG Lactic Acid 5.6 H* (0.5-1.6) mmol/L Chloride 110 H (98-107) mmol/L Carbon Dioxide 15 L (22-30) mmol/L BUN 35 H (9-20) mg/dL POC Glucose (mg/dL) (75-99) mg/dL Calcium 7.8 L (8.4-10.2) mg/dL
[2016-06-17] MEDS: FENOFIBRATE 160 MG TAB PO SCH ×2 (08:34→21:31)
[2016-06-17 08:39] LABS: Glucose,Whole Blood 49 mg/dL (75-99)
[2016-06-17] MEDS: DEXTROSE 50%-WATER 50 ML SYRINGE IVP ONE (08:50)
--- NOTE | 2016-06-17 08:54 | XR ---
EXAMINATION TYPE: XR chest 1V portable DATE OF EXAM: 06/17/2016 8:50 AM COMPARISON: 06/16/2016 HISTORY: Shortness of breath TECHNIQUE: Single frontal view of the chest is obtained. FINDINGS: Diffuse interstitial pattern seen with bilateral infiltrate and pleural effusion. Right-si ded central line stable in appearance. No pneumothorax. IMPRESSION: 1. Airspace disease and interstitial pattern stable. Differential includes pneumonia or CHF.
[2016-06-17 09:00] LABS: Glucose,Whole Blood 63 mg/dL (75-99)
[2016-06-17] MEDS: RIVAROXABAN 10 MG TAB PO SCH (09:13)
[2016-06-17] MEDS: TAMSULOSIN 0.4 MG CAP.ER.24H PO SCH (09:13)
[2016-06-17] MEDS: PANTOPRAZOLE 40 MG/10 ML VIAL IV SCH (09:13)
[2016-06-17] MEDS: POTASSIUM CHLORIDE 10 MEQ in WATER FOR INJECTION 1 100ML.BAG IVPB SCH ×2 (09:14→11:39)
[2016-06-17] MEDS: LACTOBACILLUS ACIDOPH & BULGAR 1 EACH PACKET PO SCH ×3 (09:18→21:29)
[2016-06-17] MEDS: LIDOCAINE 5% PATCH TOPICAL SCH (09:18)
[2016-06-17] MEDS: NYSTATIN 100,000 UNIT/ML SUSP 500,000 UNIT/5 ML CUP PO SCH ×4 (09:18→21:29)
[2016-06-17 09:27] LABS: Glucose,Whole Blood 156 mg/dL (75-99)
[2016-06-17] MEDS: FUROSEMIDE 20 MG TAB PO SCH (10:00)
[2016-06-17] MEDS: HYDROcodone/APAP 10-325MG 1 EACH TAB PO PRN ×2 (10:06→15:56)
--- NOTE | 2016-06-17 10:37 | P.PN ---
Subjective Principal diagnosis: Acute sepsis secondary to urinary tract infection with E. coli This is an 87-year-old gentleman who has a history of DVT, GERD, hyperlipidemia , enlarged prostate with home indwelling Henderson catheter. He presented to the emergency room this morning with complaints of problems with his catheter. He stated he hadn't been able to urinate since approximately 2:00 this morning. He is quite uncomfortable and felt as though he needed to void. They tried flushing the catheter at home in the outpatient setting with without success. He is making urine currently but it is quite bloody. The patient has also had increasing bilateral lower extremity edema and shortness of breath. He had a lactic acid of 5.7. In the ER he is found to be quite hypotensive and has received 3.5 L of 0.9 normal saline fluid boluses and required initiation of norepinephrine currently at 15 mcg/m. His chest x-ray revealed a mild left lower lobe infiltrate. He has been initiated on Zosyn and Levaquin. His white count is 1.1. Creatinine 1.53. 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 There is also noted prominent prostate. The patient is seen again today 06/17/2016 in the intensive care unit. He did undergo cystoscopy with double-J catheter insertion to the right on 06/15/2016. His urine culture was positive for E. coli. He is still requiring 10 g of levothyroid, 0.02 micrograms of vasopressin. He is receiving stress doses Solu- Cortef 50 mg IV every 6 hours. He has a D5W at 75 mL per hour for continued ongoing issues with low blood sugars. He has required D50 pushes as well. His lactic acid remains elevated at 5.6. Current white count 25.9. Platelets are 77,000. C. difficile toxin screen was negative. Chest x-ray reveals bilateral infiltrates and small effusions. He is maintaining good O2 saturations in the 90s on 3 L/m per nasal cannula. Objective - Vital Signs Vital signs: Vital Signs Temp 97.4 F L 06/17/16 09:00 Pulse 102 H 06/17/16 09:00 Resp 22 06/17/16 09:00 BP 92/52 06/17/16 09:00 Pulse Ox 100 06/17/16 09:00 Intake & Output 06/16/16 06/17/16 06/17/16 18:59 06:59 18:59 Intake Total 8121.440 9345.652 326.377 Output Total 385 508 225 Balance 1011.413 780.652 101.377 Weight 78 kg 78 kg Intake: IV 66 18 Pressure bags 66 18 Intake, IV Titration 3636.128 2465.652 308.377 Amount Dextrose 5% in Water 1, 900 900 75 000 ml @ 75 mls/hr IV . [id number] [facility] Rx#:[id number] Levofloxacin 750Mg-D5w 100 Pmx 750 mg In Dextrose/ Water 1 150ml.bag @ 100 mls/hr IVPB Q24H [facility] Rx#: [id number] Norepinephrine 16 mg In 7.413 218.152 115.377 Sodium Chloride 0.9% 250 ml @ Titrate IV .Q0M [facility] Rx#:[id number] Piperacillin-Tazobactam 3 50 12.5 .375 gm In Dextrose/Water 1 50ml.bag @ 12.5 mls/hr IVPB Q8HR [facility] Rx#: [id number] Potassium Chloride 10 meq 100 In Water For Injection 1 100ml.bag @ 100 mls/hr IVPB Q1H [facility] Rx#: [id number] Sodium Chloride 0.9% 1, 240 20 000 ml @ 75 mls/hr IV . [id number] [facility] Rx#:[id number] Sodium Chloride 0.9% 99 99 72 18 ml @ 0.03 UNITS/MIN 9 mls /hr IV .Q11H7M [facility] with Vasopressin 20 unit Rx#: [id number] Output: Urine 385 508 225 Other: Voiding Method Indwelling Catheter Indwelling Catheter # Bowel Movements 1 ABP, PAP, CO, CI - Last Documented Arterial Blood Pressure 95/35 - Exam GENERAL EXAM: Drowsy, responds to verbal stimuli. Cachectic. HEAD: Normocephalic. EYES: Normal reaction of pupils, equal size. NOSE: Clear with pink turbinates. THROAT: No erythema or exudates. NECK: No masses, no JVD. CHEST: No chest wall deformity. LUNGS: Equal air entry with faint crackles in the posterior bases. CVS: S1 and S2 normal with no audible murmurs, regular rhythm. ABDOMEN: No hepatosplenomegaly, normal bowel sounds, no guarding or rigidity. Extremities: There is no significant peripheral edema. No clubbing, no cyanosis. Peripheral pulses are intact. - Labs CBC & Chem 7: 06/17/16 05:20 06/17/16 05:20 Labs: Abnormal Lab Results - Last 24 Hours (Table) 06/16/16 06/16/16 06/16/16 Range/Units 12:10 20:14 20:16 WBC (3.8-10.6) k/uL RBC (4.30-5.90) m/uL Hgb (13.0-17.5) gm/dL Hct (39.0-53.0) % RDW (11.5-15.5) % Plt Count (150-450) k/uL Neutrophils # (Manual) (1.3-7.7) k/uL Monocytes # (Manual) (0-1.0) k/uL ABG Lactic Acid (0.5-1.6) mmol/L Chloride (98-107) mmol/L Carbon Dioxide (22-30) mmol/L BUN (9-20) mg/dL POC Glucose (mg/dL) 120 H 62 L 67 L (75-99) mg/dL Calcium (8.4-10.2) mg/dL 06/16/16 06/17/16 06/17/16 Range/Units 20:41 05:20 05:20 WBC 25.9 H* (3.8-10.6) k/uL RBC 3.72 L (4.30-5.90) m/uL Hgb 11.3 L (13.0-17.5) gm/dL Hct 36.2 L (39.0-53.0) % RDW 15.8 H (11.5-15.5) % Plt Count 77 L D (150-450) k/uL Neutrophils # (Manual) 22.8 H (1.3-7.7) k/uL Monocytes # (Manual) 2.1 H (0-1.0) k/uL ABG Lactic Acid (0.5-1.6) mmol/L Chloride 110 H (98-107) mmol/L Carbon Dioxide 15 L (22-30) mmol/L BUN 35 H (9-20) mg/dL POC Glucose (mg/dL) 159 H (75-99) mg/dL Calcium 7.8 L (8.4-10.2) mg/dL 06/17/16 06/17/16 06/17/16 Range/Units 05:20 08:37 08:58 WBC (3.8-10.6) k/uL RBC (4.30-5.90) m/uL Hgb (13.0-17.5) gm/dL Hct (39.0-53.0) % RDW (11.5-15.5) % Plt Count (150-450) k/uL Neutrophils # (Manual) (1.3-7.7) k/uL Monocytes # (Manual) (0-1.0) k/uL ABG Lactic Acid 5.6 H* (0.5-1.6) mmol/L Chloride (98-107) mmol/L Carbon Dioxide (22-30) mmol/L BUN (9-20) mg/dL POC Glucose (mg/dL) 49 L 63 L (75-99) mg/dL Calcium (8.4-10.2) mg/dL 06/17/16 Range/Units 09:24 WBC (3.8-10.6) k/uL RBC (4.30-5.90) m/uL Hgb (13.0-17.5) gm/dL Hct (39.0-53.0) % RDW (11.5-15.5) % Plt Count (150-450) k/uL Neutrophils # (Manual) (1.3-7.7) k/uL Monocytes # (Manual) (0-1.0) k/uL ABG Lactic Acid (0.5-1.6) mmol/L Chloride (98-107) mmol/L Carbon Dioxide (22-30) mmol/L BUN (9-20) mg/dL POC Glucose (mg/dL) 156 H (75-99) mg/dL Calcium (8.4-10.2) mg/dL Assessment and Plan Plan: Impression: #1 Acute sepsis secondary to urinary tract infection of E. coli. #2 Lactic acidosis secondary to above. 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 Status post double-J stent to the right. #4 History of DVT, maintained on Xarelto. #5 Acute renal failure, improved current creatinine 1.20. #6 leukocytosis secondary to #1. #7 Gastroesophageal reflux disease. #8 Hyperlipidemia. Plan: The patient was seen and evaluated by Dr. Zheng. His chest x-ray and labs were reviewed. We will attempt to wean off the vasopressin and continue with just the norepinephrine. We'll obtain a cortisol level. We'll continue to monitor him here closely in the intensive care unit. The patient is a DO NOT RESUSCITATE/DO NOT INTUBATE CODE STATUS. We'll continue to follow make further recommendations based on his clinical status.
[2016-06-17] MEDS: MULTIVITAMINS, THERA 1 EACH TAB PO SCH (11:40)
[2016-06-17 11:49] LABS: Glucose,Whole Blood 114 mg/dL (75-99)
[2016-06-17] MEDS ORDERED: SODIUM CHLORIDE 0.9% 1,000 ML IV ONE (14:09)
[2016-06-17] MEDS: cefTRIAXone 2,000 MG in SODIUM CHLORIDE 0.9% 100 ML IVPB SCH (14:58)
[2016-06-17 17:05] LABS: Glucose,Whole Blood 63 mg/dL (75-99)
[2016-06-17 17:19] LABS: Glucose,Whole Blood 96 mg/dL (75-99)
[2016-06-17] MEDS: DEXTROSE 10% IN WATER 1,000 ML in EMPTY BAG 1 BAG IV SCH (18:23)
--- NOTE | 2016-06-17 18:23 | P.PN ---
Subjective Principal diagnosis: Sepsis 86-year-old male who is known to the infectious disease service from his recent hospitalization where he had difficulties with urinary tract infection and the development of Clostridium difficile colitis. The colitis was being treated with vancomycin with significant improvement. The patient however developed significant fever generalized malaise and weakness. And upon presenting to the emergency center was found evidence of sepsis with shock. He was seen by urology and taken to the operating room where cystoscopy was performed. Double-J catheter was placed into the right collecting system for the pyelonephritis from the obstructive right ureteral calculus. Patient continues to have hypotension after fluid resuscitation requiring vasopressor therapy for his septic shock. Although is doing slightly better at this time. Patient remains lethargic but is arousable. He knows he is in the hospital. Is able to call [facility]. Earlier new the year and the president but not so cooperative at the moment. Easily recognizes his . And correctly states that 20 year marriage history. Objective - Vital Signs Vital signs: Vital Signs Temp 97.5 F L 06/17/16 11:30 Pulse 87 06/17/16 17:00 Resp 18 06/17/16 17:00 BP 126/47 06/17/16 11:30 Pulse Ox 97 06/17/16 17:00 Intake & Output 06/16/16 06/17/16 06/17/16 18:59 06:59 18:59 Intake Total 3607.553 0285.652 1759.156 Output Total 729 451 7532 Balance 1011.413 780.652 159.156 Weight 78 kg 78 kg Intake: IV 66 90 Pressure bags 66 90 Intake, IV Titration 1696.050 7047.652 1629.156 Amount Dextrose 5% in Water 1, 900 900 75 000 ml @ 75 mls/hr IV . [id number] [facility] Rx#:[id number] Levofloxacin 750Mg-D5w 100 Pmx 750 mg In Dextrose/ Water 1 150ml.bag @ 100 mls/hr IVPB Q24H [facility] Rx#: [id number] Norepinephrine 16 mg In 7.413 218.152 191.656 Sodium Chloride 0.9% 250 ml @ Titrate IV .Q0M [facility] Rx#:[id number] Piperacillin-Tazobactam 3 50 12.5 37.5 .375 gm In Dextrose/Water 1 50ml.bag @ 12.5 mls/hr IVPB Q8HR [facility] Rx#: [id number] Potassium Chloride 10 meq 200 In Water For Injection 1 100ml.bag @ 100 mls/hr IVPB Q1H [facility] Rx#: [id number] Sodium Chloride 0.9% 1, 240 20 000 ml @ 75 mls/hr IV . [id number] [facility] Rx#:[id number] Sodium Chloride 0.9% 1, 999 000 ml @ 999 mls/hr IV . Q1H1M [facility] Rx#:[id number] Sodium Chloride 0.9% 99 99 72 26 ml @ 0.03 UNITS/MIN 9 mls /hr IV .Q11H7M [facility] with Vasopressin 20 unit Rx#: [id number] cefTRIAXone 2,000 mg In 100 Sodium Chloride 0.9% 100 ml @ 100 mls/hr IVPB DAILY@1200 [facility] Rx#: [id number] Oral 40 Output: Urine 382 375 1605 Other: Voiding Method Indwelling Catheter Indwelling Catheter Indwelling Catheter # Bowel Movements 1 ABP, PAP, CO, CI - Last Documented Arterial Blood Pressure 113/38 - Exam 86-year-old male comfortable at this time. Cloudy urine is draining. Not having large amounts of diarrhea at this time HEENT: Anicteric conjunctiva are with pallor but moist nasal mucosa grossly intact without significant lesions, there is no thrush. Neck: The neck is supple without significant lymphadenopathy or thyromegaly. Lungs: Good bilateral air entry without significant crackles or wheezing. There is no significant bronchial sounds. There is no egophony or dullness. Heart: Irregular with an audible S1 and S2 without S4 no distinct murmur click or rub is noted. PMI is nondisplaced Abdomen: Nondistended, Positive bowel sounds soft and nontender without palpable masses or organomegaly. There was no guarding or rebound. Extremities: The upper extremities have excellent pulses they are symmetric, no significant petechiae or telangiectasia. No splinter hemorrhages were noted. The lower extremities are free from significant edema. The peripheral pulses were 2+ and symmetric. Neuro: Awake alert to person and place is very lethargic able to follow some simple commands. Not a good historian his last visit. - Labs CBC & Chem 7: 06/17/16 05:20 06/17/16 05:20 Labs: Abnormal Lab Results - Last 24 Hours (Table) 06/16/16 06/16/16 06/16/16 Range/Units 20:14 20:16 20:41 WBC (3.8-10.6) k/uL RBC (4.30-5.90) m/uL Hgb (13.0-17.5) gm/dL Hct (39.0-53.0) % RDW (11.5-15.5) % Plt Count (150-450) k/uL Neutrophils # (Manual) (1.3-7.7) k/uL Monocytes # (Manual) (0-1.0) k/uL ABG Lactic Acid (0.5-1.6) mmol/L Chloride (98-107) mmol/L Carbon Dioxide (22-30) mmol/L BUN (9-20) mg/dL POC Glucose (mg/dL) 62 L 67 L 159 H (75-99) mg/dL Calcium (8.4-10.2) mg/dL 06/17/16 06/17/16 06/17/16 Range/Units 05:20 05:20 05:20 WBC 25.9 H* (3.8-10.6) k/uL RBC 3.72 L (4.30-5.90) m/uL Hgb 11.3 L (13.0-17.5) gm/dL Hct 36.2 L (39.0-53.0) % RDW 15.8 H (11.5-15.5) % Plt Count 77 L D (150-450) k/uL Neutrophils # (Manual) 22.8 H (1.3-7.7) k/uL Monocytes # (Manual) 2.1 H (0-1.0) k/uL ABG Lactic Acid 5.6 H* (0.5-1.6) mmol/L Chloride 110 H (98-107) mmol/L Carbon Dioxide 15 L (22-30) mmol/L BUN 35 H (9-20) mg/dL POC Glucose (mg/dL) (75-99) mg/dL Calcium 7.8 L (8.4-10.2) mg/dL 06/17/16 06/17/16 06/17/16 Range/Units 08:37 08:58 09:24 WBC (3.8-10.6) k/uL RBC (4.30-5.90) m/uL Hgb (13.0-17.5) gm/dL Hct (39.0-53.0) % RDW (11.5-15.5) % Plt Count (150-450) k/uL Neutrophils # (Manual) (1.3-7.7) k/uL Monocytes # (Manual) (0-1.0) k/uL ABG Lactic Acid (0.5-1.6) mmol/L Chloride (98-107) mmol/L Carbon Dioxide (22-30) mmol/L BUN (9-20) mg/dL POC Glucose (mg/dL) 49 L 63 L 156 H (75-99) mg/dL Calcium (8.4-10.2) mg/dL 06/17/16 06/17/16 Range/Units 11:46 17:03 WBC (3.8-10.6) k/uL RBC (4.30-5.90) m/uL Hgb (13.0-17.5) gm/dL Hct (39.0-53.0) % RDW (11.5-15.5) % Plt Count (150-450) k/uL Neutrophils # (Manual) (1.3-7.7) k/uL Monocytes # (Manual) (0-1.0) k/uL ABG Lactic Acid (0.5-1.6) mmol/L Chloride (98-107) mmol/L Carbon Dioxide (22-30) mmol/L BUN (9-20) mg/dL POC Glucose (mg/dL) 114 H 63 L (75-99) mg/dL Calcium (8.4-10.2) mg/dL Laboratory Results WBC 25.9 k/uL (3.8-10.6) H* 06/17/16 05:20 RBC 3.72 m/uL (4.30-5.90) L 06/17/16 05:20 Hgb 11.3 gm/dL (13.0-17.5) L 06/17/16 05:20 Hct 36.2 % (39.0-53.0) L 06/17/16 05:20 MCV 97.1 fL (80.0-100.0) 06/17/16 05:20 MCH 30.3 pg (25.0-35.0) 06/17/16 05:20 MCHC 31.2 g/dL (31.0-37.0) 06/17/16 05:20 RDW 15.8 % (11.5-15.5) H 06/17/16 05:20 Plt Count 77 k/uL (150-450) L D 06/17/16 05:20 Neutrophils % 76 % 06/15/16 08:51 Neutrophils % (Manual) 80.0 % 06/17/16 05:20 Band Neutrophils % 8.0 % 06/17/16 05:20 Lymphocytes % 18 % 06/15/16 08:51 Lymphocytes % (Manual) 4.0 % 06/17/16 05:20 Monocytes % 4 % 06/15/16 08:51 Monocytes % (Manual) 8.0 % 06/17/16 05:20 Eosinophils % 1 % 06/15/16 08:51 Basophils % 0 % 06/15/16 08:51 Neutrophils # 0.8 k/uL (1.3-7.7) L 06/15/16 08:51 Neutrophils # (Manual) 22.8 k/uL (1.3-7.7) H 06/17/16 05:20 Lymphocytes # 0.2 k/uL (1.0-4.8) L 06/15/16 08:51 Lymphocytes # (Manual) 1.0 k/uL (1.0-4.8) 06/17/16 05:20 Monocytes # 0.0 k/uL (0-1.0) 06/15/16 08:51 Monocytes # (Manual) 2.1 k/uL (0-1.0) H 06/17/16 05:20 Eosinophils # 0.0 k/uL (0-0.7) 06/15/16 08:51 Basophils # 0.0 k/uL (0-0.2) 06/15/16 08:51 Nucleated RBCs 0 /100 WBC (0-0) 06/17/16 05:20 Manual Slide Review Performed 06/17/16 05:20 Toxic Vacuolation Present 06/17/16 05:20 Hypochromasia Moderate 06/17/16 05:20 Anisocytosis (manual) Present 06/17/16 05:20 Macrocytosis Slight 06/16/16 05:40 PT 20.1 sec (9.0-12.0) H 06/16/16 04:14 INR 2.1 (<1.1) 06/16/16 04:14 APTT 40.2 sec (22.0-30.0) H 06/16/16 04:14 ABG Lactic Acid 5.6 mmol/L (0.5-1.6) H* 06/17/16 05:20 Sodium 137 mmol/L (137-145) 06/17/16 05:20 Potassium 3.9 mmol/L (3.5-5.1) 06/17/16 05:20 Chloride 110 mmol/L (98-107) H 06/17/16 05:20 Carbon Dioxide 15 mmol/L (22-30) L 06/17/16 05:20 Anion Gap 12 mmol/L 06/17/16 05:20 BUN 35 mg/dL (9-20) H 06/17/16 05:20 Creatinine 1.20 mg/dL (0.66-1.25) 06/17/16 05:20 Est GFR (MDRD) Af Amer >60 (>60 ml/min/1.73 sqM) 06/17/16 05:20 Est GFR (MDRD) Non-Af 57 (>60 ml/min/1.73 sqM) 06/17/16 05:20 Glucose 77 mg/dL (74-99) 06/17/16 05:20 POC Glucose (mg/dL) 96 mg/dL (75-99) 06/17/16 17:17 POC Glu Counter Molder ID Laura Govea 06/17/16 17:17 Plasma Lactic Acid Michael 6.3 mmol/L (0.7-2.0) H* 06/15/16 19:09 Calcium 7.8 mg/dL (8.4-10.2) L 06/17/16 05:20 Phosphorus 3.7 mg/dL (2.5-4.5) 06/17/16 05:20 Magnesium 1.9 mg/dL (1.6-2.3) 06/17/16 05:20 Total Bilirubin 0.8 mg/dL (0.2-1.3) 06/15/16 08:51 AST 28 U/L (17-59) 06/15/16 08:51 ALT 33 U/L (21-72) 06/15/16 08:51 Alkaline Phosphatase 166 U/L (38-126) H 06/15/16 08:51 Total Protein 5.7 g/dL (6.3-8.2) L 06/15/16 08:51 Albumin 2.6 g/dL (3.5-5.0) L 06/15/16 08:51 Lipase 50 U/L (23-300) 06/15/16 08:51 Cortisol >123 ug/dL 06/17/16 05:20 Urine Color Red 06/15/16 08:51 Urine Appearance Bloody (Clear) 06/15/16 08:51 Urine RBC >182 /hpf (0-5) H 06/15/16 08:51 Urine WBC >182 /hpf (0-5) H 06/15/16 08:51 Urine WBC Clumps Many /hpf (None) H 06/15/16 08:51 Urine Mucus Many /hpf (None) H 06/15/16 08:51 C. difficile (EIA) Intrp Negative (Negative) 06/17/16 08:42 Microbiology 06/15/16 08:51 Urine,Catheterized Urine Culture - Final Escherichia coli 06/15/16 08:51 Blood Blood Culture Gram Stain - Preliminary 06/15/16 08:51 Blood Blood Culture - Preliminary Escherichia coli 06/15/16 08:51 Blood Blood Culture - Preliminary Assessment and Plan (1) Septic shock Narrative/Plan: 86-year-old male presents to Hospital feeling quite poorly presented with evidence of septic shock on the basis of obstructive uropathy. There is evidence of positive blood cultures with gram-negative bacilli as well as a positive urine culture. Review of prior culture shows evidence of Proteus mirabilis as a common agent in the past. However he is also had enterococcus and MSSA in his urine in the recent past. For antibiotic therapy piperacillin tazobactam was utilized to cover for the 3 recent pathogens. Given that E. coli was isolated antibiotic therapy changed to Rocephin, especially given his history of recent Clostridium difficile colitis. We'll monitor him for recurrence of the C. diff. He has just completed his course of vancomycin therapy. He is at high risk of relapse. Current C. diff testing is negative He does have acute renal failure with a peak creatinine of 1.72. Creatinine improved to 1.20 today He does have septic shock requiring multiple vasopressors. Receiving further fluid and will be receiving hydrocortisone to ensure there is not some adrenal insufficiency with his advanced age and current sepsis and multiple recent illnesses. Vasopressors are being weaned. Follow up blood cultures have been requested At admission the patient actually had leukopenia from his overwhelming sepsis and now has rebounded back to significant leukocytosis also on the basis of his significant sepsis. The blood cultures come positive for the Escherichia coli. It is quite susceptible. When he is improved we'll have the option for oral antibiotic therapy if his discharge. Prognosis is somewhat poor. Status: Acute (2) Urinary tract infection Status: Acute (3) Pyonephrosis Status: Acute
[2016-06-17] MEDS: FINASTERIDE 5 MG TAB PO SCH (21:29)
[2016-06-17] MEDS: MONTELUKAST 10 MG TAB PO SCH (21:30)
[2016-06-17] MEDS: ATORVASTATIN 10 MG TAB PO SCH (21:30)
[2016-06-17] MEDS: QUEtiapine 25 MG TAB PO SCH (21:30)
[2016-06-17] MEDS: MIRTAZAPINE 15 MG TAB PO SCH (21:31)
[2016-06-17 22:01] LABS: Glucose,Whole Blood 95 mg/dL (75-99)
[2016-06-18] MEDS: HYDROCORTISONE SUCCINATE 100 MG/2 ML VIAL IV SCH ×2 (00:58→05:59)
[2016-06-18 01:06] LABS: Glucose,Whole Blood 98 mg/dL (75-99)
[2016-06-18 04:44] LABS: CH 29.5; HCT 36.6 % (39.0-53.0); HGB 11.4 gm/dL (13.0-17.5); Hypochromasia Slight; Immature Gran Flag Slight; MCH 29.8 pg (25.0-35.0); MCHC 31.1 g/dL (31.0-37.0); MCV 95.7 fL (80.0-100.0); Mean Platelet Volume 9.8; RBC 3.83 m/uL (4.30-5.90); WBC (Perox) 30.63
[2016-06-18 04:58] LABS: Anion Gap 6 mmol/L; Blood Urea Nitrogen 35 mg/dL (9-20); Calcium 8.3 mg/dL (8.4-10.2); Carbon Dioxide 20 mmol/L (22-30); Chloride 114 mmol/L (98-107); Glucose 108 mg/dL (74-99); Non-African American GFR(MDRD) >60 (>60 ml/min/1.73 sqM); Phosphorous 2.7 mg/dL (2.5-4.5); Potassium 3.9 mmol/L (3.5-5.1); Sodium 140 mmol/L (137-145); WBC 30.7 k/uL (3.8-10.6)
[2016-06-18 05:33] LABS: Add Differential Manual Differential
[2016-06-18 05:36] LABS: Nucleated Red Blood Cells 0 /100 WBC (0-0); Total Cells Counted 100
[2016-06-18 05:37] LABS: Dohle Bodies Present; Toxic Granulation Present
[2016-06-18] MEDS: DEXTROSE 10% IN WATER 1,000 ML in EMPTY BAG 1 BAG IV SCH (05:37)
[2016-06-18 05:38] LABS: Toxic Vacuolation Present
[2016-06-18] MEDS: NOREPINEPHRINE 16 MG in SODIUM CHLORIDE 0.9% 250 ML IV SCH (05:38)
[2016-06-18 05:39] LABS: Manual Review Performed
[2016-06-18] MEDS: POTASSIUM CHLORIDE 10 MEQ, LIDOCAINE 2% INJ 10 MG in SODIUM CHLORIDE 0.9% 100 ML IV SCH ×2 (06:24→08:24)
[2016-06-18 08:25] LABS: Glucose,Whole Blood 104 mg/dL (75-99)
[2016-06-18] MEDS: LIDOCAINE 5% PATCH TOPICAL SCH (08:25)
[2016-06-18] MEDS: LACTOBACILLUS ACIDOPH & BULGAR 1 EACH PACKET PO SCH ×3 (08:26→21:32)
[2016-06-18] MEDS: NYSTATIN 100,000 UNIT/ML SUSP 500,000 UNIT/5 ML CUP PO SCH ×4 (08:27→21:32)
[2016-06-18] MEDS: FUROSEMIDE 20 MG TAB PO SCH (08:27)
[2016-06-18] MEDS: PANTOPRAZOLE 40 MG/10 ML VIAL IV SCH (08:27)
[2016-06-18] MEDS: RIVAROXABAN 10 MG TAB PO SCH ×2 (08:28→09:49)
[2016-06-18] MEDS: TAMSULOSIN 0.4 MG CAP.ER.24H PO SCH (08:28)
[2016-06-18] MEDS: HYDROcodone/APAP 10-325MG 1 EACH TAB PO PRN ×2 (08:43→14:45)
--- NOTE | 2016-06-18 09:15 | P.PN ---
Subjective Progress note dated 06/18/2016 This is a 86-year-old male who was seen again on June 17. He had a cystoscopy performed with a double-J catheter insertion on the right. This was done on 06/15/2016. His urine curved culture was positive for E. coli. Apparently his antibiotics were changed to Rocephin. Yesterday he was both on levophed and vasopressin. I asked the nurses to get him on 1 drug. He is currently just on levophed at 10 mics per minute. He was having problems with hypoglycemia which required insulin IV push infusions of D50. I change his IV fluids to D10 at 50 mL an hour. Getting O2 at 2 L. He is getting appointment 90 KVO. Again vasopressin is off. The patient seemed poor weight. No distress. No pain. Objective - Vital Signs Vital signs: Vital Signs Temp 97.4 F L 06/18/16 08:00 Pulse 81 06/18/16 08:00 Resp 17 06/18/16 08:00 BP 126/47 06/17/16 11:30 Pulse Ox 98 06/18/16 08:26 Intake & Output 06/17/16 06/18/16 06/18/16 18:59 06:59 18:59 Intake Total 1831.523 768.977 346.248 Output Total 1950 970 110 Balance -118.477 -201.023 236.248 Weight 78 kg 78.2 kg 78.2 kg Intake: IV 99 658 118 Dextrose 10% in Water 1, 550 100 000 ml In Empty Bag 1 bag @ 50 mls/hr IV .Q20H [facility] Rx#:[id number] Pressure bags 99 108 18 Intake, IV Titration 1692.523 110.977 228.248 Amount Dextrose 10% in Water 1, 50 50 000 ml In Empty Bag 1 bag @ 50 mls/hr IV .Q20H [facility] Rx#:[id number] Dextrose 5% in Water 1, 75 000 ml @ 75 mls/hr IV . [id number] [facility] Rx#:[id number] Norepinephrine 16 mg In 205.023 60.977 28.248 Sodium Chloride 0.9% 250 ml @ Titrate IV .Q0M [facility] Rx#:[id number] Piperacillin-Tazobactam 3 37.5 .375 gm In Dextrose/Water 1 50ml.bag @ 12.5 mls/hr IVPB Q8HR [facility] Rx#: [id number] Potassium Chloride 10 meq 200 In Water For Injection 1 100ml.bag @ 100 mls/hr IVPB Q1H [facility] Rx#: [id number] Potassium Chloride 10 meq 100 Lidocaine 2% Inj 10 mg In Sodium Chloride 0.9% 100 ml @ 100 mls/hr IV Q1HR [facility] Rx#:[id number] Sodium Chloride 0.9% 1, 999 000 ml @ 999 mls/hr IV . Q1H1M [facility] Rx#:[id number] Sodium Chloride 0.9% 99 26 ml @ 0.03 UNITS/MIN 9 mls /hr IV .Q11H7M [facility] with Vasopressin 20 unit Rx#: [id number] cefTRIAXone 2,000 mg In 100 100 Sodium Chloride 0.9% 100 ml @ 100 mls/hr IVPB DAILY@1200 [facility] Rx#: [id number] Oral 40 Output: Urine 1950 970 110 Other: Voiding Method Indwelling Catheter Indwelling Catheter Indwelling Catheter # Bowel Movements 1 ABP, PAP, CO, CI - Last Documented Arterial Blood Pressure 110/49 - Exam No acute distress, oriented 3. HEENT examination is grossly unremarkable. Mucous membranes are moist. No oral lesions. Neck supple. Full range of motion. No adenopathy or thyromegaly. Cardiovascular examination reveals regular rhythm rate. No S3-S4 murmur. Lungs are clear breath sounds are equal. No wheezes or rhonchi. No adventitious sounds. Abdomen soft bowel sounds are heard. Extremities are intact. - Labs CBC & Chem 7: 06/18/16 04:28 06/18/16 04:28 Labs: Abnormal Lab Results - Last 24 Hours (Table) 06/17/16 06/17/16 06/17/16 Range/Units 09:24 11:46 17:03 WBC (3.8-10.6) k/uL RBC (4.30-5.90) m/uL Hgb (13.0-17.5) gm/dL Hct (39.0-53.0) % RDW (11.5-15.5) % Plt Count (150-450) k/uL Neutrophils # (Manual) (1.3-7.7) k/uL Lymphocytes # (Manual) (1.0-4.8) k/uL ABG Lactic Acid (0.5-1.6) mmol/L Chloride (98-107) mmol/L Carbon Dioxide (22-30) mmol/L BUN (9-20) mg/dL Glucose (74-99) mg/dL POC Glucose (mg/dL) 156 H 114 H 63 L (75-99) mg/dL Calcium (8.4-10.2) mg/dL 06/18/16 06/18/16 06/18/16 Range/Units 04:28 04:28 04:28 WBC 30.7 H* (3.8-10.6) k/uL RBC 3.83 L (4.30-5.90) m/uL Hgb 11.4 L (13.0-17.5) gm/dL Hct 36.6 L (39.0-53.0) % RDW 16.0 H (11.5-15.5) % Plt Count 43 L* (150-450) k/uL Neutrophils # (Manual) 29.2 H (1.3-7.7) k/uL Lymphocytes # (Manual) 0.6 L (1.0-4.8) k/uL ABG Lactic Acid 3.9 H* (0.5-1.6) mmol/L Chloride 114 H (98-107) mmol/L Carbon Dioxide 20 L (22-30) mmol/L BUN 35 H (9-20) mg/dL Glucose 108 H (74-99) mg/dL POC Glucose (mg/dL) (75-99) mg/dL Calcium 8.3 L (8.4-10.2) mg/dL 06/18/16 Range/Units 08:22 WBC (3.8-10.6) k/uL RBC (4.30-5.90) m/uL Hgb (13.0-17.5) gm/dL Hct (39.0-53.0) % RDW (11.5-15.5) % Plt Count (150-450) k/uL Neutrophils # (Manual) (1.3-7.7) k/uL Lymphocytes # (Manual) (1.0-4.8) k/uL ABG Lactic Acid (0.5-1.6) mmol/L Chloride (98-107) mmol/L Carbon Dioxide (22-30) mmol/L BUN (9-20) mg/dL Glucose (74-99) mg/dL POC Glucose (mg/dL) 104 H (75-99) mg/dL Calcium (8.4-10.2) mg/dL Assessment and Plan (1) Pyonephrosis Status: Acute (2) Septic shock Status: Acute (3) Urinary tract infection Status: Acute (4) Acute kidney failure Status: Acute (5) Acute urinary retention Status: Acute Plan: Plan X The patient seemed be doing relatively well. He is levophed is off. The vasopressin is off. The D10 has help with the hypoglycemia. Antibiotics have been changed. X-rays labs and medications are reviewed. Prognosis is guarded. Time with Patient: Less than 30
--- NOTE | 2016-06-18 09:44 | PN ---
DATE OF SERVICE: 06/17/2016 PRESENTING COMPLAINT: Septic shock. INTERVAL HISTORY: This is a patient with extensive history of DVT, GERD, hyperlipidemia, enlarged prostate with chronic Henderson catheter. Patient presented with lactic acidosis, was hypotensive on presentation, been on Levophed. Patient's blood cultures were positive and patient was found to have obstructive ureteral calculus with and patient underwent double-J catheter replacement. Patient has a diagnosis of septic shock. Patient is tired and diet was advanced today. Patient is on antibiotics too. Review of systems done for constitutional, cardiovascular, GI, pulmonary; relevant findings as above. Current medications are reviewed that include IV ceftriaxone, IV fluids, Levophed earlier, Xarelto. On examination, pulse 81, respirations 19, blood pressure 84/38, pulse ox 98%. GENERAL APPEARANCE: Lying in bed. EYES: Pupils equal. Conjunctivae are pale. NECK: JVD unable to assess. Respiratory effort normal. LUNGS: Diminished breath sounds. CARDIOVASCULAR: First and second sounds, mild edema. ABDOMEN: Soft, nontender. PSYCH: Able to answer simple questions. INVESTIGATIONS: White count 25.9, hemoglobin 11.3, potassium 3.9. BUN 35, creatinine 1.2. Clostridium diff negative, urine and blood cultures growing E. coli. ASSESSMENT: 1. Acute urinary tract infection with severe sepsis with acute pyelonephritis causing septic shock and sepsis present on admission. 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 2. Chronic deep venous thrombosis, maintained on Xarelto. 3. Acute renal failure, probably acute tubular necrosis from sepsis, present on admission. 4. Leukopenia, from severe sepsis present on admission. 5. Gastroesophageal reflux disease. 6. Hyperlipidemia. 7. Procedure of cystoscopy with right double J stent. Ureteric stent placed. 8. Thrombocytopenia, could be from sepsis. 9. Benign prostatic hypertrophy. 10. 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 PLAN: Continue current medication and treatment plan. Supportive care. Patient still in the ICU. Blood pressure on the lower side, slow to respond.
[2016-06-18 12:15] LABS: Glucose,Whole Blood 100 mg/dL (75-99)
[2016-06-18] MEDS: cefTRIAXone 2,000 MG in SODIUM CHLORIDE 0.9% 100 ML IVPB SCH (12:52)
[2016-06-18] MEDS: MULTIVITAMINS, THERA 1 EACH TAB PO SCH (12:53)
[2016-06-18 17:26] LABS: Glucose,Whole Blood 115 mg/dL (75-99)
--- NOTE | 2016-06-18 18:32 | P.CONS ---
History of Present Illness - Reason for Consult Consult date: 06/18/16 thrombocytopenia Requesting physician: Sandor Vergara - Chief Complaint obstructed jones - History of Present Illness Mr. Castro is a very pleasant 86 year old caucsian male pt who has seen Dr. Chavez for evaluation as pt had a MRI on 11/30/15 due to progressive symptoms MS symptoms. The imaging revealed multilevel degenerative disease including compression fractures and heterogenous appearing bone marrow with increased edema and fatty change. As marrow infiltrative process /blood dyscrasia was in the differential pt was referred to Dr. Chavez for further work up. There was no suspicion for a major primary marrow disorder. 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 He had mild sed rate elevation which was non specific. No further work up was felt necessary at that time. Pt came to the hospital due to obstructed jones catheter. He is in the ICU with sepsis and being treated for the same. When seen today the pt was alert and oriented, he denied any history of low platelets, he states he has been on blood thinners for about 3 months for a RLE blood clot, he was switched to Xarelto about 1 1/2 months ago, denies any bleeding, tolerating the xarelto rather well. He is feeling weak, denies nausea or need to go to the bathroom. Review of Systems All systems: negative Constitutional: Reports as per HPI Past Medical History Past Medical History: Blood Disorder, Deep Vein Thrombosis (DVT), GERD/Reflux, Hyperlipidemia, Musculoskeletal Disorder, Pneumonia, Prostate Disorder, Renal Disease Additional Past Medical History / Comment(s): ENLARGED PROSTATE, 7 crushed vertebrae, BACK PAIN FROM PINCHED NERVES IN BACK- drop foot sharif feet, HAS A IDC- JONES History of Any Multi-Drug Resistant Organisms: None Reported Additional Past Surgical History / Comment(s): 02/08/16 laparoscopic christopher fundoplasty. Other surgical hx: Hydrocele repair, EGD (2007). EPIDURAL STEROID INJECTIONS WITH DR. DIAZ. skin cancer -LESIONS SEVERAL BRONCHOSCOPIES,SEBACEOUS CYST ON BACK REMOVED Past Anesthesia/Blood Transfusion Reactions: No Reported Reaction Past Psychological History: No Psychological Hx Reported Smoking Status: Former smoker Past Alcohol Use History: None Reported Additional Past Alcohol Use History / Comment(s): STARTED SMOKING AT AGE 16 QUIT 2006 SMOKED 1PPD Past Drug Use History: None Reported - Past Family History Brother(s) Family Medical History: Cancer Additional Family Medical History / Comment(s): COLON CANCER Father Family Medical History: Cancer Additional Family Medical History / Comment(s): FROM RESP FAILURE AT AGE 91 Sister(s) Family Medical History: Cancer Additional Family Medical History / Comment(s): LUNG CANCER Mother Family Medical History: Cancer Additional Family Medical History / Comment(s): COLON CANCER Medications and Allergies Home Medications Medication Instructions Recorded Confirmed Type Alfuzosin HCl [Uroxatral ER] 10 mg PO QAM 11/11/14 06/15/16 History Finasteride [Proscar] 5 mg PO HS 11/11/14 06/15/16 History Multivitamins, Thera [Multivitamin] 1 tab PO DAILY 11/11/14 06/15/16 History Fenofibrate Nanocrystallized 145 mg PO HS 02/09/16 06/15/16 History [Tricor] Lovastatin 20 mg PO HS 02/09/16 06/15/16 History Esomeprazole Magnesium [NexIUM] 40 mg PO DAILY 04/11/16 06/15/16 History Montelukast [Singulair] 10 mg PO HS 04/11/16 06/15/16 History Rivaroxaban [Xarelto] 20 mg PO DAILY 04/11/16 06/15/16 History Cyclobenzaprine [Flexeril] 5 mg PO Q6H PRN 05/24/16 06/15/16 History HYDROcodone/APAP 10-325MG [[place] 1 tab PO Q4H PRN 05/24/16 06/15/16 History 10-325] Lidocaine 5% Patch [Lidoderm 5% 1 patch TRANSDERM DAILY 05/27/16 06/15/16 History Patch] Mirtazapine [Remeron] 15 mg PO HS 05/27/16 06/15/16 History Furosemide [Lasix] 20 mg PO DAILY 06/15/16 06/15/16 History Lactobacillus Acidoph & [place] 1 packet PO TID 06/15/16 06/15/16 History [Lactinex] Nystatin 100,000 Unit/ml Susp 400,000 unit PO QID 06/15/16 06/15/16 History [Mycostatin Oral Susp] Allergies Allergy/AdvReac Type Severity Reaction Status Date / Time adhesive tape AdvReac tears skin Verified 06/15/16 12:05 chicken derived [Chicken] AdvReac Nausea & Verified 06/15/16 12:05 Vomiting & Diarrhea Physical Exam Vitals: Vital Signs Temp Pulse Pulse Resp Pulse Ox 06/18/16 17:00 74 26 H 97 06/18/16 16:30 71 15 89 L 06/18/16 16:00 97.4 F L 79 15 97 06/18/16 15:30 83 15 99 06/18/16 15:00 78 16 100 06/18/16 14:30 93 16 96 06/18/16 14:00 85 16 96 06/18/16 13:30 89 20 97 06/18/16 13:00 91 20 99 06/18/16 12:30 81 15 100 06/18/16 12:00 97.5 F L 86 29 H 100 06/18/16 11:30 85 17 99 06/18/16 11:00 82 18 100 06/18/16 10:30 97.5 F L 89 16 99 06/18/16 10:00 83 16 99 06/18/16 09:30 80 16 100 06/18/16 09:00 76 16 100 06/18/16 08:30 86 17 98 06/18/16 08:26 98 06/18/16 08:00 97.4 F L 81 17 99 06/18/16 07:30 74 16 99 06/18/16 07:00 80 16 99 06/18/16 06:30 80 16 98 06/18/16 06:00 79 16 98 06/18/16 05:30 80 16 98 06/18/16 05:00 78 18 97 06/18/16 04:30 107 H 28 H 98 06/18/16 04:00 97.5 F L 84 20 98 06/18/16 03:30 78 15 97 06/18/16 03:00 81 18 96 06/18/16 02:30 81 18 97 06/18/16 02:00 80 17 97 06/18/16 01:30 80 15 98 06/18/16 01:00 78 16 98 06/18/16 00:30 78 18 99 06/18/16 00:00 97.5 F L 82 119 H 16 98 06/17/16 23:42 85 18 98 02/13/17 23:30 81 19 98 06/17/16 23:00 103 H 18 99 06/17/16 22:30 97 19 98 06/17/16 22:00 93 17 99 06/17/16 21:30 80 22 95 06/17/16 21:00 83 15 98 06/17/16 20:30 83 15 98 06/17/16 20:00 97.6 F 85 119 H 15 98 06/17/16 19:30 82 17 98 06/17/16 19:00 82 18 99 06/17/16 18:30 85 16 99 Intake and Output 06/18/16 06/18/16 06/18/16 06:59 14:59 22:59 Intake Total 501.571 914.998 199.743 Output Total 410 385 260 Balance 91.571 529.998 -60.257 Intake: IV 472 472 177 Dextrose 10% in Water 1, 400 400 150 000 ml In Empty Bag 1 bag @ 50 mls/hr IV .Q20H [facility] Rx#:[id number] Pressure bags 72 72 27 Intake, IV Titration 29.571 382.998 22.743 Amount Norepinephrine 16 mg In 29.571 82.998 22.743 Sodium Chloride 0.9% 250 ml @ Titrate IV .Q0M [facility] Rx#:[id number] Potassium Chloride 10 meq 100 Lidocaine 2% Inj 10 mg In Sodium Chloride 0.9% 100 ml @ 100 mls/hr IV Q1HR [facility] Rx#:[id number] cefTRIAXone 2,000 mg In 200 Sodium Chloride 0.9% 100 ml @ 100 mls/hr IVPB DAILY@1200 [facility] Rx#: [id number] Oral 60 Output: Urine 410 385 260 Other: Voiding Method Indwelling Catheter Indwelling Catheter Indwelling Catheter # Bowel Movements 1 1 Weight 78.2 kg 78.2 kg 78.2 kg Patient Weight 06/19/16 06:59 Weight 78.2 kg ABP, PAP, CO, CI - Last 8 Hours Arterial Blood Pressure 124/53 Arterial Blood Pressure 108/46 Arterial Blood Pressure 112/46 Arterial Blood Pressure 100/42 Arterial Blood Pressure 113/47 Arterial Blood Pressure 116/48 Arterial Blood Pressure 102/42 Arterial Blood Pressure 87/41 Arterial Blood Pressure 108/46 Arterial Blood Pressure 100/44 Arterial Blood Pressure 103/44 Arterial Blood Pressure 99/42 Arterial Blood Pressure 80/37 Arterial Blood Pressure 114/48 - Constitutional General appearance: average body habitus, cooperative, no acute distress - EENT Eyes: anicteric sclerae ENT: normal oropharynx - Neck Neck: no lymphadenopathy - Respiratory Respiratory: bilateral: CTA, diminished - Cardiovascular Rhythm: regular Heart sounds: normal: S1, S2 - Gastrointestinal General gastrointestinal: no absent bowel sounds, no decreased bowel sounds, no distended, no hepatomegaly, no hyperactive bowel sounds, normal bowel sounds, no organomegaly, no rigid, no scaphoid, soft, no splenomegaly, no tenderness, no umbilical hernia, no ventral hernia - Integumentary Integumentary: pale - Neurologic Neurologic: CNII-XII intact - Musculoskeletal Musculoskeletal: generalized weakness - Psychiatric Psychiatric: A&O x's 3, appropriate affect, intact judgment & insight Results CBC & Chem 7: 06/18/16 04:28 06/18/16 04:28 Labs: Abnormal Lab Results - Last 24 Hours (Table) 06/18/16 06/18/16 06/18/16 Range/Units 04:28 04:28 04:28 WBC 30.7 H* (3.8-10.6) k/uL RBC 3.83 L (4.30-5.90) m/uL Hgb 11.4 L (13.0-17.5) gm/dL Hct 36.6 L (39.0-53.0) % RDW 16.0 H (11.5-15.5) % Plt Count 43 L* (150-450) k/uL Neutrophils # (Manual) 29.2 H (1.3-7.7) k/uL Lymphocytes # (Manual) 0.6 L (1.0-4.8) k/uL ABG Lactic Acid 3.9 H* (0.5-1.6) mmol/L Chloride 114 H (98-107) mmol/L Carbon Dioxide 20 L (22-30) mmol/L BUN 35 H (9-20) mg/dL Glucose 108 H (74-99) mg/dL POC Glucose (mg/dL) (75-99) mg/dL Calcium 8.3 L (8.4-10.2) mg/dL 02/14/17 02/14/17 02/14/17 Range/Units 08:22 12:13 17:24 WBC (3.8-10.6) k/uL RBC (4.30-5.90) m/uL Hgb (13.0-17.5) gm/dL Hct (39.0-53.0) % RDW (11.5-15.5) % Plt Count (150-450) k/uL Neutrophils # (Manual) (1.3-7.7) k/uL Lymphocytes # (Manual) (1.0-4.8) k/uL ABG Lactic Acid (0.5-1.6) mmol/L Chloride (98-107) mmol/L Carbon Dioxide (22-30) mmol/L BUN (9-20) mg/dL Glucose (74-99) mg/dL POC Glucose (mg/dL) 104 H 100 H 115 H (75-99) mg/dL Calcium (8.4-10.2) mg/dL Assessment and Plan (1) Thrombocytopenia Narrative/Plan: This is new, sudden onset. Medical record reviewed back to Feb 2016. There does appear to be any exposure to heparin this hospitalization-nursing is helping us to verify this in case. 1 dose of 5000 units given SQ on 02/08/16. There is no reason to suspect HIT at this time, pt is not on heparin. It is felt more likely that this is reactive to sepsis. Hold anticoagulation, ASA, NSAIDs for platelet count <50,000 at this time. We will continue to monitor counts and would suspect that the platelet count will recover as pt is treated and recovers from sepsis. Status: Acute
--- NOTE | 2016-06-18 18:44 | PN ---
DATE OF SERVICE: 06/18/2016 PRESENTING COMPLAINT: Septic shock. INTERVAL HISTORY: Patient with extensive history of DVT, GERD, hyperlipidemia, large prostate, chronic Henderson catheter, presented with lactic acidosis, hypertensive shock, has been on Levophed and vasopressin, the latter of which was discontinued. Patient also had obstructive ureteral calculus and had double-J stent catheter placed. Patient is more awake this morning. is at the bedside. Did tolerate some diet. Remains in the ICU , A. fib is controlled. Review of systems done for constitutional, cardiovascular, GI, pulmonary; relevant findings as above. Patient has been having liquid stools, Clostridium difficile has been negative. Current medications are reviewed and include IV ceftriaxone. Levophed is still present. On examination, temperature 97.5, pulse 86, respiration 29, blood pressure 103/44, pulse ox 100% on 2 liters. GENERAL APPEARANCE: Lying in bed. Tired -appearing. EYES: Pupils equal. Conjunctivae pale. NECK: JVD is unable to assess. Mass not palpable. RESPIRATORY: Effort normal. LUNGS: Diminished breath sounds. CARDIOVASCULAR: First and second sounds normal. No edema. ABDOMEN: Soft, nontender. Liver and spleen not palpable. PSYCHIATRY: Awake, answering questions. INVESTIGATIONS: White count 13.7, hemoglobin 11.4. Potassium 3.9. BUN 35, creatinine 1.0. ASSESSMENT: 1. Acute urinary tract infection with severe sepsis, acute pyelonephritis, causing septic shock and sepsis, present at admission also causing lactic acidosis, associated with chronic Henderson catheter and with ( ) the patient obstruction. 2. Positive urine cultures positive for Escherichia coli. 3. Chronic deep venous thromboses maintained on Xarelto 4. Acute renal failure, probably acute tubular necrosis from sepsis, present on admission. 5. Gastroesophageal reflux disease. 6. Hyperlipidemia. 7. Procedure cystoscopy for right double-J stent catheter placed in the ureter. 8. Thrombocytopenia could be from sepsis. 9. Benign prostatic hypertrophy. 10. 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 11. Septic shock on presentation from urinary tract infection with sepsis. PLAN: Continue current medication and treatment plan. Care was discussed with the at the bedside. Repeat blood cultures today.
[2016-06-18] MEDS: FENOFIBRATE 160 MG TAB PO SCH (21:28)
[2016-06-18] MEDS: SODIUM CHLORIDE 0.9% 1,000 ML IV SCH (21:28)
[2016-06-18] MEDS: MIRTAZAPINE 15 MG TAB PO SCH (21:28)
[2016-06-18] MEDS: ATORVASTATIN 10 MG TAB PO SCH (21:28)
[2016-06-18] MEDS: QUEtiapine 25 MG TAB PO SCH (21:29)
[2016-06-18 22:30] LABS: Glucose,Whole Blood 113 mg/dL (75-99)
--- NOTE | 2016-06-18 22:44 | P.PN ---
Subjective Principal diagnosis: Sepsis 86-year-old male who is known to the infectious disease service from his recent hospitalization where he had difficulties with urinary tract infection and the development of Clostridium difficile colitis. The colitis was being treated with vancomycin with significant improvement. The patient however developed significant fever generalized malaise and weakness. And upon presenting to the emergency center was found evidence of sepsis with shock. He was seen by urology and taken to the operating room where cystoscopy was performed. Double-J catheter was placed into the right collecting system for the pyelonephritis from the obstructive right ureteral calculus. Patient continues to have hypotension after fluid resuscitation requiring vasopressor therapy for his septic shock. Although is doing slightly better at this time. Patient remains lethargic but is arousable. He knows he is in the hospital. Is able to call [facility]. Earlier, knew the year and the president but not so cooperative at the moment. Easily recognizes his . And correctly states that 20 year marriage history.is actually with a brighter affect today Objective - Vital Signs Vital signs: Vital Signs Temp 97.4 F L 06/18/16 16:00 Pulse 79 06/18/16 22:00 Resp 18 06/18/16 22:00 BP 94/58 06/18/16 20:30 Pulse Ox 97 06/18/16 22:00 Intake & Output 06/18/16 06/18/16 06/19/16 06:59 18:59 06:59 Intake Total 362.656 2780.741 261.020 Output Total 970 695 120 Balance -201.023 598.741 141.020 Weight 78.2 kg 78.2 kg Intake: IV 658 708 236 Dextrose 10% in Water 1, 550 600 200 000 ml In Empty Bag 1 bag @ 50 mls/hr IV .Q20H [facility] Rx#:[id number] Pressure bags 108 108 36 Intake, IV Titration 110.977 405.741 25.020 Amount Dextrose 10% in Water 1, 50 000 ml In Empty Bag 1 bag @ 50 mls/hr IV .Q20H [facility] Rx#:[id number] Norepinephrine 16 mg In 60.977 105.741 25.020 Sodium Chloride 0.9% 250 ml @ Titrate IV .Q0M [facility] Rx#:[id number] Potassium Chloride 10 meq 100 Lidocaine 2% Inj 10 mg In Sodium Chloride 0.9% 100 ml @ 100 mls/hr IV Q1HR [facility] Rx#:[id number] cefTRIAXone 2,000 mg In 200 Sodium Chloride 0.9% 100 ml @ 100 mls/hr IVPB DAILY@1200 [facility] Rx#: [id number] Oral 180 Output: Urine 970 695 120 Other: Voiding Method Indwelling Catheter Indwelling Catheter # Bowel Movements 1 ABP, PAP, CO, CI - Last Documented Arterial Blood Pressure 89/42 - Exam 86-year-old male comfortable at this time. Cloudy urine is draining. Not having large amounts of diarrhea at this time HEENT: Anicteric conjunctiva are with pallor but moist nasal mucosa grossly intact without significant lesions, there is no thrush. Neck: The neck is supple without significant lymphadenopathy or thyromegaly. Lungs: Good bilateral air entry without significant crackles or wheezing. There is no significant bronchial sounds. There is no egophony or dullness. Heart: Irregular with an audible S1 and S2 without S4 no distinct murmur click or rub is noted. PMI is nondisplaced Abdomen: Nondistended, Positive bowel sounds soft and nontender without palpable masses or organomegaly. There was no guarding or rebound. Extremities: The upper extremities have excellent pulses they are symmetric, no significant petechiae or telangiectasia. No splinter hemorrhages were noted. The lower extremities are free from significant edema. The peripheral pulses were 2+ and symmetric. Neuro: Awake alert to person and place is much less lethargic able to follow commands. Not a good historian his last visit. - Labs CBC & Chem 7: 06/18/16 04:28 06/18/16 04:28 Labs: Abnormal Lab Results - Last 24 Hours (Table) 06/18/16 06/18/16 06/18/16 Range/Units 04:28 04:28 04:28 WBC 30.7 H* (3.8-10.6) k/uL RBC 3.83 L (4.30-5.90) m/uL Hgb 11.4 L (13.0-17.5) gm/dL Hct 36.6 L (39.0-53.0) % RDW 16.0 H (11.5-15.5) % Plt Count 43 L* (150-450) k/uL Neutrophils # (Manual) 29.2 H (1.3-7.7) k/uL Lymphocytes # (Manual) 0.6 L (1.0-4.8) k/uL ABG Lactic Acid 3.9 H* (0.5-1.6) mmol/L Chloride 114 H (98-107) mmol/L Carbon Dioxide 20 L (22-30) mmol/L BUN 35 H (9-20) mg/dL Glucose 108 H (74-99) mg/dL POC Glucose (mg/dL) (75-99) mg/dL Calcium 8.3 L (8.4-10.2) mg/dL 06/18/16 06/18/16 06/18/16 Range/Units 08:22 12:13 17:24 WBC (3.8-10.6) k/uL RBC (4.30-5.90) m/uL Hgb (13.0-17.5) gm/dL Hct (39.0-53.0) % RDW (11.5-15.5) % Plt Count (150-450) k/uL Neutrophils # (Manual) (1.3-7.7) k/uL Lymphocytes # (Manual) (1.0-4.8) k/uL ABG Lactic Acid (0.5-1.6) mmol/L Chloride (98-107) mmol/L Carbon Dioxide (22-30) mmol/L BUN (9-20) mg/dL Glucose (74-99) mg/dL POC Glucose (mg/dL) 104 H 100 H 115 H (75-99) mg/dL Calcium (8.4-10.2) mg/dL 06/18/16 Range/Units 22:27 WBC (3.8-10.6) k/uL RBC (4.30-5.90) m/uL Hgb (13.0-17.5) gm/dL Hct (39.0-53.0) % RDW (11.5-15.5) % Plt Count (150-450) k/uL Neutrophils # (Manual) (1.3-7.7) k/uL Lymphocytes # (Manual) (1.0-4.8) k/uL ABG Lactic Acid (0.5-1.6) mmol/L Chloride (98-107) mmol/L Carbon Dioxide (22-30) mmol/L BUN (9-20) mg/dL Glucose (74-99) mg/dL POC Glucose (mg/dL) 113 H (75-99) mg/dL Calcium (8.4-10.2) mg/dL Microbiology - Last 24 Hours (Table) 06/17/16 18:51 Blood Culture - Preliminary Blood No Growth after 24 hours 06/17/16 18:50 Blood Culture - Preliminary Blood No Growth after 24 hours Laboratory Results WBC 30.7 k/uL (3.8-10.6) H* 06/18/16 04:28 RBC 3.83 m/uL (4.30-5.90) L 06/18/16 04:28 Hgb 11.4 gm/dL (13.0-17.5) L 06/18/16 04:28 Hct 36.6 % (39.0-53.0) L 06/18/16 04:28 MCV 95.7 fL (80.0-100.0) 06/18/16 04:28 MCH 29.8 pg (25.0-35.0) 06/18/16 04:28 MCHC 31.1 g/dL (31.0-37.0) 06/18/16 04:28 RDW 16.0 % (11.5-15.5) H 06/18/16 04:28 Plt Count 43 k/uL (150-450) L* 06/18/16 04:28 Neutrophils % 76 % 06/15/16 08:51 Neutrophils % (Manual) 89.0 % 06/18/16 04:28 Band Neutrophils % 6.0 % 06/18/16 04:28 Lymphocytes % 18 % 06/15/16 08:51 Lymphocytes % (Manual) 2.0 % 06/18/16 04:28 Monocytes % 4 % 06/15/16 08:51 Monocytes % (Manual) 3.0 % 06/18/16 04:28 Eosinophils % 1 % 06/15/16 08:51 Basophils % 0 % 06/15/16 08:51 Neutrophils # 0.8 k/uL (1.3-7.7) L 06/15/16 08:51 Neutrophils # (Manual) 29.2 k/uL (1.3-7.7) H 06/18/16 04:28 Lymphocytes # 0.2 k/uL (1.0-4.8) L 06/15/16 08:51 Lymphocytes # (Manual) 0.6 k/uL (1.0-4.8) L 06/18/16 04:28 Monocytes # 0.0 k/uL (0-1.0) 06/15/16 08:51 Monocytes # (Manual) 0.9 k/uL (0-1.0) 06/18/16 04:28 Eosinophils # 0.0 k/uL (0-0.7) 06/15/16 08:51 Basophils # 0.0 k/uL (0-0.2) 06/15/16 08:51 Nucleated RBCs 0 /100 WBC (0-0) 06/18/16 04:28 Manual Slide Review Performed 06/18/16 04:28 Toxic Granulation Present 06/18/16 04:28 Toxic Vacuolation Present 06/18/16 04:28 Dohle Bodies Present 06/18/16 04:28 Hypochromasia Slight 06/18/16 04:28 Poikilocytosis (manual Present 06/18/16 04:28 Anisocytosis (manual) Present 06/18/16 04:28 Macrocytosis Slight 06/16/16 05:40 PT 20.1 sec (9.0-12.0) H 06/16/16 04:14 INR 2.1 (<1.1) 06/16/16 04:14 APTT 40.2 sec (22.0-30.0) H 06/16/16 04:14 ABG Lactic Acid 3.9 mmol/L (0.5-1.6) H* 06/18/16 04:28 Sodium 140 mmol/L (137-145) 06/18/16 04:28 Potassium 3.9 mmol/L (3.5-5.1) 06/18/16 04:28 Chloride 114 mmol/L (98-107) H 06/18/16 04:28 Carbon Dioxide 20 mmol/L (22-30) L 06/18/16 04:28 Anion Gap 6 mmol/L 06/18/16 04:28 BUN 35 mg/dL (9-20) H 06/18/16 04:28 Creatinine 1.00 mg/dL (0.66-1.25) 06/18/16 04:28 Est GFR (MDRD) Af Amer >60 (>60 ml/min/1.73 sqM) 06/18/16 04:28 Est GFR (MDRD) Non-Af >60 (>60 ml/min/1.73 sqM) 06/18/16 04:28 Glucose 108 mg/dL (74-99) H 06/18/16 04:28 POC Glucose (mg/dL) 113 mg/dL (75-99) H 06/18/16 22:27 POC Glu [employer] ID 06/18/16 22:27 Plasma Lactic Acid Michael 6.3 mmol/L (0.7-2.0) H* 06/15/16 19:09 Calcium 8.3 mg/dL (8.4-10.2) L 06/18/16 04:28 Phosphorus 2.7 mg/dL (2.5-4.5) 06/18/16 04:28 Magnesium 2.0 mg/dL (1.6-2.3) 06/18/16 04:28 Total Bilirubin 0.8 mg/dL (0.2-1.3) 06/15/16 08:51 AST 28 U/L (17-59) 06/15/16 08:51 ALT 33 U/L (21-72) 06/15/16 08:51 Alkaline Phosphatase 166 U/L (38-126) H 06/15/16 08:51 Total Protein 5.7 g/dL (6.3-8.2) L 06/15/16 08:51 Albumin 2.6 g/dL (3.5-5.0) L 06/15/16 08:51 Lipase 50 U/L (23-300) 06/15/16 08:51 Cortisol >123 ug/dL 06/17/16 05:20 Urine Color Red 06/15/16 08:51 Urine Appearance Bloody (Clear) 06/15/16 08:51 Urine RBC >182 /hpf (0-5) H 06/15/16 08:51 Urine WBC >182 /hpf (0-5) H 06/15/16 08:51 Urine WBC Clumps Many /hpf (None) H 06/15/16 08:51 Urine Mucus Many /hpf (None) H 06/15/16 08:51 C. difficile (EIA) Intrp Negative (Negative) 06/17/16 08:42 Microbiology 06/17/16 18:51 Blood Blood Culture - Preliminary No Growth after 24 hours 06/17/16 18:50 Blood Blood Culture - Preliminary No Growth after 24 hours 06/15/16 08:51 Blood Blood Culture Gram Stain - Preliminary 06/15/16 08:51 Blood Blood Culture - Preliminary Escherichia coli Proteus mirabilis 06/15/16 08:51 Urine,Catheterized Urine Culture - Final Escherichia coli 06/15/16 08:51 Blood Blood Culture - Preliminary Assessment and Plan (1) Septic shock Narrative/Plan: 86-year-old male presents to Hospital feeling quite poorly presented with evidence of septic shock on the basis of obstructive uropathy. There is evidence of positive blood cultures with gram-negative bacilli as well as a positive urine culture. Review of prior culture shows evidence of Proteus mirabilis as a common agent in the past. However he is also had enterococcus and MSSA in his urine in the recent past. For antibiotic therapy piperacillin tazobactam was utilized to cover for the 3 recent pathogens. Given that E. coli was isolated antibiotic therapy changed to Rocephin, especially given his history of recent Clostridium difficile colitis. We'll monitor him for recurrence of the C. diff. He has just completed his course of vancomycin therapy. He is at high risk of relapse. Current C. diff testing is negative He does have acute renal failure with a peak creatinine of 1.72. Creatinine improved to 1.00 today He does have septic shock requiring multiple vasopressors. Receiving further fluid and will be receiving hydrocortisone to ensure there is not some adrenal insufficiency with his advanced age and current sepsis and multiple recent illnesses. Vasopressors are being weaned. Follow up blood cultures have been requested At admission the patient actually had leukopenia from his overwhelming sepsis and now has rebounded back to significant leukocytosis also on the basis of his significant sepsis. The blood cultures come positive for the Escherichia coli. It is quite susceptible. When he is improved we'll have the option for oral antibiotic therapy at his discharge. Prognosis is somewhat poor. Status: Acute (2) Urinary tract infection Status: Acute (3) Pyonephrosis Status: Acute
[2016-06-19] MEDS: SODIUM CHLORIDE 0.9% 1,000 ML IV SCH
[2016-06-19 01:03] LABS: Glucose,Whole Blood 98 mg/dL (75-99)
[2016-06-19] MEDS: DEXTROSE 10% IN WATER 1,000 ML in EMPTY BAG 1 BAG IV SCH (01:55)
[2016-06-19 04:53] LABS: Glucose,Whole Blood 92 mg/dL (75-99)
[2016-06-19 05:04] LABS: Anisocytosis Slight; Basophils % (A) 0 %; CH 29.5; CHCM 31.4; Eosinophils % (A) 0 %; HCT 36.2 % (39.0-53.0); HDW 2.73; HGB 11.4 gm/dL (13.0-17.5); Hypochromasia Slight; Luc # (Auto) 0.35; Luc % (Auto) 1; Lymphocytes # (A) 1.1 k/uL (1.0-4.8); Lymphocytes % (A) 4 %; MCH 29.8 pg (25.0-35.0); MCHC 31.5 g/dL (31.0-37.0); MCV 94.6 fL (80.0-100.0); Mean Platelet Volume 9.5; Monocytes # (A) 0.7 k/uL (0-1.0); Monocytes % (A) 2 %; Neutrophils # (A) 25.7 k/uL (1.3-7.7); Neutrophils % (A) 92 %; RBC 3.83 m/uL (4.30-5.90); RDW 16.2 % (11.5-15.5); WBC (Perox) 29.25
[2016-06-19 05:13] LABS: WBC 27.9 k/uL (3.8-10.6)
[2016-06-19 05:26] LABS: Anion Gap 6 mmol/L; Blood Urea Nitrogen 38 mg/dL (9-20); Carbon Dioxide 21 mmol/L (22-30); Chloride 115 mmol/L (98-107); Glucose 102 mg/dL (74-99); Magnesium 1.9 mg/dL (1.6-2.3); Non-African American GFR(MDRD) >60 (>60 ml/min/1.73 sqM); Phosphorous 2.3 mg/dL (2.5-4.5); Potassium 3.9 mmol/L (3.5-5.1); Sodium 142 mmol/L (137-145)
[2016-06-19 08:37] LABS: Glucose,Whole Blood 88 mg/dL (75-99)
--- NOTE | 2016-06-19 08:39 | P.PN ---
Subjective Progress note dated 06/18/2016 This is a 86-year-old male who was seen again on June 17. He had a cystoscopy performed with a double-J catheter insertion on the right. This was done on 06/15/2016. His urine curved culture was positive for E. coli. Apparently his antibiotics were changed to Rocephin. Yesterday he was both on levophed and vasopressin. I asked the nurses to get him on 1 drug. He is currently just on levophed at 10 mics per minute. He was having problems with hypoglycemia which required insulin IV push infusions of D50. I change his IV fluids to D10 at 50 mL an hour. Getting O2 at 2 L. He is getting appointment 90 KVO. Again vasopressin is off. The patient seemed poor weight. No distress. No pain. Progress note dated 06/19/2016 This is an 86-year-old male who was again seen on June 19. The patient has a history of a cystoscopy with double-J catheter insertion on the right. This was done on June 15. The urine culture was positive for Escherichia coli. His antibiotics were changed to Rocephin. Still on a small amount levophed at 2 mics per minute. The patient's currently D10 IV at 50 mL an hour appointment 9 IV at KVO. The patient is a DO NOT RESUSCITATE. Hope we can get the patient off the levo fed today. Other than that the patient seems be doing better. No additional recommendations we made today. Hopefully get the patient out of the ICU. Objective - Vital Signs Vital signs: Vital Signs Temp 96.4 F L 06/19/16 04:00 Pulse 69 06/19/16 07:00 Resp 14 06/19/16 07:00 BP 94/58 06/18/16 20:30 Pulse Ox 96 06/19/16 06:00 Intake & Output 06/18/16 06/19/16 06/19/16 18:59 06:59 18:59 Intake Total 1293.741 752.226 56 Output Total 695 645 50 Balance 598.741 107.226 6 Weight 78.2 kg 84.2 kg Intake: IV 708 696 56 Dextrose 10% in Water 1, 600 600 50 000 ml In Empty Bag 1 bag @ 50 mls/hr IV .Q20H [facility] Rx#:[id number] Pressure bags 108 96 6 Intake, IV Titration 405.741 56.226 Amount Norepinephrine 16 mg In 105.741 56.226 Sodium Chloride 0.9% 250 ml @ Titrate IV .Q0M [facility] Rx#:[id number] Potassium Chloride 10 meq 100 Lidocaine 2% Inj 10 mg In Sodium Chloride 0.9% 100 ml @ 100 mls/hr IV Q1HR [facility] Rx#:[id number] cefTRIAXone 2,000 mg In 200 Sodium Chloride 0.9% 100 ml @ 100 mls/hr IVPB DAILY@1200 [facility] Rx#: [id number] Oral 180 Output: Urine 695 645 50 Other: Voiding Method Indwelling Catheter Indwelling Catheter # Bowel Movements 1 ABP, PAP, CO, CI - Last Documented Arterial Blood Pressure 101/40 - Exam No acute distress, oriented 3. HEENT examination is grossly unremarkable. Mucous membranes are moist. No oral lesions. Neck supple. Full range of motion. No adenopathy or thyromegaly. Cardiovascular examination reveals regular rhythm rate. No S3-S4 murmur. Lungs are clear breath sounds are equal. No wheezes or rhonchi. No adventitious sounds. Abdomen soft bowel sounds are heard. Extremities are intact. - Labs CBC & Chem 7: 06/19/16 04:50 06/19/16 04:50 Labs: Abnormal Lab Results - Last 24 Hours (Table) 06/18/16 06/18/16 06/18/16 Range/Units 12:13 17:24 22:27 WBC (3.8-10.6) k/uL RBC (4.30-5.90) m/uL Hgb (13.0-17.5) gm/dL Hct (39.0-53.0) % RDW (11.5-15.5) % Plt Count (150-450) k/uL Neutrophils # (1.3-7.7) k/uL ABG Lactic Acid (0.5-1.6) mmol/L Chloride (98-107) mmol/L Carbon Dioxide (22-30) mmol/L BUN (9-20) mg/dL Glucose (74-99) mg/dL POC Glucose (mg/dL) 100 H 115 H 113 H (75-99) mg/dL Calcium (8.4-10.2) mg/dL Phosphorus (2.5-4.5) mg/dL 06/19/16 06/19/16 06/19/16 Range/Units 04:50 04:50 04:50 WBC 27.9 H* (3.8-10.6) k/uL RBC 3.83 L (4.30-5.90) m/uL Hgb 11.4 L (13.0-17.5) gm/dL Hct 36.2 L (39.0-53.0) % RDW 16.2 H (11.5-15.5) % Plt Count 45 L* (150-450) k/uL Neutrophils # 25.7 H (1.3-7.7) k/uL ABG Lactic Acid 1.7 H (0.5-1.6) mmol/L Chloride 115 H (98-107) mmol/L Carbon Dioxide 21 L (22-30) mmol/L BUN 38 H (9-20) mg/dL Glucose 102 H (74-99) mg/dL POC Glucose (mg/dL) (75-99) mg/dL Calcium 8.0 L (8.4-10.2) mg/dL Phosphorus 2.3 L (2.5-4.5) mg/dL Microbiology - Last 24 Hours (Table) 06/17/16 18:51 Blood Culture - Preliminary Blood No Growth after 24 hours 06/17/16 18:50 Blood Culture - Preliminary Blood No Growth after 24 hours Assessment and Plan (1) Pyonephrosis Status: Acute (2) Septic shock Status: Acute (3) Urinary tract infection Status: Acute (4) Acute kidney failure Status: Acute (5) Acute urinary retention Status: Acute Plan: Plan X The patient seemed be doing relatively well. He is levophed is off. The vasopressin is off. The D10 has help with the hypoglycemia. Antibiotics have been changed. X-rays labs and medications are reviewed. Prognosis is guarded. Plan dated 06/19/2016 The patient seemed be doing a bit better. Still remains on a very small dose of vasopressor. Is on D10 IV at 50 mL an hour for hypoglycemia. We'll switch him to D5 IV. No additional recommendations are made. Prognosis is poor. He is a DO NOT RESUSCITATE. His bladder did show evidence of Escherichia coli which is being treated with Rocephin. Time with Patient: Less than 30
[2016-06-19] MEDS: LIDOCAINE 5% PATCH TOPICAL SCH (08:54)
[2016-06-19] MEDS: LACTOBACILLUS ACIDOPH & BULGAR 1 EACH PACKET PO SCH ×3 (08:54→23:14)
[2016-06-19] MEDS: MULTIVITAMINS, THERA 1 EACH TAB PO SCH (08:55)
[2016-06-19] MEDS: NYSTATIN 100,000 UNIT/ML SUSP 500,000 UNIT/5 ML CUP PO SCH ×4 (08:55→23:14)
[2016-06-19] MEDS: PANTOPRAZOLE 40 MG/10 ML VIAL IV SCH (08:55)
[2016-06-19] MEDS ORDERED: SODIUM CHLORIDE 0.9% 1,000 ML IV ONE (10:16)
[2016-06-19 13:53] LABS: Glucose,Whole Blood 88 mg/dL (75-99)
[2016-06-19] MEDS: DEXTROSE 5%-0.9% NACL 1,000 ML IV SCH ×2 (14:04→23:13)
[2016-06-19] MEDS: cefTRIAXone 2,000 MG in SODIUM CHLORIDE 0.9% 100 ML IVPB SCH (14:05)
[2016-06-19] MEDS: HYDROcodone/APAP 10-325MG 1 EACH TAB PO PRN (15:44)
[2016-06-19] MEDS: QUEtiapine 25 MG TAB PO SCH (18:52)
[2016-06-19] MEDS: FENOFIBRATE 160 MG TAB PO SCH (18:52)
[2016-06-19] MEDS: MIRTAZAPINE 15 MG TAB PO SCH (18:52)
[2016-06-19] MEDS: ATORVASTATIN 10 MG TAB PO SCH (18:52)
--- NOTE | 2016-06-19 19:43 | P.PN ---
Subjective Principal diagnosis: Sepsis 86-year-old male who is known to the infectious disease service from his recent hospitalization where he had difficulties with urinary tract infection and the development of Clostridium difficile colitis. The colitis was being treated with vancomycin with significant improvement. The patient however developed significant fever generalized malaise and weakness. And upon presenting to the emergency center was found evidence of sepsis with shock. He was seen by urology and taken to the operating room where cystoscopy was performed. Double-J catheter was placed into the right collecting system for the pyelonephritis from the obstructive right ureteral calculus. Patient continues to have hypotension after fluid resuscitation requiring vasopressor therapy for his septic shock. Although is doing slightly better at this time. Patient's mentation is now much improved. Sitting upright reading the paper. Easily recognizes me by name. Easily states that he is a [facility]. Objective - Vital Signs Vital signs: Vital Signs Temp 96.8 F L 06/19/16 16:00 Pulse 69 06/19/16 16:00 Resp 26 H 06/19/16 16:00 BP 94/58 06/18/16 20:30 Pulse Ox 96 06/19/16 16:00 Intake & Output 06/19/16 06/19/16 06/20/16 06:59 18:59 06:59 Intake Total 281.408 4994 Output Total 645 495 Balance 627.211 4883 Weight 84.2 kg 84.2 kg Intake: IV 696 960 Dextrose 10% in Water 1, 600 100 000 ml In Empty Bag 1 bag @ 50 mls/hr IV .Q20H [facility] Rx#:[id number] Pressure bags 96 60 d5ns 800 Intake, IV Titration 56.226 1000 Amount Norepinephrine 16 mg In 56.226 Sodium Chloride 0.9% 250 ml @ Titrate IV .Q0M [facility] Rx#:[id number] Sodium Chloride 0.9% 1, 1000 000 ml @ 999 mls/hr IV . Q1H1M [facility] Rx#:[id number] Output: Urine 645 495 Other: Voiding Method Indwelling Catheter Indwelling Catheter ABP, PAP, CO, CI - Last Documented Arterial Blood Pressure 110/41 - Exam 86-year-old male comfortable at this time. Cloudy urine is draining. Not having large amounts of diarrhea at this time HEENT: Anicteric conjunctiva are with pallor but moist nasal mucosa grossly intact without significant lesions, there is no thrush. Neck: The neck is supple without significant lymphadenopathy or thyromegaly. Lungs: Good bilateral air entry without significant crackles or wheezing. There is no significant bronchial sounds. There is no egophony or dullness. Heart: Irregular with an audible S1 and S2 without S4 no distinct murmur click or rub is noted. PMI is nondisplaced Abdomen: Nondistended, Positive bowel sounds soft and nontender without palpable masses or organomegaly. There was no guarding or rebound. Extremities: The upper extremities have excellent pulses they are symmetric, no significant petechiae or telangiectasia. No splinter hemorrhages were noted. The lower extremities are free from significant edema. The peripheral pulses were 2+ and symmetric. Neuro: Awake alert oriented to person place and time reading the newspaper - Labs CBC & Chem 7: 06/19/16 04:50 06/19/16 04:50 Labs: Abnormal Lab Results - Last 24 Hours (Table) 06/18/16 06/19/16 06/19/16 Range/Units 22:27 04:50 04:50 WBC 27.9 H* (3.8-10.6) k/uL RBC 3.83 L (4.30-5.90) m/uL Hgb 11.4 L (13.0-17.5) gm/dL Hct 36.2 L (39.0-53.0) % RDW 16.2 H (11.5-15.5) % Plt Count 45 L* (150-450) k/uL Neutrophils # 25.7 H (1.3-7.7) k/uL ABG Lactic Acid (0.5-1.6) mmol/L Chloride 115 H (98-107) mmol/L Carbon Dioxide 21 L (22-30) mmol/L BUN 38 H (9-20) mg/dL Glucose 102 H (74-99) mg/dL POC Glucose (mg/dL) 113 H (75-99) mg/dL Calcium 8.0 L (8.4-10.2) mg/dL Phosphorus 2.3 L (2.5-4.5) mg/dL 06/19/16 Range/Units 04:50 WBC (3.8-10.6) k/uL RBC (4.30-5.90) m/uL Hgb (13.0-17.5) gm/dL Hct (39.0-53.0) % RDW (11.5-15.5) % Plt Count (150-450) k/uL Neutrophils # (1.3-7.7) k/uL ABG Lactic Acid 1.7 H (0.5-1.6) mmol/L Chloride (98-107) mmol/L Carbon Dioxide (22-30) mmol/L BUN (9-20) mg/dL Glucose (74-99) mg/dL POC Glucose (mg/dL) (75-99) mg/dL Calcium (8.4-10.2) mg/dL Phosphorus (2.5-4.5) mg/dL Microbiology - Last 24 Hours (Table) 06/17/16 18:51 Blood Culture - Preliminary Blood No Growth after 24 hours 06/17/16 18:50 Blood Culture - Preliminary Blood No Growth after 24 hours Laboratory Results WBC 27.9 k/uL (3.8-10.6) H* 06/19/16 04:50 RBC 3.83 m/uL (4.30-5.90) L 06/19/16 04:50 Hgb 11.4 gm/dL (13.0-17.5) L 06/19/16 04:50 Hct 36.2 % (39.0-53.0) L 06/19/16 04:50 MCV 94.6 fL (80.0-100.0) 06/19/16 04:50 MCH 29.8 pg (25.0-35.0) 06/19/16 04:50 MCHC 31.5 g/dL (31.0-37.0) 06/19/16 04:50 RDW 16.2 % (11.5-15.5) H 06/19/16 04:50 Plt Count 45 k/uL (150-450) L* 06/19/16 04:50 Neutrophils % 92 % 06/19/16 04:50 Neutrophils % (Manual) 89.0 % 06/18/16 04:28 Band Neutrophils % 6.0 % 06/18/16 04:28 Lymphocytes % 4 % 06/19/16 04:50 Lymphocytes % (Manual) 2.0 % 06/18/16 04:28 Monocytes % 2 % 06/19/16 04:50 Monocytes % (Manual) 3.0 % 06/18/16 04:28 Eosinophils % 0 % 06/19/16 04:50 Basophils % 0 % 06/19/16 04:50 Neutrophils # 25.7 k/uL (1.3-7.7) H 06/19/16 04:50 Neutrophils # (Manual) 29.2 k/uL (1.3-7.7) H 06/18/16 04:28 Lymphocytes # 1.1 k/uL (1.0-4.8) 06/19/16 04:50 Lymphocytes # (Manual) 0.6 k/uL (1.0-4.8) L 06/18/16 04:28 Monocytes # 0.7 k/uL (0-1.0) 06/19/16 04:50 Monocytes # (Manual) 0.9 k/uL (0-1.0) 06/18/16 04:28 Eosinophils # 0.0 k/uL (0-0.7) 06/19/16 04:50 Basophils # 0.0 k/uL (0-0.2) 06/19/16 04:50 Nucleated RBCs 0 /100 WBC (0-0) 06/18/16 04:28 Manual Slide Review Performed 06/18/16 04:28 Toxic Granulation Present 06/18/16 04:28 Toxic Vacuolation Present 06/18/16 04:28 Dohle Bodies Present 06/18/16 04:28 Hypochromasia Slight 06/19/16 04:50 Poikilocytosis (manual Present 06/18/16 04:28 Anisocytosis Slight 06/19/16 04:50 Anisocytosis (manual) Present 06/18/16 04:28 Macrocytosis Slight 06/16/16 05:40 PT 20.1 sec (9.0-12.0) H 06/16/16 04:14 INR 2.1 (<1.1) 06/16/16 04:14 APTT 40.2 sec (22.0-30.0) H 06/16/16 04:14 ABG Lactic Acid 1.7 mmol/L (0.5-1.6) H 06/19/16 04:50 Sodium 142 mmol/L (137-145) 06/19/16 04:50 Potassium 3.9 mmol/L (3.5-5.1) 06/19/16 04:50 Chloride 115 mmol/L (98-107) H 06/19/16 04:50 Carbon Dioxide 21 mmol/L (22-30) L 06/19/16 04:50 Anion Gap 6 mmol/L 06/19/16 04:50 BUN 38 mg/dL (9-20) H 06/19/16 04:50 Creatinine 0.90 mg/dL (0.66-1.25) 06/19/16 04:50 Est GFR (MDRD) Af Amer >60 (>60 ml/min/1.73 sqM) 06/19/16 04:50 Est GFR (MDRD) Non-Af >60 (>60 ml/min/1.73 sqM) 06/19/16 04:50 Glucose 102 mg/dL (74-99) H 06/19/16 04:50 POC Glucose (mg/dL) 88 mg/dL (75-99) 06/19/16 13:52 POC Glu Compensation Manager ID SarahStephen 06/19/16 13:52 Plasma Lactic Acid Michael 6.3 mmol/L (0.7-2.0) H* 06/15/16 19:09 Calcium 8.0 mg/dL (8.4-10.2) L 06/19/16 04:50 Phosphorus 2.3 mg/dL (2.5-4.5) L 06/19/16 04:50 Magnesium 1.9 mg/dL (1.6-2.3) 06/19/16 04:50 Total Bilirubin 0.8 mg/dL (0.2-1.3) 06/15/16 08:51 AST 28 U/L (17-59) 06/15/16 08:51 ALT 33 U/L (21-72) 06/15/16 08:51 Alkaline Phosphatase 166 U/L (38-126) H 06/15/16 08:51 Total Protein 5.7 g/dL (6.3-8.2) L 06/15/16 08:51 Albumin 2.6 g/dL (3.5-5.0) L 06/15/16 08:51 Lipase 50 U/L (23-300) 06/15/16 08:51 Cortisol >123 ug/dL 06/17/16 05:20 Urine Color Red 06/15/16 08:51 Urine Appearance Bloody (Clear) 06/15/16 08:51 Urine RBC >182 /hpf (0-5) H 06/15/16 08:51 Urine WBC >182 /hpf (0-5) H 06/15/16 08:51 Urine WBC Clumps Many /hpf (None) H 06/15/16 08:51 Urine Mucus Many /hpf (None) H 06/15/16 08:51 C. difficile (EIA) Intrp Negative (Negative) 06/17/16 08:42 Microbiology 06/15/16 08:51 Blood Blood Culture - Final 06/15/16 08:51 Blood Blood Culture Gram Stain - Final 06/15/16 08:51 Blood Blood Culture - Final Escherichia coli Proteus mirabilis Pseudomonas aeruginosa 06/17/16 18:51 Blood Blood Culture - Preliminary No Growth after 24 hours 06/17/16 18:50 Blood Blood Culture - Preliminary No Growth after 24 hours 06/15/16 08:51 Urine,Catheterized Urine Culture - Final Escherichia coli Assessment and Plan (1) Septic shock Narrative/Plan: 86-year-old male presents to Hospital feeling quite poorly presented with evidence of septic shock on the basis of obstructive uropathy. There is evidence of positive blood cultures with gram-negative bacilli as well as a positive urine culture. Review of prior culture shows evidence of Proteus mirabilis as a common agent in the past. However he is also had enterococcus and MSSA in his urine in the recent past. For antibiotic therapy piperacillin tazobactam was utilized to cover for the 3 recent pathogens. Given that E. coli was isolated antibiotic therapy changed to Rocephin, especially given his history of recent Clostridium difficile colitis. We'll monitor him for recurrence of the C. diff. He has just completed his course of vancomycin therapy. He is at high risk of relapse. Current C. diff testing is negative He does have acute renal failure with a peak creatinine of 1.72. Creatinine improved to 1.00 today He does have septic shock requiring multiple vasopressors. Receiving further fluid and will be receiving hydrocortisone to ensure there is not some adrenal insufficiency with his advanced age and current sepsis and multiple recent illnesses. Vasopressors have been weaned. Follow up blood cultures have been requested and are negative so far At admission the patient actually had leukopenia from his overwhelming sepsis and now has rebounded back to significant leukocytosis also on the basis of his significant sepsis. The blood cultures come positive for the Escherichia coli. It is quite susceptible. When he is improved we'll have the option for oral antibiotic therapy at his discharge. Patient has marked improvement today. Status: Acute (2) Urinary tract infection Status: Acute (3) Pyonephrosis Status: Acute
[2016-06-19 19:51] LABS: Glucose,Whole Blood 69 mg/dL (75-99)
[2016-06-19 20:10] LABS: Glucose,Whole Blood 60 mg/dL (75-99)
[2016-06-19 20:30] LABS: Glucose,Whole Blood 78 mg/dL (75-99)
--- NOTE | 2016-06-19 20:56 | PN ---
DATE OF SERVICE: 06/19/2016 PRESENTING COMPLAINT: Septic shock. INTERVAL HISTORY: This is a patient who presented extensive history of DVT, GERD, hyperlipidemia, enlarged prostate, chronic Henderson catheter, presented with lactic acidosis, hypotensive shock, now also taken off Levophed. Patient did tolerate some diet. Patient notes somewhat delirious per the is at bedside. The patient also had obstructive ureteral calculus and had a double-J catheter placed. Patient being negative for Clostridium difficile, stool was down about 4 times in 24 hours, A. fib was controlled. Review of systems done for constitutional, cardiovascular, GI, pulmonary; relevant findings as above. Current medications are reviewed and include IV ceftriaxone. On examination, temperature 97.1, pulse 58, respiration 18, blood pressure 92/36, pulse ox 95% on room air. GENERAL APPEARANCE: Lying in bed, tired -appearing, but awake. EYES: Pupils equal. Conjunctivae pale. NECK: JVD unable to assess. Mass not palpable. Respiratory effort increased. LUNGS: Diminished breath sounds. CARDIOVASCULAR: First and second seconds normal. No edema. ABDOMEN: Soft, nontender. Liver and spleen not palpable. PSYCHIATRY: Awake, answering simple questions. INVESTIGATIONS: White count 27.9, hemoglobin 11.4, platelets 45, lactic acid 1.7. BUN 38, creatinine 0.9. Clostridium difficile negative. ASSESSMENT: 1. Acute urinary tract infection with severe sepsis. 2. Acute pyelonephritis causing septic shock and sepsis, present on admission causing lactic acidosis associated with chronic Henderson catheter and right ureter with stone causing obstruction. 3. Positive urine culture, positive for E. coli and also blood cultures, positive for Escherichia coli Proteus mirabilis and pseudomonas aeruginosa. 4. Chronic deep venous thrombosis maintained on Xarelto. 5. Acute renal failure, probably acute tubular necrosis from sepsis, present on admission with biochemical improvement. 6. Gastroesophageal reflux disease. 7. Hyperlipidemia. 8. Procedure cystoscopy for right double-J stent catheter placed. 9. ( ) from sepsis. 10. Benign prostatic hypertrophy. 11. 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 12. Acute delirium, multifactorial, like, probably underlying infection. PLAN: Continue current medication and treatment plan. Supportive care. Care was discussed with the at bedside. Patient is slowly responding. Getting better. Follow closely. Patient repeat blood cultures are pending. Additional note: It is quite interesting that the patient urine culture is growing Escherichia coli and the blood cultures are growing Escherichia coli, Proteus mirabilis and Pseudomonas aeruginosa, kind of unusual to have these multiple organisms. I am not sure the relevance of the same. Clinically patient is doing better.
[2016-06-19 23:54] LABS: Magnesium 1.7 mg/dL (1.6-2.3); Potassium 4.1 mmol/L (3.5-5.1)
[2016-06-20 01:51] LABS: Glucose,Whole Blood 86 mg/dL (75-99)
[2016-06-20] MEDS: MAGNESIUM SULFATE-D5W PMX 1 GM in DEXTROSE/WATER 1 100ML.BAG IVPB SCH ×2 (03:20→04:21)
[2016-06-20 04:25] LABS: Glucose,Whole Blood 73 mg/dL (75-99)
[2016-06-20] MEDS: DEXTROSE 5%-0.9% NACL 1,000 ML IV SCH ×2 (05:25→21:58)
[2016-06-20 05:58] LABS: Anisocytosis Slight; Basophils % (A) 0 %; CH 29.3; CHCM 30.8; Eosinophils # (A) 0.2 k/uL (0-0.7); Eosinophils % (A) 2 %; HCT 35.7 % (39.0-53.0); HDW 2.65; HGB 11.1 gm/dL (13.0-17.5); Hypochromasia Slight; Large Platelets Flag Slight; Luc # (Auto) 0.37; Luc % (Auto) 4; Lymphocytes # (A) 1.2 k/uL (1.0-4.8); Lymphocytes % (A) 11 %; MCH 29.6 pg (25.0-35.0); MCHC 30.9 g/dL (31.0-37.0); MCV 95.7 fL (80.0-100.0); Mean Platelet Volume 11.1; Monocytes # (A) 0.5 k/uL (0-1.0); Monocytes % (A) 5 %; Neutrophils # (A) 8.5 k/uL (1.3-7.7); Neutrophils % (A) 79 %; RBC 3.74 m/uL (4.30-5.90); RDW 16.2 % (11.5-15.5); WBC 10.8 k/uL (3.8-10.6); WBC (Perox) 10.68
[2016-06-20 06:01] LABS: Anion Gap 5 mmol/L; Blood Urea Nitrogen 36 mg/dL (9-20); Carbon Dioxide 22 mmol/L (22-30); Chloride 116 mmol/L (98-107); Glucose 80 mg/dL (74-99); Magnesium 2.2 mg/dL (1.6-2.3); Non-African American GFR(MDRD) >60 (>60 ml/min/1.73 sqM); Phosphorous 2.4 mg/dL (2.5-4.5); Potassium 3.8 mmol/L (3.5-5.1); Sodium 143 mmol/L (137-145)
[2016-06-20 06:20] LABS: Large Platelets Present; Manual Review Performed
[2016-06-20] MEDS ORDERED: SODIUM PHOSPHATE 10 MMOL in SODIUM CHLORIDE 0.9% 250 ML IVPB ONE (06:24)
[2016-06-20] MEDS: POTASSIUM CHLORIDE ER 20 MEQ TAB.ER PO SCH ×2 (07:15→08:20)
[2016-06-20] MEDS: HYDROcodone/APAP 10-325MG 1 EACH TAB PO PRN ×2 (08:00→20:25)
[2016-06-20] MEDS: LIDOCAINE 5% PATCH TOPICAL SCH (08:18)
[2016-06-20] MEDS: LACTOBACILLUS ACIDOPH & BULGAR 1 EACH PACKET PO SCH ×3 (08:18→21:58)
[2016-06-20] MEDS: PANTOPRAZOLE 40 MG TABLET PO SCH (08:18)
[2016-06-20] MEDS: NYSTATIN 100,000 UNIT/ML SUSP 500,000 UNIT/5 ML CUP PO SCH ×4 (08:18→21:58)
[2016-06-20] MEDS: MULTIVITAMINS, THERA 1 EACH TAB PO SCH (08:19)
[2016-06-20 08:31] LABS: Glucose,Whole Blood 57 mg/dL (75-99)
[2016-06-20 08:56] LABS: Glucose,Whole Blood 66 mg/dL (75-99)
[2016-06-20 09:10] LABS: Glucose,Whole Blood 64 mg/dL (75-99)
[2016-06-20] MEDS ORDERED: DEXTROSE 50%-WATER 50 ML SYRINGE IVP ONE (09:12)
[2016-06-20] MEDS ORDERED: ONDANSETRON 4 MG/2 ML VIAL IVP STA (09:28)
[2016-06-20 09:43] LABS: Glucose,Whole Blood 141 mg/dL (75-99)
--- NOTE | 2016-06-20 11:17 | P.PN ---
Subjective Principal diagnosis: Acute sepsis secondary to urinary tract infection with E. coli This is an 87-year-old gentleman who has a history of DVT, GERD, hyperlipidemia , enlarged prostate with home indwelling Henderson catheter. He presented to the emergency room this morning with complaints of problems with his catheter. He stated he hadn't been able to urinate since approximately 2:00 this morning. He is quite uncomfortable and felt as though he needed to void. They tried flushing the catheter at home in the outpatient setting with without success. He is making urine currently but it is quite bloody. The patient has also had increasing bilateral lower extremity edema and shortness of breath. He had a lactic acid of 5.7. In the ER he is found to be quite hypotensive and has received 3.5 L of 0.9 normal saline fluid boluses and required initiation of norepinephrine currently at 15 mcg/m. His chest x-ray revealed a mild left lower lobe infiltrate. He has been initiated on Zosyn and Levaquin. His white count is 1.1. Creatinine 1.53. 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 There is also noted prominent prostate. The patient is seen again today 06/20/2016 in the intensive care unit. He did undergo cystoscopy with double-J catheter insertion to the right on 06/15/2016. His urine culture was positive for E. coli. His blood cultures positive for E. coli, Proteus mirabilis and Pseudomonas aeruginosa. He is currently on ceftazidime. He's been having ongoing issues with hypoglycemia and hypotension. He is currently receiving D5W at 100 mL per hour. His systolic pressure has been borderline and dependent at the 70s. He is receiving 500 mL bolus and may need to restart the norepinephrine. Objective - Vital Signs Vital signs: Vital Signs Temp 97.4 F L 06/20/16 08:00 Pulse 68 06/20/16 08:00 Resp 22 06/20/16 08:00 BP 82/54 06/20/16 08:00 Pulse Ox 95 06/20/16 08:00 Intake & Output 06/19/16 06/20/16 06/20/16 18:59 06:59 18:59 Intake Total 2172 1212 400 Output Total 620 685 250 Balance 1552 527 150 Weight 84.2 kg 84.9 kg Intake: IV 1172 1012 400 Dextrose 10% in Water 1, 100 000 ml In Empty Bag 1 bag @ 50 mls/hr IV .Q20H [facility] Rx#:[id number] Pressure bags 72 12 d5ns 1000 1000 400 Intake, IV Titration 1000 200 Amount Magnesium Sulfate-D5w Pmx 200 1 gm In Dextrose/Water 1 100ml.bag @ 100 mls/hr IVPB Q1H [facility] Rx#: [id number] Sodium Chloride 0.9% 1, 1000 000 ml @ 999 mls/hr IV . Q1H1M [facility] Rx#:[id number] Output: Urine 620 685 250 Other: Voiding Method Indwelling Catheter Indwelling Catheter ABP, PAP, CO, CI - Last Documented Arterial Blood Pressure 110/40 - Exam GENERAL EXAM: Drowsy, responds to verbal stimuli. Cachectic. HEAD: Normocephalic. EYES: Normal reaction of pupils, equal size. NOSE: Clear with pink turbinates. THROAT: No erythema or exudates. NECK: No masses, no JVD. CHEST: No chest wall deformity. LUNGS: Equal air entry with faint crackles in the posterior bases. CVS: S1 and S2 normal with no audible murmurs, regular rhythm. ABDOMEN: No hepatosplenomegaly, normal bowel sounds, no guarding or rigidity. Extremities: There is no significant peripheral edema. No clubbing, no cyanosis. Peripheral pulses are intact. - Labs CBC & Chem 7: 06/20/16 05:35 06/20/16 05:35 Labs: Abnormal Lab Results - Last 24 Hours (Table) 06/19/16 06/19/16 06/20/16 Range/Units 19:49 20:08 04:23 WBC (3.8-10.6) k/uL RBC (4.30-5.90) m/uL Hgb (13.0-17.5) gm/dL Hct (39.0-53.0) % MCHC (31.0-37.0) g/dL RDW (11.5-15.5) % Plt Count (150-450) k/uL Neutrophils # (1.3-7.7) k/uL Chloride (98-107) mmol/L BUN (9-20) mg/dL POC Glucose (mg/dL) 69 L 60 L 73 L (75-99) mg/dL Calcium (8.4-10.2) mg/dL Phosphorus (2.5-4.5) mg/dL 06/20/16 06/20/16 06/20/16 Range/Units 05:35 05:35 08:29 WBC 10.8 H (3.8-10.6) k/uL RBC 3.74 L (4.30-5.90) m/uL Hgb 11.1 L (13.0-17.5) gm/dL Hct 35.7 L (39.0-53.0) % MCHC 30.9 L (31.0-37.0) g/dL RDW 16.2 H (11.5-15.5) % Plt Count 35 L* (150-450) k/uL Neutrophils # 8.5 H (1.3-7.7) k/uL Chloride 116 H (98-107) mmol/L BUN 36 H (9-20) mg/dL POC Glucose (mg/dL) 57 L (75-99) mg/dL Calcium 8.0 L (8.4-10.2) mg/dL Phosphorus 2.4 L (2.5-4.5) mg/dL 06/20/16 06/20/16 06/20/16 Range/Units 08:55 09:09 09:41 WBC (3.8-10.6) k/uL RBC (4.30-5.90) m/uL Hgb (13.0-17.5) gm/dL Hct (39.0-53.0) % MCHC (31.0-37.0) g/dL RDW (11.5-15.5) % Plt Count (150-450) k/uL Neutrophils # (1.3-7.7) k/uL Chloride (98-107) mmol/L BUN (9-20) mg/dL POC Glucose (mg/dL) 66 L 64 L 141 H (75-99) mg/dL Calcium (8.4-10.2) mg/dL Phosphorus (2.5-4.5) mg/dL Microbiology - Last 24 Hours (Table) 06/17/16 18:51 Blood Culture - Preliminary Blood No Growth after 48 hours 06/17/16 18:50 Blood Culture - Preliminary Blood No Growth after 48 hours Assessment and Plan Plan: Impression: #1 Acute sepsis secondary to urinary tract infection of E. coli and bacteremia of E. coli, Proteus mirabilis, Pseudomonas aeruginosa. Currently maintaining on ceftaz edema. #2 Lactic acidosis secondary to above. 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 Status post double-J stent to the right. #4 History of DVT. #5 Acute renal failure, improved current creatinine 0.70. #6 leukocytosis secondary to #1. #7 Gastroesophageal reflux disease. #8 Hyperlipidemia. #9 Thrombocytopenia. Plan: The patient was seen and evaluated by Dr. Zheng. His chest x-ray and labs were reviewed. We were planning to possibly transfer the patient out later today however his blood pressure remains borderline with systolic pressure in the 70s. We'll give an additional 500 mL fluid bolus and restart the norepinephrine if necessary. We'll continue to monitor him here closely in the intensive care unit. Hypoglycemia remains the issue as well. The patient is a DO NOT RESUSCITATE/DO NOT INTUBATE CODE STATUS. We'll continue to follow make further recommendations based on his clinical status.
[2016-06-20] MEDS ORDERED: SODIUM CHLORIDE 0.9% 500 ML IV ONE (12:15)
[2016-06-20] MEDS ORDERED: NOREPINEPHRINE 16 MG in SODIUM CHLORIDE 0.9% 250 ML IV SCH (12:30)
[2016-06-20 13:36] LABS: Glucose,Whole Blood 84 mg/dL (75-99)
[2016-06-20 16:18] LABS: Glucose,Whole Blood 54 mg/dL (75-99)
[2016-06-20 17:06] LABS: Glucose,Whole Blood 82 mg/dL (75-99)
--- NOTE | 2016-06-20 18:57 | PN ---
DATE OF SERVICE: 06/20/2016 PRESENTING COMPLAINT: Septic shock. INTERVAL HISTORY: This is a patient with history of DVT, GERD, hyperlipidemia, enlarged prostate, chronic Henderson catheter, who presented with lactic acidosis, hypotensive shock. Patient also has obstructive ureteral calculus with a double-J catheter placed. Patient had some diarrhea, negative for C difficile. Patient again dropped his blood pressure today, was given some fluid bolus. Did tolerate some diet. Feeling weak and tired, though answering questions. Delirium is better. Review of systems done for constitutional, cardiovascular, GI, pulmonary; relevant findings as above. Current medications include IV ceftazidime. On examination, temperature 97.3, pulse 71, respiration 20, blood pressure 81/52, pulse ox 96% on room air. GENERAL APPEARANCE: Lying in bed, tired-appearing. EYES: Pupils equal. Conjunctivae pale. NECK: JVD unable to assess. Mass not palpable. RESPIRATORY: Effort increased. LUNGS: Diminished breath sounds. CARDIOVASCULAR: First and second sounds normal. No edema. ABDOMEN: Soft, nontender. Liver and spleen not palpable. PSYCHIATRY: Awake. Answering questions. INVESTIGATIONS: Accu-Cheks are noted; 57 this morning. White count 10.8, hemoglobin 11.1, platelets 35. Potassium 3.8. ASSESSMENT: 1. Acute urinary tract infection with severe sepsis. 2. Acute pyelonephritis causing septic shock and sepsis, present on admission, causing lactic acidosis associated with his chronic Henderson catheter and right ureter stone causing obstruction. 3. Positive urine culture, positive for Escherichia coli, and blood culture positive for Escherichia coli and Proteus mirabilis and Pseudomonas aeruginosa. 4. Chronic deep venous thrombosis, maintained on Xarelto. 5. Acute renal failure, probably acute tubular necrosis from sepsis, present on admission with biochemical improvement. 6. Gastroesophageal reflux disease. 7. Hyperlipidemia. 8. Cystoscopy done for right double-J catheter with stent placement. 9. Benign prostatic hypertrophy. 10. 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 11. Acute delirium, multifactorial, probably from underlying infection, improving. 12. Severe thrombocytopenia, likely from sepsis. PLAN: Continue current medication and treatment plan, supportive care. Back on IV fluids. Overall prognosis guarded. Follow closely.
[2016-06-20 19:46] LABS: Glucose,Whole Blood 89 mg/dL (75-99)
[2016-06-20] MEDS: ATORVASTATIN 10 MG TAB PO SCH (20:24)
[2016-06-20] MEDS: FENOFIBRATE 160 MG TAB PO SCH (20:25)
[2016-06-20] MEDS: QUEtiapine 25 MG TAB PO SCH (20:25)
[2016-06-20] MEDS: MIRTAZAPINE 15 MG TAB PO SCH (20:25)
[2016-06-20] MEDS: DEXTROSE 4 GM CHEWABLE PO SCH ×2 (20:27→20:31)
--- NOTE | 2016-06-20 22:10 | P.PN ---
Subjective Principal diagnosis: Sepsis 86-year-old male who is known to the infectious disease service from his recent hospitalization where he had difficulties with urinary tract infection and the development of Clostridium difficile colitis. The colitis was being treated with vancomycin with significant improvement. The patient however developed significant fever generalized malaise and weakness. And upon presenting to the emergency center was found evidence of sepsis with shock. He was seen by urology and taken to the operating room where cystoscopy was performed. Double-J catheter was placed into the right collecting system for the pyelonephritis from the obstructive right ureteral calculus. Patient continues to have hypotension after fluid resuscitation requiring vasopressor therapy for his septic shock. Although is doing slightly better at this time. Patient's mentation is now much improved. Sitting upright reading the paper. Easily recognizes me by name. Easily states that he is a [facility]. Definitely is further improved but required some further vasopressor therapy today. Objective - Vital Signs Vital signs: Vital Signs Temp 97.9 F 06/20/16 20:00 Pulse 78 06/20/16 22:00 Resp 20 06/20/16 22:00 BP 98/46 06/20/16 22:00 Pulse Ox 94 L 06/20/16 22:00 Intake & Output 06/20/16 06/20/16 06/21/16 06:59 18:59 06:59 Intake Total 1212 2000 640 Output Total 685 825 525 Balance 527 1175 115 Weight 84.9 kg Intake: IV 1012 1400 400 Pressure bags 12 d5ns 1000 1400 400 Intake, IV Titration 200 600 Amount Magnesium Sulfate-D5w Pmx 200 1 gm In Dextrose/Water 1 100ml.bag @ 100 mls/hr IVPB Q1H [facility] Rx#: [id number] Sodium Chloride 0.9% 500 500 ml @ 999 mls/hr IV .Q31M [facility] Rx#:[id number] cefTAZidime 2 gm In 100 Sodium Chloride 0.9% 100 ml @ 100 mls/hr IVPB Q8HR [facility] Rx#:[id number] Oral 240 Output: Urine 685 825 525 Other: Voiding Method Indwelling Catheter Indwelling Catheter ABP, PAP, CO, CI - Last Documented Arterial Blood Pressure 110/40 - Exam 86-year-old male comfortable at this time. Cloudy urine is draining. Not having large amounts of diarrhea at this time HEENT: Anicteric conjunctiva are with pallor but moist nasal mucosa grossly intact without significant lesions, there is no thrush. Neck: The neck is supple without significant lymphadenopathy or thyromegaly. Lungs: Good bilateral air entry without significant crackles or wheezing. There is no significant bronchial sounds. There is no egophony or dullness. Heart: Irregular with an audible S1 and S2 without S4 no distinct murmur click or rub is noted. PMI is nondisplaced Abdomen: Nondistended, Positive bowel sounds soft and nontender without palpable masses or organomegaly. There was no guarding or rebound. Extremities: The upper extremities have excellent pulses they are symmetric, no significant petechiae or telangiectasia. No splinter hemorrhages were noted. The lower extremities are free from significant edema. The peripheral pulses were 2+ and symmetric. Neuro: Awake alert oriented to person place and time reading the newspaper - Labs CBC & Chem 7: 06/20/16 05:35 06/20/16 05:35 Labs: Abnormal Lab Results - Last 24 Hours (Table) 06/20/16 06/20/16 06/20/16 Range/Units 04:23 05:35 05:35 WBC 10.8 H (3.8-10.6) k/uL RBC 3.74 L (4.30-5.90) m/uL Hgb 11.1 L (13.0-17.5) gm/dL Hct 35.7 L (39.0-53.0) % MCHC 30.9 L (31.0-37.0) g/dL RDW 16.2 H (11.5-15.5) % Plt Count 35 L* (150-450) k/uL Neutrophils # 8.5 H (1.3-7.7) k/uL Chloride 116 H (98-107) mmol/L BUN 36 H (9-20) mg/dL POC Glucose (mg/dL) 73 L (75-99) mg/dL C-Peptide (0.81-3.85) ng/mL Calcium 8.0 L (8.4-10.2) mg/dL Phosphorus 2.4 L (2.5-4.5) mg/dL 06/20/16 06/20/16 06/20/16 Range/Units 05:35 08:29 08:55 WBC (3.8-10.6) k/uL RBC (4.30-5.90) m/uL Hgb (13.0-17.5) gm/dL Hct (39.0-53.0) % MCHC (31.0-37.0) g/dL RDW (11.5-15.5) % Plt Count (150-450) k/uL Neutrophils # (1.3-7.7) k/uL Chloride (98-107) mmol/L BUN (9-20) mg/dL POC Glucose (mg/dL) 57 L 66 L (75-99) mg/dL C-Peptide 3.98 H (0.81-3.85) ng/mL Calcium (8.4-10.2) mg/dL Phosphorus (2.5-4.5) mg/dL 06/20/16 06/20/16 06/20/16 Range/Units 09:09 09:41 16:16 WBC (3.8-10.6) k/uL RBC (4.30-5.90) m/uL Hgb (13.0-17.5) gm/dL Hct (39.0-53.0) % MCHC (31.0-37.0) g/dL RDW (11.5-15.5) % Plt Count (150-450) k/uL Neutrophils # (1.3-7.7) k/uL Chloride (98-107) mmol/L BUN (9-20) mg/dL POC Glucose (mg/dL) 64 L 141 H 54 L (75-99) mg/dL C-Peptide (0.81-3.85) ng/mL Calcium (8.4-10.2) mg/dL Phosphorus (2.5-4.5) mg/dL Microbiology - Last 24 Hours (Table) 06/17/16 18:51 Blood Culture - Preliminary Blood No Growth after 72 hours 06/17/16 18:50 Blood Culture - Preliminary Blood No Growth after 72 hours Laboratory Results WBC 10.8 k/uL (3.8-10.6) H 06/20/16 05:35 RBC 3.74 m/uL (4.30-5.90) L 06/20/16 05:35 Hgb 11.1 gm/dL (13.0-17.5) L 06/20/16 05:35 Hct 35.7 % (39.0-53.0) L 06/20/16 05:35 MCV 95.7 fL (80.0-100.0) 06/20/16 05:35 MCH 29.6 pg (25.0-35.0) 06/20/16 05:35 MCHC 30.9 g/dL (31.0-37.0) L 06/20/16 05:35 RDW 16.2 % (11.5-15.5) H 06/20/16 05:35 Plt Count 35 k/uL (150-450) L* 06/20/16 05:35 Neutrophils % 79 % 06/20/16 05:35 Neutrophils % (Manual) 89.0 % 06/18/16 04:28 Band Neutrophils % 6.0 % 06/18/16 04:28 Lymphocytes % 11 % 06/20/16 05:35 Lymphocytes % (Manual) 2.0 % 06/18/16 04:28 Monocytes % 5 % 06/20/16 05:35 Monocytes % (Manual) 3.0 % 06/18/16 04:28 Eosinophils % 2 % 06/20/16 05:35 Basophils % 0 % 06/20/16 05:35 Neutrophils # 8.5 k/uL (1.3-7.7) H 06/20/16 05:35 Neutrophils # (Manual) 29.2 k/uL (1.3-7.7) H 06/18/16 04:28 Lymphocytes # 1.2 k/uL (1.0-4.8) 06/20/16 05:35 Lymphocytes # (Manual) 0.6 k/uL (1.0-4.8) L 06/18/16 04:28 Monocytes # 0.5 k/uL (0-1.0) 06/20/16 05:35 Monocytes # (Manual) 0.9 k/uL (0-1.0) 06/18/16 04:28 Eosinophils # 0.2 k/uL (0-0.7) 06/20/16 05:35 Basophils # 0.0 k/uL (0-0.2) 06/20/16 05:35 Nucleated RBCs 0 /100 WBC (0-0) 06/18/16 04:28 Manual Slide Review Performed 06/20/16 05:35 Toxic Granulation Present 06/18/16 04:28 Toxic Vacuolation Present 06/18/16 04:28 Dohle Bodies Present 06/18/16 04:28 Large Platelets Present 06/20/16 05:35 Hypochromasia Slight 06/20/16 05:35 Poikilocytosis (manual Present 06/18/16 04:28 Anisocytosis Slight 06/20/16 05:35 Anisocytosis (manual) Present 06/18/16 04:28 Macrocytosis Slight 06/16/16 05:40 PT 20.1 sec (9.0-12.0) H 06/16/16 04:14 INR 2.1 (<1.1) 06/16/16 04:14 APTT 40.2 sec (22.0-30.0) H 06/16/16 04:14 ABG Lactic Acid 1.7 mmol/L (0.5-1.6) H 06/19/16 04:50 Sodium 143 mmol/L (137-145) 06/20/16 05:35 Potassium 3.8 mmol/L (3.5-5.1) 06/20/16 05:35 Chloride 116 mmol/L (98-107) H 06/20/16 05:35 Carbon Dioxide 22 mmol/L (22-30) 06/20/16 05:35 Anion Gap 5 mmol/L 06/20/16 05:35 BUN 36 mg/dL (9-20) H 06/20/16 05:35 Creatinine 0.70 mg/dL (0.66-1.25) 06/20/16 05:35 Est GFR (MDRD) Af Amer >60 (>60 ml/min/1.73 sqM) 06/20/16 05:35 Est GFR (MDRD) Non-Af >60 (>60 ml/min/1.73 sqM) 06/20/16 05:35 Glucose 80 mg/dL (74-99) 06/20/16 05:35 POC Glucose (mg/dL) 89 mg/dL (75-99) 06/20/16 19:45 POC Glu Telephone Switchboard Operator Chantelle Yoon 06/20/16 19:45 Insulin Level 8.4 mIU/mL (3.0-25.0) 06/20/16 05:35 C-Peptide 3.98 ng/mL (0.81-3.85) H 06/20/16 05:35 Plasma Lactic Acid Michael 1.0 mmol/L (0.7-2.0) 06/20/16 05:35 Calcium 8.0 mg/dL (8.4-10.2) L 06/20/16 05:35 Phosphorus 2.4 mg/dL (2.5-4.5) L 06/20/16 05:35 Magnesium 2.2 mg/dL (1.6-2.3) 06/20/16 05:35 Total Bilirubin 0.8 mg/dL (0.2-1.3) 06/15/16 08:51 AST 28 U/L (17-59) 06/15/16 08:51 ALT 33 U/L (21-72) 06/15/16 08:51 Alkaline Phosphatase 166 U/L (38-126) H 06/15/16 08:51 Total Protein 5.7 g/dL (6.3-8.2) L 06/15/16 08:51 Albumin 2.6 g/dL (3.5-5.0) L 06/15/16 08:51 Lipase 50 U/L (23-300) 06/15/16 08:51 Cortisol >123 ug/dL 06/17/16 05:20 Urine Color Red 06/15/16 08:51 Urine Appearance Bloody (Clear) 06/15/16 08:51 Urine RBC >182 /hpf (0-5) H 06/15/16 08:51 Urine WBC >182 /hpf (0-5) H 06/15/16 08:51 Urine WBC Clumps Many /hpf (None) H 06/15/16 08:51 Urine Mucus Many /hpf (None) H 06/15/16 08:51 C. difficile (EIA) Intrp Negative (Negative) 06/17/16 08:42 Microbiology 06/17/16 18:51 Blood Blood Culture - Preliminary No Growth after 72 hours 06/17/16 18:50 Blood Blood Culture - Preliminary No Growth after 72 hours 06/15/16 08:51 Blood Blood Culture - Final 06/15/16 08:51 Blood Blood Culture Gram Stain - Final 06/15/16 08:51 Blood Blood Culture - Final Escherichia coli Proteus mirabilis Pseudomonas aeruginosa 06/15/16 08:51 Urine,Catheterized Urine Culture - Final Escherichia coli Assessment and Plan (1) Septic shock Narrative/Plan: 86-year-old male presents to Hospital feeling quite poorly presented with evidence of septic shock on the basis of obstructive uropathy. There is evidence of positive blood cultures with gram-negative bacilli as well as a positive urine culture. Review of prior culture shows evidence of Proteus mirabilis as a common agent in the past. However he is also had enterococcus and MSSA in his urine in the recent past. For antibiotic therapy piperacillin tazobactam was utilized to cover for the 3 recent pathogens. Given that E. coli was isolated antibiotic therapy changed to Rocephin, especially given his history of recent Clostridium difficile colitis. We'll monitor him for recurrence of the C. diff. He has just completed his course of vancomycin therapy. He is at high risk of relapse. Current C. diff testing is negative He does have acute renal failure with a peak creatinine of 1.72. Creatinine improved to 1.00 today He does have septic shock requiring multiple vasopressors. Receiving further fluid and will be receiving hydrocortisone to ensure there is not some adrenal insufficiency with his advanced age and current sepsis and multiple recent illnesses. Vasopressors have been weaned. Follow up blood cultures have been requested and are negative so far At admission the patient actually had leukopenia from his overwhelming sepsis and now has rebounded back to significant leukocytosis also on the basis of his significant sepsis. The blood cultures come positive for the Escherichia coli. It has however now been amended and there is also evidence of Proteus mirabilis and Pseudomonas aeruginosa. Antibiotic therapy was altered to cefotaxime at this time. The follow up blood cultures are negative so far. The urine culture only has Escherichia coli. Patient has marked improvement today. Status: Acute (2) Urinary tract infection Status: Acute (3) Pyonephrosis Status: Acute
[2016-06-21 00:13] LABS: Glucose,Whole Blood 68 mg/dL (75-99)
[2016-06-21] MEDS: DEXTROSE 4 GM CHEWABLE PO SCH ×7 (00:20→23:59)
[2016-06-21 00:32] LABS: Glucose,Whole Blood 72 mg/dL (75-99)
[2016-06-21 01:15] LABS: Glucose,Whole Blood 70 mg/dL (75-99)
[2016-06-21 03:22] LABS: Glucose,Whole Blood 66 mg/dL (75-99)
[2016-06-21] MEDS: DEXTROSE 5%-0.9% NACL 1,000 ML IV SCH (03:28)
[2016-06-21 03:49] LABS: Glucose,Whole Blood 70 mg/dL (75-99)
[2016-06-21] MEDS: HYDROcodone/APAP 10-325MG 1 EACH TAB PO PRN ×3 (03:56→19:54)
[2016-06-21 04:38] LABS: Glucose,Whole Blood 74 mg/dL (75-99)
[2016-06-21 05:07] LABS: Anisocytosis Slight; CH 29.3; HGB 11.5 gm/dL (13.0-17.5); Hypochromasia Moderate
[2016-06-21 05:15] LABS: CHCM 30.5; HCT 37.1 % (39.0-53.0); MCH 29.9 pg (25.0-35.0); MCV 96.5 fL (80.0-100.0); RBC 3.85 m/uL (4.30-5.90); RDW 16.2 % (11.5-15.5); WBC 14.5 k/uL (3.8-10.6); WBC (Perox) 14.36
[2016-06-21 05:17] LABS: Anion Gap 4 mmol/L; Blood Urea Nitrogen 27 mg/dL (9-20); Carbon Dioxide 23 mmol/L (22-30); Chloride 117 mmol/L (98-107); Glucose 100 mg/dL (74-99); Magnesium 1.6 mg/dL (1.6-2.3); Non-African American GFR(MDRD) >60 (>60 ml/min/1.73 sqM); Phosphorous 2.9 mg/dL (2.5-4.5); Sodium 144 mmol/L (137-145)
[2016-06-21 05:50] LABS: Add Differential Manual Differential
[2016-06-21 05:51] LABS: Nucleated Red Blood Cells 0 /100 WBC (0-0); Total Cells Counted 100
[2016-06-21 05:52] LABS: Manual Review Performed
[2016-06-21] MEDS: MAGNESIUM SULFATE-D5W PMX 1 GM in DEXTROSE/WATER 1 100ML.BAG IVPB SCH ×2 (06:12→07:15)
[2016-06-21 08:23] LABS: Glucose,Whole Blood 79 mg/dL (75-99)
[2016-06-21] MEDS: NYSTATIN 100,000 UNIT/ML SUSP 500,000 UNIT/5 ML CUP PO SCH ×4 (08:37→21:48)
[2016-06-21] MEDS: PANTOPRAZOLE 40 MG TABLET PO SCH (08:39)
[2016-06-21] MEDS: LACTOBACILLUS ACIDOPH & BULGAR 1 EACH PACKET PO SCH ×3 (08:40→21:50)
--- NOTE | 2016-06-21 08:41 | XR ---
EXAMINATION TYPE: XR chest 1V portable DATE OF EXAM: 06/21/2016 6:42 AM HISTORY: Shortness of breath. REFERENCE: Previous study dated 06/17/2016. FINDINGS: The heart is mildly enlarged. There is bibasilar infiltrates. There are small, bilateral ef fusions. There is platelike atelectasis in both upper lobes. Pulmonary vasculature has improved. IMPRESSION: 1. CONTINUING BIBASILAR INFILTRATES. 2. BILATERAL EFFUSIONS. 3. IMPROVING VASCULAR CONGESTION.
--- NOTE | 2016-06-21 09:40 | P.PN ---
Subjective Progress note dated 06/18/2016 This is a 86-year-old male who was seen again on June 17. He had a cystoscopy performed with a double-J catheter insertion on the right. This was done on 06/15/2016. His urine curved culture was positive for E. coli. Apparently his antibiotics were changed to Rocephin. Yesterday he was both on levophed and vasopressin. I asked the nurses to get him on 1 drug. He is currently just on levophed at 10 mics per minute. He was having problems with hypoglycemia which required insulin IV push infusions of D50. I change his IV fluids to D10 at 50 mL an hour. Getting O2 at 2 L. He is getting appointment 90 KVO. Again vasopressin is off. The patient seemed poor weight. No distress. No pain. Progress note dated 06/19/2016 This is an 86-year-old male who was again seen on June 19. The patient has a history of a cystoscopy with double-J catheter insertion on the right. This was done on June 15. The urine culture was positive for Escherichia coli. His antibiotics were changed to Rocephin. Still on a small amount levophed at 2 mics per minute. The patient's currently D10 IV at 50 mL an hour appointment 9 IV at KVO. The patient is a DO NOT RESUSCITATE. Hope we can get the patient off the levo fed today. Other than that the patient seems be doing better. No additional recommendations we made today. Hopefully get the patient out of the ICU. Progress note dated 06/21/2016 The patient continues to improve. He is an 86-year-old man with a history of E. coli urinary tract infection. The patient the patient was able be weaned off of pressors. He seems to be eating well today. Only receiving a room air. No supplemental oxygen. Levo fed is off. His D5.9 IV at 100 mL an hour. He did look like he's doing much better. No particular complaints today. The patient can be transferred out to the floor. He is a DO NOT RESUSCITATE. Objective - Vital Signs Vital signs: Vital Signs Temp 97.8 F 06/21/16 08:00 Pulse 73 06/21/16 09:00 Resp 23 06/21/16 09:00 BP 104/59 06/21/16 09:00 Pulse Ox 98 06/21/16 09:00 Intake & Output 06/20/16 06/21/16 06/21/16 18:59 06:59 18:59 Intake Total 1999 2135.512 605.059 Output Total 825 1425 375 Balance 1175 710.512 230.059 Weight 86.9 kg Intake: IV 1400 1200 400 Dextrose 5%-0.9% NaCl 1, 200 000 ml @ 100 mls/hr IV . Q10H [facility] Rx#:[id number] cefTAZidime 2 gm In 100 Sodium Chloride 0.9% 100 ml @ 100 mls/hr IVPB Q8HR [facility] Rx#:[id number] d5ns 1400 1200 100 Intake, IV Titration 600 125.512 205.059 Amount Norepinephrine 16 mg In 25.512 5.059 Sodium Chloride 0.9% 250 ml @ Titrate IV .Q0M [facility] Rx#:[id number] Sodium Chloride 0.9% 500 500 200 ml @ 999 mls/hr IV .Q31M [facility] Rx#:[id number] cefTAZidime 2 gm In 100 Sodium Chloride 0.9% 100 ml @ 100 mls/hr IVPB Q8HR [facility] Rx#:[id number] cefTRIAXone 2,000 mg In 100 Sodium Chloride 0.9% 100 ml @ 100 mls/hr IVPB DAILY@1200 [facility] Rx#: [id number] Oral 810 Output: Urine 825 1425 375 Other: Voiding Method Indwelling Catheter Indwelling Catheter Indwelling Catheter ABP, PAP, CO, CI - Last Documented Arterial Blood Pressure 110/40 - Exam No acute distress, oriented 3. HEENT examination is grossly unremarkable. Mucous membranes are moist. No oral lesions. Neck supple. Full range of motion. No adenopathy or thyromegaly. Cardiovascular examination reveals regular rhythm rate. No S3-S4 murmur. Lungs are clear breath sounds are equal. No wheezes or rhonchi. No adventitious sounds. Abdomen soft bowel sounds are heard. Extremities are intact. - Labs CBC & Chem 7: 06/21/16 05:00 06/21/16 05:00 Labs: Abnormal Lab Results - Last 24 Hours (Table) 06/20/16 06/20/16 06/20/16 Range/Units 05:35 09:41 16:16 WBC (3.8-10.6) k/uL RBC (4.30-5.90) m/uL Hgb (13.0-17.5) gm/dL Hct (39.0-53.0) % RDW (11.5-15.5) % Plt Count (150-450) k/uL Neutrophils # (Manual) (1.3-7.7) k/uL Eosinophils # (Manual) (0-0.7) k/uL Chloride (98-107) mmol/L BUN (9-20) mg/dL Glucose (74-99) mg/dL POC Glucose (mg/dL) 141 H 54 L (75-99) mg/dL C-Peptide 3.98 H (0.81-3.85) ng/mL Calcium (8.4-10.2) mg/dL 06/21/16 06/21/16 06/21/16 Range/Units 00:11 00:29 01:13 WBC (3.8-10.6) k/uL RBC (4.30-5.90) m/uL Hgb (13.0-17.5) gm/dL Hct (39.0-53.0) % RDW (11.5-15.5) % Plt Count (150-450) k/uL Neutrophils # (Manual) (1.3-7.7) k/uL Eosinophils # (Manual) (0-0.7) k/uL Chloride (98-107) mmol/L BUN (9-20) mg/dL Glucose (74-99) mg/dL POC Glucose (mg/dL) 68 L 72 L 70 L (75-99) mg/dL C-Peptide (0.81-3.85) ng/mL Calcium (8.4-10.2) mg/dL 06/21/16 06/21/16 06/21/16 Range/Units 03:21 03:48 04:36 WBC (3.8-10.6) k/uL RBC (4.30-5.90) m/uL Hgb (13.0-17.5) gm/dL Hct (39.0-53.0) % RDW (11.5-15.5) % Plt Count (150-450) k/uL Neutrophils # (Manual) (1.3-7.7) k/uL Eosinophils # (Manual) (0-0.7) k/uL Chloride (98-107) mmol/L BUN (9-20) mg/dL Glucose (74-99) mg/dL POC Glucose (mg/dL) 66 L 70 L 74 L (75-99) mg/dL C-Peptide (0.81-3.85) ng/mL Calcium (8.4-10.2) mg/dL 06/21/16 06/21/16 Range/Units 05:00 05:00 WBC 14.5 H (3.8-10.6) k/uL RBC 3.85 L (4.30-5.90) m/uL Hgb 11.5 L (13.0-17.5) gm/dL Hct 37.1 L (39.0-53.0) % RDW 16.2 H (11.5-15.5) % Plt Count 67 L D (150-450) k/uL Neutrophils # (Manual) 11.5 H (1.3-7.7) k/uL Eosinophils # (Manual) 0.9 H (0-0.7) k/uL Chloride 117 H (98-107) mmol/L BUN 27 H (9-20) mg/dL Glucose 100 H (74-99) mg/dL POC Glucose (mg/dL) (75-99) mg/dL C-Peptide (0.81-3.85) ng/mL Calcium 8.0 L (8.4-10.2) mg/dL Microbiology - Last 24 Hours (Table) 06/17/16 18:51 Blood Culture - Preliminary Blood No Growth after 72 hours 06/17/16 18:50 Blood Culture - Preliminary Blood No Growth after 72 hours Assessment and Plan (1) Pyonephrosis Status: Acute (2) Septic shock Status: Acute (3) Urinary tract infection Status: Acute (4) Acute kidney failure Status: Acute (5) Acute urinary retention Status: Acute Plan: Plan X The patient seemed be doing relatively well. He is levophed is off. The vasopressin is off. The D10 has help with the hypoglycemia. Antibiotics have been changed. X-rays labs and medications are reviewed. Prognosis is guarded. Plan dated 06/19/2016 The patient seemed be doing a bit better. Still remains on a very small dose of vasopressor. Is on D10 IV at 50 mL an hour for hypoglycemia. We'll switch him to D5 IV. No additional recommendations are made. Prognosis is poor. He is a DO NOT RESUSCITATE. His bladder did show evidence of Escherichia coli which is being treated with Rocephin. Plan dated 06/21/2016 The patient's IV will be dropped to 50 mL an hour. Chest x-rays reviewed. Levo fed is off. He is a DO NOT RESUSCITATE. Labs x-rays medications are all reviewed. Prognosis is guarded. Time with Patient: Less than 30
[2016-06-21] MEDS: LIDOCAINE 5% PATCH TOPICAL SCH (10:23)
[2016-06-21 12:09] LABS: Glucose,Whole Blood 73 mg/dL (75-99)
[2016-06-21] MEDS: MULTIVITAMINS, THERA 1 EACH TAB PO SCH (13:53)
--- NOTE | 2016-06-21 14:33 | P.PN ---
Subjective Principal diagnosis: Sepsis 86-year-old male who is known to the infectious disease service from his recent hospitalization where he had difficulties with urinary tract infection and the development of Clostridium difficile colitis. The colitis was being treated with vancomycin with significant improvement. The patient however developed significant fever generalized malaise and weakness. And upon presenting to the emergency center was found evidence of sepsis with shock. He was seen by urology and taken to the operating room where cystoscopy was performed. Double-J catheter was placed into the right collecting system for the pyelonephritis from the obstructive right ureteral calculus. Patient continues to have hypotension after fluid resuscitation requiring vasopressor therapy for his septic shock. Although is doing slightly better at this time. Patient's mentation is now much improved. Sitting upright reading the paper. Easily recognizes me by name. Easily states that he is a [facility]. is further improved , vasopressor therapy has been removed. He is feeling considerably better. He remains with very clear mentation. Objective - Vital Signs Vital signs: Vital Signs Temp 97.8 F 06/21/16 08:00 Pulse 70 06/21/16 14:00 Resp 23 06/21/16 14:00 BP 101/52 06/21/16 14:00 Pulse Ox 92 L 06/21/16 14:00 Intake & Output 06/20/16 06/21/16 06/21/16 18:59 06:59 18:59 Intake Total 1999 2135.512 655.059 Output Total 825 1425 660 Balance 1175 710.512 -4.941 Weight 86.9 kg 86.9 kg Intake: IV 1400 1200 450 Dextrose 5%-0.9% NaCl 1, 250 000 ml @ 50 mls/hr IV . Q20H [facility] Rx#:[id number] cefTAZidime 2 gm In 100 Sodium Chloride 0.9% 100 ml @ 100 mls/hr IVPB Q8HR [facility] Rx#:[id number] d5ns 1400 1200 100 Intake, IV Titration 600 125.512 205.059 Amount Norepinephrine 16 mg In 25.512 5.059 Sodium Chloride 0.9% 250 ml @ Titrate IV .Q0M [facility] Rx#:[id number] Sodium Chloride 0.9% 500 500 200 ml @ 999 mls/hr IV .Q31M [facility] Rx#:[id number] cefTAZidime 2 gm In 100 Sodium Chloride 0.9% 100 ml @ 100 mls/hr IVPB Q8HR [facility] Rx#:[id number] cefTRIAXone 2,000 mg In 100 Sodium Chloride 0.9% 100 ml @ 100 mls/hr IVPB DAILY@1200 [facility] Rx#: [id number] Oral 810 Output: Urine 825 1425 660 Other: Voiding Method Indwelling Catheter Indwelling Catheter Indwelling Catheter ABP, PAP, CO, CI - Last Documented Arterial Blood Pressure 110/40 - Exam 86-year-old male comfortable at this time. Cloudy urine is draining. Not having large amounts of diarrhea at this time HEENT: Anicteric conjunctiva are with pallor but moist nasal mucosa grossly intact without significant lesions, there is no thrush. Neck: The neck is supple without significant lymphadenopathy or thyromegaly. Lungs: Good bilateral air entry without significant crackles or wheezing. There is no significant bronchial sounds. There is no egophony or dullness. Heart: Irregular with an audible S1 and S2 without S4 no distinct murmur click or rub is noted. PMI is nondisplaced Abdomen: Nondistended, Positive bowel sounds soft and nontender without palpable masses or organomegaly. There was no guarding or rebound. Extremities: The upper extremities have excellent pulses they are symmetric, no significant petechiae or telangiectasia. No splinter hemorrhages were noted. The lower extremities are having improvement of the significant edema. The peripheral pulses were 2+ and symmetric. Neuro: Awake alert oriented to person place and time reading the newspaper - Labs CBC & Chem 7: 06/21/16 05:00 06/21/16 05:00 Labs: Abnormal Lab Results - Last 24 Hours (Table) 06/20/16 06/20/16 06/21/16 Range/Units 05:35 16:16 00:11 WBC (3.8-10.6) k/uL RBC (4.30-5.90) m/uL Hgb (13.0-17.5) gm/dL Hct (39.0-53.0) % RDW (11.5-15.5) % Plt Count (150-450) k/uL Neutrophils # (Manual) (1.3-7.7) k/uL Eosinophils # (Manual) (0-0.7) k/uL Chloride (98-107) mmol/L BUN (9-20) mg/dL Glucose (74-99) mg/dL POC Glucose (mg/dL) 54 L 68 L (75-99) mg/dL C-Peptide 3.98 H (0.81-3.85) ng/mL Calcium (8.4-10.2) mg/dL 06/21/16 06/21/16 06/21/16 Range/Units 00:29 01:13 03:21 WBC (3.8-10.6) k/uL RBC (4.30-5.90) m/uL Hgb (13.0-17.5) gm/dL Hct (39.0-53.0) % RDW (11.5-15.5) % Plt Count (150-450) k/uL Neutrophils # (Manual) (1.3-7.7) k/uL Eosinophils # (Manual) (0-0.7) k/uL Chloride (98-107) mmol/L BUN (9-20) mg/dL Glucose (74-99) mg/dL POC Glucose (mg/dL) 72 L 70 L 66 L (75-99) mg/dL C-Peptide (0.81-3.85) ng/mL Calcium (8.4-10.2) mg/dL 06/21/16 06/21/16 06/21/16 Range/Units 03:48 04:36 05:00 WBC (3.8-10.6) k/uL RBC (4.30-5.90) m/uL Hgb (13.0-17.5) gm/dL Hct (39.0-53.0) % RDW (11.5-15.5) % Plt Count (150-450) k/uL Neutrophils # (Manual) (1.3-7.7) k/uL Eosinophils # (Manual) (0-0.7) k/uL Chloride 117 H (98-107) mmol/L BUN 27 H (9-20) mg/dL Glucose 100 H (74-99) mg/dL POC Glucose (mg/dL) 70 L 74 L (75-99) mg/dL C-Peptide (0.81-3.85) ng/mL Calcium 8.0 L (8.4-10.2) mg/dL 06/21/16 06/21/16 Range/Units 05:00 12:07 WBC 14.5 H (3.8-10.6) k/uL RBC 3.85 L (4.30-5.90) m/uL Hgb 11.5 L (13.0-17.5) gm/dL Hct 37.1 L (39.0-53.0) % RDW 16.2 H (11.5-15.5) % Plt Count 67 L D (150-450) k/uL Neutrophils # (Manual) 11.5 H (1.3-7.7) k/uL Eosinophils # (Manual) 0.9 H (0-0.7) k/uL Chloride (98-107) mmol/L BUN (9-20) mg/dL Glucose (74-99) mg/dL POC Glucose (mg/dL) 73 L (75-99) mg/dL C-Peptide (0.81-3.85) ng/mL Calcium (8.4-10.2) mg/dL Microbiology - Last 24 Hours (Table) 06/17/16 18:51 Blood Culture - Preliminary Blood No Growth after 72 hours 06/17/16 18:50 Blood Culture - Preliminary Blood No Growth after 72 hours Assessment and Plan (1) Septic shock Status: Acute (2) Urinary tract infection Status: Acute (3) Pyonephrosis Status: Acute
--- NOTE | 2016-06-21 14:42 | P.PN ---
Subjective Principal diagnosis: Sepsis 86-year-old male who is known to the infectious disease service from his recent hospitalization where he had difficulties with urinary tract infection and the development of Clostridium difficile colitis. The colitis was being treated with vancomycin with significant improvement. The patient however developed significant fever generalized malaise and weakness. And upon presenting to the emergency center was found evidence of sepsis with shock. He was seen by urology and taken to the operating room where cystoscopy was performed. Double-J catheter was placed into the right collecting system for the pyelonephritis from the obstructive right ureteral calculus. Patient continues to have hypotension after fluid resuscitation requiring vasopressor therapy for his septic shock. Although is doing slightly better at this time. Patient's mentation is now much improved. Sitting upright reading the paper. Easily recognizes me by name. Easily states that he is a [facility]. is further improved , doing well since transfer out of the intensive care unit He is feeling considerably better. He remains with very clear mentation. Objective - Vital Signs Vital signs: Vital Signs Temp 97.8 F 06/21/16 08:00 Pulse 70 06/21/16 14:00 Resp 23 06/21/16 14:00 BP 101/52 06/21/16 14:00 Pulse Ox 92 L 06/21/16 14:00 Intake & Output 06/20/16 06/21/16 06/21/16 18:59 06:59 18:59 Intake Total 1999 2135.512 655.059 Output Total 825 1425 660 Balance 1175 710.512 -4.941 Weight 86.9 kg 86.9 kg Intake: IV 1400 1200 450 Dextrose 5%-0.9% NaCl 1, 250 000 ml @ 50 mls/hr IV . Q20H [facility] Rx#:[id number] cefTAZidime 2 gm In 100 Sodium Chloride 0.9% 100 ml @ 100 mls/hr IVPB Q8HR [facility] Rx#:[id number] d5ns 1400 1200 100 Intake, IV Titration 600 125.512 205.059 Amount Norepinephrine 16 mg In 25.512 5.059 Sodium Chloride 0.9% 250 ml @ Titrate IV .Q0M [facility] Rx#:[id number] Sodium Chloride 0.9% 500 500 200 ml @ 999 mls/hr IV .Q31M [facility] Rx#:[id number] cefTAZidime 2 gm In 100 Sodium Chloride 0.9% 100 ml @ 100 mls/hr IVPB Q8HR [facility] Rx#:[id number] cefTRIAXone 2,000 mg In 100 Sodium Chloride 0.9% 100 ml @ 100 mls/hr IVPB DAILY@1200 [facility] Rx#: [id number] Oral 810 Output: Urine 825 1425 660 Other: Voiding Method Indwelling Catheter Indwelling Catheter Indwelling Catheter ABP, PAP, CO, CI - Last Documented Arterial Blood Pressure 110/40 - Exam 86-year-old male comfortable at this time. Cloudy urine is draining. No diarrhea has occurred HEENT: Anicteric conjunctiva are with pallor but moist nasal mucosa grossly intact without significant lesions, there is no thrush. Neck: The neck is supple without significant lymphadenopathy or thyromegaly. Lungs: Good bilateral air entry without significant crackles or wheezing. There is no significant bronchial sounds. There is no egophony or dullness. Heart: Irregular with an audible S1 and S2 without S4 no distinct murmur click or rub is noted. PMI is nondisplaced Abdomen: Nondistended, Positive bowel sounds soft and nontender without palpable masses or organomegaly. There was no guarding or rebound. Extremities: The upper extremities have excellent pulses they are symmetric, no significant petechiae or telangiectasia. No splinter hemorrhages were noted. The lower extremities are having improvement of the significant edema. The peripheral pulses were 2+ and symmetric. Neuro: Awake alert oriented to person place and time reading the newspaper - Labs CBC & Chem 7: 06/21/16 05:00 06/21/16 05:00 Labs: Abnormal Lab Results - Last 24 Hours (Table) 06/20/16 06/20/16 06/21/16 Range/Units 05:35 16:16 00:11 WBC (3.8-10.6) k/uL RBC (4.30-5.90) m/uL Hgb (13.0-17.5) gm/dL Hct (39.0-53.0) % RDW (11.5-15.5) % Plt Count (150-450) k/uL Neutrophils # (Manual) (1.3-7.7) k/uL Eosinophils # (Manual) (0-0.7) k/uL Chloride (98-107) mmol/L BUN (9-20) mg/dL Glucose (74-99) mg/dL POC Glucose (mg/dL) 54 L 68 L (75-99) mg/dL C-Peptide 3.98 H (0.81-3.85) ng/mL Calcium (8.4-10.2) mg/dL 06/21/16 06/21/16 06/21/16 Range/Units 00:29 01:13 03:21 WBC (3.8-10.6) k/uL RBC (4.30-5.90) m/uL Hgb (13.0-17.5) gm/dL Hct (39.0-53.0) % RDW (11.5-15.5) % Plt Count (150-450) k/uL Neutrophils # (Manual) (1.3-7.7) k/uL Eosinophils # (Manual) (0-0.7) k/uL Chloride (98-107) mmol/L BUN (9-20) mg/dL Glucose (74-99) mg/dL POC Glucose (mg/dL) 72 L 70 L 66 L (75-99) mg/dL C-Peptide (0.81-3.85) ng/mL Calcium (8.4-10.2) mg/dL 06/21/16 06/21/16 06/21/16 Range/Units 03:48 04:36 05:00 WBC (3.8-10.6) k/uL RBC (4.30-5.90) m/uL Hgb (13.0-17.5) gm/dL Hct (39.0-53.0) % RDW (11.5-15.5) % Plt Count (150-450) k/uL Neutrophils # (Manual) (1.3-7.7) k/uL Eosinophils # (Manual) (0-0.7) k/uL Chloride 117 H (98-107) mmol/L BUN 27 H (9-20) mg/dL Glucose 100 H (74-99) mg/dL POC Glucose (mg/dL) 70 L 74 L (75-99) mg/dL C-Peptide (0.81-3.85) ng/mL Calcium 8.0 L (8.4-10.2) mg/dL 06/21/16 06/21/16 Range/Units 05:00 12:07 WBC 14.5 H (3.8-10.6) k/uL RBC 3.85 L (4.30-5.90) m/uL Hgb 11.5 L (13.0-17.5) gm/dL Hct 37.1 L (39.0-53.0) % RDW 16.2 H (11.5-15.5) % Plt Count 67 L D (150-450) k/uL Neutrophils # (Manual) 11.5 H (1.3-7.7) k/uL Eosinophils # (Manual) 0.9 H (0-0.7) k/uL Chloride (98-107) mmol/L BUN (9-20) mg/dL Glucose (74-99) mg/dL POC Glucose (mg/dL) 73 L (75-99) mg/dL C-Peptide (0.81-3.85) ng/mL Calcium (8.4-10.2) mg/dL Microbiology - Last 24 Hours (Table) 06/17/16 18:51 Blood Culture - Preliminary Blood No Growth after 72 hours 06/17/16 18:50 Blood Culture - Preliminary Blood No Growth after 72 hours Laboratory Results WBC 14.5 k/uL (3.8-10.6) H 06/21/16 05:00 RBC 3.85 m/uL (4.30-5.90) L 06/21/16 05:00 Hgb 11.5 gm/dL (13.0-17.5) L 06/21/16 05:00 Hct 37.1 % (39.0-53.0) L 06/21/16 05:00 MCV 96.5 fL (80.0-100.0) 06/21/16 05:00 MCH 29.9 pg (25.0-35.0) 06/21/16 05:00 MCHC 31.0 g/dL (31.0-37.0) 06/21/16 05:00 RDW 16.2 % (11.5-15.5) H 06/21/16 05:00 Plt Count 67 k/uL (150-450) L D 06/21/16 05:00 Neutrophils % 79 % 06/20/16 05:35 Neutrophils % (Manual) 79.0 % 06/21/16 05:00 Band Neutrophils % 6.0 % 06/18/16 04:28 Lymphocytes % 11 % 06/20/16 05:35 Lymphocytes % (Manual) 10.0 % 06/21/16 05:00 Monocytes % 5 % 06/20/16 05:35 Monocytes % (Manual) 5.0 % 06/21/16 05:00 Eosinophils % 2 % 06/20/16 05:35 Eosinophils % (Manual) 6.0 % 06/21/16 05:00 Basophils % 0 % 06/20/16 05:35 Neutrophils # 8.5 k/uL (1.3-7.7) H 06/20/16 05:35 Neutrophils # (Manual) 11.5 k/uL (1.3-7.7) H 06/21/16 05:00 Lymphocytes # 1.2 k/uL (1.0-4.8) 06/20/16 05:35 Lymphocytes # (Manual) 1.5 k/uL (1.0-4.8) 06/21/16 05:00 Monocytes # 0.5 k/uL (0-1.0) 06/20/16 05:35 Monocytes # (Manual) 0.7 k/uL (0-1.0) 06/21/16 05:00 Eosinophils # 0.2 k/uL (0-0.7) 06/20/16 05:35 Eosinophils # (Manual) 0.9 k/uL (0-0.7) H 06/21/16 05:00 Basophils # 0.0 k/uL (0-0.2) 06/20/16 05:35 Nucleated RBCs 0 /100 WBC (0-0) 06/21/16 05:00 Manual Slide Review Performed 06/21/16 05:00 Toxic Granulation Present 06/18/16 04:28 Toxic Vacuolation Present 06/18/16 04:28 Dohle Bodies Present 06/18/16 04:28 Large Platelets Present 06/20/16 05:35 Hypochromasia Moderate 06/21/16 05:00 Poikilocytosis (manual Present 06/18/16 04:28 Anisocytosis Slight 06/21/16 05:00 Anisocytosis (manual) Present 06/18/16 04:28 Macrocytosis Slight 06/16/16 05:40 PT 20.1 sec (9.0-12.0) H 06/16/16 04:14 INR 2.1 (<1.1) 06/16/16 04:14 APTT 40.2 sec (22.0-30.0) H 06/16/16 04:14 ABG Lactic Acid 1.7 mmol/L (0.5-1.6) H 06/19/16 04:50 Sodium 144 mmol/L (137-145) 06/21/16 05:00 Potassium 4.0 mmol/L (3.5-5.1) 06/21/16 05:00 Chloride 117 mmol/L (98-107) H 06/21/16 05:00 Carbon Dioxide 23 mmol/L (22-30) 06/21/16 05:00 Anion Gap 4 mmol/L 06/21/16 05:00 BUN 27 mg/dL (9-20) H 06/21/16 05:00 Creatinine 0.70 mg/dL (0.66-1.25) 06/21/16 05:00 Est GFR (MDRD) Af Amer >60 (>60 ml/min/1.73 sqM) 06/21/16 05:00 Est GFR (MDRD) Non-Af >60 (>60 ml/min/1.73 sqM) 06/21/16 05:00 Glucose 100 mg/dL (74-99) H 06/21/16 05:00 POC Glucose (mg/dL) 73 mg/dL (75-99) L 06/21/16 12:07 POC Glu [employer] ID Kristen Lo 06/21/16 12:07 Insulin Level 8.4 mIU/mL (3.0-25.0) 06/20/16 05:35 C-Peptide 3.98 ng/mL (0.81-3.85) H 06/20/16 05:35 Plasma Lactic Acid Michael 1.0 mmol/L (0.7-2.0) 06/20/16 05:35 Calcium 8.0 mg/dL (8.4-10.2) L 06/21/16 05:00 Phosphorus 2.9 mg/dL (2.5-4.5) 06/21/16 05:00 Magnesium 1.6 mg/dL (1.6-2.3) 06/21/16 05:00 Total Bilirubin 0.8 mg/dL (0.2-1.3) 06/15/16 08:51 AST 28 U/L (17-59) 06/15/16 08:51 ALT 33 U/L (21-72) 06/15/16 08:51 Alkaline Phosphatase 166 U/L (38-126) H 06/15/16 08:51 Total Protein 5.7 g/dL (6.3-8.2) L 06/15/16 08:51 Albumin 2.6 g/dL (3.5-5.0) L 06/15/16 08:51 Lipase 50 U/L (23-300) 06/15/16 08:51 Cortisol >123 ug/dL 06/17/16 05:20 Urine Color Red 06/15/16 08:51 Urine Appearance Bloody (Clear) 06/15/16 08:51 Urine RBC >182 /hpf (0-5) H 06/15/16 08:51 Urine WBC >182 /hpf (0-5) H 06/15/16 08:51 Urine WBC Clumps Many /hpf (None) H 06/15/16 08:51 Urine Mucus Many /hpf (None) H 06/15/16 08:51 C. difficile (EIA) Intrp Negative (Negative) 06/17/16 08:42 Microbiology 06/17/16 18:51 Blood Blood Culture - Preliminary No Growth after 72 hours 06/17/16 18:50 Blood Blood Culture - Preliminary No Growth after 72 hours 06/15/16 08:51 Blood Blood Culture - Final 06/15/16 08:51 Blood Blood Culture Gram Stain - Final 06/15/16 08:51 Blood Blood Culture - Final Escherichia coli Proteus mirabilis Pseudomonas aeruginosa 06/15/16 08:51 Urine,Catheterized Urine Culture - Final Escherichia coli Assessment and Plan (1) Septic shock Narrative/Plan: 86-year-old male presents to Hospital feeling quite poorly presented with evidence of septic shock on the basis of obstructive uropathy. There is evidence of positive blood cultures with gram-negative bacilli as well as a positive urine culture. Review of prior culture shows evidence of Proteus mirabilis as a common agent in the past. However he is also had enterococcus and MSSA in his urine in the recent past. For antibiotic therapy piperacillin tazobactam was utilized to cover for the 3 recent pathogens. Given that E. coli was isolated antibiotic therapy changed to Rocephin, especially given his history of recent Clostridium difficile colitis. We'll monitor him for recurrence of the C. diff. He has just completed his course of vancomycin therapy. He is at high risk of relapse. Current C. diff testing is negative He does have acute renal failure with a peak creatinine of 1.72. Creatinine improved to 1.00 today He does have septic shock requiring multiple vasopressors. Receiving further fluid and will be receiving hydrocortisone to ensure there is not some adrenal insufficiency with his advanced age and current sepsis and multiple recent illnesses. Vasopressors have been weaned. Follow up blood cultures have been requested and are negative so far At admission the patient actually had leukopenia from his overwhelming sepsis and now has rebounded back to significant leukocytosis also on the basis of his significant sepsis. At 14.5 today. Creatinine is normalized. The blood cultures come positive for the Escherichia coli. It has however now been amended and there is also evidence of Proteus mirabilis and Pseudomonas aeruginosa. The intravenous antibiotic therapy will continue for now. Antibiotic therapy was altered to cefepime at this time. The follow up blood cultures are negative so far. The urine culture only has Escherichia coli. Patient has marked improvement today. As he improves will attempt to formulate a discharge plan for his antibiotic therapy. Status: Acute (2) Urinary tract infection Status: Acute (3) Pyonephrosis Status: Acute
[2016-06-21 16:03] LABS: Glucose,Whole Blood 67 mg/dL (75-99)
[2016-06-21 16:18] LABS: Glucose,Whole Blood 61 mg/dL (75-99)
[2016-06-21 16:20] LABS: Glucose,Whole Blood 84 mg/dL (75-99)
[2016-06-21] MEDS: SODIUM CHLORIDE 0.9% 99 ML with VASOPRESSIN 20 UNIT IV SCH ×2 (17:37)
[2016-06-21 19:59] LABS: Glucose,Whole Blood 68 mg/dL (75-99)
[2016-06-21 20:37] LABS: Glucose,Whole Blood 63 mg/dL (75-99)
[2016-06-21 21:01] LABS: Glucose,Whole Blood 68 mg/dL (75-99)
[2016-06-21 21:21] LABS: Glucose,Whole Blood 87 mg/dL (75-99)
[2016-06-21] MEDS: QUEtiapine 25 MG TAB PO SCH (21:46)
[2016-06-21] MEDS: FENOFIBRATE 160 MG TAB PO SCH (21:46)
[2016-06-21] MEDS: ATORVASTATIN 10 MG TAB PO SCH (21:46)
[2016-06-21] MEDS: MIRTAZAPINE 15 MG TAB PO SCH (21:46)
[2016-06-21] MEDS: DEXTROSE 10% IN WATER 1,000 ML IV SCH (21:59)
--- NOTE | 2016-06-21 22:50 | PN ---
DATE OF SERVICE: 06/21/2016 PRESENTING COMPLAINT: Septic shock. INTERVAL HISTORY: This is a patient with a history of DVT, GERD, hyperlipidemia, enlarged prostate, chronic Henderson catheter, presented with lactic acidosis, hypertension, shock. Patient also had obstructive ureteral calculus with a double-J catheter placed. Patient was having diarrhea negative for C. diff. Patient was on pressure support. Patient has been moved out of the ICU, eating better, though still tired. Delirium is much improved. Review of systems done for constitutional, cardiovascular, GI, pulmonary; relevant findings as above. Current medications include IV ceftazidime. On examination, temperature 97.1, pulse 83, respirations 19, blood pressure 99/36, pulse ox 93% on room air. GENERAL APPEARANCE: Lying in bed, tired-appearing. EYES: Pupils equal. Conjunctivae are pale. NECK: JVD not raised. Mass not palpable. Oral cavity: Dry mucous membrane. RESPIRATORY: Effort increased. LUNGS: Diminished breath sounds. CARDIOVASCULAR: First and second sounds normal. No edema. ABDOMEN: Soft, nontender. Liver and spleen not palpable. PSYCHIATRY: Awake, answering simple questions. INVESTIGATIONS: Accu-Cheks are noted. Sodium low. White count 14.5, hemoglobin 11.5, platelets 67. Potassium 4. ASSESSMENT: 1. Acute urinary tract infection with severe sepsis, present on admission. 2. Acute pyelonephritis causing septic shock and sepsis, present on admission causing lactic acidosis with chronic catheter and right ureteral stone causing obstruction. 3. Positive urine culture positive for Escherichia coli and blood culture positive for Escherichia coli and Proteus mirabilis and Pseudomonas. 4. Chronic deep venous thrombosis maintained on Xarelto. 5. Acute renal failure, chronic acute tubular necrosis from sepsis, present on admission with resolution. 6. Gastroesophageal reflux disease. 7. Hyperlipidemia. 8. Cystoscopy done for a right double-J catheter with stent placement. 9. Benign prostatic hypertrophy. 10. 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 11. Acute delirium, multifactorial, underlying infection improved. 12. Severe thrombocytopenia likely from sepsis, improved. PLAN: Patient still weak and tired. Continue with supportive care. Patient is responding well, but slowly. White count has come down nicely. Follow.
[2016-06-22] MEDS: DEXTROSE 4 GM CHEWABLE PO SCH ×6 (00:01→20:43)
[2016-06-22] MEDS: HYDROcodone/APAP 10-325MG 1 EACH TAB PO PRN ×3 (00:04→17:39)
[2016-06-22 00:25] LABS: Glucose,Whole Blood 96 mg/dL (75-99)
[2016-06-22 04:16] LABS: Glucose,Whole Blood 84 mg/dL (75-99)
[2016-06-22 07:56] LABS: Anion Gap 5 mmol/L; Anisocytosis Slight; Basophils % (A) 0 %; Blood Urea Nitrogen 22 mg/dL (9-20); CH 29.4; CHCM 30.8; Calcium 7.8 mg/dL (8.4-10.2); Carbon Dioxide 25 mmol/L (22-30); Chloride 111 mmol/L (98-107); Eosinophils # (A) 0.4 k/uL (0-0.7); Eosinophils % (A) 3 %; Glucose 79 mg/dL (74-99); HCT 34.7 % (39.0-53.0); HDW 2.49; HGB 10.9 gm/dL (13.0-17.5); Hypochromasia Slight; Luc # (Auto) 0.24; Luc % (Auto) 2; Lymphocytes # (A) 1.3 k/uL (1.0-4.8); Lymphocytes % (A) 10 %; MCH 30.1 pg (25.0-35.0); MCHC 31.3 g/dL (31.0-37.0); MCV 95.9 fL (80.0-100.0); Magnesium 1.7 mg/dL (1.6-2.3); Mean Platelet Volume 9.6; Monocytes # (A) 0.5 k/uL (0-1.0); Monocytes % (A) 3 %; Neutrophils # (A) 11.4 k/uL (1.3-7.7); Neutrophils % (A) 83 %; Non-African American GFR(MDRD) >60 (>60 ml/min/1.73 sqM); Phosphorous 3.2 mg/dL (2.5-4.5); RBC 3.62 m/uL (4.30-5.90); RDW 16.2 % (11.5-15.5); Sodium 141 mmol/L (137-145); WBC 13.8 k/uL (3.8-10.6); WBC (Perox) 13.72
[2016-06-22] MEDS: NYSTATIN 100,000 UNIT/ML SUSP 500,000 UNIT/5 ML CUP PO SCH ×4 (08:19→20:44)
[2016-06-22] MEDS: LACTOBACILLUS ACIDOPH & BULGAR 1 EACH PACKET PO SCH ×3 (08:19→20:44)
[2016-06-22] MEDS: LIDOCAINE 5% PATCH TOPICAL SCH (08:19)
[2016-06-22] MEDS: PANTOPRAZOLE 40 MG TABLET PO SCH (08:19)
[2016-06-22 08:24] LABS: Glucose,Whole Blood 69 mg/dL (75-99)
[2016-06-22 08:38] LABS: Glucose,Whole Blood 59 mg/dL (75-99)
[2016-06-22 08:39] LABS: Manual Review Performed
[2016-06-22 09:01] LABS: Glucose,Whole Blood 90 mg/dL (75-99)
--- NOTE | 2016-06-22 09:18 | XR ---
EXAMINATION TYPE: XR chest 1V portable DATE OF EXAM: 06/22/2016 8:52 AM CLINICAL HISTORY: Difficulty breathing progress study. TECHNIQUE: Single AP portable upright view of the chest is obtained. COMPARISON: Chest x-ray from one day earlier FINDINGS: A right-sided subclavian central venous catheter are stable in appearance. There is persis tent bibasilar opacity consistent with small bilateral pleural effusions and associated bibasilar ate lectasis and/or infiltrate. Right midlung linear atelectasis and left suprahilar linear atelectasis i s redemonstrated. Cardiac silhouette size is mildly enlarged with atherosclerotic and ectatic thoraci c aorta. Prominent thickening right paratracheal stripe is noted. Mild central vascular congestion is felt present. IMPRESSION: Overall stable findings, mild cardiomegaly with mild central vascular congestion and sm all bilateral pleural effusions all redemonstrated, suspect CHF exacerbation. Clinical correlation ad vised. Associated bibasilar atelectasis and/or infiltrate and perihilar atelectasis is again seen.
[2016-06-22 12:30] LABS: Glucose,Whole Blood 93 mg/dL (75-99)
--- NOTE | 2016-06-22 12:45 | P.PN ---
Subjective Principal diagnosis: Acute sepsis secondary to urinary tract infection with E. coli This is an 87-year-old gentleman who has a history of DVT, GERD, hyperlipidemia , enlarged prostate with home indwelling Henderson catheter. He presented to the emergency room this morning with complaints of problems with his catheter. He stated he hadn't been able to urinate since approximately 2:00 this morning. He is quite uncomfortable and felt as though he needed to void. They tried flushing the catheter at home in the outpatient setting with without success. He is making urine currently but it is quite bloody. The patient has also had increasing bilateral lower extremity edema and shortness of breath. He had a lactic acid of 5.7. In the ER he is found to be quite hypotensive and has received 3.5 L of 0.9 normal saline fluid boluses and required initiation of norepinephrine currently at 15 mcg/m. His chest x-ray revealed a mild left lower lobe infiltrate. He has been initiated on Zosyn and Levaquin. His white count is 1.1. Creatinine 1.53. 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 There is also noted prominent prostate. The patient is seen again today 06/22/2016 on the regular medical floor. His urine was positive for Serratia E. coli, blood cultures positive for Proteus mirabilis, Pseudomonas aeruginosa, E. coli. He is maintained on ceftazidime. He is sitting up in bed eating lunch. He denies any worsening shortness of breath, cough or congestion. He is more awake and alert today as compared to yesterday. He is maintaining good O2 saturations in the mid 90s on room air. Currently afebrile. Objective - Vital Signs Vital signs: Vital Signs Temp 97.4 F L 06/22/16 07:00 Pulse 70 06/22/16 07:00 Resp 18 06/22/16 07:00 BP 102/61 06/22/16 07:00 Pulse Ox 96 06/22/16 07:00 Intake & Output 06/21/16 06/22/16 06/22/16 18:59 06:59 18:59 Intake Total 1055.059 Output Total 1235 1450 Balance -179.941 -1450 Weight 86.9 kg Intake: IV 850 Dextrose 5%-0.9% NaCl 1, 550 000 ml @ 50 mls/hr IV . Q20H [facility] Rx#:[id number] cefTAZidime 2 gm In 200 Sodium Chloride 0.9% 100 ml @ 100 mls/hr IVPB Q8HR [facility] Rx#:[id number] d5ns 100 Intake, IV Titration 205.059 Amount Norepinephrine 16 mg In 5.059 Sodium Chloride 0.9% 250 ml @ Titrate IV .Q0M [facility] Rx#:[id number] Sodium Chloride 0.9% 500 200 ml @ 999 mls/hr IV .Q31M [facility] Rx#:[id number] Output: Urine 1235 1450 Other: Voiding Method Indwelling Catheter Indwelling Catheter ABP, PAP, CO, CI - Last Documented Arterial Blood Pressure 110/40 - Exam GENERAL EXAM: Drowsy, responds to verbal stimuli. Cachectic. HEAD: Normocephalic. EYES: Normal reaction of pupils, equal size. NOSE: Clear with pink turbinates. THROAT: No erythema or exudates. NECK: No masses, no JVD. CHEST: No chest wall deformity. LUNGS: Equal air entry with faint crackles in the posterior bases. CVS: S1 and S2 normal with no audible murmurs, regular rhythm. ABDOMEN: No hepatosplenomegaly, normal bowel sounds, no guarding or rigidity. Extremities: There is no significant peripheral edema. No clubbing, no cyanosis. Peripheral pulses are intact. - Labs CBC & Chem 7: 06/22/16 07:25 06/22/16 07:25 Labs: Abnormal Lab Results - Last 24 Hours (Table) 06/21/16 06/21/16 06/21/16 Range/Units 16:01 16:16 19:56 WBC (3.8-10.6) k/uL RBC (4.30-5.90) m/uL Hgb (13.0-17.5) gm/dL Hct (39.0-53.0) % RDW (11.5-15.5) % Plt Count (150-450) k/uL Neutrophils # (1.3-7.7) k/uL Chloride (98-107) mmol/L BUN (9-20) mg/dL Creatinine (0.66-1.25) mg/dL POC Glucose (mg/dL) 67 L 61 L 68 L (75-99) mg/dL Calcium (8.4-10.2) mg/dL 06/21/16 06/21/16 06/22/16 Range/Units 20:18 20:45 07:25 WBC (3.8-10.6) k/uL RBC (4.30-5.90) m/uL Hgb (13.0-17.5) gm/dL Hct (39.0-53.0) % RDW (11.5-15.5) % Plt Count (150-450) k/uL Neutrophils # (1.3-7.7) k/uL Chloride 111 H (98-107) mmol/L BUN 22 H (9-20) mg/dL Creatinine 0.63 L (0.66-1.25) mg/dL POC Glucose (mg/dL) 63 L 68 L (75-99) mg/dL Calcium 7.8 L (8.4-10.2) mg/dL 06/22/16 06/22/16 06/22/16 Range/Units 07:25 08:23 08:36 WBC 13.8 H (3.8-10.6) k/uL RBC 3.62 L (4.30-5.90) m/uL Hgb 10.9 L (13.0-17.5) gm/dL Hct 34.7 L (39.0-53.0) % RDW 16.2 H (11.5-15.5) % Plt Count 99 L (150-450) k/uL Neutrophils # 11.4 H (1.3-7.7) k/uL Chloride (98-107) mmol/L BUN (9-20) mg/dL Creatinine (0.66-1.25) mg/dL POC Glucose (mg/dL) 69 L 59 L (75-99) mg/dL Calcium (8.4-10.2) mg/dL Microbiology - Last 24 Hours (Table) 06/17/16 18:51 Blood Culture - Preliminary Blood No Growth after 96 hours 06/17/16 18:50 Blood Culture - Preliminary Blood No Growth after 96 hours Assessment and Plan Plan: Impression: #1 Acute sepsis secondary to urinary tract infection of E. coli and bacteremia of E. coli, Proteus mirabilis, Pseudomonas aeruginosa. Currently maintaining on ceftazidime. #2 Lactic acidosis secondary to above. 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 Status post double-J stent to the right. #4 History of DVT. #5 Acute renal failure, improved. #6 Leukocytosis secondary to #1. #7 Gastroesophageal reflux disease. #8 Hyperlipidemia. #9 Thrombocytopenia. Plan: The patient was seen and evaluated by Dr. Zheng. He is currently stable from the pulmonary and critical care standpoint. We'll continue with his bronchodilators and antibiotics. Will increase his activity as tolerated. The patient may need ECF placement based on his weakness and poor functional performance. His is at the bedside is and they are in agreement. We will assure PT is working with him here as well.
[2016-06-22] MEDS: MULTIVITAMINS, THERA 1 EACH TAB PO SCH (13:36)
[2016-06-22 16:15] LABS: Glucose,Whole Blood 115 mg/dL (75-99)
[2016-06-22] MEDS: MAGNESIUM OXIDE 400 MG TAB PO SCH ×2 (17:38→20:44)
[2016-06-22] MEDS: DEXTROSE 10% IN WATER 1,000 ML IV SCH ×2 (17:38→20:43)
[2016-06-22 20:22] LABS: Glucose,Whole Blood 93 mg/dL (75-99)
[2016-06-22] MEDS: FENOFIBRATE 160 MG TAB PO SCH (20:44)
[2016-06-22] MEDS: MIRTAZAPINE 15 MG TAB PO SCH (20:44)
[2016-06-22] MEDS: QUEtiapine 25 MG TAB PO SCH (20:44)
[2016-06-22] MEDS: ATORVASTATIN 10 MG TAB PO SCH (20:44)
--- NOTE | 2016-06-22 22:23 | P.PN ---
Subjective Principal diagnosis: Sepsis 86-year-old male who is known to the infectious disease service from his recent hospitalization where he had difficulties with urinary tract infection and the development of Clostridium difficile colitis. The colitis was being treated with vancomycin with significant improvement. The patient however developed significant fever generalized malaise and weakness. And upon presenting to the emergency center was found evidence of sepsis with shock. He was seen by urology and taken to the operating room where cystoscopy was performed. Double-J catheter was placed into the right collecting system for the pyelonephritis from the obstructive right ureteral calculus. Patient continues to have hypotension after fluid resuscitation requiring vasopressor therapy for his septic shock. Although is doing slightly better at this time. Patient's mentation is now much improved. Sitting upright reading the paper. Easily recognizes me by name. Easily states that he is a [facility]. is further improved , doing well since transfer out of the intensive care unit He is feeling considerably better. He remains with very clear mentation. Objective - Vital Signs Vital signs: Vital Signs Temp 97.1 F L 06/22/16 15:00 Pulse 69 06/22/16 15:00 Resp 18 06/22/16 15:00 BP 95/41 06/22/16 15:00 Pulse Ox 95 06/22/16 15:00 Intake & Output 06/22/16 06/22/16 06/23/16 06:59 18:59 06:59 Intake Total 800 Output Total 1450 1500 Balance -1450 -700 Intake: Oral 800 Output: Urine 1450 1500 Other: Voiding Method Indwelling Catheter Indwelling Catheter ABP, PAP, CO, CI - Last Documented Arterial Blood Pressure 110/40 - Exam 86-year-old male comfortable at this time. Cloudy urine is draining. No diarrhea has occurred HEENT: Anicteric conjunctiva are with pallor but moist nasal mucosa grossly intact without significant lesions, there is no thrush. Neck: The neck is supple without significant lymphadenopathy or thyromegaly. Lungs: Good bilateral air entry without significant crackles or wheezing. There is no significant bronchial sounds. There is no egophony or dullness. Heart: Irregular with an audible S1 and S2 without S4 no distinct murmur click or rub is noted. PMI is nondisplaced Abdomen: Nondistended, Positive bowel sounds soft and nontender without palpable masses or organomegaly. There was no guarding or rebound. Extremities: The upper extremities have excellent pulses they are symmetric, no significant petechiae or telangiectasia. No splinter hemorrhages were noted. The lower extremities are having improvement of the significant edema. The peripheral pulses were 2+ and symmetric. Neuro: Awake alert oriented to person place and time reading the newspaper - Labs CBC & Chem 7: 06/22/16 07:25 06/22/16 07:25 Labs: Abnormal Lab Results - Last 24 Hours (Table) 06/22/16 06/22/16 06/22/16 Range/Units 07:25 07:25 08:23 WBC 13.8 H (3.8-10.6) k/uL RBC 3.62 L (4.30-5.90) m/uL Hgb 10.9 L (13.0-17.5) gm/dL Hct 34.7 L (39.0-53.0) % RDW 16.2 H (11.5-15.5) % Plt Count 99 L (150-450) k/uL Neutrophils # 11.4 H (1.3-7.7) k/uL Chloride 111 H (98-107) mmol/L BUN 22 H (9-20) mg/dL Creatinine 0.63 L (0.66-1.25) mg/dL POC Glucose (mg/dL) 69 L (75-99) mg/dL Calcium 7.8 L (8.4-10.2) mg/dL 06/22/16 06/22/16 Range/Units 08:36 16:03 WBC (3.8-10.6) k/uL RBC (4.30-5.90) m/uL Hgb (13.0-17.5) gm/dL Hct (39.0-53.0) % RDW (11.5-15.5) % Plt Count (150-450) k/uL Neutrophils # (1.3-7.7) k/uL Chloride (98-107) mmol/L BUN (9-20) mg/dL Creatinine (0.66-1.25) mg/dL POC Glucose (mg/dL) 59 L 115 H (75-99) mg/dL Calcium (8.4-10.2) mg/dL Microbiology - Last 24 Hours (Table) 06/17/16 18:51 Blood Culture - Preliminary Blood No Growth after 120 hours 06/17/16 18:50 Blood Culture - Preliminary Blood No Growth after 120 hours Laboratory Results WBC 13.8 k/uL (3.8-10.6) H 06/22/16 07:25 RBC 3.62 m/uL (4.30-5.90) L 06/22/16 07:25 Hgb 10.9 gm/dL (13.0-17.5) L 06/22/16 07:25 Hct 34.7 % (39.0-53.0) L 06/22/16 07:25 MCV 95.9 fL (80.0-100.0) 06/22/16 07:25 MCH 30.1 pg (25.0-35.0) 06/22/16 07:25 MCHC 31.3 g/dL (31.0-37.0) 06/22/16 07:25 RDW 16.2 % (11.5-15.5) H 06/22/16 07:25 Plt Count 99 k/uL (150-450) L 06/22/16 07:25 Neutrophils % 83 % 06/22/16 07:25 Neutrophils % (Manual) 79.0 % 06/21/16 05:00 Band Neutrophils % 6.0 % 06/18/16 04:28 Lymphocytes % 10 % 06/22/16 07:25 Lymphocytes % (Manual) 10.0 % 06/21/16 05:00 Monocytes % 3 % 06/22/16 07:25 Monocytes % (Manual) 5.0 % 06/21/16 05:00 Eosinophils % 3 % 06/22/16 07:25 Eosinophils % (Manual) 6.0 % 06/21/16 05:00 Basophils % 0 % 06/22/16 07:25 Neutrophils # 11.4 k/uL (1.3-7.7) H 06/22/16 07:25 Neutrophils # (Manual) 11.5 k/uL (1.3-7.7) H 06/21/16 05:00 Lymphocytes # 1.3 k/uL (1.0-4.8) 06/22/16 07:25 Lymphocytes # (Manual) 1.5 k/uL (1.0-4.8) 06/21/16 05:00 Monocytes # 0.5 k/uL (0-1.0) 06/22/16 07:25 Monocytes # (Manual) 0.7 k/uL (0-1.0) 06/21/16 05:00 Eosinophils # 0.4 k/uL (0-0.7) 06/22/16 07:25 Eosinophils # (Manual) 0.9 k/uL (0-0.7) H 06/21/16 05:00 Basophils # 0.0 k/uL (0-0.2) 06/22/16 07:25 Nucleated RBCs 0 /100 WBC (0-0) 06/21/16 05:00 Manual Slide Review Performed 06/22/16 07:25 Toxic Granulation Present 06/18/16 04:28 Toxic Vacuolation Present 06/18/16 04:28 Dohle Bodies Present 06/18/16 04:28 Large Platelets Present 06/20/16 05:35 Hypochromasia Slight 06/22/16 07:25 Poikilocytosis (manual Present 06/18/16 04:28 Anisocytosis Slight 06/22/16 07:25 Anisocytosis (manual) Present 06/18/16 04:28 Macrocytosis Slight 06/16/16 05:40 PT 20.1 sec (9.0-12.0) H 06/16/16 04:14 INR 2.1 (<1.1) 06/16/16 04:14 APTT 40.2 sec (22.0-30.0) H 06/16/16 04:14 ABG Lactic Acid 1.7 mmol/L (0.5-1.6) H 06/19/16 04:50 Sodium 141 mmol/L (137-145) 06/22/16 07:25 Potassium 4.0 mmol/L (3.5-5.1) 06/22/16 07:25 Chloride 111 mmol/L (98-107) H 06/22/16 07:25 Carbon Dioxide 25 mmol/L (22-30) 06/22/16 07:25 Anion Gap 5 mmol/L 06/22/16 07:25 BUN 22 mg/dL (9-20) H 06/22/16 07:25 Creatinine 0.63 mg/dL (0.66-1.25) L 06/22/16 07:25 Est GFR (MDRD) Af Amer >60 (>60 ml/min/1.73 sqM) 06/22/16 07:25 Est GFR (MDRD) Non-Af >60 (>60 ml/min/1.73 sqM) 06/22/16 07:25 Glucose 79 mg/dL (74-99) 06/22/16 07:25 POC Glucose (mg/dL) 93 mg/dL (75-99) 06/22/16 20:03 POC Glu Manager [employer] Mi Beckwith 06/22/16 20:03 Insulin Level 8.4 mIU/mL (3.0-25.0) 06/20/16 05:35 C-Peptide 3.98 ng/mL (0.81-3.85) H 06/20/16 05:35 Plasma Lactic Acid Michael 1.0 mmol/L (0.7-2.0) 06/20/16 05:35 Calcium 7.8 mg/dL (8.4-10.2) L 06/22/16 07:25 Phosphorus 3.2 mg/dL (2.5-4.5) 06/22/16 07:25 Magnesium 1.7 mg/dL (1.6-2.3) 06/22/16 07:25 Total Bilirubin 0.8 mg/dL (0.2-1.3) 06/15/16 08:51 AST 28 U/L (17-59) 06/15/16 08:51 ALT 33 U/L (21-72) 06/15/16 08:51 Alkaline Phosphatase 166 U/L (38-126) H 06/15/16 08:51 Total Protein 5.7 g/dL (6.3-8.2) L 06/15/16 08:51 Albumin 2.6 g/dL (3.5-5.0) L 06/15/16 08:51 Lipase 50 U/L (23-300) 06/15/16 08:51 Cortisol >123 ug/dL 06/17/16 05:20 Urine Color Red 06/15/16 08:51 Urine Appearance Bloody (Clear) 06/15/16 08:51 Urine RBC >182 /hpf (0-5) H 06/15/16 08:51 Urine WBC >182 /hpf (0-5) H 06/15/16 08:51 Urine WBC Clumps Many /hpf (None) H 06/15/16 08:51 Urine Mucus Many /hpf (None) H 06/15/16 08:51 C. difficile (EIA) Intrp Negative (Negative) 06/17/16 08:42 Microbiology 06/17/16 18:51 Blood Blood Culture - Preliminary No Growth after 120 hours 06/17/16 18:50 Blood Blood Culture - Preliminary No Growth after 120 hours 06/15/16 08:51 Blood Blood Culture - Final 06/15/16 08:51 Blood Blood Culture Gram Stain - Final 06/15/16 08:51 Blood Blood Culture - Final Escherichia coli Proteus mirabilis Pseudomonas aeruginosa 06/15/16 08:51 Urine,Catheterized Urine Culture - Final Escherichia coli Assessment and Plan (1) Septic shock Narrative/Plan: 86-year-old male presents to Hospital feeling quite poorly presented with evidence of septic shock on the basis of obstructive uropathy. There is evidence of positive blood cultures with gram-negative bacilli as well as a positive urine culture. Review of prior culture shows evidence of Proteus mirabilis as a common agent in the past. However he is also had enterococcus and MSSA in his urine in the recent past. For antibiotic therapy piperacillin tazobactam was utilized to cover for the 3 recent pathogens. Given that E. coli was isolated antibiotic therapy changed to Rocephin, especially given his history of recent Clostridium difficile colitis. We'll monitor him for recurrence of the C. diff. He has just completed his course of vancomycin therapy. He is at high risk of relapse. Current C. diff testing is negative He does have acute renal failure with a peak creatinine of 1.72. Creatinine improved to 1.00 today He does have septic shock requiring multiple vasopressors. Receiving further fluid and will be receiving hydrocortisone to ensure there is not some adrenal insufficiency with his advanced age and current sepsis and multiple recent illnesses. Vasopressors have been weaned. Follow up blood cultures have been requested and are negative so far At admission the patient actually had leukopenia from his overwhelming sepsis and now has rebounded back to significant leukocytosis also on the basis of his significant sepsis. At 14.5 today. Creatinine is normalized. The blood cultures come positive for the Escherichia coli. It has however now been amended and there is also evidence of Proteus mirabilis and Pseudomonas aeruginosa. The intravenous antibiotic therapy will continue for now. Antibiotic therapy was altered to cefepime because of the polymicrobial blood culture. The follow up blood cultures are negative so far. The urine culture only has Escherichia coli. Patient has marked improvement today. As he improves will attempt to formulate a discharge plan for his antibiotic therapy. Status: Acute (2) Urinary tract infection Status: Acute (3) Pyonephrosis Status: Acute
[2016-06-22 23:49] LABS: Glucose,Whole Blood 87 mg/dL (75-99)
[2016-06-23] MEDS: DEXTROSE 4 GM CHEWABLE PO SCH ×6 (00:05→20:54)
[2016-06-23 04:17] LABS: Glucose,Whole Blood 83 mg/dL (75-99)
--- NOTE | 2016-06-23 07:59 | PN ---
DATE OF SERVICE: 06/22/2016 PRESENTING COMPLAINT: Septic shock. INTERVAL HISTORY: This patient with history of DVT, GERD, hyperlipidemia, enlarged prostate, chronic Henderson catheter presented with lactic acidosis, hypertensive and shock, also had an obstructive ureteral calculus, had a double-J catheter replaced. Patient also had diarrhea, negative for C. difficile. Patient had been on pressure support. Patient remains to be hypoglycemic. I increased the fluids to D10 yesterday. Patient is eating a bit better today. Sugars are still running a bit on the low side. Patient is talking. Review of systems done for constitutional, cardiovascular, GI, pulmonary; relevant findings as above. Current medications are reviewed and include IV Ceftazidime. On examination, temperature 97.1, pulse 59, respiration 18, blood pressure 95/41, pulse ox 95% on room air. GENERAL APPEARANCE: Lying in bed, tired -appearing. EYES: Pupils equal. Conjunctivae pale. NECK: JVD not raised. Mass not palpable. RESPIRATORY: Effort increased. Lungs, decreased breath sounds. CARDIOVASCULAR: First and second sounds normal. No edema. ABDOMEN: Soft, nontender. Liver and spleen not palpable. PSYCHIATRY: Awake. Answering questions. INVESTIGATIONS: Accu-Cheks noted; 69, 59, 90. White count 10.8, hemoglobin 10.9, BUN 22, creatinine 0.63. Repeat blood cultures from 06/17/16 are negative. ASSESSMENT: 1. Acute urinary tract infection with severe sepsis, present on admission. 2. Acute pyelonephritis causing septic shock and sepsis, present on admission, causing lactic acidosis with chronic Henderson catheter and right ureteral stone causing obstruction. 3. Positive urine culture, positive for Escherichia coli and blood cultures for Escherichia coli, Proteus mirabilis and Pseudomonas. 4. Chronic deep venous thrombosis, maintained on Xarelto. 5. Acute renal failure, possibly acute tubular necrosis from sepsis, present on admission, resolution. 6. Gastroesophageal reflux disease. 7. Hyperlipidemia. 8. Cystoscopy done for right double-J catheter stent placement. 9. Benign prostatic hypertrophy. 10. 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 11. Acute delirium, multifactorial, from underlying infection, improved. 12. Severe thrombocytopenia likely from sepsis, improving. 13. Persistent hypoglycemia with decreased oral intake. PLAN: At this point we will continue with the patient on D10 drip. Encouraged oral intake which is actually improving. Patient platelets are slowly coming up. Follow.
[2016-06-23 08:12] LABS: Glucose,Whole Blood 89 mg/dL (75-99)
[2016-06-23 08:37] LABS: Anion Gap 5 mmol/L; Blood Urea Nitrogen 20 mg/dL (9-20); Calcium 8.2 mg/dL (8.4-10.2); Carbon Dioxide 28 mmol/L (22-30); Chloride 109 mmol/L (98-107); Glucose 82 mg/dL (74-99); Magnesium 1.7 mg/dL (1.6-2.3); Non-African American GFR(MDRD) >60 (>60 ml/min/1.73 sqM); Phosphorous 3.2 mg/dL (2.5-4.5); Potassium 4.2 mmol/L (3.5-5.1); Sodium 142 mmol/L (137-145)
[2016-06-23] MEDS: LIDOCAINE 5% PATCH TOPICAL SCH (08:50)
[2016-06-23] MEDS: NYSTATIN 100,000 UNIT/ML SUSP 500,000 UNIT/5 ML CUP PO SCH ×4 (08:52→20:51)
[2016-06-23] MEDS: MAGNESIUM OXIDE 400 MG TAB PO SCH ×3 (08:52→20:51)
[2016-06-23] MEDS: PANTOPRAZOLE 40 MG TABLET PO SCH (08:53)
[2016-06-23] MEDS: LACTOBACILLUS ACIDOPH & BULGAR 1 EACH PACKET PO SCH ×3 (08:53→20:51)
[2016-06-23 09:32] LABS: Anisocytosis Slight; CH 29.4; HCT 34.9 % (39.0-53.0); HDW 2.39; HGB 11.1 gm/dL (13.0-17.5); Hypochromasia Slight; MCH 30.3 pg (25.0-35.0); MCHC 31.7 g/dL (31.0-37.0); MCV 95.4 fL (80.0-100.0); Mean Platelet Volume 9.6; RBC 3.66 m/uL (4.30-5.90); RDW 16.1 % (11.5-15.5); WBC 14.4 k/uL (3.8-10.6); WBC (Perox) 13.81
[2016-06-23 10:30] LABS: Add Differential Manual Differential
[2016-06-23 10:34] LABS: Metamyelocytes % 0.5 %; Nucleated Red Blood Cells 0 /100 WBC (0-0); Polychromasia Present; Total Cells Counted 200
[2016-06-23] MEDS: HYDROcodone/APAP 10-325MG 1 EACH TAB PO PRN (11:01)
[2016-06-23] MEDS: MULTIVITAMINS, THERA 1 EACH TAB PO SCH (12:10)
[2016-06-23 12:36] LABS: Glucose,Whole Blood 107 mg/dL (75-99)
[2016-06-23 16:51] LABS: Glucose,Whole Blood 91 mg/dL (75-99)
[2016-06-23] MEDS: FENOFIBRATE 160 MG TAB PO SCH (20:51)
[2016-06-23] MEDS: MIRTAZAPINE 15 MG TAB PO SCH (20:51)
[2016-06-23] MEDS: QUEtiapine 25 MG TAB PO SCH (20:51)
[2016-06-23] MEDS: ATORVASTATIN 10 MG TAB PO SCH (20:51)
[2016-06-23 21:05] LABS: Glucose,Whole Blood 192 mg/dL (75-99)
[2016-06-24 00:19] LABS: Glucose,Whole Blood 103 mg/dL (75-99)
[2016-06-24] MEDS: DEXTROSE 4 GM CHEWABLE PO SCH ×7 (02:30→23:57)
[2016-06-24 04:24] LABS: Glucose,Whole Blood 93 mg/dL (75-99)
[2016-06-24] MEDS: LIDOCAINE 5% PATCH TOPICAL SCH (09:11)
[2016-06-24] MEDS: MAGNESIUM OXIDE 400 MG TAB PO SCH ×3 (09:12→21:12)
[2016-06-24] MEDS: PANTOPRAZOLE 40 MG TABLET PO SCH (09:12)
[2016-06-24] MEDS: LACTOBACILLUS ACIDOPH & BULGAR 1 EACH PACKET PO SCH ×3 (09:12→21:14)
[2016-06-24] MEDS: NYSTATIN 100,000 UNIT/ML SUSP 500,000 UNIT/5 ML CUP PO SCH ×4 (09:12→21:13)
[2016-06-24] MEDS: HYDROcodone/APAP 10-325MG 1 EACH TAB PO PRN ×2 (09:13→23:57)
[2016-06-24 09:30] LABS: Glucose,Whole Blood 93 mg/dL (75-99)
--- NOTE | 2016-06-24 11:22 | PN ---
DATE OF SERVICE: 06/23/2016 PRESENTING COMPLAINT: Septic shock. INTERVAL HISTORY: This patient has history of DVT, GERD, hyperlipidemia, enlarged prostate chronic, Henderson catheter present, lactic acidosis, hypotensive shock. Also had obstructive ureteral calculus with a double-J catheter placed. Also diarrhea, stool is negative for C. diff. Patient's sugars have been running low, but patient is eating better today, looking more peppy. Sitting up in bed. Review of systems done for constitutional, cardiovascular, GI, pulmonary; relevant findings as above. Current medications are reviewed that include IV ceftazidime. On examination, temperature 97.8, pulse 73, respiratory 22, blood pressure 102/40, pulse ox 96% on room air. GENERAL APPEARANCE: Sitting up, more awake. EYES: Pupils equal, conjunctivae are pale. NECK: JVD not raised. Mass not palpable. Respiratory effort normal. LUNGS: Diminished breath sounds. CARDIOVASCULAR: First and second sounds normal. No edema. ABDOMEN: Soft, nontender. Liver and spleen not palpable. PSYCHIATRY: Awake, answering questions appropriately. INVESTIGATIONS: White count 14.4, hemoglobin 11.1, potassium 4.2. ASSESSMENT: 1. Acute urinary tract infection with severe sepsis, present on admission along with acute pyelonephritis, chronic septic shock, causing lactic acidosis from chronic Henderson catheter and right ureteral stone causing obstruction and cultures growing Escherichia coli and blood cultures positive for Escherichia coli and Proteus mirabilis pseudomonas. 2. Chronic deep venous thrombosis, maintained on Xarelto. 3. Acute renal failure, possibly acute tubular necrosis from sepsis present on admission, resolved. 4. Gastroesophageal reflux disease. 5. Hyperlipidemia. 6. Procedure: Cystoscopy done for a right double-J catheter stent placement. 7. Benign prostatic hypertrophy. 8. 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 9. Acute delirium, multifactorial, from underlying infection, improved. 10. Severe thrombocytopenia, likely from sepsis, improving. 11. Persistent hypoglycemia from decreased oral intake. Patient's sugars are definitely doing better as appetite is improving. Will keep the patient on D10 for right now. When sugars come up a bit more, than D10 can be removed.
[2016-06-24] MEDS: MULTIVITAMINS, THERA 1 EACH TAB PO SCH (12:13)
[2016-06-24 12:41] LABS: Glucose,Whole Blood 72 mg/dL (75-99)
--- NOTE | 2016-06-24 16:33 | P.PN ---
Subjective Principal diagnosis: Acute sepsis secondary to urinary tract infection with E. coli This is an 87-year-old gentleman who has a history of DVT, GERD, hyperlipidemia , enlarged prostate with home indwelling Henderson catheter. He presented to the emergency room this morning with complaints of problems with his catheter. He stated he hadn't been able to urinate since approximately 2:00 this morning. He is quite uncomfortable and felt as though he needed to void. They tried flushing the catheter at home in the outpatient setting with without success. He is making urine currently but it is quite bloody. The patient has also had increasing bilateral lower extremity edema and shortness of breath. He had a lactic acid of 5.7. In the ER he is found to be quite hypotensive and has received 3.5 L of 0.9 normal saline fluid boluses and required initiation of norepinephrine currently at 15 mcg/m. His chest x-ray revealed a mild left lower lobe infiltrate. He has been initiated on Zosyn and Levaquin. His white count is 1.1. Creatinine 1.53. 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 There is also noted prominent prostate. The patient is seen again today 06/24/2016 on the regular medical floor. He is more awake and alert today. He denies any worsening shortness of breath, cough or congestion. He is maintaining good O2 saturations in the 90s on room air. Currently afebrile. Hemodynamically stable. He is getting stronger. His appetite has improved. Objective - Vital Signs Vital signs: Vital Signs Temp 98.1 F 06/24/16 15:00 Pulse 68 06/24/16 15:00 Resp 20 06/24/16 15:00 BP 108/52 06/24/16 15:00 Pulse Ox 92 L 06/24/16 15:00 Intake & Output 06/23/16 06/24/16 06/24/16 18:59 06:59 18:59 Intake Total 895 360 Output Total 2500 2300 1600 Balance -9903 -4321 -6450 Weight 93.5 kg Intake: Oral 895 360 Output: Urine 2500 2300 1600 Other: Voiding Method Indwelling Catheter Indwelling Catheter Indwelling Catheter # Bowel Movements 1 0 ABP, PAP, CO, CI - Last Documented Arterial Blood Pressure 110/40 - Exam GENERAL EXAM: Awake, alert in no acute distress. Cachectic. HEAD: Normocephalic. EYES: Normal reaction of pupils, equal size. NOSE: Clear with pink turbinates. THROAT: No erythema or exudates. NECK: No masses, no JVD. CHEST: No chest wall deformity. LUNGS: Equal air entry with faint crackles in the posterior bases. CVS: S1 and S2 normal with no audible murmurs, regular rhythm. ABDOMEN: No hepatosplenomegaly, normal bowel sounds, no guarding or rigidity. Extremities: There is no significant peripheral edema. No clubbing, no cyanosis. Peripheral pulses are intact. - Labs CBC & Chem 7: 06/23/16 07:53 06/23/16 07:53 Labs: Abnormal Lab Results - Last 24 Hours (Table) 06/23/16 06/24/16 06/24/16 Range/Units 20:23 00:10 12:24 POC Glucose (mg/dL) 192 H 103 H 72 L (75-99) mg/dL Microbiology - Last 24 Hours (Table) 06/17/16 18:51 Blood Culture - Final Blood No Growth after 144 hours 06/17/16 18:50 Blood Culture - Final Blood No Growth after 144 hours Assessment and Plan Plan: Impression: #1 Acute sepsis secondary to urinary tract infection of E. coli and bacteremia of E. coli, Proteus mirabilis, Pseudomonas aeruginosa. Currently maintaining on ceftazidime. #2 Lactic acidosis secondary to above. 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 Status post double-J stent to the right. #4 History of DVT, maintained on Xarelto. #5 Acute renal failure, improved. #6 Leukocytosis secondary to #1. #7 Gastroesophageal reflux disease. #8 Hyperlipidemia. #9 Thrombocytopenia. Plan: The patient was seen and evaluated by Dr. Oneal. The patient is currently stable from the pulmonary and critical care standpoint. We'll continue with his current medications. PT is working with the patient. We will increase his activity as tolerated. We'll continue to follow and make further recommendations based on his clinical status.
[2016-06-24 16:39] LABS: Glucose,Whole Blood 46 mg/dL (75-99)
[2016-06-24 16:39] LABS: Glucose,Whole Blood 67 mg/dL (75-99)
--- NOTE | 2016-06-24 17:00 | P.PN ---
Subjective Principal diagnosis: Sepsis 86-year-old male who is known to the infectious disease service from his recent hospitalization where he had difficulties with urinary tract infection and the development of Clostridium difficile colitis. The colitis was being treated with vancomycin with significant improvement. The patient however developed significant fever generalized malaise and weakness. And upon presenting to the emergency center was found evidence of sepsis with shock. He was seen by urology and taken to the operating room where cystoscopy was performed. Double-J catheter was placed into the right collecting system for the pyelonephritis from the obstructive right ureteral calculus. Patient continues to have hypotension after fluid resuscitation requiring vasopressor therapy for his septic shock. Although is doing slightly better at this time. Patient's mentation is now much improved. Sitting upright reading the paper. Easily recognizes me by name. Easily states that he is a [facility]. is further improved , doing well since transfer out of the intensive care unit He is feeling considerably better. He remains with very clear mentation. Objective - Vital Signs Vital signs: Vital Signs Temp 98.1 F 06/24/16 15:00 Pulse 68 06/24/16 15:00 Resp 20 06/24/16 15:00 BP 108/52 06/24/16 15:00 Pulse Ox 92 L 06/24/16 15:00 Intake & Output 06/23/16 06/24/16 06/24/16 18:59 06:59 18:59 Intake Total 895 360 Output Total 2500 2300 1600 Balance -2500 -1405 -1240 Weight 93.5 kg Intake: Oral 895 360 Output: Urine 2500 2300 1600 Other: Voiding Method Indwelling Catheter Indwelling Catheter Indwelling Catheter # Bowel Movements 1 0 ABP, PAP, CO, CI - Last Documented Arterial Blood Pressure 110/40 - Exam 86-year-old male comfortable at this time. Cloudy urine is draining. No diarrhea has occurred HEENT: Anicteric conjunctiva are with pallor but moist nasal mucosa grossly intact without significant lesions, there is no thrush. Neck: The neck is supple without significant lymphadenopathy or thyromegaly. Lungs: Good bilateral air entry without significant crackles or wheezing. There is no significant bronchial sounds. There is no egophony or dullness. Heart: Irregular with an audible S1 and S2 without S4 no distinct murmur click or rub is noted. PMI is nondisplaced Abdomen: Nondistended, Positive bowel sounds soft and nontender without palpable masses or organomegaly. There was no guarding or rebound. Extremities: The upper extremities have excellent pulses they are symmetric, no significant petechiae or telangiectasia. No splinter hemorrhages were noted. The lower extremities are having improvement of the significant edema. The peripheral pulses were 2+ and symmetric. Neuro: Awake alert oriented to person place and time reading the newspaper - Labs CBC & Chem 7: 06/23/16 07:53 06/23/16 07:53 Labs: Abnormal Lab Results - Last 24 Hours (Table) 06/23/16 06/24/16 06/24/16 Range/Units 20:23 00:10 12:24 POC Glucose (mg/dL) 192 H 103 H 72 L (75-99) mg/dL 06/24/16 06/24/16 Range/Units 16:17 16:38 POC Glucose (mg/dL) 67 L 46 L (75-99) mg/dL Microbiology - Last 24 Hours (Table) 06/17/16 18:51 Blood Culture - Final Blood No Growth after 144 hours 06/17/16 18:50 Blood Culture - Final Blood No Growth after 144 hours Laboratory Results WBC 14.4 k/uL (3.8-10.6) H 06/23/16 07:53 RBC 3.66 m/uL (4.30-5.90) L 06/23/16 07:53 Hgb 11.1 gm/dL (13.0-17.5) L 06/23/16 07:53 Hct 34.9 % (39.0-53.0) L 06/23/16 07:53 MCV 95.4 fL (80.0-100.0) 06/23/16 07:53 MCH 30.3 pg (25.0-35.0) 06/23/16 07:53 MCHC 31.7 g/dL (31.0-37.0) 06/23/16 07:53 RDW 16.1 % (11.5-15.5) H 06/23/16 07:53 Plt Count 145 k/uL (150-450) L 06/23/16 07:53 Neutrophils % 83 % 06/22/16 07:25 Neutrophils % (Manual) 79.0 % 06/23/16 07:53 Band Neutrophils % 3.0 % 06/23/16 07:53 Lymphocytes % 10 % 06/22/16 07:25 Lymphocytes % (Manual) 9.0 % 06/23/16 07:53 Monocytes % 3 % 06/22/16 07:25 Monocytes % (Manual) 5.0 % 06/23/16 07:53 Eosinophils % 3 % 06/22/16 07:25 Eosinophils % (Manual) 2.5 % 06/23/16 07:53 Basophils % 0 % 06/22/16 07:25 Metamyelocytes % 0.5 % 06/23/16 07:53 Myelocytes % 1.0 % 06/23/16 07:53 Neutrophils # 11.4 k/uL (1.3-7.7) H 06/22/16 07:25 Neutrophils # (Manual) 11.8 k/uL (1.3-7.7) H 06/23/16 07:53 Lymphocytes # 1.3 k/uL (1.0-4.8) 06/22/16 07:25 Lymphocytes # (Manual) 1.3 k/uL (1.0-4.8) 06/23/16 07:53 Monocytes # 0.5 k/uL (0-1.0) 06/22/16 07:25 Monocytes # (Manual) 0.7 k/uL (0-1.0) 06/23/16 07:53 Eosinophils # 0.4 k/uL (0-0.7) 06/22/16 07:25 Eosinophils # (Manual) 0.4 k/uL (0-0.7) 06/23/16 07:53 Basophils # 0.0 k/uL (0-0.2) 06/22/16 07:25 Nucleated RBCs 0 /100 WBC (0-0) 06/23/16 07:53 Manual Slide Review Performed 06/22/16 07:25 Toxic Granulation Present 06/18/16 04:28 Toxic Vacuolation Present 06/18/16 04:28 Dohle Bodies Present 06/18/16 04:28 Large Platelets Present 06/20/16 05:35 Polychromasia Present 06/23/16 07:53 Hypochromasia Slight 06/23/16 07:53 Poikilocytosis (manual Present 06/23/16 07:53 Anisocytosis Slight 06/23/16 07:53 Anisocytosis (manual) Present 06/18/16 04:28 Macrocytosis Slight 06/16/16 05:40 PT 20.1 sec (9.0-12.0) H 06/16/16 04:14 INR 2.1 (<1.1) 06/16/16 04:14 APTT 40.2 sec (22.0-30.0) H 06/16/16 04:14 ABG Lactic Acid 1.7 mmol/L (0.5-1.6) H 06/19/16 04:50 Sodium 142 mmol/L (137-145) 06/23/16 07:53 Potassium 4.2 mmol/L (3.5-5.1) 06/23/16 07:53 Chloride 109 mmol/L (98-107) H 06/23/16 07:53 Carbon Dioxide 28 mmol/L (22-30) 06/23/16 07:53 Anion Gap 5 mmol/L 06/23/16 07:53 BUN 20 mg/dL (9-20) 06/23/16 07:53 Creatinine 0.66 mg/dL (0.66-1.25) 06/23/16 07:53 Est GFR (MDRD) Af Amer >60 (>60 ml/min/1.73 sqM) 06/23/16 07:53 Est GFR (MDRD) Non-Af >60 (>60 ml/min/1.73 sqM) 06/23/16 07:53 Glucose 82 mg/dL (74-99) 06/23/16 07:53 POC Glucose (mg/dL) 46 mg/dL (75-99) L 06/24/16 16:38 POC Glu Senior Environmental Practice Leader HARSHA Rachell Haq 06/24/16 16:38 Insulin Level 8.4 mIU/mL (3.0-25.0) 06/20/16 05:35 C-Peptide 3.98 ng/mL (0.81-3.85) H 06/20/16 05:35 Plasma Lactic Acid Michael 1.5 mmol/L (0.7-2.0) 06/23/16 17:45 Calcium 8.2 mg/dL (8.4-10.2) L 06/23/16 07:53 Phosphorus 3.2 mg/dL (2.5-4.5) 06/23/16 07:53 Magnesium 1.7 mg/dL (1.6-2.3) 06/23/16 07:53 Total Bilirubin 0.8 mg/dL (0.2-1.3) 06/15/16 08:51 AST 28 U/L (17-59) 06/15/16 08:51 ALT 33 U/L (21-72) 06/15/16 08:51 Alkaline Phosphatase 166 U/L (38-126) H 06/15/16 08:51 Total Protein 5.7 g/dL (6.3-8.2) L 06/15/16 08:51 Albumin 2.6 g/dL (3.5-5.0) L 06/15/16 08:51 Lipase 50 U/L (23-300) 06/15/16 08:51 Cortisol >123 ug/dL 06/17/16 05:20 Urine Color Red 06/15/16 08:51 Urine Appearance Bloody (Clear) 06/15/16 08:51 Urine RBC >182 /hpf (0-5) H 06/15/16 08:51 Urine WBC >182 /hpf (0-5) H 06/15/16 08:51 Urine WBC Clumps Many /hpf (None) H 06/15/16 08:51 Urine Mucus Many /hpf (None) H 06/15/16 08:51 C. difficile (EIA) Intrp Negative (Negative) 06/17/16 08:42 Microbiology 06/17/16 18:51 Blood Blood Culture - Final No Growth after 144 hours 06/17/16 18:50 Blood Blood Culture - Final No Growth after 144 hours 06/15/16 08:51 Blood Blood Culture - Final 06/15/16 08:51 Blood Blood Culture Gram Stain - Final 06/15/16 08:51 Blood Blood Culture - Final Escherichia coli Proteus mirabilis Pseudomonas aeruginosa 06/15/16 08:51 Urine,Catheterized Urine Culture - Final Escherichia coli Assessment and Plan (1) Septic shock Narrative/Plan: 86-year-old male presents to Hospital feeling quite poorly presented with evidence of septic shock on the basis of obstructive uropathy. There is evidence of positive blood cultures with gram-negative bacilli as well as a positive urine culture. Review of prior culture shows evidence of Proteus mirabilis as a common agent in the past. However he is also had enterococcus and MSSA in his urine in the recent past. For antibiotic therapy piperacillin tazobactam was utilized to cover for the 3 recent pathogens. Given that E. coli was isolated antibiotic therapy changed to Rocephin, especially given his history of recent Clostridium difficile colitis. We'll monitor him for recurrence of the C. diff. He has just completed his course of vancomycin therapy. He is at high risk of relapse. Current C. diff testing is negative He does have acute renal failure with a peak creatinine of 1.72. Creatinine improved to 1.00 today He does have septic shock requiring multiple vasopressors. Receiving further fluid and will be receiving hydrocortisone to ensure there is not some adrenal insufficiency with his advanced age and current sepsis and multiple recent illnesses. Vasopressors have been weaned. Follow up blood cultures have been requested and are negative so far At admission the patient actually had leukopenia from his overwhelming sepsis and now has rebounded back to significant leukocytosis also on the basis of his significant sepsis. At 14.5 today. Creatinine is normalized. The blood cultures come positive for the Escherichia coli. It has however now been amended and there is also evidence of Proteus mirabilis and Pseudomonas aeruginosa. The intravenous antibiotic therapy will continue for now. Antibiotic therapy was altered to cefepime because of the polymicrobial blood culture. The follow up blood cultures are negative so far. The urine culture only has Escherichia coli. Patient has marked improvement today. As he improves will need to complete his course of antibiotic therapy for his polymicrobial bacteremia. A 14 day course of therapy will be indicated. Status: Acute (2) Urinary tract infection Status: Acute (3) Pyonephrosis Status: Acute
[2016-06-24] MEDS ORDERED: DEXTROSE 50%-WATER 50 ML SYRINGE IVP ONE (17:07)
[2016-06-24 17:21] LABS: Glucose,Whole Blood 44 mg/dL (75-99)
[2016-06-24 17:31] LABS: Glucose,Whole Blood 44 mg/dL (75-99)
[2016-06-24] MEDS: DEXTROSE 10% IN WATER 1,000 ML in EMPTY BAG 1 BAG IV SCH (17:48)
[2016-06-24 17:49] LABS: Glucose,Whole Blood 35 mg/dL (75-99)
[2016-06-24 17:49] LABS: Glucose,Whole Blood 39 mg/dL (75-99)
[2016-06-24 18:15] LABS: Glucose,Whole Blood 108 mg/dL (75-99)
[2016-06-24 20:46] LABS: Glucose,Whole Blood 89 mg/dL (75-99)
[2016-06-24] MEDS: ATORVASTATIN 10 MG TAB PO SCH (21:12)
[2016-06-24] MEDS: QUEtiapine 25 MG TAB PO SCH (21:12)
[2016-06-24] MEDS: MIRTAZAPINE 15 MG TAB PO SCH (21:12)
[2016-06-24] MEDS: FENOFIBRATE 160 MG TAB PO SCH (21:12)
[2016-06-24] MEDS: FUROSEMIDE 10 MG/ML 4 ML VIAL IV SCH (21:14)
[2016-06-25 00:56] LABS: Glucose,Whole Blood 121 mg/dL (75-99)
[2016-06-25] MEDS: DEXTROSE 10% IN WATER 1,000 ML in EMPTY BAG 1 BAG IV SCH ×3 (03:04→23:19)
[2016-06-25] MEDS: DEXTROSE 4 GM CHEWABLE PO SCH ×6 (03:04→23:55)
[2016-06-25] MEDS: FUROSEMIDE 10 MG/ML 4 ML VIAL IV SCH ×3 (04:00→21:34)
[2016-06-25] MEDS: HYDROcodone/APAP 10-325MG 1 EACH TAB PO PRN (06:11)
[2016-06-25 06:40] LABS: Glucose,Whole Blood 232 mg/dL (75-99)
[2016-06-25 08:06] LABS: Glucose,Whole Blood 87 mg/dL (75-99)
[2016-06-25] MEDS: LIDOCAINE 5% PATCH TOPICAL SCH (08:29)
[2016-06-25] MEDS: MAGNESIUM OXIDE 400 MG TAB PO SCH ×2 (08:30→16:32)
[2016-06-25] MEDS: LACTOBACILLUS ACIDOPH & BULGAR 1 EACH PACKET PO SCH ×3 (08:30→21:32)
[2016-06-25] MEDS: PANTOPRAZOLE 40 MG TABLET PO SCH (08:30)
[2016-06-25] MEDS: NYSTATIN 100,000 UNIT/ML SUSP 500,000 UNIT/5 ML CUP PO SCH ×4 (08:30→21:32)
[2016-06-25 10:00] LABS: Anion Gap 8 mmol/L; Blood Urea Nitrogen 17 mg/dL (9-20); Calcium 8.7 mg/dL (8.4-10.2); Carbon Dioxide 29 mmol/L (22-30); Chloride 103 mmol/L (98-107); Glucose 98 mg/dL (74-99); Non-African American GFR(MDRD) >60 (>60 ml/min/1.73 sqM); Potassium 4.1 mmol/L (3.5-5.1); Sodium 140 mmol/L (137-145)
--- NOTE | 2016-06-25 10:57 | PN ---
DATE OF SERVICE: 06/24/2016 PRESENTING COMPLAINT: Septic shock. INTERVAL HISTORY: This patient has history of DVT, GERD, hyperlipidemia, enlarged prostate, chronic ( ) presented with lactic acidosis, hypertensive shock, also had obstructive ureteral calculus and double-J catheter. The patient continues to slowly improve. Eating better. Sugars are running low. I stopped the D10 but later in the day, patient again dropped his sugar hence I ordered D10 to be put back on board. Patient at the bedside. Patient needs full assistance to get the chair with physical therapy. Review of systems done for constitutional, cardiovascular, GI, pulmonary; relevant findings as above. Current medications are reviewed that include: IV ceftazidime, and D10. On examination, temperature 97.2, pulse 87, respirations 20, blood pressure 116/53, pulse ox 93% on room air. GENERAL APPEARANCE: Sitting in a chair, tired appearing. EYES: Pupils equal. Conjunctivae normal. NECK: JVD not raised. Mass not palpable. RESPIRATORY: Effort normal. LUNGS: Diminished breath sounds. CARDIOVASCULAR: First and second sounds normal. Edema present. ABDOMEN: Soft, nontender. Liver and spleen not palpable. PSYCHIATRY: Awake, answering questions. INVESTIGATIONS: Accu-Cheks have gone down from 192 to 103, 93, 72, 67. ASSESSMENT: 1. Acute urinary tract infection with severe sepsis, present on admission along with acute pyelonephritis, chronic septic shock causing lactic acidosis, from underlying chronic Henderson catheter and right ureteral stone causing obstruction and cultures growing Escherichia coli and blood cultures positive for E. coli, Proteus mirabilis, Pseudomonas. 2. Chronic deep venous thrombosis maintained on Xarelto. 3. Acute renal failure possible acute tubular necrosis present on admission resolved. 4. Gastroesophageal reflux disease. 5. Hyperlipidemia. 6. Procedure: Cystoscopy done for right double-J stent placement. 7. Benign prostatic hypertrophy. 8. 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 9. Acute delirium, multifactorial from underlying infection, improved. 10. Severe thrombus atelectasis sepsis improving. 11. Persistent hyperglycemia from decreased oral intake. PLAN: Patient last chest x-ray done from 3 days ago did show some venous prominence and give the edema we will order some IV Lasix, Luigi wraps. Patient has been put back on D10. Overall prognosis guarded. Care was discussed with the patient. Continue with therapy. We will also go ahead and order the 2D echo.
[2016-06-25 11:10] VITALS: BMI 29.2
[2016-06-25] MEDS: MULTIVITAMINS, THERA 1 EACH TAB PO SCH (12:04)
[2016-06-25] MEDS ORDERED: MENTHOL (NICE) LOZENGE MUCOUS MEM PRN (12:04)
--- NOTE | 2016-06-25 12:07 | ECHOF ---
Referral Reason:assess Lv function MEASUREMENTS -------- HEIGHT: 177.8 cm WEIGHT: 92.1 kg BP: 101/48 RVIDd: 3.6 cm (< 3.3) IVSd: 1.1 cm (0.6 - 1.1) LVIDd: 4.0 cm (3.9 - 5.3) LVPWd: 1.3 cm (0.6 - 1.1) IVSs: 1.5 cm LVIDs: 2.7 cm LVPWs: 2.1 cm LA Diam: 2.8 cm (2.7 - 3.8) Ao Diam: 3.4 cm (2.0 - 3.7) AV Cusp: 1.2 cm (1.5 - 2.6) MV EXCURSION: 27.614 mm (> 18.000) MV EF SLOPE: 166 mm/s (70 - 150) MV E Tino: 0.56 m/s MV DecT: 279 ms MV A Tino: 0.68 m/s MV E/A Ratio: 0.82 RAP: 5.00 mmHg RVSP: 21.14 mmHg FINDINGS -------- Sinus rhythm. This was a technically difficult study with suboptimal views. Pt. not able to turn due to pain. There is mild concentric left ventricular hypertrophy. Overall left ventricular systolic function is normal with, an EF between 55 - 60 %. The right ventricle is mildly enlarged. The left atrial size is normal. The right atrium is normal in size. Aortic valve is trileaflet and is mildly thickened. Mild mitral annular calcification present. Trace tricuspid regurgitation present. Pulmonic valve appears structurally normal. The aortic root size is normal. Normal inferior vena cava with normal inspiratory collapse consistent with estimated right atrial pressure of 5 mmHg. Echo free space may represent effusion or a pericardial fat pad. CONCLUSIONS -------- 1. Sinus rhythm. 2. Mild mitral annular calcification present. 3. Trace tricuspid regurgitation present. 4. Pulmonic valve appears structurally normal. 5. The aortic root size is normal. 6. Echo free space may represent effusion or a pericardial fat pad. 7. This was a technically difficult study with suboptimal views. 8. Pt. not able to turn due to pain. 9. There is mild concentric left ventricular hypertrophy. 10. Overall left ventricular systolic function is normal with, an EF between 55 - 60 %. 11. The right ventricle is mildly enlarged. 12. The left atrial size is normal. 13. The right atrium is normal in size. 14. Aortic valve is trileaflet and is mildly thickened. CONTINUOUS MINER OPERATOR: Mala Du RDCS
[2016-06-25 12:23] LABS: Glucose,Whole Blood 83 mg/dL (75-99)
--- NOTE | 2016-06-25 15:23 | P.PN ---
Subjective Principal diagnosis: Acute sepsis secondary to urinary tract infection with E. coli This is an 87-year-old gentleman who has a history of DVT, GERD, hyperlipidemia , enlarged prostate with home indwelling Henderson catheter. He presented to the emergency room this morning with complaints of problems with his catheter. He stated he hadn't been able to urinate since approximately 2:00 this morning. He is quite uncomfortable and felt as though he needed to void. They tried flushing the catheter at home in the outpatient setting with without success. He is making urine currently but it is quite bloody. The patient has also had increasing bilateral lower extremity edema and shortness of breath. He had a lactic acid of 5.7. In the ER he is found to be quite hypotensive and has received 3.5 L of 0.9 normal saline fluid boluses and required initiation of norepinephrine currently at 15 mcg/m. His chest x-ray revealed a mild left lower lobe infiltrate. He has been initiated on Zosyn and Levaquin. His white count is 1.1. Creatinine 1.53. 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 There is also noted prominent prostate. The patient is seen again today 06/25/2016 on the regular medical floor. He continues to improve daily, getting stronger. His appetite has improved. He denies any worsening shortness of breath, cough or congestion. He is maintaining good O2 saturations in the 90s on room air. Currently afebrile. Hemodynamically stable. Echocardiogram reveals preserved LV function. Objective - Vital Signs Vital signs: Vital Signs Temp 97.7 F 06/25/16 07:00 Pulse 69 06/25/16 07:00 Resp 16 06/25/16 07:00 BP 102/50 06/25/16 07:00 Pulse Ox 92 L 06/25/16 07:00 Intake & Output 06/24/16 06/25/16 06/25/16 18:59 06:59 18:59 Intake Total 360 1140 Output Total 1600 7650 Balance -2629 -4747 Weight 92.5 kg 92.5 kg Intake: Oral 360 1140 Output: Urine 1600 7650 Other: Voiding Method Indwelling Catheter Indwelling Catheter Indwelling Catheter # Bowel Movements 1 1 0 ABP, PAP, CO, CI - Last Documented Arterial Blood Pressure 110/40 - Exam GENERAL EXAM: Awake, alert in no acute distress. Cachectic. HEAD: Normocephalic. EYES: Normal reaction of pupils, equal size. NOSE: Clear with pink turbinates. THROAT: No erythema or exudates. NECK: No masses, no JVD. CHEST: No chest wall deformity. LUNGS: Equal air entry with faint crackles in the posterior bases. CVS: S1 and S2 normal with no audible murmurs, regular rhythm. ABDOMEN: No hepatosplenomegaly, normal bowel sounds, no guarding or rigidity. Extremities: There is no significant peripheral edema. No clubbing, no cyanosis. Peripheral pulses are intact. - Labs CBC & Chem 7: 06/23/16 07:53 06/25/16 08:47 Labs: Abnormal Lab Results - Last 24 Hours (Table) 06/24/16 06/24/16 06/24/16 Range/Units 16:17 16:38 17:02 POC Glucose (mg/dL) 67 L 46 L 44 L (75-99) mg/dL 06/24/16 06/24/16 06/24/16 Range/Units 17:21 17:25 17:40 POC Glucose (mg/dL) 44 L 39 L 35 L (75-99) mg/dL 06/24/16 06/25/16 06/25/16 Range/Units 18:00 00:46 06:38 POC Glucose (mg/dL) 108 H 121 H 232 H (75-99) mg/dL Assessment and Plan Plan: Impression: #1 Acute sepsis secondary to urinary tract infection of E. coli and bacteremia of E. coli, Proteus mirabilis, Pseudomonas aeruginosa. Currently maintaining on ceftazidime. #2 Lactic acidosis secondary to above. 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 Status post double-J stent to the right. #4 History of DVT, maintained on Xarelto. #5 Acute renal failure, improved. #6 Leukocytosis secondary to #1. #7 Gastroesophageal reflux disease. #8 Hyperlipidemia. #9 Thrombocytopenia. Plan: The patient was seen and evaluated by Dr. Oneal. Echocardiogram reveals preserved LV function. Renal function and electrolytes WNL. No pulmonary complaints. No O2 supplementation. We will increase his activity as tolerated. PT is working with the patient.
[2016-06-25 16:22] LABS: Glucose,Whole Blood 101 mg/dL (75-99)
[2016-06-25 20:08] LABS: Glucose,Whole Blood 106 mg/dL (75-99)
--- NOTE | 2016-06-25 20:24 | P.PN ---
Subjective Principal diagnosis: Sepsis 86-year-old male who is known to the infectious disease service from his recent hospitalization where he had difficulties with urinary tract infection and the development of Clostridium difficile colitis. The colitis was being treated with vancomycin with significant improvement. The patient however developed significant fever generalized malaise and weakness. And upon presenting to the emergency center was found evidence of sepsis with shock. He was seen by urology and taken to the operating room where cystoscopy was performed. Double-J catheter was placed into the right collecting system for the pyelonephritis from the obstructive right ureteral calculus. Patient continues to have hypotension after fluid resuscitation requiring vasopressor therapy for his septic shock. Although is doing slightly better at this time. Patient's mentation is now much improved. Sitting upright reading the paper. Easily recognizes me by name. Easily states that he is a [facility]. is further improved , doing well since transfer out of the intensive care unit He is feeling considerably better. He remains with very clear mentation. Objective - Vital Signs Vital signs: Vital Signs Temp 98.2 F 06/25/16 15:00 Pulse 73 06/25/16 15:00 Resp 18 06/25/16 15:00 BP 94/48 06/25/16 15:00 Pulse Ox 92 L 06/25/16 15:00 Intake & Output 06/25/16 06/25/16 06/26/16 06:59 18:59 06:59 Intake Total 1140 360 Output Total 7650 3400 Balance -2010 -4920 Weight 92.5 kg 92.5 kg Intake: Oral 1140 360 Output: Urine 7650 3400 Other: Voiding Method Indwelling Catheter Indwelling Catheter # Bowel Movements 1 1 ABP, PAP, CO, CI - Last Documented Arterial Blood Pressure 110/40 - Labs CBC & Chem 7: 06/23/16 07:53 06/25/16 08:47 Labs: Abnormal Lab Results - Last 24 Hours (Table) 06/25/16 06/25/16 06/25/16 Range/Units 00:46 06:38 16:02 POC Glucose (mg/dL) 121 H 232 H 101 H (75-99) mg/dL 06/25/16 Range/Units 20:05 POC Glucose (mg/dL) 106 H (75-99) mg/dL Assessment and Plan (1) Septic shock Narrative/Plan: 86-year-old male presents to Hospital feeling quite poorly presented with evidence of septic shock on the basis of obstructive uropathy. There is evidence of positive blood cultures with gram-negative bacilli as well as a positive urine culture. Review of prior culture shows evidence of Proteus mirabilis as a common agent in the past. However he is also had enterococcus and MSSA in his urine in the recent past. For antibiotic therapy piperacillin tazobactam was utilized to cover for the 3 recent pathogens. Given that E. coli was isolated antibiotic therapy changed to Rocephin, especially given his history of recent Clostridium difficile colitis. We'll monitor him for recurrence of the C. diff. He has just completed his course of vancomycin therapy. He is at high risk of relapse. Current C. diff testing is negative He does have acute renal failure with a peak creatinine of 1.72. Creatinine improved to 1.00 today He does have septic shock requiring multiple vasopressors. Receiving further fluid and will be receiving hydrocortisone to ensure there is not some adrenal insufficiency with his advanced age and current sepsis and multiple recent illnesses. Vasopressors have been weaned. Follow up blood cultures have been requested and are negative so far At admission the patient actually had leukopenia from his overwhelming sepsis and now has rebounded back to significant leukocytosis also on the basis of his significant sepsis. At 14.5 today. Creatinine is normalized. The blood cultures come positive for the Escherichia coli. It has however now been amended and there is also evidence of Proteus mirabilis and Pseudomonas aeruginosa. The intravenous antibiotic therapy will continue for now. Antibiotic therapy was altered to cefepime because of the polymicrobial blood culture. The follow up blood cultures are negative so far. The urine culture only has Escherichia coli. Patient has marked improvement today. As he improves will need to complete his course of antibiotic therapy for his polymicrobial bacteremia. A 14 day course of therapy will be indicated. He does have a triple-lumen catheter in place. If amenable to the primary care service selective this removed in PICC line placed. Status: Acute (2) Urinary tract infection Status: Acute (3) Pyonephrosis Status: Acute
[2016-06-25] MEDS: MIRTAZAPINE 15 MG TAB PO SCH (21:33)
[2016-06-25] MEDS: FENOFIBRATE 160 MG TAB PO SCH (21:33)
[2016-06-25] MEDS: ATORVASTATIN 10 MG TAB PO SCH (21:33)
[2016-06-25] MEDS: QUEtiapine 25 MG TAB PO SCH (21:34)
--- NOTE | 2016-06-25 23:13 | PN ---
DATE OF SERVICE: 06/25/2016 PRESENTING COMPLAINT: Septic shock. INTERVAL HISTORY: This is a patient with a history of DVT, GERD, hyperlipidemia, enlarged prostate. He presented with lactic acidosis, hypotensive shock; also had obstructive ureteral calculus. Double-J catheter was placed. Patient continues to improve slowly. Sugars had been running low; hence he was put back on a D10 drip. Oral intake has improved. Patient feels better. Edema is going down. Patient though remains feeling weak and tired. Review of systems done for constitutional, cardiovascular, GI, pulmonary; relevant findings as above. The patient did have a bowel movement. Current medications are reviewed that include IV ceftazidime from 06/15/16. On examination, temperature 98.2, pulse 73, respiration 18, blood pressure 94/48, pulse ox 92% on room air. GENERAL APPEARANCE: Lying in bed, awake. EYES: Pupils equal. Conjunctivae pale. NECK: JVD not raised. Mass not palpable. RESPIRATORY: Effort normal. LUNGS: Diminished breath sounds. CARDIOVASCULAR: First and second sounds normal. Edema is slightly decreased. ABDOMEN: Soft, nontender. Liver and spleen not palpable. PSYCHIATRY: Awake. Answering questions appropriately. INVESTIGATIONS: Potassium 4.1. BUN 17, creatinine 0.72. ProBNP is 1880. ASSESSMENT: 1. Acute urinary tract infection with severe sepsis, present on admission, along with acute pyelonephritis, chronic septic shock causing lactic acidosis from underlying chronic Henderson catheter and right ureteral stone causing obstruction; cultures growing Escherichia coli and blood cultures positive for Escherichia coli, Proteus mirabilis and pseudomonas. 2. Chronic deep venous thrombosis, maintained on Xarelto. 3. Acute renal failure, possibly acute tubular necrosis, present at admission, now resolved. 4. Gastroesophageal reflux disease. 5. Hyperlipidemia. 6. Procedure of cystoscopy done for right double-J stent placement. 7. Benign prostatic hypertrophy. 8. 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 9. Acute delirium, multifactorial, from underlying infection, resolved. 10. Persistent hypoglycemia from decreased oral intake, improved. 11. Severe thrombocytopenia, likely from sepsis, improved. PLAN: Overall the patient is doing much better. Patient will get a total of 14 days of antibiotics. I will repeat the patient's chest x-ray in the morning. Patient has diuresed rather well. Will follow.
[2016-06-26 00:06] LABS: Glucose,Whole Blood 120 mg/dL (75-99)
[2016-06-26] MEDS: DEXTROSE 4 GM CHEWABLE PO SCH ×5 (03:59→20:59)
[2016-06-26 04:02] LABS: Glucose,Whole Blood 115 mg/dL (75-99)
[2016-06-26] MEDS: FUROSEMIDE 10 MG/ML 4 ML VIAL IV SCH ×3 (04:02→20:59)
[2016-06-26 08:01] LABS: Glucose,Whole Blood 105 mg/dL (75-99)
[2016-06-26 09:16] LABS: Anisocytosis Slight; Basophils % (A) 0 %; CH 29.8; CHCM 31.7; Eosinophils # (A) 0.2 k/uL (0-0.7); Eosinophils % (A) 2 %; HCT 33.9 % (39.0-53.0); HDW 2.33; HGB 10.6 gm/dL (13.0-17.5); Luc # (Auto) 0.14; Luc % (Auto) 1; Lymphocytes % (A) 7 %; MCH 29.5 pg (25.0-35.0); MCHC 31.3 g/dL (31.0-37.0); MCV 94.4 fL (80.0-100.0); Mean Platelet Volume 7.9; Monocytes # (A) 0.5 k/uL (0-1.0); Monocytes % (A) 4 %; Neutrophils % (A) 87 %; WBC 13.9 k/uL (3.8-10.6); WBC (Perox) 13.13
[2016-06-26 09:19] LABS: Anion Gap 7 mmol/L; Blood Urea Nitrogen 17 mg/dL (9-20); Calcium 8.3 mg/dL (8.4-10.2); Carbon Dioxide 34 mmol/L (22-30); Chloride 98 mmol/L (98-107); Glucose 114 mg/dL (74-99); Non-African American GFR(MDRD) >60 (>60 ml/min/1.73 sqM); Potassium 3.6 mmol/L (3.5-5.1); Sodium 139 mmol/L (137-145)
[2016-06-26] MEDS: NYSTATIN 100,000 UNIT/ML SUSP 500,000 UNIT/5 ML CUP PO SCH ×4 (09:24→21:00)
[2016-06-26] MEDS: LIDOCAINE 5% PATCH TOPICAL SCH (09:24)
[2016-06-26] MEDS: PANTOPRAZOLE 40 MG TABLET PO SCH (09:25)
[2016-06-26] MEDS: MAGNESIUM OXIDE 400 MG TAB PO SCH ×3 (09:25→21:00)
[2016-06-26] MEDS: LACTOBACILLUS ACIDOPH & BULGAR 1 EACH PACKET PO SCH ×3 (09:25→21:00)
[2016-06-26] MEDS: DEXTROSE 10% IN WATER 1,000 ML in EMPTY BAG 1 BAG IV SCH ×2 (09:26→22:49)
[2016-06-26] MEDS: HYDROcodone/APAP 10-325MG 1 EACH TAB PO PRN (09:34)
[2016-06-26 09:37] LABS: INR 1.4 (<1.1)
[2016-06-26 12:08] LABS: Glucose,Whole Blood 104 mg/dL (75-99)
[2016-06-26] MEDS ORDERED: LIDOCAINE 2% INJ 20 MG/ML (20 ML MDV) ONE (12:18)
[2016-06-26] MEDS ORDERED: LIDOCAINE 2% INJ 20 MG/ML SQ ONE (12:47)
[2016-06-26] MEDS: MULTIVITAMINS, THERA 1 EACH TAB PO SCH (13:18)
--- NOTE | 2016-06-26 14:08 | IR ---
EXAMINATION TYPE: IR cvc insert >=5 years DATE OF EXAM: 06/26/2016 1:29 PM COMPARISON: NONE CLINICAL HISTORY: Infection Needs long-term intravenous access for antibiotics. PROCEDURE: After informed consent, the skin overlying the left brachial vein was localized with ultrasound and n oted to be compressible and patent. An ultrasound image was obtained and submitted on the patient's chart. The overlying skin was prepped and draped and Lidocaine was used for local anesthesia. A ski n jasson was made with a scalpel. Access was gained to the vein under ultrasound guidance with a 21 ga uge needle and a 0.018 inch wire was advanced. Access site was dilated with Peel-Away sheath and cat heter tailored to the appropriate length and advanced such that the distal tip is at the cavoatrial j unction. Spot image was obtained verifying placement. Catheter was fixed to the skin with suture an d a sterile dressing was placed following hemostasis. Catheter was aspirated and flushed with saline . Patient was discharged in stable condition without complication.Maximal barrier technique is utili zed. Ultrasound image is documented on the chart. Ultrasound used with sterile technique. Fluoro time and fluoroscopic images submitted to document procedure: Intraoperative C-arm image ernesto briones the procedure, 0.2 minutes fluoroscopy time IMPRESSION: STATUS POST ULTRASOUND AND FLUOROSCOPIC GUIDED PICC LINE PLACEMENT, READY FOR USE. THIS PROCEDURE WAS PERFORMED BY THE UNDERSIGNED.
--- NOTE | 2016-06-26 14:14 | XR ---
EXAMINATION TYPE: XR chest 1V DATE OF EXAM: 06/26/2016 1:55 PM COMPARISON: Prior chest x-ray 22 June 2016 HISTORY: Shortness of breath, urinary tract infection TECHNIQUE: Frontal of the chest is obtained, patient could not tolerate lateral view. FINDINGS: Right subclavian central venous catheter is in place, left-sided PICC line has been placed in the interval, distal tip coursing towards the cavoatrial junction level. Bandlike areas of increa sed attenuation are again noted within the lungs. Heart size is stable. Interstitium is increased. No evident pneumothorax. Difficult to exclude basilar effusion. Retrocardiac density is present. IMPRESSION: Correlate for possible volume overload, pulmonary venous hypertension and interstitial e kari, there may be basilar airspace disease versus atelectasis and associated effusion, follow-up rec ommended.
--- NOTE | 2016-06-26 15:51 | P.PN ---
Subjective Principal diagnosis: Acute sepsis secondary to urinary tract infection with E. coli This is an 87-year-old gentleman who has a history of DVT, GERD, hyperlipidemia , enlarged prostate with home indwelling Henderson catheter. He presented to the emergency room this morning with complaints of problems with his catheter. He stated he hadn't been able to urinate since approximately 2:00 this morning. He is quite uncomfortable and felt as though he needed to void. They tried flushing the catheter at home in the outpatient setting with without success. He is making urine currently but it is quite bloody. The patient has also had increasing bilateral lower extremity edema and shortness of breath. He had a lactic acid of 5.7. In the ER he is found to be quite hypotensive and has received 3.5 L of 0.9 normal saline fluid boluses and required initiation of norepinephrine currently at 15 mcg/m. His chest x-ray revealed a mild left lower lobe infiltrate. He has been initiated on Zosyn and Levaquin. His white count is 1.1. Creatinine 1.53. 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 There is also noted prominent prostate. The patient is seen again today 06/25/2016 on the regular medical floor. He continues to improve daily, getting stronger. His appetite has improved. He denies any worsening shortness of breath, cough or congestion. He is maintaining good O2 saturations in the 90s on room air. Currently afebrile. Hemodynamically stable. Echocardiogram reveals preserved LV function. He is seen again today in follow-up on 06/26/2016. He is awake and alert in no acute distress. He states he is feeling stronger today as compared to yesterday. Unfortunate, his significant back pain prevents him from getting up out of bed very easily. Physical therapy is working with him and was only able to dangle his legs at the bedside today. He denies any worsening shortness of breath, cough or congestion. He is maintaining O2 saturations in the mid 90s on room air. He's been afebrile. He is maintained on ceftazidime. studies chest x-ray revealed evidence of continued mild congestive heart failure. He remains on Lasix 40 mg every 8 hours. His renal function is stable. Objective - Vital Signs Vital signs: Vital Signs Temp 98.2 F 06/26/16 07:00 Pulse 77 06/26/16 07:00 Resp 20 06/26/16 07:00 BP 96/49 06/26/16 07:00 Pulse Ox 90 L 06/26/16 07:00 Intake & Output 06/25/16 06/26/16 06/26/16 18:59 06:59 18:59 Intake Total 360 240 Output Total 3400 5100 2175 Balance -3040 -5100 -1939 Weight 92.5 kg 83.5 kg Intake: Oral 360 240 Output: Urine 3400 5100 2175 Other: Voiding Method Indwelling Catheter Indwelling Catheter # Bowel Movements 1 1 ABP, PAP, CO, CI - Last Documented Arterial Blood Pressure 110/40 - Exam GENERAL EXAM: Awake, alert in no acute distress. Cachectic. HEAD: Normocephalic. EYES: Normal reaction of pupils, equal size. NOSE: Clear with pink turbinates. THROAT: No erythema or exudates. NECK: No masses, no JVD. CHEST: No chest wall deformity. LUNGS: Equal air entry with faint crackles, few scattered rhonchi in the posterior bases. CVS: S1 and S2 normal with no audible murmurs, regular rhythm. ABDOMEN: No hepatosplenomegaly, normal bowel sounds, no guarding or rigidity. Extremities: There is no significant peripheral edema. No clubbing, no cyanosis. Peripheral pulses are intact. - Labs CBC & Chem 7: 06/26/16 08:39 06/26/16 08:39 Labs: Abnormal Lab Results - Last 24 Hours (Table) 06/25/16 06/25/16 06/26/16 Range/Units 16:02 20:05 00:02 WBC (3.8-10.6) k/uL RBC (4.30-5.90) m/uL Hgb (13.0-17.5) gm/dL Hct (39.0-53.0) % RDW (11.5-15.5) % Neutrophils # (1.3-7.7) k/uL PT (9.0-12.0) sec Carbon Dioxide (22-30) mmol/L Glucose (74-99) mg/dL POC Glucose (mg/dL) 101 H 106 H 120 H (75-99) mg/dL Calcium (8.4-10.2) mg/dL 06/26/16 06/26/16 06/26/16 Range/Units 04:00 07:50 08:39 WBC (3.8-10.6) k/uL RBC (4.30-5.90) m/uL Hgb (13.0-17.5) gm/dL Hct (39.0-53.0) % RDW (11.5-15.5) % Neutrophils # (1.3-7.7) k/uL PT (9.0-12.0) sec Carbon Dioxide 34 H (22-30) mmol/L Glucose 114 H (74-99) mg/dL POC Glucose (mg/dL) 115 H 105 H (75-99) mg/dL Calcium 8.3 L (8.4-10.2) mg/dL 06/26/16 06/26/16 06/26/16 Range/Units 08:39 08:39 11:45 WBC 13.9 H (3.8-10.6) k/uL RBC 3.60 L (4.30-5.90) m/uL Hgb 10.6 L (13.0-17.5) gm/dL Hct 33.9 L (39.0-53.0) % RDW 16.0 H (11.5-15.5) % Neutrophils # 12.0 H (1.3-7.7) k/uL PT 14.0 H (9.0-12.0) sec Carbon Dioxide (22-30) mmol/L Glucose (74-99) mg/dL POC Glucose (mg/dL) 104 H (75-99) mg/dL Calcium (8.4-10.2) mg/dL Assessment and Plan Plan: Impression: #1 Acute sepsis secondary to urinary tract infection of E. coli and bacteremia of E. coli, Proteus mirabilis, Pseudomonas aeruginosa. Currently maintaining on ceftazidime. #2 Lactic acidosis secondary to above. 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 Status post double-J stent to the right. #4 History of DVT, maintained on Xarelto. #5 Acute renal failure, improved. #6 Leukocytosis secondary to #1. #7 Gastroesophageal reflux disease. #8 Hyperlipidemia. #9 Thrombocytopenia. Plan: The patient was seen and evaluated by Dr. Oneal. His chest x-ray and labs were reviewed. We'll continue with diuretics. He remains on antibiotics in the form of ceftazidime. No pulmonary complaints. No O2 supplementation. We will increase his activity as tolerated. PT is working with the patient. We will follow the patient on as-needed basis.
[2016-06-26 16:34] LABS: Glucose,Whole Blood 124 mg/dL (75-99)
[2016-06-26] MEDS: ATORVASTATIN 10 MG TAB PO SCH (20:59)
[2016-06-26] MEDS: FENOFIBRATE 160 MG TAB PO SCH (20:59)
[2016-06-26 21:00] LABS: Glucose,Whole Blood 116 mg/dL (75-99)
[2016-06-26] MEDS: QUEtiapine 25 MG TAB PO SCH (21:00)
[2016-06-26] MEDS: MIRTAZAPINE 15 MG TAB PO SCH (21:00)
--- NOTE | 2016-06-26 23:05 | P.PN ---
Subjective Principal diagnosis: Sepsis 86-year-old male who is known to the infectious disease service from his recent hospitalization where he had difficulties with urinary tract infection and the development of Clostridium difficile colitis. The colitis was being treated with vancomycin with significant improvement. The patient however developed significant fever generalized malaise and weakness. And upon presenting to the emergency center was found evidence of sepsis with shock. He was seen by urology and taken to the operating room where cystoscopy was performed. Double-J catheter was placed into the right collecting system for the pyelonephritis from the obstructive right ureteral calculus. Patient continues to have hypotension after fluid resuscitation requiring vasopressor therapy for his septic shock. Although is doing slightly better at this time. Patient's mentation is now much improved. Sitting upright reading the paper. Easily recognizes me by name. Easily states that he is a [facility]. is further improved , doing well since transfer out of the intensive care unit He is feeling considerably better. He remains with very clear mentation. Objective - Vital Signs Vital signs: Vital Signs Temp 97.5 F L 06/26/16 15:00 Pulse 77 06/26/16 15:00 Resp 20 06/26/16 15:00 BP 94/52 06/26/16 15:00 Pulse Ox 90 L 06/26/16 15:00 Intake & Output 06/26/16 06/26/16 06/27/16 06:59 18:59 06:59 Intake Total 480 Output Total 5100 2775 Balance -5100 -2297 Weight 83.5 kg Intake: Oral 480 Output: Urine 5100 2775 Other: Voiding Method Indwelling Catheter # Bowel Movements 2 ABP, PAP, CO, CI - Last Documented Arterial Blood Pressure 110/40 - Exam 86-year-old male comfortable at this time. No diarrhea has occurred patient has shaved today feels better overall HEENT: Anicteric conjunctiva are with pallor but moist nasal mucosa grossly intact without significant lesions, there is no thrush. Neck: The neck is supple without significant lymphadenopathy or thyromegaly. Lungs: Good bilateral air entry without significant crackles or wheezing. There is no significant bronchial sounds. There is no egophony or dullness. Heart: Irregular with an audible S1 and S2 without S4 no distinct murmur click or rub is noted. PMI is nondisplaced Abdomen: Nondistended, Positive bowel sounds soft and nontender without palpable masses or organomegaly. There was no guarding or rebound. Extremities: The upper extremities have excellent pulses they are symmetric, no significant petechiae or telangiectasia. No splinter hemorrhages were noted. The lower extremities are having improvement of the significant edema. The peripheral pulses were 2+ and symmetric. Neuro: Awake alert oriented to person place and time reading the newspaper - Labs CBC & Chem 7: 06/26/16 08:39 06/26/16 08:39 Labs: Abnormal Lab Results - Last 24 Hours (Table) 06/26/16 06/26/16 06/26/16 Range/Units 00:02 04:00 07:50 WBC (3.8-10.6) k/uL RBC (4.30-5.90) m/uL Hgb (13.0-17.5) gm/dL Hct (39.0-53.0) % RDW (11.5-15.5) % Neutrophils # (1.3-7.7) k/uL PT (9.0-12.0) sec Carbon Dioxide (22-30) mmol/L Glucose (74-99) mg/dL POC Glucose (mg/dL) 120 H 115 H 105 H (75-99) mg/dL Calcium (8.4-10.2) mg/dL 06/26/16 06/26/16 06/26/16 Range/Units 08:39 08:39 08:39 WBC 13.9 H (3.8-10.6) k/uL RBC 3.60 L (4.30-5.90) m/uL Hgb 10.6 L (13.0-17.5) gm/dL Hct 33.9 L (39.0-53.0) % RDW 16.0 H (11.5-15.5) % Neutrophils # 12.0 H (1.3-7.7) k/uL PT 14.0 H (9.0-12.0) sec Carbon Dioxide 34 H (22-30) mmol/L Glucose 114 H (74-99) mg/dL POC Glucose (mg/dL) (75-99) mg/dL Calcium 8.3 L (8.4-10.2) mg/dL 06/26/16 06/26/16 06/26/16 Range/Units 11:45 16:22 20:15 WBC (3.8-10.6) k/uL RBC (4.30-5.90) m/uL Hgb (13.0-17.5) gm/dL Hct (39.0-53.0) % RDW (11.5-15.5) % Neutrophils # (1.3-7.7) k/uL PT (9.0-12.0) sec Carbon Dioxide (22-30) mmol/L Glucose (74-99) mg/dL POC Glucose (mg/dL) 104 H 124 H 116 H (75-99) mg/dL Calcium (8.4-10.2) mg/dL Laboratory Results WBC 13.9 k/uL (3.8-10.6) H 06/26/16 08:39 RBC 3.60 m/uL (4.30-5.90) L 06/26/16 08:39 Hgb 10.6 gm/dL (13.0-17.5) L 06/26/16 08:39 Hct 33.9 % (39.0-53.0) L 06/26/16 08:39 MCV 94.4 fL (80.0-100.0) 06/26/16 08:39 MCH 29.5 pg (25.0-35.0) 06/26/16 08:39 MCHC 31.3 g/dL (31.0-37.0) 06/26/16 08:39 RDW 16.0 % (11.5-15.5) H 06/26/16 08:39 Plt Count 367 k/uL (150-450) D 06/26/16 08:39 Neutrophils % 87 % 06/26/16 08:39 Neutrophils % (Manual) 79.0 % 06/23/16 07:53 Band Neutrophils % 3.0 % 06/23/16 07:53 Lymphocytes % 7 % 06/26/16 08:39 Lymphocytes % (Manual) 9.0 % 06/23/16 07:53 Monocytes % 4 % 06/26/16 08:39 Monocytes % (Manual) 5.0 % 06/23/16 07:53 Eosinophils % 2 % 06/26/16 08:39 Eosinophils % (Manual) 2.5 % 06/23/16 07:53 Basophils % 0 % 06/26/16 08:39 Metamyelocytes % 0.5 % 06/23/16 07:53 Myelocytes % 1.0 % 06/23/16 07:53 Neutrophils # 12.0 k/uL (1.3-7.7) H 06/26/16 08:39 Neutrophils # (Manual) 11.8 k/uL (1.3-7.7) H 06/23/16 07:53 Lymphocytes # 1.0 k/uL (1.0-4.8) 06/26/16 08:39 Lymphocytes # (Manual) 1.3 k/uL (1.0-4.8) 06/23/16 07:53 Monocytes # 0.5 k/uL (0-1.0) 06/26/16 08:39 Monocytes # (Manual) 0.7 k/uL (0-1.0) 06/23/16 07:53 Eosinophils # 0.2 k/uL (0-0.7) 06/26/16 08:39 Eosinophils # (Manual) 0.4 k/uL (0-0.7) 06/23/16 07:53 Basophils # 0.0 k/uL (0-0.2) 06/26/16 08:39 Nucleated RBCs 0 /100 WBC (0-0) 06/23/16 07:53 Manual Slide Review Performed 06/22/16 07:25 Toxic Granulation Present 06/18/16 04:28 Toxic Vacuolation Present 06/18/16 04:28 Dohle Bodies Present 06/18/16 04:28 Large Platelets Present 06/20/16 05:35 Polychromasia Present 06/23/16 07:53 Hypochromasia Slight 06/23/16 07:53 Poikilocytosis (manual Present 06/23/16 07:53 Anisocytosis Slight 06/26/16 08:39 Anisocytosis (manual) Present 06/18/16 04:28 Macrocytosis Slight 06/16/16 05:40 PT 14.0 sec (9.0-12.0) H 06/26/16 08:39 INR 1.4 (<1.1) 06/26/16 08:39 APTT 40.2 sec (22.0-30.0) H 06/16/16 04:14 ABG Lactic Acid 1.7 mmol/L (0.5-1.6) H 06/19/16 04:50 Sodium 139 mmol/L (137-145) 06/26/16 08:39 Potassium 3.6 mmol/L (3.5-5.1) 06/26/16 08:39 Chloride 98 mmol/L (98-107) 06/26/16 08:39 Carbon Dioxide 34 mmol/L (22-30) H 06/26/16 08:39 Anion Gap 7 mmol/L 06/26/16 08:39 BUN 17 mg/dL (9-20) 06/26/16 08:39 Creatinine 0.73 mg/dL (0.66-1.25) 06/26/16 08:39 Est GFR (MDRD) Af Amer >60 (>60 ml/min/1.73 sqM) 06/26/16 08:39 Est GFR (MDRD) Non-Af >60 (>60 ml/min/1.73 sqM) 06/26/16 08:39 Glucose 114 mg/dL (74-99) H 06/26/16 08:39 POC Glucose (mg/dL) 116 mg/dL (75-99) H 06/26/16 20:15 POC Glu [employer] Supervisor ID Tete Quintanilla 06/26/16 20:15 Insulin Level 8.4 mIU/mL (3.0-25.0) 06/20/16 05:35 C-Peptide 3.98 ng/mL (0.81-3.85) H 06/20/16 05:35 Plasma Lactic Acid Michael 1.5 mmol/L (0.7-2.0) 06/23/16 17:45 Calcium 8.3 mg/dL (8.4-10.2) L 06/26/16 08:39 Phosphorus 3.2 mg/dL (2.5-4.5) 06/23/16 07:53 Magnesium 1.7 mg/dL (1.6-2.3) 06/23/16 07:53 Total Bilirubin 0.8 mg/dL (0.2-1.3) 06/15/16 08:51 AST 28 U/L (17-59) 06/15/16 08:51 ALT 33 U/L (21-72) 06/15/16 08:51 Alkaline Phosphatase 166 U/L (38-126) H 06/15/16 08:51 NT-Pro-B Natriuret Pep 1880 pg/mL 06/25/16 08:50 Total Protein 5.7 g/dL (6.3-8.2) L 06/15/16 08:51 Albumin 2.6 g/dL (3.5-5.0) L 06/15/16 08:51 Lipase 50 U/L (23-300) 06/15/16 08:51 Cortisol >123 ug/dL 06/17/16 05:20 Urine Color Red 06/15/16 08:51 Urine Appearance Bloody (Clear) 06/15/16 08:51 Urine RBC >182 /hpf (0-5) H 06/15/16 08:51 Urine WBC >182 /hpf (0-5) H 06/15/16 08:51 Urine WBC Clumps Many /hpf (None) H 06/15/16 08:51 Urine Mucus Many /hpf (None) H 06/15/16 08:51 C. difficile (EIA) Intrp Negative (Negative) 06/17/16 08:42 Microbiology 06/17/16 18:51 Blood Blood Culture - Final No Growth after 144 hours 06/17/16 18:50 Blood Blood Culture - Final No Growth after 144 hours 06/15/16 08:51 Blood Blood Culture - Final 06/15/16 08:51 Blood Blood Culture Gram Stain - Final 06/15/16 08:51 Blood Blood Culture - Final Escherichia coli Proteus mirabilis Pseudomonas aeruginosa 06/15/16 08:51 Urine,Catheterized Urine Culture - Final Escherichia coli Assessment and Plan (1) Septic shock Narrative/Plan: 86-year-old male presents to Hospital feeling quite poorly presented with evidence of septic shock on the basis of obstructive uropathy. There is evidence of positive blood cultures with gram-negative bacilli as well as a positive urine culture. Review of prior culture shows evidence of Proteus mirabilis as a common agent in the past. However he is also had enterococcus and MSSA in his urine in the recent past. For antibiotic therapy piperacillin tazobactam was utilized to cover for the 3 recent pathogens. Given that E. coli was isolated antibiotic therapy changed to Rocephin, especially given his history of recent Clostridium difficile colitis. We'll monitor him for recurrence of the C. diff. He has just completed his course of vancomycin therapy. He is at high risk of relapse. Current C. diff testing is negative He does have acute renal failure with a peak creatinine of 1.72. Creatinine improved to 1.00 today He does have septic shock requiring multiple vasopressors. Receiving further fluid and will be receiving hydrocortisone to ensure there is not some adrenal insufficiency with his advanced age and current sepsis and multiple recent illnesses. Vasopressors have been weaned. Follow up blood cultures have been requested and are negative so far At admission the patient actually had leukopenia from his overwhelming sepsis and now has rebounded back to significant leukocytosis also on the basis of his significant sepsis. At 14.5 today. Creatinine is normalized. The blood cultures come positive for the Escherichia coli. It has however now been amended and there is also evidence of Proteus mirabilis and Pseudomonas aeruginosa. The intravenous antibiotic therapy will continue for now. Antibiotic therapy was altered to cefepime because of the polymicrobial blood culture. The follow up blood cultures are negative so far. The urine culture only has Escherichia coli. Patient has marked improvement today. As he improves will need to complete his course of antibiotic therapy for his polymicrobial bacteremia. A 14 day course of therapy will be indicated. He does have a triple-lumen catheter in place. PICC line has been placed. Triple-lumen to be removed. Status: Acute (2) Urinary tract infection Status: Acute (3) Pyonephrosis Status: Acute
[2016-06-27 00:14] LABS: Glucose,Whole Blood 224 mg/dL (75-99)
[2016-06-27] MEDS: HYDROcodone/APAP 10-325MG 1 EACH TAB PO PRN ×2 (04:14→11:14)
[2016-06-27 04:15] LABS: Glucose,Whole Blood 90 mg/dL (75-99)
[2016-06-27 07:40] LABS: Glucose,Whole Blood 97 mg/dL (75-99)
--- NOTE | 2016-06-27 08:19 | PN ---
DATE OF SERVICE: 06/26/2016 PRESENTING COMPLAINT: Septic shock. INTERVAL HISTORY: This is a patient with history of DVT, GERD, hyperlipidemia, enlarged prostate presented with lactic acidosis, hypotensive shock. Also had obstructive ureteral calculus, a double-J catheter was placed. Since patient's sugars have been running low, patient has been on a D10 drip. Oral intake continues to improve. The patient's remains a full assist. Review of systems done for constitutional, cardiovascular, GI, pulmonary; relevant findings as above. Current medications are reviewed that include IV ceftazidime. On examination, temperature 97.5, pulse 77, respiration 20, blood pressure 94/52, pulse ox 98% on room air. GENERAL APPEARANCE: Lying in bed, awake. EYES: Pupils equal. Conjunctivae normal. NECK: JVD not raised. Mass not palpable. RESPIRATORY: Effort ( ). LUNGS: Diminished breath sounds. CARDIOVASCULAR: First and second sounds normal. Edema decreased. ABDOMEN: Soft, nontender. PSYCHIATRY: Alert and oriented x3. Mood and affect normal. INVESTIGATIONS: White count 13.9, hemoglobin 10.6. Potassium 3.6. Accu-Cheks are noted. ASSESSMENT: 1. Acute urinary tract infection with severe sepsis present on admission along with acute pyelonephritis causing septic shock and lactic acidosis from underlying chronic Henderson catheter and right ureteral stone causing obstruction. Cultures growing Escherichia coli. Blood cultures positive for Escherichia coli, Proteus mirabilis and Pseudomonas. 2. Chronic deep venous thrombosis, maintained on Xarelto. 3. Acute renal failure, probably acute tubular necrosis, present on admission, now resolved. 4. Gastroesophageal reflux disease. 5. Hyperlipidemia. 6. Procedure of cystoscopy done with right double-J stent catheter placement. 7. Benign prostatic hypertrophy. 8. 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 9. Acute delirium, multifactorial, from underlying infection, resolved. 10. Persistent hypoglycemia from decreased oral intake, continues to improve. 11. Severe thrombocytopenia, likely from sepsis, improved. PLAN: Continue current medication and treatment plan. Patient will be getting ( ) days of total IV antibiotics. Patient's sugars are coming up. Will DC patient's D10 and see how he does.
[2016-06-27] MEDS: LIDOCAINE 5% PATCH TOPICAL SCH (08:49)
[2016-06-27] MEDS: LACTOBACILLUS ACIDOPH & BULGAR 1 EACH PACKET PO SCH ×3 (08:55→20:55)
[2016-06-27] MEDS: NYSTATIN 100,000 UNIT/ML SUSP 500,000 UNIT/5 ML CUP PO SCH ×4 (08:55→20:55)
[2016-06-27] MEDS: PANTOPRAZOLE 40 MG TABLET PO SCH (08:55)
[2016-06-27] MEDS: MAGNESIUM OXIDE 400 MG TAB PO SCH ×3 (08:56→20:55)
[2016-06-27 09:43] LABS: Anion Gap 5 mmol/L; Blood Urea Nitrogen 20 mg/dL (9-20); Calcium 8.3 mg/dL (8.4-10.2); Carbon Dioxide 36 mmol/L (22-30); Chloride 97 mmol/L (98-107); Glucose 73 mg/dL (74-99); Non-African American GFR(MDRD) >60 (>60 ml/min/1.73 sqM); Sodium 138 mmol/L (137-145)
[2016-06-27 09:53] LABS: Potassium 4.3 mmol/L (3.5-5.1)
[2016-06-27] MEDS: MULTIVITAMINS, THERA 1 EACH TAB PO SCH (12:15)
[2016-06-27 12:32] LABS: Glucose,Whole Blood 111 mg/dL (75-99)
[2016-06-27 16:15] LABS: Glucose,Whole Blood 112 mg/dL (75-99)
[2016-06-27] MEDS: FENOFIBRATE 160 MG TAB PO SCH (19:53)
[2016-06-27] MEDS: ATORVASTATIN 10 MG TAB PO SCH (19:53)
[2016-06-27] MEDS: MIRTAZAPINE 15 MG TAB PO SCH (19:54)
[2016-06-27] MEDS: QUEtiapine 25 MG TAB PO SCH (19:54)
[2016-06-27 20:06] LABS: Glucose,Whole Blood 84 mg/dL (75-99)
--- NOTE | 2016-06-27 22:27 | PN ---
DATE OF SERVICE: 06/27/2016 PRESENTING COMPLAINT: Septic shock. INTERVAL HISTORY: This patient has history of DVT, GERD, hyperlipidemia, enlarged prostate, presented with lactic acidosis, hypotensive shock, had obstructive ureteral calculus. A double-J catheter was placed. The patient did throw up a little bit today, feeling weak and tired. Review of systems done for constitutional, cardiovascular, GI, pulmonary; as above. Current medications are reviewed that include IV ceftazidime. On examination, temperature 97.9, pulse 58, respiration 18, blood pressure 90/45, pulse ox 92% on 2L. GENERAL: Lying in bed, tired-appearing. EYES: Pupils equal. Conjunctivae normal. NECK: JVD not raised. Mass not palpable. RESPIRATORY: Effort normal. LUNGS: Diminished breath sounds. CARDIOVASCULAR: First and second sounds normal. Edema decreased. ABDOMEN: Soft, nontender. PSYCHIATRY: Awake, answering questions. INVESTIGATIONS: Potassium 4.3, BUN and creatinine normal. Accu-Cheks are noted. ASSESSMENT: 1. Acute urinary tract infection with severe sepsis present on admission along with acute pyelonephritis causing septic shock/lactic acidosis from underlying chronic Henderson catheter and right ureteral stone causing obstruction. Cultures growing Escherichia coli and blood cultures positive for Escherichia coli, Proteus mirabilis and Pseudomonas. 2. Chronic deep venous thrombosis maintained on Xarelto. 3. Acute renal failure, probably acute tubular necrosis, present on admission, now resolved. 4. Gastroesophageal reflux disease. 5. Hyperlipidemia. 6. Procedure: Cystoscopy done for right double-J catheter stent placement. 7. Benign prostatic hypertrophy. 8. 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 9. Acute delirium, multifactorial, underlying infection, resolved. 10. Hypoglycemia from decreased oral intake, improving. 11. Severe thrombocytopenia, lactic acidosis, improving. PLAN: Patient is overall doing better. We will try to get the patient to ECF. Looking at probably [facility].
--- NOTE | 2016-06-27 23:12 | P.PN ---
Subjective Principal diagnosis: Sepsis 86-year-old male who is known to the infectious disease service from his recent hospitalization where he had difficulties with urinary tract infection and the development of Clostridium difficile colitis. The colitis was being treated with vancomycin with significant improvement. The patient however developed significant fever generalized malaise and weakness. And upon presenting to the emergency center was found evidence of sepsis with shock. He was seen by urology and taken to the operating room where cystoscopy was performed. Double-J catheter was placed into the right collecting system for the pyelonephritis from the obstructive right ureteral calculus. Patient continues to have hypotension after fluid resuscitation requiring vasopressor therapy for his septic shock. Although is doing slightly better at this time. Patient's mentation is now much improved. Sitting upright reading the paper. Easily recognizes me by name. Easily states that he is a [facility]. is further improved , doing well since transfer out of the intensive care unit He is feeling considerably better. He remains with very clear mentation. Objective - Vital Signs Vital signs: Vital Signs Temp 98.0 F 06/27/16 15:00 Pulse 72 06/27/16 15:00 Resp 18 06/27/16 15:00 BP 88/43 06/27/16 15:00 Pulse Ox 91 L 06/27/16 15:00 Intake & Output 06/27/16 06/27/16 06/28/16 06:59 18:59 06:59 Intake Total 200 360 Output Total 2700 700 Balance -2500 -340 Weight 75.5 kg Intake: Oral 200 360 Output: Urine 2700 700 Other: Voiding Method Indwelling Catheter Indwelling Catheter # Bowel Movements 1 ABP, PAP, CO, CI - Last Documented Arterial Blood Pressure 110/40 - Exam 86-year-old male comfortable at this time. No diarrhea has occurred patient has shaved today feels better overall HEENT: Anicteric conjunctiva are with pallor but moist nasal mucosa grossly intact without significant lesions, there is no thrush. Neck: The neck is supple without significant lymphadenopathy or thyromegaly. Lungs: Good bilateral air entry without significant crackles or wheezing. There is no significant bronchial sounds. There is no egophony or dullness. Heart: Irregular with an audible S1 and S2 without S4 no distinct murmur click or rub is noted. PMI is nondisplaced Abdomen: Nondistended, Positive bowel sounds soft and nontender without palpable masses or organomegaly. There was no guarding or rebound. Extremities: The upper extremities have excellent pulses they are symmetric, no significant petechiae or telangiectasia. No splinter hemorrhages were noted. The lower extremities are having improvement of the significant edema. The peripheral pulses were 2+ and symmetric. Neuro: Awake alert oriented to person place and time reading the newspaper - Labs CBC & Chem 7: 06/26/16 08:39 06/27/16 08:36 Labs: Abnormal Lab Results - Last 24 Hours (Table) 06/27/16 06/27/16 06/27/16 Range/Units 00:05 08:36 12:17 Chloride 97 L (98-107) mmol/L Carbon Dioxide 36 H (22-30) mmol/L Glucose 73 L (74-99) mg/dL POC Glucose (mg/dL) 224 H 111 H (75-99) mg/dL Calcium 8.3 L (8.4-10.2) mg/dL 06/27/16 Range/Units 16:13 Chloride (98-107) mmol/L Carbon Dioxide (22-30) mmol/L Glucose (74-99) mg/dL POC Glucose (mg/dL) 112 H (75-99) mg/dL Calcium (8.4-10.2) mg/dL Laboratory Results WBC 13.9 k/uL (3.8-10.6) H 06/26/16 08:39 RBC 3.60 m/uL (4.30-5.90) L 06/26/16 08:39 Hgb 10.6 gm/dL (13.0-17.5) L 06/26/16 08:39 Hct 33.9 % (39.0-53.0) L 06/26/16 08:39 MCV 94.4 fL (80.0-100.0) 06/26/16 08:39 MCH 29.5 pg (25.0-35.0) 06/26/16 08:39 MCHC 31.3 g/dL (31.0-37.0) 06/26/16 08:39 RDW 16.0 % (11.5-15.5) H 06/26/16 08:39 Plt Count 367 k/uL (150-450) D 06/26/16 08:39 Neutrophils % 87 % 06/26/16 08:39 Neutrophils % (Manual) 79.0 % 06/23/16 07:53 Band Neutrophils % 3.0 % 06/23/16 07:53 Lymphocytes % 7 % 06/26/16 08:39 Lymphocytes % (Manual) 9.0 % 06/23/16 07:53 Monocytes % 4 % 06/26/16 08:39 Monocytes % (Manual) 5.0 % 06/23/16 07:53 Eosinophils % 2 % 06/26/16 08:39 Eosinophils % (Manual) 2.5 % 06/23/16 07:53 Basophils % 0 % 06/26/16 08:39 Metamyelocytes % 0.5 % 06/23/16 07:53 Myelocytes % 1.0 % 06/23/16 07:53 Neutrophils # 12.0 k/uL (1.3-7.7) H 06/26/16 08:39 Neutrophils # (Manual) 11.8 k/uL (1.3-7.7) H 06/23/16 07:53 Lymphocytes # 1.0 k/uL (1.0-4.8) 06/26/16 08:39 Lymphocytes # (Manual) 1.3 k/uL (1.0-4.8) 06/23/16 07:53 Monocytes # 0.5 k/uL (0-1.0) 06/26/16 08:39 Monocytes # (Manual) 0.7 k/uL (0-1.0) 06/23/16 07:53 Eosinophils # 0.2 k/uL (0-0.7) 06/26/16 08:39 Eosinophils # (Manual) 0.4 k/uL (0-0.7) 06/23/16 07:53 Basophils # 0.0 k/uL (0-0.2) 06/26/16 08:39 Nucleated RBCs 0 /100 WBC (0-0) 06/23/16 07:53 Manual Slide Review Performed 06/22/16 07:25 Toxic Granulation Present 06/18/16 04:28 Toxic Vacuolation Present 06/18/16 04:28 Dohle Bodies Present 06/18/16 04:28 Large Platelets Present 06/20/16 05:35 Polychromasia Present 06/23/16 07:53 Hypochromasia Slight 06/23/16 07:53 Poikilocytosis (manual Present 06/23/16 07:53 Anisocytosis Slight 06/26/16 08:39 Anisocytosis (manual) Present 06/18/16 04:28 Macrocytosis Slight 06/16/16 05:40 PT 14.0 sec (9.0-12.0) H 06/26/16 08:39 INR 1.4 (<1.1) 06/26/16 08:39 APTT 40.2 sec (22.0-30.0) H 06/16/16 04:14 ABG Lactic Acid 1.7 mmol/L (0.5-1.6) H 06/19/16 04:50 Sodium 138 mmol/L (137-145) 06/27/16 08:36 Potassium 4.3 mmol/L (3.5-5.1) 06/27/16 08:36 Chloride 97 mmol/L (98-107) L 06/27/16 08:36 Carbon Dioxide 36 mmol/L (22-30) H 06/27/16 08:36 Anion Gap 5 mmol/L 06/27/16 08:36 BUN 20 mg/dL (9-20) 06/27/16 08:36 Creatinine 0.70 mg/dL (0.66-1.25) 06/27/16 08:36 Est GFR (MDRD) Af Amer >60 (>60 ml/min/1.73 sqM) 06/27/16 08:36 Est GFR (MDRD) Non-Af >60 (>60 ml/min/1.73 sqM) 06/27/16 08:36 Glucose 73 mg/dL (74-99) L 06/27/16 08:36 POC Glucose (mg/dL) 84 mg/dL (75-99) 06/27/16 20:05 POC Glu Front Desk Monitor Sweta Schumacher 06/27/16 20:05 Insulin Level 8.4 mIU/mL (3.0-25.0) 06/20/16 05:35 C-Peptide 3.98 ng/mL (0.81-3.85) H 06/20/16 05:35 Plasma Lactic Acid Michael 1.5 mmol/L (0.7-2.0) 06/23/16 17:45 Calcium 8.3 mg/dL (8.4-10.2) L 06/27/16 08:36 Phosphorus 3.2 mg/dL (2.5-4.5) 06/23/16 07:53 Magnesium 2.0 mg/dL (1.6-2.3) 06/27/16 08:36 Total Bilirubin 0.8 mg/dL (0.2-1.3) 06/15/16 08:51 AST 28 U/L (17-59) 06/15/16 08:51 ALT 33 U/L (21-72) 06/15/16 08:51 Alkaline Phosphatase 166 U/L (38-126) H 06/15/16 08:51 NT-Pro-B Natriuret Pep 1880 pg/mL 06/25/16 08:50 Total Protein 5.7 g/dL (6.3-8.2) L 06/15/16 08:51 Albumin 2.6 g/dL (3.5-5.0) L 06/15/16 08:51 Lipase 50 U/L (23-300) 06/15/16 08:51 Cortisol >123 ug/dL 06/17/16 05:20 Urine Color Red 06/15/16 08:51 Urine Appearance Bloody (Clear) 06/15/16 08:51 Urine RBC >182 /hpf (0-5) H 06/15/16 08:51 Urine WBC >182 /hpf (0-5) H 06/15/16 08:51 Urine WBC Clumps Many /hpf (None) H 06/15/16 08:51 Urine Mucus Many /hpf (None) H 06/15/16 08:51 C. difficile (EIA) Intrp Negative (Negative) 06/17/16 08:42 Microbiology 06/17/16 18:51 Blood Blood Culture - Final No Growth after 144 hours 06/17/16 18:50 Blood Blood Culture - Final No Growth after 144 hours 06/15/16 08:51 Blood Blood Culture - Final 06/15/16 08:51 Blood Blood Culture Gram Stain - Final 06/15/16 08:51 Blood Blood Culture - Final Escherichia coli Proteus mirabilis Pseudomonas aeruginosa 06/15/16 08:51 Urine,Catheterized Urine Culture - Final Escherichia coli Assessment and Plan (1) Septic shock Narrative/Plan: 86-year-old male presents to Hospital feeling quite poorly presented with evidence of septic shock on the basis of obstructive uropathy. There is evidence of positive blood cultures with gram-negative bacilli as well as a positive urine culture. Review of prior culture shows evidence of Proteus mirabilis as a common agent in the past. However he is also had enterococcus and MSSA in his urine in the recent past. For antibiotic therapy piperacillin tazobactam was utilized to cover for the 3 recent pathogens. Given that E. coli was isolated antibiotic therapy changed to Rocephin, especially given his history of recent Clostridium difficile colitis. We'll monitor him for recurrence of the C. diff. He has just completed his course of vancomycin therapy. He is at high risk of relapse. Current C. diff testing is negative He does have acute renal failure with a peak creatinine of 1.72. Creatinine improved to 1.00 today He does have septic shock requiring multiple vasopressors. Receiving further fluid and will be receiving hydrocortisone to ensure there is not some adrenal insufficiency with his advanced age and current sepsis and multiple recent illnesses. Vasopressors have been weaned. Follow up blood cultures have been requested and are negative so far At admission the patient actually had leukopenia from his overwhelming sepsis and now has rebounded back to significant leukocytosis also on the basis of his significant sepsis. At 14.5 today. Creatinine is normalized. The blood cultures come positive for the Escherichia coli. It has however now been amended and there is also evidence of Proteus mirabilis and Pseudomonas aeruginosa. The intravenous antibiotic therapy will continue for now. Antibiotic therapy was altered to cefepime because of the polymicrobial blood culture. The follow up blood cultures are negative so far. The urine culture only has Escherichia coli. Patient has marked improvement today. As he improves will need to complete his course of antibiotic therapy for his polymicrobial bacteremia. A 14 day course of therapy will be indicated. And will be completed on 2016. He does have a triple-lumen catheter in place. PICC line has been placed. Triple-lumen removed. Status: Acute (2) Urinary tract infection Status: Acute (3) Pyonephrosis Status: Acute
[2016-06-28 00:22] LABS: Glucose,Whole Blood 104 mg/dL (75-99)
[2016-06-28 04:16] LABS: Glucose,Whole Blood 96 mg/dL (75-99)
[2016-06-28 08:00] LABS: Glucose,Whole Blood 72 mg/dL (75-99)
[2016-06-28] MEDS: PANTOPRAZOLE 40 MG TABLET PO SCH (10:01)
[2016-06-28] MEDS: NYSTATIN 100,000 UNIT/ML SUSP 500,000 UNIT/5 ML CUP PO SCH ×3 (10:01→18:00)
[2016-06-28] MEDS: MAGNESIUM OXIDE 400 MG TAB PO SCH ×2 (10:01→16:07)
[2016-06-28] MEDS: LACTOBACILLUS ACIDOPH & BULGAR 1 EACH PACKET PO SCH ×2 (10:01→16:07)
[2016-06-28] MEDS: LIDOCAINE 5% PATCH TOPICAL SCH (10:01)
[2016-06-28] MEDS: HYDROcodone/APAP 10-325MG 1 EACH TAB PO PRN (10:09)
[2016-06-28 12:28] LABS: Glucose,Whole Blood 100 mg/dL (75-99)
[2016-06-28] MEDS: MULTIVITAMINS, THERA 1 EACH TAB PO SCH (12:44)
[2016-06-28 13:40] VITALS: RESP 20
--- NOTE | 2016-06-28 15:39 | DS ---
DATE OF ADMISSION: 06/15/2016 DATE OF DISCHARGE: FINAL DIAGNOSIS(ES): 1. Acute urinary tract infection with severe sepsis, present on admission along with acute pyelonephritis causing septic shock, lactic acidosis from underlying chronic Henderson catheter and right ureteral stone causing obstruction. Urine culture is growing Escherichia coli and blood cultures positive for Escherichia coli Proteus mirabilis and Pseudomonas. 2. Chronic deep venous thromboses maintained on Xarelto. 3. Acute renal failure, probably acute tubular necrosis, present on admission, now resolved. 4. Gastroesophageal reflux disease. 5. Hyperlipidemia. 6. ( ) cystoscopy done for right double-J catheter stent placement. 7. Benign prostatic hypertrophy. 8. 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 9. Acute delirium multifactorial underlying infection, resolved. 10. Hypoglycemia from decreased oral intake. 11. Severe thrombocytopenia and lactic acid both improving. 12. Medical debility. CONSULTATIONS: 1. Dr. Wei infectious disease. 2. Dr. Zheng from critical care. 3. Dr. Encarnacion from urology. HOSPITAL COURSE: This pleasant gentleman with a history of deep venous thrombosis for which he is on Xarelto, has got a chronic Henderson catheter, was unable to urinate, uncomfortable and urine became bloody, became short of breath. Patient is found to be in hypertensive shock. Patient had a double-J stent placed for right ureteral stone. Patient's creatinine was up to 1.72. Did come down to 0 .7 by the time of discharge, the patient also was delirious, had cleared up, patient slowly getting better, but needing full assistance right now. Oral intake has been improving. Patient's Xarelto is being resumed. Patient did have a 2-D echocardiogram this shows preserved LV function. On the day of discharge, care was discussed with the patient and . Questions were answered. On exam, lungs decreased breath sounds. Psychiatry: Alert and oriented x3. ABDOMEN: Soft, nontender, chronic Henderson catheter. DISCHARGE MEDICATIONS: 1. Uroxatrol ER 10 mg p.o. daily. 2. Proscar 5 mg p.o. q.h.s. 3. Multivitamin 1 tablet p.o. daily. 4. TriCor 145 mg p.o. q.h.s. 5. Lovastatin 20 mg q.h.s. 6. Nexium 40 mg p.o. daily. 7. Singulair 10 mg q.h.s. 8. Xarelto 20 mg p.o. daily. 9. Flexeril 5 mg p.o. q.6 p.r.n. 10. Zofran 4 mg q.8 p.r.n. 11. Lactinex one packet p.o. t.i.d. 12. Nystatin 400,000 units p.o. q.i.d. 13. Sanborn 10, 1 tablet q.4 p.r.n. 14. Lidoderm 5% patch daily. 15. Magnesium oxide 400 mg p.o. t.i.d. 16. ( ) q.2 p.r.n. 17. Remeron 50 mg p.o. q.h.s. 10 tablets. 18. Seroquel 25 mg p.o. q.h.s. 19. Ceftazidime 2 grams IV piggyback q.8 until 07/04/2016 that is a total of 14 days. Follow up with Dr. Mcdaniels on 06/29/2016. DISPOSITION: [facility] Small. Follow up with Dr. Encarnacion in 2 weeks. Follow up with Dr. Wei in 2 weeks. Discharge planning more than 35 minutes.
[2016-06-28 16:06] VITALS: BP 116/55; PULSE 60; TEMP 97.1
[2016-06-28 16:18] LABS: Glucose,Whole Blood 89 mg/dL (75-99)
--- NOTE | 2016-06-28 17:50 | P.PN ---
Subjective Principal diagnosis: Sepsis 86-year-old male who is known to the infectious disease service from his recent hospitalization where he had difficulties with urinary tract infection and the development of Clostridium difficile colitis. The colitis was being treated with vancomycin with significant improvement. The patient however developed significant fever generalized malaise and weakness. And upon presenting to the emergency center was found evidence of sepsis with shock. He was seen by urology and taken to the operating room where cystoscopy was performed. Double-J catheter was placed into the right collecting system for the pyelonephritis from the obstructive right ureteral calculus. Patient continues to have hypotension after fluid resuscitation requiring vasopressor therapy for his septic shock. Although is doing slightly better at this time. Patient's mentation is now much improved. Sitting upright reading the paper. Easily recognizes me by name. Easily states that he is a [facility]. is further improved , looking forward to going to rehab He is feeling considerably better. He remains with very clear mentation. Objective - Vital Signs Vital signs: Vital Signs Temp 97.1 F L 06/28/16 15:00 Pulse 60 06/28/16 15:00 Resp 20 06/28/16 15:39 BP 116/55 06/28/16 15:00 Pulse Ox 93 L 06/28/16 15:00 Intake & Output 06/27/16 06/28/16 06/28/16 18:59 06:59 18:59 Intake Total 360 Output Total 700 1225 Balance -340 -1225 Weight 77.5 kg Intake: Oral 360 Output: Urine 700 1225 Other: Voiding Method Indwelling Catheter Indwelling Catheter Indwelling Catheter # Voids 1 # Bowel Movements 1 1 ABP, PAP, CO, CI - Last Documented Arterial Blood Pressure 110/40 - Exam 86-year-old male comfortable at this time. No diarrhea has occurred patient has shaved today feels better overall HEENT: Anicteric conjunctiva are with pallor but moist nasal mucosa grossly intact without significant lesions, there is no thrush. Neck: The neck is supple without significant lymphadenopathy or thyromegaly. Lungs: Good bilateral air entry without significant crackles or wheezing. There is no significant bronchial sounds. There is no egophony or dullness. Heart: Irregular with an audible S1 and S2 without S4 no distinct murmur click or rub is noted. PMI is nondisplaced Abdomen: Nondistended, Positive bowel sounds soft and nontender without palpable masses or organomegaly. There was no guarding or rebound. Extremities: The upper extremities have excellent pulses they are symmetric, no significant petechiae or telangiectasia. No splinter hemorrhages were noted. The lower extremities are having improvement of the significant edema. The peripheral pulses were 2+ and symmetric. Neuro: Awake alert oriented to person place and time reading the newspaper - Labs CBC & Chem 7: 06/26/16 08:39 06/27/16 08:36 Labs: Abnormal Lab Results - Last 24 Hours (Table) 06/28/16 06/28/16 06/28/16 Range/Units 00:05 07:56 12:26 POC Glucose (mg/dL) 104 H 72 L 100 H (75-99) mg/dL Laboratory Results WBC 13.9 k/uL (3.8-10.6) H 06/26/16 08:39 RBC 3.60 m/uL (4.30-5.90) L 06/26/16 08:39 Hgb 10.6 gm/dL (13.0-17.5) L 06/26/16 08:39 Hct 33.9 % (39.0-53.0) L 06/26/16 08:39 MCV 94.4 fL (80.0-100.0) 06/26/16 08:39 MCH 29.5 pg (25.0-35.0) 06/26/16 08:39 MCHC 31.3 g/dL (31.0-37.0) 06/26/16 08:39 RDW 16.0 % (11.5-15.5) H 06/26/16 08:39 Plt Count 367 k/uL (150-450) D 06/26/16 08:39 Neutrophils % 87 % 06/26/16 08:39 Neutrophils % (Manual) 79.0 % 06/23/16 07:53 Band Neutrophils % 3.0 % 06/23/16 07:53 Lymphocytes % 7 % 06/26/16 08:39 Lymphocytes % (Manual) 9.0 % 06/23/16 07:53 Monocytes % 4 % 06/26/16 08:39 Monocytes % (Manual) 5.0 % 06/23/16 07:53 Eosinophils % 2 % 06/26/16 08:39 Eosinophils % (Manual) 2.5 % 06/23/16 07:53 Basophils % 0 % 06/26/16 08:39 Metamyelocytes % 0.5 % 06/23/16 07:53 Myelocytes % 1.0 % 06/23/16 07:53 Neutrophils # 12.0 k/uL (1.3-7.7) H 06/26/16 08:39 Neutrophils # (Manual) 11.8 k/uL (1.3-7.7) H 06/23/16 07:53 Lymphocytes # 1.0 k/uL (1.0-4.8) 06/26/16 08:39 Lymphocytes # (Manual) 1.3 k/uL (1.0-4.8) 06/23/16 07:53 Monocytes # 0.5 k/uL (0-1.0) 06/26/16 08:39 Monocytes # (Manual) 0.7 k/uL (0-1.0) 06/23/16 07:53 Eosinophils # 0.2 k/uL (0-0.7) 06/26/16 08:39 Eosinophils # (Manual) 0.4 k/uL (0-0.7) 06/23/16 07:53 Basophils # 0.0 k/uL (0-0.2) 06/26/16 08:39 Nucleated RBCs 0 /100 WBC (0-0) 06/23/16 07:53 Manual Slide Review Performed 06/22/16 07:25 Toxic Granulation Present 06/18/16 04:28 Toxic Vacuolation Present 06/18/16 04:28 Dohle Bodies Present 06/18/16 04:28 Large Platelets Present 06/20/16 05:35 Polychromasia Present 06/23/16 07:53 Hypochromasia Slight 06/23/16 07:53 Poikilocytosis (manual Present 06/23/16 07:53 Anisocytosis Slight 06/26/16 08:39 Anisocytosis (manual) Present 06/18/16 04:28 Macrocytosis Slight 06/16/16 05:40 PT 14.0 sec (9.0-12.0) H 06/26/16 08:39 INR 1.4 (<1.1) 06/26/16 08:39 APTT 40.2 sec (22.0-30.0) H 06/16/16 04:14 ABG Lactic Acid 1.7 mmol/L (0.5-1.6) H 06/19/16 04:50 Sodium 138 mmol/L (137-145) 06/27/16 08:36 Potassium 4.3 mmol/L (3.5-5.1) 06/27/16 08:36 Chloride 97 mmol/L (98-107) L 06/27/16 08:36 Carbon Dioxide 36 mmol/L (22-30) H 06/27/16 08:36 Anion Gap 5 mmol/L 06/27/16 08:36 BUN 20 mg/dL (9-20) 06/27/16 08:36 Creatinine 0.70 mg/dL (0.66-1.25) 06/27/16 08:36 Est GFR (MDRD) Af Amer >60 (>60 ml/min/1.73 sqM) 06/27/16 08:36 Est GFR (MDRD) Non-Af >60 (>60 ml/min/1.73 sqM) 06/27/16 08:36 Glucose 73 mg/dL (74-99) L 06/27/16 08:36 POC Glucose (mg/dL) 89 mg/dL (75-99) 06/28/16 16:16 POC Glu Library Services Coordinator HARSHA Gaye Leonard 06/28/16 16:16 Insulin Level 8.4 mIU/mL (3.0-25.0) 06/20/16 05:35 C-Peptide 3.98 ng/mL (0.81-3.85) H 06/20/16 05:35 Plasma Lactic Acid Michael 1.5 mmol/L (0.7-2.0) 06/23/16 17:45 Calcium 8.3 mg/dL (8.4-10.2) L 06/27/16 08:36 Phosphorus 3.2 mg/dL (2.5-4.5) 06/23/16 07:53 Magnesium 2.0 mg/dL (1.6-2.3) 06/27/16 08:36 Total Bilirubin 0.8 mg/dL (0.2-1.3) 06/15/16 08:51 AST 28 U/L (17-59) 06/15/16 08:51 ALT 33 U/L (21-72) 06/15/16 08:51 Alkaline Phosphatase 166 U/L (38-126) H 06/15/16 08:51 NT-Pro-B Natriuret Pep 1880 pg/mL 06/25/16 08:50 Total Protein 5.7 g/dL (6.3-8.2) L 06/15/16 08:51 Albumin 2.6 g/dL (3.5-5.0) L 06/15/16 08:51 Lipase 50 U/L (23-300) 06/15/16 08:51 Cortisol >123 ug/dL 06/17/16 05:20 Urine Color Red 06/15/16 08:51 Urine Appearance Bloody (Clear) 06/15/16 08:51 Urine RBC >182 /hpf (0-5) H 06/15/16 08:51 Urine WBC >182 /hpf (0-5) H 06/15/16 08:51 Urine WBC Clumps Many /hpf (None) H 06/15/16 08:51 Urine Mucus Many /hpf (None) H 06/15/16 08:51 C. difficile (EIA) Intrp Negative (Negative) 06/17/16 08:42 Microbiology 06/17/16 18:51 Blood Blood Culture - Final No Growth after 144 hours 06/17/16 18:50 Blood Blood Culture - Final No Growth after 144 hours 06/15/16 08:51 Blood Blood Culture - Final 06/15/16 08:51 Blood Blood Culture Gram Stain - Final 06/15/16 08:51 Blood Blood Culture - Final Escherichia coli Proteus mirabilis Pseudomonas aeruginosa 06/15/16 08:51 Urine,Catheterized Urine Culture - Final Escherichia coli Assessment and Plan (1) Septic shock Narrative/Plan: 86-year-old male presents to Hospital feeling quite poorly presented with evidence of septic shock on the basis of obstructive uropathy. There is evidence of positive blood cultures with gram-negative bacilli as well as a positive urine culture. Review of prior culture shows evidence of Proteus mirabilis as a common agent in the past. However he is also had enterococcus and MSSA in his urine in the recent past. For antibiotic therapy piperacillin tazobactam was utilized to cover for the 3 recent pathogens. Given that E. coli was isolated antibiotic therapy changed to Rocephin, especially given his history of recent Clostridium difficile colitis. We'll monitor him for recurrence of the C. diff. He has just completed his course of vancomycin therapy. He is at high risk of relapse. Current C. diff testing is negative He does have acute renal failure with a peak creatinine of 1.72. Creatinine improved to 1.00 today He does have septic shock requiring multiple vasopressors. Receiving further fluid and will be receiving hydrocortisone to ensure there is not some adrenal insufficiency with his advanced age and current sepsis and multiple recent illnesses. Vasopressors have been weaned. Follow up blood cultures have been requested and are negative so far At admission the patient actually had leukopenia from his overwhelming sepsis and now has rebounded back to significant leukocytosis also on the basis of his significant sepsis. At 14.5 today. Creatinine is normalized. The blood cultures come positive for the Escherichia coli. It has however now been amended and there is also evidence of Proteus mirabilis and Pseudomonas aeruginosa. The intravenous antibiotic therapy will continue for now. Antibiotic therapy was altered to cefepime because of the polymicrobial blood culture. The follow up blood cultures are negative so far. The urine culture only has Escherichia coli. Patient has marked improvement today. As he improves will need to complete his course of antibiotic therapy for his polymicrobial bacteremia. A 14 day course of therapy will be indicated. And will be completed on 2016. Triple-lumen catheter was removed, PICC line is in place and is functioning well. At the end of his antibiotic therapy 4 days later should have a urinalysis and culture obtained. We can then determine the course of therapy for his antibiotics and his PICC line removal. Status: Acute (2) Urinary tract infection Status: Acute (3) Pyonephrosis Status: Acute
--- NOTE | 2016-07-11 19:46 | PN ---
ADDENDUM: DATE OF SERVICE: 06/23/2016 PLAN: Continue current medication and treatment plan. Patient D10 will be maintained. Patient continued to be monitored closely. Follow.
== END 2016-06-28 18:09 | DRG 698 ==
LOC: EC 07:01 → 6ICU 12:25 → 4MS4W 06-21 17:35
PROVIDERS: ADMIT Hospitalist; ATTEND Hospitalist
PROC: 05H533Z Insertion of Infusion Device into Right Subclavian Vein, Percutaneous Approach (ICD-10-PCS; 2016-06-15)
PROC: 0T768DZ Dilation of Right Ureter with Intraluminal Device, Via Natural or Artificial Opening Endoscopic (ICD-10-PCS; 2016-06-15)
PROC: 0T2BX0Z Change Drainage Device in Bladder, External Approach (ICD-10-PCS; 2016-06-15)
PROC: 02HV33Z Insertion of Infusion Device into Superior Vena Cava, Percutaneous Approach (ICD-10-PCS; principal; 2016-06-26 12:30)
DX: T83.511A Infection and inflammatory reaction due to indwelling urethral catheter, initial encounter (principal); N17.0 Acute kidney failure with tubular necrosis; A41.51 Sepsis due to Escherichia coli [E. coli]; R65.21 Severe sepsis with septic shock; N13.6 Pyonephrosis; E87.0 Hyperosmolality and hypernatremia; D69.59 Other secondary thrombocytopenia; R64 Cachexia; B96.4 Proteus (mirabilis) (morganii) as the cause of diseases classified elsewhere; E87.2 Acidosis; J84.9 Interstitial pulmonary disease, unspecified; N13.8 Other obstructive and reflux uropathy; F05 Delirium due to known physiological condition; N20.1 Calculus of ureter; I82.509 Chronic embolism and thrombosis of unspecified deep veins of unspecified lower extremity; E86.1 Hypovolemia; E86.0 Dehydration; Z66 Do not resuscitate; D72.819 Decreased white blood cell count, unspecified; J45.909 Unspecified asthma, uncomplicated; E16.2 Hypoglycemia, unspecified; I45.10 Unspecified right bundle-branch block; D63.8 Anemia in other chronic diseases classified elsewhere; R00.0 Tachycardia, unspecified; R73.9 Hyperglycemia, unspecified; N40.1 Benign prostatic hyperplasia with lower urinary tract symptoms; R53.1 Weakness; E87.70 Fluid overload, unspecified; R31.9 Hematuria, unspecified; B96.5 Pseudomonas (aeruginosa) (mallei) (pseudomallei) as the cause of diseases classified elsewhere; M79.89 Other specified soft tissue disorders; M47.819 Spondylosis without myelopathy or radiculopathy, site unspecified; E78.5 Hyperlipidemia, unspecified; K21.9 Gastro-esophageal reflux disease without esophagitis; G89.29 Other chronic pain; M21.372 Foot drop, left foot; M21.371 Foot drop, right foot; R06.02 Shortness of breath; Z79.01 Long term (current) use of anticoagulants; Z85.828 Personal history of other malignant neoplasm of skin; Z87.442 Personal history of urinary calculi; Z79.891 Long term (current) use of opiate analgesic; Z83.6 Family history of other diseases of the respiratory system; Z96.0 Presence of urogenital implants; Z79.899 Other long term (current) drug therapy; Z80.1 Family history of malignant neoplasm of trachea, bronchus and lung; Z80.0 Family history of malignant neoplasm of digestive organs; Z87.891 Personal history of nicotine dependence; Z68.24 Body mass index [BMI] 24.0-24.9, adult; Z74.01 Bed confinement status; Z87.440 Personal history of urinary (tract) infections; Z87.01 Personal history of pneumonia (recurrent); Z86.19 Personal history of other infectious and parasitic diseases; Z87.19 Personal history of other diseases of the digestive system; Z91.018 Allergy to other foods; Z91.048 Other nonmedicinal substance allergy status; Z87.448 Personal history of other diseases of urinary system; Z87.311 Personal history of (healed) other pathological fracture
CPT/HCPCS: 36415; 36556; 36569; 36620; 51702; 51798; 71010; 71020; 74000; 74176; 76937; 77001; 80048; 80053; 80299; 81001; 82533; 83525; 83605; 83690; 83735; 83880; 84100; 84132; 84681; 85025; 85610; 85730; 87040; 87077; 87086; 87186; 93005; 93306; 96361; 96365; 96366; 96375; 99285

== ENCOUNTER 2016-07-31 18:09 | Emergency (ER) | payer MEDICARE, OTHER ==
--- NOTE | 2016-07-31 19:15 | ED ---
General Adult HPI - General Chief complaint: Urogenital Stated complaint: Catheter plugged Time Seen by Provider: 07/31/16 18:38 Source: patient, family, RN notes reviewed, old records reviewed Mode of arrival: wheelchair Limitations: no limitations - History of Present Illness Initial comments: Chief complaint and history of present illness an 86-year-old male here with an obstructed Jones catheter. She reports it stopped draining approximately 1 PM. - Related Data Home Medications Medication Instructions Recorded Confirmed Alfuzosin HCl [Uroxatral ER] 10 mg PO QAM 11/11/14 07/31/16 Finasteride [Proscar] 5 mg PO HS 11/11/14 07/31/16 Multivitamins, Thera [Multivitamin 1 tab PO DAILY 11/11/14 07/31/16 (formulary)] Fenofibrate Nanocrystallized 145 mg PO HS 02/09/16 07/31/16 [Tricor] Lovastatin 20 mg PO HS 02/09/16 07/31/16 Esomeprazole Magnesium [NexIUM] 40 mg PO DAILY 04/11/16 07/31/16 Montelukast [Singulair] 10 mg PO HS 04/11/16 07/31/16 Cyclobenzaprine [Flexeril] 5 mg PO Q6H PRN 05/24/16 07/31/16 Albuterol Nebulized [Ventolin 2.5 mg INHALATION RT-TID 07/31/16 07/31/16 Nebulized] Lidocaine 5% Patch [Lidoderm 5% 1 patch TRANSDERM HS 07/31/16 07/31/16 Patch] Previous Rx's Medication Instructions Recorded HYDROcodone/APAP 10-325MG [[place] 1 tab PO Q4H PRN #20 tab 06/28/16 10-325] Magnesium Oxide [Mag-Ox] 400 mg PO TID tab 06/28/16 Mirtazapine [Remeron] 15 mg PO HS #10 tablet 06/28/16 Levofloxacin [Levaquin] 500 mg PO DAILY #5 tab 07/31/16 Allergies Allergy/AdvReac Type Severity Reaction Status Date / Time adhesive tape AdvReac Severe tears skin Verified 07/31/16 19:28 chicken derived [Chicken] AdvReac Nausea & Verified 07/31/16 19:28 Vomiting & Diarrhea Review of Systems ROS Statement: Those systems with pertinent positive or pertinent negative responses have been documented in the HPI. Review of systems no complaint of headache or visual acuity no chest pain or shortness of breath he has discomfort in the bladder area. No complaint of back pain. All systems were otherwise reviewed. Past medical problems include sepsis several months ago because of her urinary tract infection. Has had a DVT recently stopped his blood thinner. History of GERD with surgery of a Jero plication with some improvement. He also history of hyperlipidemia, pneumonia, BPH, and a kidney stent placed because of a kidney stone. The patient's surgeries also include cystocele. He's had epidural shots for back pain. Family history noncontributory patient has ALLERGIES to adhesive tape and derived chicken ROS Other: All systems not noted in ROS Statement are negative. Past Medical History Past Medical History: Blood Disorder, Deep Vein Thrombosis (DVT), GERD/Reflux, Hyperlipidemia, Musculoskeletal Disorder, Pneumonia, Prostate Disorder, Renal Disease Additional Past Medical History / Comment(s): ENLARGED PROSTATE, 7 crushed vertebrae, BACK PAIN FROM PINCHED NERVES IN BACK- drop foot sharif feet, HAS A IDC- JONES History of Any Multi-Drug Resistant Organisms: None Reported Additional Past Surgical History / Comment(s): 02/08/16 laparoscopic christopher fundoplasty. Other surgical hx: Hydrocele repair, EGD (2007). EPIDURAL STEROID INJECTIONS WITH DR. DIAZ. skin cancer -LESIONS SEVERAL BRONCHOSCOPIES,SEBACEOUS CYST ON BACK REMOVED Past Anesthesia/Blood Transfusion Reactions: No Reported Reaction Past Psychological History: No Psychological Hx Reported Smoking Status: Former smoker Past Alcohol Use History: None Reported Additional Past Alcohol Use History / Comment(s): STARTED SMOKING AT AGE 16 QUIT 2006 SMOKED 1PPD Past Drug Use History: None Reported - Past Family History Brother(s) Family Medical History: Cancer Additional Family Medical History / Comment(s): COLON CANCER Father Family Medical History: Cancer Additional Family Medical History / Comment(s): FROM RESP FAILURE AT AGE 91 Sister(s) Family Medical History: Cancer Additional Family Medical History / Comment(s): LUNG CANCER Mother Family Medical History: Cancer Additional Family Medical History / Comment(s): COLON CANCER General Exam - General Exam Comments Initial Comments: General: The patient is awake and alert, acute distress because of Jones catheter minutes ago obstructed with a blood clot. Vital signs temp 97.0 pulse 87 respiratory rate 18 blood pressure 140/74 pulse ox 95% room air Eye: Pupils are equal, round and reactive to light, extra-ocular movements are intact ; there is normal conjunctiva bilaterally. No signs of icterus. Ears, nose, mouth and throat: There are moist mucous membranes and no oral lesions. Neck: The neck is supple, there is no tenderness . Cardiovascular: There is a regular rate and rhythm. No murmur, rub or gallop is appreciated. Respiratory: Lungs are clear to auscultation, respirations are non-labored, breath sounds are equal. Gastrointestinal: Soft, non-distended, non-tender abdomen without masses or organomegaly noted. There is no rebound or guarding present. Distended bladder. Back: Chronic back pain and has had epidural shots in the past not complaining of pain this particular time. Musculoskeletal: Mild pitting edema. Family reports significantly improved Neurological: No complaint of any neuro deficits. Skin: Skin is warm and dry and no rashes or lesions are noted. Limitations: no limitations Course Vital Signs 07/31/16 07/31/16 18:28 20:36 Temperature 97.0 F L 98.1 F Pulse Rate 97 75 Respiratory 18 16 Rate Blood Pressure 140/74 121/60 O2 Sat by Pulse 95 97 Oximetry Medical Decision Making - Medical Decision Making Medical decision-making; the patient's urine shows greater than 180 whites and red cells. And white cells in clumps. I discussed the case with Dr. Pacheco or on-call urologist. The patient's vital signs at this time are temp 98.1 pulse 75, respiratory rate 16 and blood pressure 121/60. Patient looks stable, states he feels good, much better now that his bladder is been drained.. No chills, no flank pain, dr pacheco recommends ceftriaxone IM and Levaquin for 5 days and follow up in office. - Lab Data Lab Results 07/31/16 Range/Units 19:01 Urine Color Light Red Urine Appearance Turbid (Clear) Urine pH 6.5 (5.0-8.0) Ur Specific [place] 1.015 (1.001-1.035) Urine Protein 2+ H (Negative) Urine Glucose (UA) Negative (Negative) Urine Ketones Negative (Negative) Urine Blood Large H (Negative) Urine Nitrite Negative (Negative) Urine Bilirubin Negative (Negative) Urine Urobilinogen <2.0 (<2.0) mg/dL Ur Leukocyte Esterase Large H (Negative) Urine RBC >182 H (0-5) /hpf Urine WBC >182 H (0-5) /hpf Urine WBC Clumps Many H (None) /hpf Disposition Clinical Impression: Acute retention of urine, Urinary tract infection Disposition: HOME SELF-CARE Condition: Fair Instructions: Urinary Tract Infection in Men (ED) Additional Instructions: Take Levaquin 1 tablet daily for 5 days and follow-up with the above the family physician and your urologist. Return emergency room if you have any changes in condition Prescriptions: Levofloxacin [Levaquin] 500 mg PO DAILY #5 tab Time of Disposition: 20:59
[2016-07-31 19:42] LABS: Appearance,Urine Turbid (Clear); Bilirubin,Urine Negative (Negative); Glucose,Urine (UA) Negative (Negative); Ketones,Urine Negative (Negative); Leukocyte Esterase,Urine Large (Negative); Nitrite,Urine Negative (Negative); PH, Urine 6.5 (5.0-8.0); Particle Count 31613; Protein,Urine 2+ (Negative); RBC,Urine >182 /hpf (0-5); Specific Gravity,Urine 1.015 (1.001-1.035); UA Billing (MACRO vs. MICRO) MICRO; Urobilinogen,Urine <2.0 mg/dL (<2.0); WBC,Urine >182 /hpf (0-5)
[2016-07-31] MEDS ORDERED: cefTRIAXone 1,000 MG VIAL (IM USE) IM STA (20:53)
[2016-07-31 21:41] VITALS: BP 143/67; PULSE 89; RESP 20; TEMP 98.4
== END 2016-07-31 21:40 | disposition home or self-care (01) ==
LOC: EC 18:09
DX: R33.9 Retention of urine, unspecified (principal); N39.0 Urinary tract infection, site not specified; T83.091A Other mechanical complication of indwelling urethral catheter, initial encounter; K21.9 Gastro-esophageal reflux disease without esophagitis; N40.0 Benign prostatic hyperplasia without lower urinary tract symptoms; E78.5 Hyperlipidemia, unspecified; Z87.440 Personal history of urinary (tract) infections; Z87.442 Personal history of urinary calculi; Z87.891 Personal history of nicotine dependence; Z86.718 Personal history of other venous thrombosis and embolism; Z79.899 Other long term (current) drug therapy; Z91.048 Other nonmedicinal substance allergy status; Z91.018 Allergy to other foods
CPT/HCPCS: 81001; 87086; 99283; 96372; J0696; 87077; 87186

== ENCOUNTER → 2016-08-08 | Outpatient (CLI) | payer MEDICARE, OTHER ==
[2016-08-08 14:53] LABS: Basophils # (A) 0.1 k/uL (0-0.2); Basophils % (A) 1 %; CH 29.7; CHCM 29.6; Eosinophils # (A) 0.2 k/uL (0-0.7); Eosinophils % (A) 3 %; HCT 41.2 % (39.0-53.0); Hypochromasia Marked; Luc # (Auto) 0.13; Luc % (Auto) 2; Lymphocytes # (A) 1.3 k/uL (1.0-4.8); Lymphocytes % (A) 18 %; MCH 31.5 pg (25.0-35.0); MCHC 31.3 g/dL (31.0-37.0); MCV 100.7 fL (80.0-100.0); Macrocytosis Slight; Mean Platelet Volume 6.9; Monocytes # (A) 0.3 k/uL (0-1.0); Monocytes % (A) 4 %; Neutrophils # (A) 5.5 k/uL (1.3-7.7); Neutrophils % (A) 73 %; RBC 4.09 m/uL (4.30-5.90); RDW 15.1 % (11.5-15.5); WBC 7.5 k/uL (3.8-10.6); WBC (Perox) 7.73
[2016-08-08 14:54] LABS: HGB 12.9 gm/dL (13.0-17.5)
[2016-08-08 15:00] LABS: Anion Gap 12 mmol/L; Blood Urea Nitrogen 28 mg/dL (9-20); Calcium 9.4 mg/dL (8.4-10.2); Carbon Dioxide 25 mmol/L (22-30); Chloride 107 mmol/L (98-107); Glucose 79 mg/dL (74-99); Non-African American GFR(MDRD) >60 (>60 ml/min/1.73 sqM); Potassium 4.3 mmol/L (3.5-5.1); Sodium 144 mmol/L (137-145)
[2016-08-08 15:07] LABS: Appearance,Urine Cloudy (Clear); Bacteria,Urine Many /hpf; Bilirubin,Urine Negative (Negative); Glucose,Urine (UA) Negative (Negative); Ketones,Urine Negative (Negative); Leukocyte Esterase,Urine Large (Negative); Mucus,Urine Rare /hpf; Nitrite,Urine Negative (Negative); Particle Count 8427; Protein,Urine 2+ (Negative); RBC,Urine >182 /hpf (0-5); Specific Gravity,Urine 1.015 (1.001-1.035); Squamous Epithelial Cell,Urine 1 /hpf (0-4); UA Billing (MACRO vs. MICRO) MICRO; Urobilinogen,Urine <2.0 mg/dL (<2.0); WBC,Urine >182 /hpf (0-5)
== END | disposition home or self-care (01) ==
LOC: LABPAT 13:56
PROVIDERS: ATTEND Urology
DX: Z01.810 Encounter for preprocedural cardiovascular examination (principal); R53.83 Other fatigue; N20.0 Calculus of kidney; N20.1 Calculus of ureter; E78.00 Pure hypercholesterolemia, unspecified; R31.0 Gross hematuria
CPT/HCPCS: 80048; 81001; 85025; 87077; 87086; 87186

== ENCOUNTER 2016-08-12 17:18 | Emergency (ER) | payer MEDICARE, OTHER ==
[2016-08-12 17:44] VITALS: TEMP 97.2
--- NOTE | 2016-08-12 18:02 | ED ---
Male Urogenital HPI - General Chief complaint: Urogenital Stated complaint: PLUGGED CATHETER Time Seen by Provider: 08/12/16 17:48 Source: patient, family, RN notes reviewed Mode of arrival: wheelchair Limitations: no limitations - History of Present Illness Initial comments: 86-year-old male presents emergency Department with chief complaint of plugged Jones catheter. Patient states she just had a placed last Friday. Patient states that he has a change every Friday and it clogs very often. Patient states he recently was just on antibiotics. Patient states that he's had a Jones catheter secondary to prostate issues since February. Patient denies fever , chills, nausea, vomiting diarrhea constipation. Patient states he did have some abdominal pain but has resolved after taking [place]. Patient does have a kidney stone in which his schedule have his stent, stone removed. Patient states she has not had any urine out in over 2 hours. He tried flushing it himself though he had no change. - Related Data Home Medications Medication Instructions Recorded Confirmed Alfuzosin HCl [Uroxatral ER] 10 mg PO QA 11/11/14 08/12/16 Finasteride [Proscar] 5 mg PO 11/11/14 08/12/16 Multivitamins, Thera [Multivitamin 1 tab PO DAILY 11/11/14 08/12/16 (formulary)] Fenofibrate Nanocrystallized 145 mg PO HS 02/09/16 08/12/16 [Tricor] Lovastatin 20 mg PO HS 02/09/16 08/12/16 Esomeprazole Magnesium [NexIUM] 40 mg PO AC-BRKFST 04/11/16 08/12/16 Montelukast [Singulair] 10 mg PO HS 04/11/16 08/12/16 Cyclobenzaprine [Flexeril] 5 mg PO Q6H PRN 05/24/16 08/12/16 Albuterol Nebulized [Ventolin 2.5 mg INHALATION RT-TID PRN 07/31/16 08/12/16 Nebulized] Lidocaine 5% Patch [Lidoderm 5% 1 patch TRANSDERM HS 07/31/16 08/12/16 Patch] Previous Rx's Medication Instructions Recorded HYDROcodone/APAP 10-325MG [[place] 1 tab PO Q4H PRN #20 tab 06/28/16 10-325] Magnesium Oxide [Mag-Ox] 400 mg PO TID tab 06/28/16 Mirtazapine [Remeron] 15 mg PO HS #10 tablet 06/28/16 Nitrofurantoin Monohyd/M-Cryst 100 mg PO Q12HR #14 cap 08/12/16 [Macrobid] Allergies Allergy/AdvReac Type Severity Reaction Status Date / Time adhesive tape AdvReac Severe tears skin Verified 08/12/16 18:37 chicken derived [Chicken] AdvReac Nausea & Verified 08/12/16 18:37 Vomiting & Diarrhea Review of Systems ROS Statement: Those systems with pertinent positive or pertinent negative responses have been documented in the HPI. ROS Other: All systems not noted in ROS Statement are negative. Past Medical History Past Medical History: Blood Disorder, Deep Vein Thrombosis (DVT), GERD/Reflux, Hyperlipidemia, Musculoskeletal Disorder, Pneumonia, Prostate Disorder, Renal Disease Additional Past Medical History / Comment(s): ENLARGED PROSTATE, 7 crushed vertebrae, BACK PAIN FROM PINCHED NERVES IN BACK- drop foot sharif feet, HAS A IDC- JONES History of Any Multi-Drug Resistant Organisms: C-DIFF Date of last positivie culture/infection: 2016 MDRO Source:: BOWEL Additional Past Surgical History / Comment(s): 02/08/16 laparoscopic christopher fundoplasty. Other surgical hx: Hydrocele repair, EGD (2007). EPIDURAL STEROID INJECTIONS WITH DR. DIAZ. skin cancer -LESIONS SEVERAL BRONCHOSCOPIES,SEBACEOUS CYST ON BACK REMOVED Past Anesthesia/Blood Transfusion Reactions: No Reported Reaction Past Psychological History: No Psychological Hx Reported Smoking Status: Former smoker Past Alcohol Use History: None Reported Additional Past Alcohol Use History / Comment(s): STARTED SMOKING AT AGE 16 QUIT 2006 SMOKED 1PPD Past Drug Use History: None Reported - Past Family History Brother(s) Family Medical History: Cancer Additional Family Medical History / Comment(s): COLON CANCER Father Family Medical History: Cancer Additional Family Medical History / Comment(s): FROM RESP FAILURE AT AGE 91 Sister(s) Family Medical History: Cancer Additional Family Medical History / Comment(s): LUNG CANCER Mother Family Medical History: Cancer Additional Family Medical History / Comment(s): COLON CANCER General Exam General appearance: alert, in no apparent distress Respiratory exam: Present: normal lung sounds bilaterally. Absent: respiratory distress, wheezes, rales, rhonchi, stridor Cardiovascular Exam: Present: regular rate, normal rhythm, normal heart sounds. Absent: systolic murmur, diastolic murmur, rubs, gallop, clicks GI/Abdominal exam: Present: soft, normal bowel sounds. Absent: distended, tenderness, guarding, rebound, rigid Back exam: Absent: CVA tenderness (R), CVA tenderness (L) Neurological exam: Present: alert, oriented X3, CN II-XII intact Skin exam: Present: warm, dry, intact, normal color. Absent: rash Course Vital Signs 08/12/16 17:41 Temperature 97.2 F L Pulse Rate 81 Respiratory 18 Rate Blood Pressure 132/78 O2 Sat by Pulse 97 Oximetry Medical Decision Making - Medical Decision Making Asexual male present emergency department for Jones catheter clogged. Patient' s Jones was exchanged and had 300ml urine output. Patient states he has complete relief of his symptoms. Patient's urinalysis shows greater than 182 white and red cells. I did look at the culture from 08/08/2016 which showed enterococcus Facel[place]. Patient was started on Macrobid at this time pending culture and follow-up with urology. - Lab Data Lab Results 08/12/16 Range/Units 18:30 Urine Color Light Red Urine Appearance Turbid (Clear) Urine pH 6.0 (5.0-8.0) Ur Specific [place] 1.013 (1.001-1.035) Urine Protein 2+ H (Negative) Urine Glucose (UA) Negative (Negative) Urine Ketones Negative (Negative) Urine Blood Large H (Negative) Urine Nitrite Negative (Negative) Urine Bilirubin Negative (Negative) Urine Urobilinogen <2.0 (<2.0) mg/dL Ur Leukocyte Esterase Large H (Negative) Urine RBC >182 H (0-5) /hpf Urine WBC >182 H (0-5) /hpf Urine WBC Clumps Many H (None) /hpf Ur Squamous Epith Cells <1 (0-4) /hpf Disposition Clinical Impression: Acute retention of urine, Urinary tract infection, Jones catheter problem Disposition: HOME SELF-CARE Condition: Stable Instructions: Urinary Tract Infection in Men (ED) Additional Instructions: Please return to the Emergency Department if symptoms worsen or any other concerns. Prescriptions: Nitrofurantoin Monohyd/M-Cryst [Macrobid] 100 mg PO Q12HR #14 cap Time of Disposition: 18:56
[2016-08-12 18:47] LABS: Appearance,Urine Turbid (Clear); Bilirubin,Urine Negative (Negative); Glucose,Urine (UA) Negative (Negative); Ketones,Urine Negative (Negative); Leukocyte Esterase,Urine Large (Negative); Nitrite,Urine Negative (Negative); Particle Count 12312; Protein,Urine 2+ (Negative); RBC,Urine >182 /hpf (0-5); Specific Gravity,Urine 1.013 (1.001-1.035); Squamous Epithelial Cell,Urine <1 /hpf (0-4); UA Billing (MACRO vs. MICRO) MICRO; Urobilinogen,Urine <2.0 mg/dL (<2.0); WBC,Urine >182 /hpf (0-5)
[2016-08-12 19:24] VITALS: BP 95/54; PULSE 76; RESP 16
== END 2016-08-12 19:24 | disposition home or self-care (01) ==
LOC: EC 17:18
DX: T85.898A Other specified complication of other internal prosthetic devices, implants and grafts, initial encounter (principal); N39.0 Urinary tract infection, site not specified; R33.9 Retention of urine, unspecified; K21.9 Gastro-esophageal reflux disease without esophagitis; E78.5 Hyperlipidemia, unspecified; N42.9 Disorder of prostate, unspecified; Z86.718 Personal history of other venous thrombosis and embolism; Z87.891 Personal history of nicotine dependence; Z79.899 Other long term (current) drug therapy; Z91.018 Allergy to other foods; Z91.048 Other nonmedicinal substance allergy status
CPT/HCPCS: 51702; 51798; 81001; 87077; 87086; 87186; 99283

== ENCOUNTER 2016-08-14 09:24 | Day surgery (SDC) | payer MEDICARE, OTHER ==
[2016-08-08 16:19] VITALS: BMI 20.2
[~2016-08-14 09:24] MED LIST changes: +AMPICILLIN 1,000 MG in SODIUM CHLORIDE 0.9% 50 ML IVPB ONE; +DEXAMETHASONE SOD PHOSPHATE 10 MG/ML 1 ML VIAL IV ONE; +GENTAMICIN 100 MG in SODIUM CHLORIDE 0.9% 100 ML IVPB ONE; +HYDROmorphone 1 MG/ML 1 ML SYRINGE IVP PRN; +MIDAZOLAM 2 MG/2 ML VIAL IV PRN; +ONDANSETRON 4 MG/2 ML VIAL IVP ONE
--- NOTE | 2016-08-14 09:34 | XR ---
EXAMINATION TYPE: XR KUB DATE OF EXAM: 08/14/2016 9:23 AM COMPARISON: 06/15/2016 HISTORY: Right ureteral calculus TECHNIQUE: One view abdominal series FINDINGS: Diffuse osteopenia noted. Double-J ureteral stent on the right noted. No definite calcifications jim g the expected course of the right ureteral stent. Punctate calcification left upper quadrant measuring 3 mm May represent a small left renal stone. Arthropathy of the hips and degenerative change of the spine seen with multiple probable chronic comp ression deformities. Calcifications in the pelvis are likely vascular. Deformity of the left pubic rami suggest possible previous trauma. IMPRESSION: 1. Right ureteral stent distal loop appears near the UVJ or proximal bladder correlate clinically. No definite calcifications along the course of the stent. 2. Probable tiny left renal calculus measuring 3 mm.
[2016-08-14 10:20] VITALS: RESP 16
[2016-08-14] MEDS ORDERED: LIDOCAINE 1% 20 ML VIAL (10MG/ML) FOR IV START INTRADERMA ONE (10:37)
[2016-08-14] MEDS ORDERED: fentaNYL (PF) 50 MCG/ML 2 ML AMP ONE (10:50)
[2016-08-14] MEDS ORDERED: SUCCINYLCHOLINE CHLORIDE 100 MG/5 ML SYR IV ONE (10:50)
[2016-08-14] MEDS ORDERED: PROPOFOL 10 MG/ML 20 ML VIAL IV ONE (10:50)
[2016-08-14] MEDS ORDERED: LIDOCAINE 1% INJ 10MG/ML (20 ML MDV) ONE (10:50)
[2016-08-14] MEDS ORDERED: ePHEDrine 50 MG/ML 1 ML AMP ONE (10:50)
[2016-08-14] MEDS ORDERED: MIDAZOLAM 2 MG/2 ML VIAL ONE (10:50)
[2016-08-14] MEDS ORDERED: LACTATED RINGERS 1,000 ML IV ONE (11:39)
--- NOTE | 2016-08-14 11:52 | P.OP ---
Date of Procedure: 08/14/16 Preoperative Diagnosis: Right ureteral stone status post stent placement with antibiotics Postoperative Diagnosis: Same, bladder stones Procedure(s) Performed: Cystoscopy, removal double-J catheter right, right ureteroscopy, cystoscopy lithotripsy to bladder stones Anesthesia: HERMINIA Surgeon: Jason Encarnacion Pathology: other (Bladder stones) Condition: stable Disposition: PACU Indications for Procedure: The patient is an 86-year-old gentleman in urine retention. He has a large prostate. He also had a distal ureteral stone that obstructed the ureter during cardiac recuperation. It required a stent and antibiotics. He now comes for formal stone and stent removal Description of Procedure: The patient was brought to the operating suite and given a successful general endotracheal anesthesia. He's placed lithotomy position. The Henderson catheters removed. A sterile prep and drape was administered. Cystoscopy with a Foroblique lens and 22-Canadian sheath identifies a normal anterior urethra. The prostate shows a large long trilobar obstructing prostate that is quite vascular. It probably reaches 100 g in size. Ladders and speculated there is heavy trabeculation. The double-J catheter is identified and pulled to the urethral meatus. An 035 wire is passed up into the kidney. The stent is removed. Alongside the first pass a semirigid ureteroscope but I can only pass it to just above the intramural tunnel. There is no obvious stone. Over the wire then pass a 30-78-Ugcwyb reentry sheath. I passed the flexible scope through this and do pullout ureteroscopy from renal pelvis to bladder. I do not see any obvious stone. There is edema from the stent. I suspect the stone crumbled and fell out. There are 3 smaller to medium-sized bladder stones that with a 365 probe are broken into multiple fragments and flushed out of the bladder. The patients only catheter, 16-Canadian was replaced. He is awake and returned recovery room good condition I will review the chart to see if I measured the size of his prostate shows decide whether I feel comfortable doing a TURP, bipolar here whether he needs a laser lithotripsy.
[2016-08-14 11:58] VITALS: TEMP 97.2
--- NOTE | 2016-08-14 12:05 | FL ---
EXAMINATION TYPE: FL urography retrograde DATE OF EXAM: 08/14/2016 11:54 AM COMPARISON: NONE HISTORY: Fluoroscopy time TECHNIQUE: Fluoroscopy. FINDINGS: 21 seconds of fluoroscopy provided. IMPRESSION: As Above.
[2016-08-14 13:24] VITALS: BP 112/64; PULSE 69
== END 2016-08-14 13:52 | disposition home or self-care (01) ==
LOC: OR 09:24
PROVIDERS: ATTEND Urology
DX: N21.0 Calculus in bladder (principal); N32.89 Other specified disorders of bladder; R31.0 Gross hematuria; Z46.6 Encounter for fitting and adjustment of urinary device; I10 Essential (primary) hypertension; N40.1 Benign prostatic hyperplasia with lower urinary tract symptoms; R33.8 Other retention of urine; R97.20 Elevated prostate specific antigen [PSA]; Z87.440 Personal history of urinary (tract) infections; Z87.891 Personal history of nicotine dependence; Z79.82 Long term (current) use of aspirin; Z79.899 Other long term (current) drug therapy; Z86.718 Personal history of other venous thrombosis and embolism
CPT/HCPCS: 50590; 50386; 82365; 74000; 74420; C1769; J2250; J1100; J2405; J2001; J3010; J1580; J0290; J0330; J2704

== ENCOUNTER → 2016-08-28 | Outpatient (CLI) | payer MEDICARE, OTHER ==
[2016-08-28 13:21] LABS: Appearance,Urine Turbid (Clear); Bacteria,Urine Rare /hpf; Bilirubin,Urine Negative (Negative); Glucose,Urine (UA) Negative (Negative); Ketones,Urine Negative (Negative); Leukocyte Esterase,Urine Large (Negative); Mucus,Urine Rare /hpf; Nitrite,Urine Negative (Negative); Particle Count 18225; Protein,Urine 2+ (Negative); RBC,Urine 74 /hpf (0-5); Specific Gravity,Urine 1.018 (1.001-1.035); UA Billing (MACRO vs. MICRO) MICRO; Urobilinogen,Urine <2.0 mg/dL (<2.0); WBC,Urine >182 /hpf (0-5)
== END | disposition home or self-care (01) ==
LOC: LABWHC1 12:30
PROVIDERS: ATTEND Urology
DX: N39.0 Urinary tract infection, site not specified (principal)
CPT/HCPCS: 81001; 86850; 86900; 86901; 87077; 87086; 87186

== ENCOUNTER 2016-09-04 08:37 | Day surgery (SDC) | payer MEDICARE, OTHER ==
[2016-09-03 10:51] VITALS: BMI 19.2
[~2016-09-04 08:37] MED LIST changes: -AMPICILLIN 1,000 MG in SODIUM CHLORIDE 0.9% 50 ML IVPB ONE; -DEXAMETHASONE SOD PHOSPHATE 10 MG/ML 1 ML VIAL IV ONE; +FAMOTIDINE 20 MG/2 ML VIAL IV PRN; -GENTAMICIN 100 MG in SODIUM CHLORIDE 0.9% 100 ML IVPB ONE; +GENTAMICIN IVPB ONE; -LACTATED RINGERS 1,000 ML IV SCH; +LIDOCAINE 1% 20 ML VIAL (10MG/ML) FOR IV START INTRADERMA PRN; -ONDANSETRON 4 MG/2 ML VIAL IVP ONE; +SODIUM CHLORIDE 0.9% IVPB ONE; +ceFAZolin 1,000 MG in DEXTROSE/WATER 1 50ML.BAG IV ONE
[2016-09-04] MEDS ORDERED: LIDOCAINE 1% 20 ML VIAL (10MG/ML) FOR IV START INTRADERMA ONE (10:12)
[2016-09-04] MEDS: LACTATED RINGERS 1,000 ML IV SCH (10:15)
[2016-09-04] MEDS ORDERED: fentaNYL (PF) 50 MCG/ML 2 ML AMP ONE (11:36)
[2016-09-04] MEDS ORDERED: LIDOCAINE 1% INJ 10MG/ML (20 ML MDV) ONE (11:36)
[2016-09-04] MEDS ORDERED: HYDROcodone/APAP 10-325MG 1 EACH TAB PO PRN (13:31)
[2016-09-04] MEDS ORDERED: ALBUTEROL NEBULIZED 2.5 MG/3 ML INHALATION PRN (13:31)
[2016-09-04] MEDS ORDERED: ACETAMINOPHEN TAB 325 MG TAB PO PRN (13:33)
[2016-09-04] MEDS ORDERED: MAG HYDROX/AL HYDROX/SIMETH 30 ML CUP PO PRN (13:33)
--- NOTE | 2016-09-04 13:40 | P.OP ---
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 He's placed lithotomy position with a sterile prep and drape. Under direct vision the 25-Slovak sheath and Foroblique lens with direct vision obturator was introduced in urethra is normal the prostate shows trilobar particularly long lateral lobe obstruction with a heavily trabeculated bladder. The bladder and prostate are irrigated thoroughly. I resect the prostate with the bipolar super second loop. I began at 12:00 and resect the left lateral lobe from bladder neck to mid prostate and admitted prostate apical tissue. I do the same on the right non-resect the redundant tissue on the floor. The small chip vesicle prosthetic lobe is also resected. The bladder is free to prostatic chips with the Ellik evacuator. Bleeding is controlled with electrocautery. Then of the procedure the prostate is inspected and is open and not actively bleeding. The bladder is free of prostatic chips. A 20- Slovak coud tip catheter 10 mL balloon was inserted into the bladder with clear urine return upon irrigation. The patient's awake and returned recovery room good condition. He'll be observed in the hospital overnight due to his age and cardiac issues. The prostate will be sent to pathology.
[2016-09-04] MEDS: MAGNESIUM OXIDE 400 MG TAB PO SCH ×2 (18:00→21:20)
[2016-09-04] MEDS ORDERED: MONTELUKAST 10 MG TAB PO SCH (21:00)
[2016-09-04] MEDS ORDERED: NITROFURANTOIN MONOHYD/M-CRYST 100 MG CAP PO SCH (21:00)
[2016-09-04] MEDS ORDERED: ATORVASTATIN 10 MG TAB PO SCH (21:00)
[2016-09-04] MEDS ORDERED: MIRTAZAPINE 15 MG TAB PO SCH (21:00)
[2016-09-04] MEDS ORDERED: FENOFIBRATE 160 MG TAB PO SCH (21:00)
[2016-09-04] MEDS: LEVOFLOXACIN 500 MG TAB PO SCH (21:20)
[2016-09-04] MEDS: DOCUSATE 100 MG CAP PO SCH (21:20)
[2016-09-05] MEDS: DEXTROSE 5%-0.45% NACL 1,000 ML IV SCH ×2 (07:04→07:05)
--- NOTE | 2016-09-05 07:04 | P.DS ---
Providers Attending physician: Jason Encarnacion Primary care physician: [facility] Course: The patient has chronic urine retention. He is a candidate for a TURP but this was delayed due to multiple medical problems. He was admitted yesterday for a TURP which he underwent without difficulty. He was kept in the hospital for medical observation. He has done well overnight his vital signs are stable and urine has only a small amount of blood. He'll be discharged home today with his indwelling catheter and seen in the office tomorrow for catheter removal. Pathology is pending. Diet is regular activities Limited condition is good Patient Condition at Discharge: Good Plan - Discharge Summary Discharge Medication List Alfuzosin HCl [Uroxatral ER] 10 mg PO QAM 11/11/14 [History] Finasteride [Proscar] 5 mg PO HS 11/11/14 [History] Multivitamins, Thera [Multivitamin (formulary)] 1 tab PO DAILY 11/11/14 [History ] Fenofibrate Nanocrystallized [Tricor] 145 mg PO HS 02/09/16 [History] Lovastatin 20 mg PO HS 02/09/16 [History] Esomeprazole Magnesium [NexIUM] 40 mg PO AC-BRKFST 04/11/16 [History] Montelukast [Singulair] 10 mg PO HS 04/11/16 [History] Cyclobenzaprine [Flexeril] 5 mg PO Q6H PRN 05/24/16 [History] HYDROcodone/APAP 10-325MG [[place] 10-325] 1 tab PO Q4H PRN #20 tab 06/28/16 [Rx] Magnesium Oxide [Mag-Ox] 400 mg PO TID tab 06/28/16 [Rx] Mirtazapine [Remeron] 15 mg PO HS #10 tablet 06/28/16 [Rx] Albuterol Nebulized [Ventolin Nebulized] 2.5 mg INHALATION RT-TID PRN 07/31/16 [ History] Lidocaine 5% Patch [Lidoderm 5% Patch] 1 patch TRANSDERM HS PRN 07/31/16 [ History] Levofloxacin [Levaquin] 500 mg PO DAILY 09/03/16 [History] Follow up Appointment(s)/Referral(s): Jason Encarnacion MD [STAFF PHYSICIAN] - 09/06/16 Activity/Diet/Wound Care/Special Instructions: home with villa Discharge Disposition: HOME SELF-CARE
[2016-09-05] MEDS: LACTATED RINGERS 1,000 ML IV SCH (07:05)
[2016-09-05] MEDS ORDERED: PANTOPRAZOLE 40 MG TABLET PO SCH (07:30)
[2016-09-05] MEDS: DOCUSATE 100 MG CAP PO SCH (08:25)
[2016-09-05] MEDS: MAGNESIUM OXIDE 400 MG TAB PO SCH (08:25)
[2016-09-05] MEDS: LEVOFLOXACIN 500 MG TAB PO SCH (08:25)
[2016-09-05 08:32] VITALS: BP 101/86; PULSE 67; RESP 18; TEMP 97.6
== END 2016-09-05 11:26 | disposition home or self-care (01) ==
LOC: OR 08:37 → 3SUR 15:47 → OR 09-05 11:26
PROVIDERS: ATTEND Urology
DX: N40.1 Benign prostatic hyperplasia with lower urinary tract symptoms (principal); R33.8 Other retention of urine; E78.00 Pure hypercholesterolemia, unspecified; N32.89 Other specified disorders of bladder; I10 Essential (primary) hypertension; K21.9 Gastro-esophageal reflux disease without esophagitis; J44.9 Chronic obstructive pulmonary disease, unspecified; Z79.82 Long term (current) use of aspirin; Z79.899 Other long term (current) drug therapy; Z91.09 Other allergy status, other than to drugs and biological substances
CPT/HCPCS: 88305; 52630; J2001; J3010; J1580; J0690; 86850; 86900; 86901

== ENCOUNTER → 2016-09-26 | Outpatient (CLI) | payer MEDICARE, OTHER ==
--- NOTE | 2016-09-26 15:49 | FL ---
Esophagram INDICATION: Dysphasia TECHNIQUE: Double contrast FINDINGS: Esophagus is dilated within its proximal and mid portions. There is significant narrowing o f the distal esophagus. A single image demonstrates contrast passing through the esophagus. This area remains closed during the majority of the examination with difficulty demonstrating the contrast pas sing through this region. Patient aspirated during this examination. Consider modified barium swallow for additional evaluation as well. IMPRESSIONS: 1. No significance spasm with limited opening through the distal esophagus at the gastroesophageal ju nction. By history the patient has had a Jero fundoplication, revaluation with MEHRDAD for stenosis dianne laurence is recommended. 2. Aspiration during the exam.
== END | disposition home or self-care (01) ==
LOC: RADFLWHC 10:51
PROVIDERS: ATTEND Surgery
DX: K21.9 Gastro-esophageal reflux disease without esophagitis (principal); R13.10 Dysphagia, unspecified
CPT/HCPCS: 74000; 74220

== ENCOUNTER → 2016-09-26 | Outpatient (CLI) | payer MEDICARE, OTHER ==
--- NOTE | 2016-09-26 11:52 | XR ---
EXAMINATION TYPE: XR KUB DATE OF EXAM ORDERED: 09/26/2016 11:26 AM HISTORY: Stone RT Kidney. COMPARISON: Previous study dated 08/14/2016. FINDINGS: The study is limited by exposure. The region overlying the kidneys is underexposed. The patient's right double-J stent has been removed. I cannot with certainty identify any renal calcu li or ureteral calculi at this time. There are phleboliths within the pelvis. IMPRESSION: LIMITED STUDY DEMONSTRATING NO DEFINITE RENAL OR URETERIC CALCULI.
== END | disposition home or self-care (01) ==
LOC: RADXRWHC 11:12
PROVIDERS: ATTEND Urology
DX: N20.0 Calculus of kidney (principal)
CPT/HCPCS: 74000

== ENCOUNTER 2016-10-09 09:36 | Day surgery (SDC) | payer MEDICARE, OTHER ==
[2016-10-07 13:37] VITALS: BMI 19.8
[~2016-10-09 09:36] MED LIST changes: -FAMOTIDINE 20 MG/2 ML VIAL IV PRN; -GENTAMICIN IVPB ONE; -HYDROmorphone 1 MG/ML 1 ML SYRINGE IVP PRN; +LACTATED RINGERS 1,000 ML IV SCH; -MIDAZOLAM 2 MG/2 ML VIAL IV PRN; -SODIUM CHLORIDE 0.9% IVPB ONE; -ceFAZolin 1,000 MG in DEXTROSE/WATER 1 50ML.BAG IV ONE
[2016-10-09 09:55] VITALS: TEMP 97.7
[2016-10-09] MEDS ORDERED: PROPOFOL 10 MG/ML 20 ML VIAL IV ONE (10:42)
--- NOTE | 2016-10-09 10:56 | P.GSHP ---
History of Present Illness H&P Date: 10/09/16 Chief Complaint: gerd, dysphagia This is a 86-year-old male who's had intermittent issues with dysphagia and mild GERD. Patient states that some days he eats without difficulties and then other days he eats has significant dysphagia. Patient presents today for EGD. - Constitutional Constitutional: Reports as per HPI Past Medical History Past Medical History: Blood Disorder, Cancer, Deep Vein Thrombosis (DVT), GERD/ Reflux, Hyperlipidemia, Musculoskeletal Disorder, Pneumonia, Prostate Disorder, Renal Disease, Skin Disorder Additional Past Medical History / Comment(s): HX SKIN CA LIP. HX ENLARGED PROSTATE. 7 crushed vertebrae, BACK PAIN FROM PINCHED NERVES IN BACK. RT LEG DVT 02/2016. ANEMIA. KIDNEY STONES. PROB W/ SWALLOWING FOOD OCC. History of Any Multi-Drug Resistant Organisms: C-DIFF Date of last positivie culture/infection: 05/2016 MDRO Source:: BOWEL Past Surgical History: Prostate Surgery Additional Past Surgical History / Comment(s): 02/08/16 laparoscopic christopher fundoplasty. Hydrocele repair, EGD (2007). EPIDURAL STEROID INJ W/ DR. DIAZ. Skin cancer -LESIONS SEVERAL BRONCHOSCOPIES. SEBACEOUS CYST ON BACK REMOVED. 09/04/16 TURP. Past Anesthesia/Blood Transfusion Reactions: No Reported Reaction Past Psychological History: No Psychological Hx Reported Smoking Status: Former smoker Past Alcohol Use History: Rare Additional Past Alcohol Use History / Comment(s): STARTED SMOKING AT AGE 16, QUIT 2005, SMOKED 1PPD Past Drug Use History: None Reported - Past Family History Brother(s) Family Medical History: Cancer Additional Family Medical History / Comment(s): COLON CANCER Father Family Medical History: Cancer Additional Family Medical History / Comment(s): FROM RESP FAILURE AT AGE 91 Sister(s) Family Medical History: Cancer Additional Family Medical History / Comment(s): LUNG CANCER Mother Family Medical History: Cancer Additional Family Medical History / Comment(s): COLON CANCER Medications and Allergies Home Medications Medication Instructions Recorded Confirmed Type Finasteride [Proscar] 5 mg PO HS 11/11/14 10/07/16 History Multivitamins, Thera [Multivitamin 1 tab PO DAILY 11/11/14 10/07/16 History (formulary)] Fenofibrate Nanocrystallized 145 mg PO HS 02/09/16 10/07/16 History [Tricor] Lovastatin 20 mg PO HS 02/09/16 10/07/16 History Esomeprazole Magnesium [NexIUM] 40 mg PO AC-BRKFST 04/11/16 10/07/16 History Montelukast [Singulair] 10 mg PO HS 04/11/16 10/07/16 History Cyclobenzaprine [Flexeril] 5 mg PO Q6H PRN 05/24/16 10/07/16 History Albuterol Nebulized [Ventolin 2.5 mg INHALATION RT-TID PRN 07/31/16 10/07/16 History Nebulized] Lidocaine 5% Patch [Lidoderm 5% 1 patch TRANSDERM HS PRN 07/31/16 10/07/16 History Patch] Levofloxacin [Levaquin] 500 mg PO BID 09/03/16 10/07/16 History Ferrous Sulfate [Feosol] 325 mg PO DAILY 10/07/16 10/07/16 History Allergies Allergy/AdvReac Type Severity Reaction Status Date / Time adhesive tape AdvReac Severe tears skin Verified 10/07/16 13:17 chicken derived [Chicken] AdvReac Nausea & Verified 10/07/16 13:17 Vomiting & Diarrhea Surgical - Exam Vital Signs Temp Pulse Resp BP Pulse Ox 97.7 F 72 16 130/89 97 10/09/16 09:54 10/09/16 09:54 10/09/16 09:54 10/09/16 09:54 10/09/16 09:54 - General well developed, no distress - Eyes PERRL - ENT normal pinna - Neck no masses - Respiratory normal expansion - Cardiovascular Rhythm: regular - Abdomen Abdomen: soft, non tender Assessment and Plan Plan: Dysphagia, GERD. We'll perform EGD.
--- NOTE | 2016-10-09 11:14 | P.OP ---
Date of Procedure: 10/09/16 Preoperative Diagnosis: Dysphagia Postoperative Diagnosis: Dysphagia Procedure(s) Performed: EGD with balloon dilatation Implants: Anesthesia: MAC Surgeon: Ruel Vilchis Pathology: none sent Condition: stable Disposition: PACU Indications for Procedure: Operative Findings: Description of Procedure: The patient's placed on the endoscopy table in the lateral position. He received IV sedation. The gastroscope some placed oropharynx and passed into the esophagus and stomach. Scope was then placed through the pylorus. The first and second portion of the duodenum appeared normal. Scope summer back the antrum and this appeared normal. Scope was retroflexed the remainder stomach appeared normal. The patient was noted to have some retained food in his esophagus. Due to his history of dysphagia a 20 mm balloon was placed across the GE junction and the balloon was insufflated and held in position. The balloon was withdrawn. There is known to any injury to the stomach or esophagus. The scope and balloon was withdrawn from patient. Patient top she will was sent to recovery in stable condition.
[2016-10-09 11:42] VITALS: RESP 16
[2016-10-09 12:29] VITALS: BP 114/66; PULSE 59
== END 2016-10-09 12:29 | disposition home or self-care (01) ==
LOC: ORWHC2ENDO 09:36
PROVIDERS: ATTEND Surgery
DX: R13.10 Dysphagia, unspecified (principal); K21.9 Gastro-esophageal reflux disease without esophagitis; E78.5 Hyperlipidemia, unspecified; N40.0 Benign prostatic hyperplasia without lower urinary tract symptoms; Z86.718 Personal history of other venous thrombosis and embolism; Z85.828 Personal history of other malignant neoplasm of skin; Z79.2 Long term (current) use of antibiotics; Z79.899 Other long term (current) drug therapy; Z87.891 Personal history of nicotine dependence
CPT/HCPCS: 43249; J2704; C1726

== ENCOUNTER → 2016-11-01 | Outpatient (CLI) | payer MEDICARE, OTHER ==
--- NOTE | 2016-11-01 09:42 | US ---
EXAMINATION TYPE: US venous doppler duplex LE DATE OF EXAM: 11/01/2016 9:09 AM COMPARISON: US CLINICAL HISTORY: Edema R60.0. Left leg edema SIDE PERFORMED: Bilateral TECHNIQUE: The lower extremity deep venous system is examined utilizing real time linear array sonog nadia with graded compression, doppler sonography and color-flow sonography. VESSELS IMAGED: External Iliac Vein (EIV) Common Femoral Vein Deep Femoral Vein Greater Saphenous Vein * Femoral Vein Popliteal Vein Small Saphenous Vein * Proximal Calf Veins (* superficial vessels) Grayscale, color doppler, spectral doppler imaging performed of the deep veins of the lower extremiti es. There is normal flow, compressibility, vascular waveforms bilaterally. Right Leg: Negative for DVT Left Leg: Negative for DVT IMPRESSION: No evidence for DVT at this time.
== END ==
LOC: RADUSWWP 08:18
PROVIDERS: ATTEND Family Medicine
DX: R60.0 Localized edema (principal)
CPT/HCPCS: 93970

== ENCOUNTER 2016-11-27 11:12 | Inpatient (IN) | payer MEDICARE, OTHER ==
[2016-11-27] MEDS ORDERED: SODIUM CHLORIDE 0.9% 500 ML IV STA (11:40)
[2016-11-27] MEDS ORDERED: SODIUM CHLORIDE 0.9% 1,000 ML IV STA (11:40)
--- NOTE | 2016-11-27 11:41 | ED ---
General Adult HPI - General Chief complaint: Weakness Stated complaint: unable to walk, weight loss Time Seen by Provider: 11/27/16 11:40 Source: patient, RN notes reviewed, old records reviewed Mode of arrival: ambulatory Limitations: no limitations - History of Present Illness Initial comments: This is an 86-year-old male yesterday for evaluation regarding weakness, decrease strength in both of his legs, decreased activity level decreased appetite severe weight loss. Patient does some from history of difficulty swallowing and stricture, esophageal dysmotility. Patient's main complaint today though is also weakness, decreased ability to ambulate. Decrease in urination. - Related Data Home Medications Medication Instructions Recorded Confirmed Finasteride [Proscar] 5 mg PO DAILY 11/11/14 11/27/16 Multivitamins, Thera [Multivitamin 2 tab PO DAILY 11/11/14 11/27/16 (formulary)] Fenofibrate Nanocrystallized 145 mg PO HS 02/09/16 11/27/16 [Tricor] Lovastatin 20 mg PO HS 02/09/16 11/27/16 Esomeprazole Magnesium [NexIUM] 40 mg PO AC-BRKFST 04/11/16 11/27/16 Montelukast [Singulair] 10 mg PO HS 04/11/16 11/27/16 Lidocaine 5% Patch [Lidoderm 5% 1 patch TRANSDERM HS PRN 07/31/16 11/27/16 Patch] Ferrous Sulfate [Feosol] 325 mg PO DAILY@1200 10/07/16 11/27/16 Previous Rx's Medication Instructions Recorded HYDROcodone/APAP 10-325MG [[place] 1 tab PO Q4H PRN #20 tab 06/28/16 10-325] Magnesium Oxide [Mag-Ox] 400 mg PO TID tab 06/28/16 Mirtazapine [Remeron] 15 mg PO HS #10 tablet 06/28/16 Allergies Allergy/AdvReac Type Severity Reaction Status Date / Time adhesive tape AdvReac Severe tears skin Verified 11/27/16 12:14 chicken derived [Chicken] AdvReac Nausea & Verified 11/27/16 12:14 Vomiting & Diarrhea Review of Systems ROS Statement: Those systems with pertinent positive or pertinent negative responses have been documented in the HPI. ROS Other: All systems not noted in ROS Statement are negative. Past Medical History Past Medical History: Blood Disorder, Deep Vein Thrombosis (DVT), GERD/Reflux, Hyperlipidemia, Musculoskeletal Disorder, Pneumonia, Prostate Disorder, Renal Disease Additional Past Medical History / Comment(s): ENLARGED PROSTATE, 7 crushed vertebrae, BACK PAIN FROM PINCHED NERVES IN BACK- drop foot sharif feet, History of Any Multi-Drug Resistant Organisms: C-DIFF Date of last positivie culture/infection: 2016 MDRO Source:: stool Additional Past Surgical History / Comment(s): 02/08/16 laparoscopic christopher fundoplasty. Other surgical hx: Hydrocele repair, EGD (2007). EPIDURAL STEROID INJECTIONS WITH DR. DIAZ. skin cancer -LESIONS SEVERAL BRONCHOSCOPIES,SEBACEOUS CYST ON BACK REMOVED, esophagus dilation Past Anesthesia/Blood Transfusion Reactions: No Reported Reaction Past Psychological History: No Psychological Hx Reported Smoking Status: Former smoker Past Alcohol Use History: None Reported Past Drug Use History: None Reported - Past Family History Brother(s) Family Medical History: Cancer Additional Family Medical History / Comment(s): COLON CANCER Father Family Medical History: Cancer Additional Family Medical History / Comment(s): FROM RESP FAILURE AT AGE 91 Sister(s) Family Medical History: Cancer Additional Family Medical History / Comment(s): LUNG CANCER Mother Family Medical History: Cancer Additional Family Medical History / Comment(s): COLON CANCER General Exam Limitations: no limitations General appearance: alert, in no apparent distress, cachectic Head exam: Present: atraumatic, normocephalic, normal inspection Eye exam: Present: normal appearance, PERRL, EOMI. Absent: scleral icterus, conjunctival injection, periorbital swelling ENT exam: Present: normal exam, mucous membranes moist Neck exam: Present: normal inspection. Absent: tenderness, meningismus, lymphadenopathy Respiratory exam: Present: normal lung sounds bilaterally. Absent: respiratory distress, wheezes, rales, rhonchi, stridor Cardiovascular Exam: Present: regular rate, normal rhythm, normal heart sounds. Absent: systolic murmur, diastolic murmur, rubs, gallop, clicks GI/Abdominal exam: Present: soft, normal bowel sounds. Absent: distended, tenderness, guarding, rebound, rigid Extremities exam: Present: normal inspection, full ROM, normal capillary refill. Absent: tenderness, pedal edema, joint swelling, calf tenderness Back exam: Present: normal inspection Neurological exam: Present: alert, oriented X3, CN II-XII intact Psychiatric exam: Present: normal affect, normal mood Skin exam: Present: warm, dry, intact, normal color. Absent: rash Course Vital Signs 11/27/16 11/27/16 11/27/16 11:25 11:48 13:18 Temperature 98.4 F 97.4 F L 97.0 F L Pulse Rate 74 71 62 Respiratory 18 16 16 Rate Blood Pressure 118/58 135/68 115/63 O2 Sat by Pulse 97 98 94 L Oximetry - Reevaluation(s) Reevaluation #1: 11/27/16 13:46 The patient with decreased leg strength, decreased range of motion, states he has severe lumbar spine pain EKG Findings - EKG Comments: EKG Findings:: EKG shows sinus rhythm rate of 70, MA 180, QRS 1:30, QTC 444 Medical Decision Making - Medical Decision Making 86 male here for evaluation and weakness lower extremities weakness, positive urinary tract infection, will admit for IV antibiotics and resuscitation, orthopedic PT and OT evaluation - Lab Data Result diagrams: 11/27/16 11:55 11/27/16 11:55 Lab Results 11/27/16 11/27/16 11/27/16 Range/Units 11:55 11:55 11:55 WBC 11.3 H (3.8-10.6) k/uL RBC 3.86 L (4.30-5.90) m/uL Hgb 12.4 L (13.0-17.5) gm/dL Hct 38.6 L (39.0-53.0) % MCV 100.1 H (80.0-100.0) fL MCH 32.0 (25.0-35.0) pg MCHC 32.0 (31.0-37.0) g/dL RDW 14.1 (11.5-15.5) % Plt Count 392 (150-450) k/uL Neutrophils % 81 % Lymphocytes % 12 % Monocytes % 4 % Eosinophils % 1 % Basophils % 0 % Neutrophils # 9.1 H (1.3-7.7) k/uL Lymphocytes # 1.3 (1.0-4.8) k/uL Monocytes # 0.5 (0-1.0) k/uL Eosinophils # 0.1 (0-0.7) k/uL Basophils # 0.1 (0-0.2) k/uL PT (9.0-12.0) sec INR (<1.2) APTT (22.0-30.0) sec Sodium 142 (137-145) mmol/L Potassium 4.4 (3.5-5.1) mmol/L Chloride 105 (98-107) mmol/L Carbon Dioxide 30 (22-30) mmol/L Anion Gap 7 mmol/L BUN 30 H (9-20) mg/dL Creatinine 0.95 (0.66-1.25) mg/dL Est GFR (MDRD) Af Amer >60 (>60 ml/min/1.73 sqM) Est GFR (MDRD) Non-Af >60 (>60 ml/min/1.73 sqM) Glucose 72 L (74-99) mg/dL Calcium 9.9 (8.4-10.2) mg/dL Phosphorus 3.3 (2.5-4.5) mg/dL Magnesium 1.7 (1.6-2.3) mg/dL Total Bilirubin 0.7 (0.2-1.3) mg/dL AST 32 (17-59) U/L ALT 29 (21-72) U/L Alkaline Phosphatase 108 (38-126) U/L Total Creatine Kinase 32 L (55-170) U/L CK-MB (CK-2) 0.7 (0.0-2.4) ng/mL CK-MB (CK-2) Rel Index 2.2 Troponin I <0.012 (0.000-0.034) ng/mL Total Protein 6.5 (6.3-8.2) g/dL Albumin 3.1 L (3.5-5.0) g/dL Urine Color Urine Appearance (Clear) Urine pH (5.0-8.0) Ur Specific [place] (1.001-1.035) Urine Protein (Negative) Urine Glucose (UA) (Negative) Urine Ketones (Negative) Urine Blood (Negative) Urine Nitrite (Negative) Urine Bilirubin (Negative) Urine Urobilinogen (<2.0) mg/dL Ur Leukocyte Esterase (Negative) Urine RBC (0-5) /hpf Urine WBC (0-5) /hpf Urine WBC Clumps (None) /hpf Urine Bacteria (None) /hpf Urine Mucus (None) /hpf 07/26/17 07/26/17 Range/Units 11:55 12:15 WBC (3.8-10.6) k/uL RBC (4.30-5.90) m/uL Hgb (13.0-17.5) gm/dL Hct (39.0-53.0) % MCV (80.0-100.0) fL MCH (25.0-35.0) pg MCHC (31.0-37.0) g/dL RDW (11.5-15.5) % Plt Count (150-450) k/uL Neutrophils % % Lymphocytes % % Monocytes % % Eosinophils % % Basophils % % Neutrophils # (1.3-7.7) k/uL Lymphocytes # (1.0-4.8) k/uL Monocytes # (0-1.0) k/uL Eosinophils # (0-0.7) k/uL Basophils # (0-0.2) k/uL PT 11.5 (9.0-12.0) sec INR 1.2 H (<1.2) APTT 27.0 (22.0-30.0) sec Sodium (137-145) mmol/L Potassium (3.5-5.1) mmol/L Chloride (98-107) mmol/L Carbon Dioxide (22-30) mmol/L Anion Gap mmol/L BUN (9-20) mg/dL Creatinine (0.66-1.25) mg/dL Est GFR (MDRD) Af Amer (>60 ml/min/1.73 sqM) Est GFR (MDRD) Non-Af (>60 ml/min/1.73 sqM) Glucose (74-99) mg/dL Calcium (8.4-10.2) mg/dL Phosphorus (2.5-4.5) mg/dL Magnesium (1.6-2.3) mg/dL Total Bilirubin (0.2-1.3) mg/dL AST (17-59) U/L ALT (21-72) U/L Alkaline Phosphatase (38-126) U/L Total Creatine Kinase (55-170) U/L CK-MB (CK-2) (0.0-2.4) ng/mL CK-MB (CK-2) Rel Index Troponin I (0.000-0.034) ng/mL Total Protein (6.3-8.2) g/dL Albumin (3.5-5.0) g/dL Urine Color Yellow Urine Appearance Cloudy (Clear) Urine pH 6.0 (5.0-8.0) Ur Specific [place] 1.016 (1.001-1.035) Urine Protein 1+ H (Negative) Urine Glucose (UA) Negative (Negative) Urine Ketones Negative (Negative) Urine Blood Small H (Negative) Urine Nitrite Negative (Negative) Urine Bilirubin Negative (Negative) Urine Urobilinogen <2.0 (<2.0) mg/dL Ur Leukocyte Esterase Large H (Negative) Urine RBC 14 H (0-5) /hpf Urine WBC >182 H (0-5) /hpf Urine WBC Clumps Few H (None) /hpf Urine Bacteria Rare H (None) /hpf Urine Mucus Rare H (None) /hpf - Radiology Data Radiology results: report reviewed (Chest x-ray negative, x-ray CT lumbar spine pending), image reviewed Disposition Clinical Impression: UTI (urinary tract infection), Weakness, Decreased ambulation status, Severe protein-calorie malnutrition Disposition: ADMITTED IP TO THIS [facility] Condition: Fair Referrals: Escobar Mcdaniels DO [Primary Care Provider] - 1-2 days
[2016-11-27 12:12] LABS: Basophils # (A) 0.1 k/uL (0-0.2); Basophils % (A) 0 %; CH 31.5; CHCM 31.7; Eosinophils # (A) 0.1 k/uL (0-0.7); Eosinophils % (A) 1 %; HCT 38.6 % (39.0-53.0); HDW 2.36; HGB 12.4 gm/dL (13.0-17.5); Luc # (Auto) 0.19; Luc % (Auto) 2; Lymphocytes # (A) 1.3 k/uL (1.0-4.8); Lymphocytes % (A) 12 %; MCV 100.1 fL (80.0-100.0); Mean Platelet Volume 7.5; Monocytes # (A) 0.5 k/uL (0-1.0); Monocytes % (A) 4 %; Neutrophils # (A) 9.1 k/uL (1.3-7.7); Neutrophils % (A) 81 %; RBC 3.86 m/uL (4.30-5.90); RDW 14.1 % (11.5-15.5); WBC 11.3 k/uL (3.8-10.6); WBC (Perox) 10.98
[2016-11-27 12:24] LABS: ALT 29 U/L (21-72); AST 32 U/L (17-59); Alkaline Phosphatase 108 U/L (38-126); Anion Gap 7 mmol/L; Blood Urea Nitrogen 30 mg/dL (9-20); Calcium 9.9 mg/dL (8.4-10.2); Carbon Dioxide 30 mmol/L (22-30); Chloride 105 mmol/L (98-107); Glucose 72 mg/dL (74-99); Magnesium 1.7 mg/dL (1.6-2.3); Non-African American GFR(MDRD) >60 (>60 ml/min/1.73 sqM); Phosphorous 3.3 mg/dL (2.5-4.5); Potassium 4.4 mmol/L (3.5-5.1); Sodium 142 mmol/L (137-145); Total Bilirubin 0.7 mg/dL (0.2-1.3); Total Protein 6.5 g/dL (6.3-8.2)
[2016-11-27 12:26] LABS: INR 1.2 (<1.2); Prothrombin Time 11.5 sec (9.0-12.0)
[2016-11-27 12:33] LABS: Creatine Kinase 32 U/L (55-170)
[2016-11-27 12:45] LABS: Creatine Kinase MB 0.7 ng/mL (0.0-2.4); Troponin I <0.012 ng/mL (0.000-0.034)
[2016-11-27 12:45] LABS: Appearance,Urine Cloudy (Clear); Bacteria,Urine Rare /hpf; Bilirubin,Urine Negative (Negative); Glucose,Urine (UA) Negative (Negative); Ketones,Urine Negative (Negative); Leukocyte Esterase,Urine Large (Negative); Mucus,Urine Rare /hpf; Nitrite,Urine Negative (Negative); Particle Count 4070; Protein,Urine 1+ (Negative); RBC,Urine 14 /hpf (0-5); Specific Gravity,Urine 1.016 (1.001-1.035); UA Billing (MACRO vs. MICRO) MICRO; Urobilinogen,Urine <2.0 mg/dL (<2.0); WBC,Urine >182 /hpf (0-5)
--- NOTE | 2016-11-27 12:51 | XR ---
EXAMINATION TYPE: XR chest 2V DATE OF EXAM: 11/27/2016 COMPARISON: Barium swallow 09/26/2016, chest x-ray 06/26/2016 HISTORY: Weakness, low back pain, abnormal chest x-ray TECHNIQUE: Frontal and lateral views of the chest are obtained. FINDINGS: There are overlying cardiac leads and the patient is rotated. Esophagus is slightly dilate d with debris present to the level of the thoracic inlet. No evident pneumothorax or pleural effusion . Prominent lung volumes could be indicative of underlying COPD. Linear areas of scarring persist. No evident airspace disease. The heart is small. Interval removal of subclavian central venous catheter . Aorta is dense. Evidence of retained contrast in the right lower lobe prior aspiration. Multilevel vertebral compression deformities present at the level of the thoracic lumbar junction. 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 Additio nal findings above.
[2016-11-27] MEDS ORDERED: cefTRIAXone 2,000 MG in SODIUM CHLORIDE 0.9% 100 ML IVPB STA (13:13)
[2016-11-27] MEDS ORDERED: SODIUM CHLORIDE 0.9% 1,000 ML IV ONE (13:40)
[2016-11-27] MEDS ORDERED: HYDROcodone/APAP 10-325MG 1 EACH TAB PO ONE (14:02)
--- NOTE | 2016-11-27 14:58 | CT ---
EXAMINATION TYPE: CT lumbar spine wo con DATE OF EXAM: 11/27/2016 COMPARISON: NONE HISTORY: Unable to walk, back pain, crushed vertebrae-per patient CT DLP: 606.6 mGycm CONTRAST: Unenhanced CT of the lumbar spine was performed. Bone and soft tissue window settings are submitted as well as coronal and sagittal reconstructions. There are severe compression fractures involving the T12, L1, L4 and L5 vertebral segments and to a l brannon extent the superior endplate of L2. The fractures appear to be chronic in nature given the fact that there is no evidence for paraspinal hematoma. There is mild bony retropulsion noted at the T12 level estimated at 6.8 mm. There is effacement of the ventral thecal sac and mild cord contact is dif ficult to exclude. At L1 loss of height is estimated at greater than 95%. Bony retropulsion is identified and measures a pproximately 7.5 mm. There is effacement of the ventral thecal sac with borderline to mild stenosis s uggested. At L2 loss of height is estimated at less than 20%. There is no evidence of bony retropulsion. At L4 loss of height is estimated at approximately 75%. No bony retropulsion is identified. At L5 compression fracture is estimated at greater than 90%. Mild bony retropulsion is identified est imated at 2.6 mm. There is no evidence for central stenosis. Overall the fractures appear to be related to osteoporotic compression fractures. No bony destructive process is appreciated. Vacuum changes are noted at the L1 level. Multilevel degenerative disc disea se and spondylosis is identified. There is central stenosis identified at L3-4. Bilateral renal cystic changes are noted incidentally. There is also atheromatous and ectatic change of the abdominal aorta. Wall thickening is seen of the urinary bladder which may be on the basis of c ystitis. Infiltrate is seen at the left lower lobe. Correlate for pneumonia. There is also a sliding- type hiatal hernia. IMPRESSION: 1. Multiple nonacute osteoporotic compression fractures with varying degrees of bony retropulsion and central stenosis. Cord contact is difficult to exclude at the T12 level. 2. Multilevel degenerative disc disease with spondylosis. Central stenosis identified at the L3-4 lev el. 3. Suspect left lower lobe pneumonia. 4. Suspect urinary bladder cystitis.
[2016-11-27] MEDS ORDERED: HYDROcodone/APAP 10-325MG 1 EACH TAB PO PRN (20:45)
[2016-11-27] MEDS: MONTELUKAST 10 MG TAB PO SCH (21:35)
[2016-11-27] MEDS: MIRTAZAPINE 15 MG TAB PO SCH (21:35)
[2016-11-27] MEDS: FENOFIBRATE 160 MG TAB PO SCH (21:35)
[2016-11-27] MEDS: ATORVASTATIN 10 MG TAB PO SCH (21:35)
[2016-11-28] MEDS: IOHEXOL 350 MG/ML 25 ML BOTTLE (ORAL USE) PO PRN ×2 (06:04→07:15)
--- NOTE | 2016-11-28 08:07 | HP ---
DATE OF SERVICE: 11/27/2016 Chief complaints are weakness and weight loss. HISTORY OF PRESENT ILLNESS: This is an 86-year-old gentleman with a past medical history of multiple medical problems including DVT, history of GERD, hypertension, hyperlipidemia, history of pneumonia, history of enlarged prostate , being followed by Dr. Mcdaniels in the outpatient setting complaining of weakness. The patient apparently loss over 100 pounds in the last 2 years. The patient also had laparoscopy and fundoplication. The weakness was significantly increased and patient also . The patient came to [facility] for further evaluation and treatment. Evaluation showed a UTI on admission and the patient was started on IV antibiotics. There is no history of fever, rigors or chills. PAST MEDICAL HISTORY: History of DVT, GERD, hyperlipidemia, history of DJD. Medications prior to admission include, the home medications are: 1. Multivitamin 1 p.o. daily. 2. Singulair 10 mg. 3. Remeron 50 mg. 4. Magnesium oxide. 5. Lidoderm patch. 6. Proscar 5 mg. 7. Iron sulfate 325 mg daily. 8. TriCor 140 mg q.h.s. 9. Nexium 40 mg a.c. breakfast. ALLERGIES: ADHESIVE TAPE, CHICKEN DERIVATIVES. FAMILY HISTORY: History of colon cancer. SOCIAL HISTORY: No history of alcohol, previous history of smoking. REVIEW OF SYSTEMS: ENT: Diminished hearing, diminished vision. CARDIOVASCULAR: No angina or palpitation. RESPIRATORY: No cough. GI: No nausea. : No dysuria. NERVOUS SYSTEM: No numbness or weakness. ALLERGY/IMMUNOLOGY: No asthma or hayfever. MUSCULOSKELETAL: As mentioned earlier. HEMATOLOGY: No history of anemia. ENDOCRINE: No history of diabetes or hypothyroid. CONSTITUTIONAL: As mentioned earlier. DERMATOLOGY: Negative. RHEUMATOLOGY: Negative. PSYCHIATRY: As mentioned earlier. PHYSICAL EXAM: Patient is alert and oriented x3. Pulse 50, blood pressure 115/ 67, respirations 16, temperature is 97 degrees, pulse ox 94% on 3 L. HEENT: Conjunctivae normal. NECK: No jugular venous distension. CARDIOVASCULAR SYSTEM: S1, S2, muffled. RESPIRATORY: Breath sounds diminished at the bases, a few scattered rhonchi, no crackles. ABDOMEN: Soft, scaphoid, no mass palpable. LEGS: No edema, no swelling. NERVOUS SYSTEM: Higher functions as mentioned, moves all 4 limbs, no focal motor deficits. LYMPHATICS: No lymph node enlargement in the neck, axillae. SKIN: No ulcer, rash, bleeding. Labs at this time show WBC 11.8, hemoglobin is 12.4. UA noted. ASSESSMENT: 1. Possible urinary tract infection with sepsis. 2. History of recent weight loss. 3. Generalized gait dysfunction. 4. Increased WBC. 5. Anemia, macrocytic. 6. History of deep venous thrombosis. 7. History of gastroesophageal reflux disease. 8. Hypertension. 9. History of pneumonia. 10. History of prostate disorder. 11. History of back pain, degenerative joint disease. 12. Remote history of nicotine dependence. RECOMMENDATION: Recommend to continue with the current medication, continue with the symptomatic treatment with the initial broad spectrum IV antibiotics. Resume the home medications. Recommend a CAT scan of the abdomen and pelvis. Guarded prognosis because of multiple complex medical issues. Further recommendations to follow. See orders for details. MTDD
[2016-11-28] MEDS: ENOXAPARIN 40 MG/0.4 ML SYRINGE SQ SCH (08:34)
--- NOTE | 2016-11-28 08:37 | CT ---
EXAMINATION TYPE: CT ChestAbdPelvis wo con DATE OF EXAM: 11/28/2016 COMPARISON: CT abdomen pelvis June 15, [address] chest abdomen pelvis 05/16/2016. HISTORY: Ataxia, UTI and Wasting CT DLP: 989mGycm Unenhanced CT of the Chest, Abdomen and Pelvis Unenhanced CT of the chest ,abdomen and pelvis is performed. The lack of intravenous contrast limits evaluation of the solid and hollow viscera. Oral contrast: Yes CT Chest: LUNGS: Small limited infiltrate left lower lobe. Hyperinflation compatible with COPD. No pulmonary no dule or mass is detected. No pleural effusion or CT evidence of interstitial lung disease. MEDIASTINUM: There is severe progressive dilatation of the esophagus with intraluminal debris. There appears to be a transition zone at the level of the GE junction where there is soft tissue as well as surgical clips. The findings could be related to colonic interposition and esophagectomy if there is such a history. Otherwise primary or secondary achalasia is not excluded. This may clinical correlat ion is advised. Thoracic aorta is of normal caliber. The heart is not enlarged. Trace anterior peric ardial effusion. No evidence for mediastinal mass or adenopathy. HILAR STRUCTURES: No evidence for mass. No hilar adenopathy is appreciated. OTHER: No significant abnormality. CONTRAST CT ABDOMEN AND PELVIS: LIVER/GB: No calcified gallstones. No space occupying hepatic lesion. Biliary tree is of normal ca liber. PANCREAS: No inflammation. No distinct mass. SPLEEN: No splenic enlargement. No lesion seen. ADRENALS: No nodule. No thickening. KIDNEYS/BLADDER: No hydronephrosis. No nephrolithiasis. No disctinct renal mass. Mild urinary blad coleman wall thickening. BOWEL: Normal appendix. Normal bowel caliber. No inflammation. GENITAL ORGANS: Prostate gland enlargement with central calcification. LYMPH NODES: No greater than 1cm abdominal or pelvic lymph nodes areappreciated. AORTA: No significant abnormality. OSSEOUS STRUCTURES: Stable severe compression fractures. OTHER: No significant additional abnormality is seen. IMPRESSION: 1. There is severe progressive dilatation of the esophagus with intraluminal debris. There appears to be a transition zone at the level of the GE junction where there is soft tissue as well as surgical clips. The findings could be related to colonic interposition and esophagectomy if there is such a hi story. Otherwise primary or secondary achalasia is not excluded. This may clinical correlation is adv ised. 2. Stable severe compression fractures of the thoracolumbar spine. 3. Prostate enlargement. 4. Mild urinary bladder wall thickening.
[2016-11-28 09:46] LABS: Basophils # (A) 0.1 k/uL (0-0.2); Basophils % (A) 1 %; CHCM 30.7; Eosinophils # (A) 0.2 k/uL (0-0.7); Eosinophils % (A) 3 %; HCT 40.3 % (39.0-53.0); HDW 2.34; HGB 12.5 gm/dL (13.0-17.5); Hypochromasia Slight; Luc # (Auto) 0.15; Luc % (Auto) 2; Lymphocytes # (A) 1.2 k/uL (1.0-4.8); Lymphocytes % (A) 13 %; MCH 31.7 pg (25.0-35.0); MCHC 31.1 g/dL (31.0-37.0); MCV 101.8 fL (80.0-100.0); Macrocytosis Slight; Mean Platelet Volume 7.1; Monocytes # (A) 0.5 k/uL (0-1.0); Monocytes % (A) 5 %; Neutrophils # (A) 7.3 k/uL (1.3-7.7); Neutrophils % (A) 77 %; RBC 3.96 m/uL (4.30-5.90); RDW 13.3 % (11.5-15.5); WBC 9.5 k/uL (3.8-10.6); WBC (Perox) 10.15
[2016-11-28 09:59] LABS: Anion Gap 8 mmol/L; Blood Urea Nitrogen 20 mg/dL (9-20); Calcium 9.3 mg/dL (8.4-10.2); Carbon Dioxide 27 mmol/L (22-30); Chloride 106 mmol/L (98-107); Glucose 80 mg/dL (74-99); Non-African American GFR(MDRD) >60 (>60 ml/min/1.73 sqM); Sodium 141 mmol/L (137-145)
--- NOTE | 2016-11-28 10:03 | P.CNOR ---
History of Present Illness - HPI Consult date: 11/28/16 Consult reason: low back pain History of present illness: Patient is very pleasant 86-year-old gentleman has been having low back pain after sustaining a small fall from a chair in his yard last week. He had been seen in our office over a year ago in regards to back pain in the past. He says that he was doing some spring of the [employer] and would sit in the chair every so often but the chair sunk down and he slid off chair onto his rear. He denies any loss of consciousness. He was able to get up but has been having significant difficulty with walking. He says that he typically walks Where he is significantly bent forward. He says he's been having trouble lifting his legs up to try to walk. He says he has pain at his lower back and towards his right side of his pelvis. He presented to the hospital as he has been having some generalized weakness and was found to have urinary tract infection and bladder cystitis. He has been treating with medicine and we're counseled in regards to his low back pain. He denies any specific neurologic deficit. He denies any chest pain shortness breath. Review of Systems As stated in HPI. Denies any chest pain shortness breath. Denies any changes in bowel bladder function. He has new pain in his lower back toward the right side and his right gluteus. He denies any pain up higher in his chest or thorax. Denies any weakness in his upper extremity is. He says his legs feel weak on both sides particularly with trying to walk and lift his legs. Past Medical History Past Medical History: Blood Disorder, Deep Vein Thrombosis (DVT), GERD/Reflux, Hyperlipidemia, Musculoskeletal Disorder (Known history of multiple compression fractures at the lower thoracic and lumbar spine with significant disc degeneration and osteoarthritis), Osteoarthritis (OA), Pneumonia, Prostate Disorder, Renal Disease Additional Past Medical History / Comment(s): ENLARGED PROSTATE, 7 crushed vertebrae, BACK PAIN FROM PINCHED NERVES IN BACK- drop foot sharif feet, esophogeal strictures History of Any Multi-Drug Resistant Organisms: None Reported Year Discovered:: 2016 MDRO Source:: stool Additional Past Surgical History / Comment(s): 02/08/16 laparoscopic christopher fundoplasty. Other surgical hx: Hydrocele repair, EGD (2007). EPIDURAL STEROID INJECTIONS WITH DR. DIAZ. skin cancer -LESIONS SEVERAL BRONCHOSCOPIES,SEBACEOUS CYST ON BACK REMOVED, esophagus dilations Past Anesthesia/Blood Transfusion Reactions: No Reported Reaction Past Psychological History: No Psychological Hx Reported Smoking Status: Former smoker Past Alcohol Use History: None Reported Additional Past Alcohol Use History / Comment(s): STARTED SMOKING AT AGE 16 QUIT 2006 SMOKED 1PPD Past Drug Use History: None Reported - Past Family History Brother(s) Family Medical History: Cancer Additional Family Medical History / Comment(s): COLON CANCER Father Family Medical History: Cancer Additional Family Medical History / Comment(s): FROM RESP FAILURE AT AGE 91 Sister(s) Family Medical History: Cancer Additional Family Medical History / Comment(s): LUNG CANCER Mother Family Medical History: Cancer Additional Family Medical History / Comment(s): COLON CANCER Medications and Allergies Home Medications Medication Instructions Recorded Confirmed Type Finasteride [Proscar] 5 mg PO DAILY 11/11/14 11/27/16 History Multivitamins, Thera [Multivitamin 2 tab PO DAILY 11/11/14 11/27/16 History (formulary)] Fenofibrate Nanocrystallized 145 mg PO HS 02/09/16 11/27/16 History [Tricor] Lovastatin 20 mg PO HS 02/09/16 11/27/16 History Esomeprazole Magnesium [NexIUM] 40 mg PO AC-BRKFST 04/11/16 11/27/16 History Montelukast [Singulair] 10 mg PO HS 04/11/16 11/27/16 History Lidocaine 5% Patch [Lidoderm 5% 1 patch TRANSDERM HS PRN 07/31/16 11/27/16 History Patch] Ferrous Sulfate [Feosol] 325 mg PO DAILY@1200 10/07/16 11/27/16 History Allergies Allergy/AdvReac Type Severity Reaction Status Date / Time adhesive tape AdvReac Severe tears skin Verified 11/27/16 12:14 chicken derived [Chicken] AdvReac Nausea & Verified 11/27/16 12:14 Vomiting & Diarrhea Physical Examination Osteopathic Statement: *. No significant issues noted on an osteopathic structural exam other than those noted in the History and Physical/Consult. - L Spine: dermatomal strength & reflexes bilateral Strength: hip flexion: 4/5 (He has some generalized weakness in his bilateral hips with flexion. He does not have any pain with internal/external rotation of his hips. He does have some pull at his lower back when he tries to flex his hips. He is able to extend his legs bilaterally. He has severe bilateral pitting edema in his lower extremities. He sustained dorsal flexion plantar flexion and EHL. His calves and thighs are soft nontender despite the edema.) Results - Labs Labs: Abnormal Lab Results - Last 24 Hours (Table) 11/27/16 11/27/16 11/27/16 Range/Units 11:55 11:55 11:55 WBC 11.3 H (3.8-10.6) k/uL RBC 3.86 L (4.30-5.90) m/uL Hgb 12.4 L (13.0-17.5) gm/dL Hct 38.6 L (39.0-53.0) % MCV 100.1 H (80.0-100.0) fL Neutrophils # 9.1 H (1.3-7.7) k/uL INR (<1.2) BUN 30 H (9-20) mg/dL Glucose 72 L (74-99) mg/dL Total Creatine Kinase 32 L (55-170) U/L Albumin 3.1 L (3.5-5.0) g/dL Urine Protein (Negative) Urine Blood (Negative) Ur Leukocyte Esterase (Negative) Urine RBC (0-5) /hpf Urine WBC (0-5) /hpf Urine WBC Clumps (None) /hpf Urine Bacteria (None) /hpf Urine Mucus (None) /hpf 11/27/16 11/27/16 11/28/16 Range/Units 11:55 12:15 09:17 WBC (3.8-10.6) k/uL RBC 3.96 L (4.30-5.90) m/uL Hgb 12.5 L (13.0-17.5) gm/dL Hct (39.0-53.0) % MCV 101.8 H (80.0-100.0) fL Neutrophils # (1.3-7.7) k/uL INR 1.2 H (<1.2) BUN (9-20) mg/dL Glucose (74-99) mg/dL Total Creatine Kinase (55-170) U/L Albumin (3.5-5.0) g/dL Urine Protein 1+ H (Negative) Urine Blood Small H (Negative) Ur Leukocyte Esterase Large H (Negative) Urine RBC 14 H (0-5) /hpf Urine WBC >182 H (0-5) /hpf Urine WBC Clumps Few H (None) /hpf Urine Bacteria Rare H (None) /hpf Urine Mucus Rare H (None) /hpf Microbiology - Last 24 Hours (Table) 11/27/16 12:15 Urine Culture - Preliminary Urine,Voided H & H 11/27/16 11/28/16 Range/Units 11:55 09:17 Hgb 12.4 L 12.5 L (13.0-17.5) gm/dL Hct 38.6 L 40.3 (39.0-53.0) % Coagulation 11/27/16 Range/Units 11:55 INR 1.2 H (<1.2) Result Diagrams: 11/28/16 09:17 11/27/16 11:55 - Diagnostic results CT Scan - lumbar: report reviewed, image reviewed (Computed tomography scan of the lumbar spine is reviewed. He has multiple compression fractures which appear to be essentially chronic or at least subacute. There compression fractures at T11-T12 L1 L2 L4 and L5. The fractures at the lower thoracic spine and upper lumbar spine appear to be chronic. There is some bony retropulsion with some narrowing at the spinal canal but I do not think that this is new for him. There is some evidence of healing around those fractures. At L4 and L5 there is also some evidence of bony healing and the fractures appear to be subacute there is evidence of stenosis particular at L4 5.) Assessment and Plan Plan: Low back pain with generalized lower extremity weakness Multiple compression fractures which appear to be subacute and chronic Degenerative disc disease and spinal stenosis Diminished ability to ambulate Status post fall from a chair The patient has some increased pain in his lower back periodically toward the right side at around his lumbosacral junction. He does have multiple compression fractures which are of various ages. It is difficult to determine the chronicity of his fractures for certain especially with his new recent fall and pain. He does not appear to have a specific neurologic deficit but does have some generalized weakness. I do not think that he is a candidate for surgical intervention but he may have an acute on chronic type fracture at his lumbar spine around L4. He may have significant acute exacerbation of his large degenerative disease as well. For his compression fractures I think it would be worthwhile to give him support with an LSO brace. He does not even need to use the LSO brace while in bed but should use it whenever he is ambulatory. He does not need to use the brace while bathing. I think the brace can protective signal installer helper in support his lower back and also aid in his healing for possible acute on chronic compression fracture. It is okay for him to mobilize and I think that he can have improvement with formal physical therapy to help him improve his mobility and gait and transfers. He does seem to have some acute exacerbation of his chronic degenerative osteoarthritis and may have some increased improvement with a short small course of oral steroid. We will prescribe a course of Medrol Dosepak for him to be taken over the next 6 days which will hopefully alleviate some of the acute inflammation from his injury and allow him to improve his mobility. It is okay for him to increase his mobility and to be discharged when he is stable from a medical standpoint. I can follow him up in clinic in the next 3- 4 weeks. He is continuing management for his other medical issues including his urinary tract infection and should continue to follow with medicine. I answered his questions best my ability along with his 's and they are agreeable.
[2016-11-28] MEDS ORDERED: LIDOCAINE 5% PATCH TOPICAL PRN (11:11)
[2016-11-28] MEDS: IPRATROPIUM-ALBUTEROL 3 ML NEB INHALATION SCH ×2 (13:17→19:19)
--- NOTE | 2016-11-28 13:22 | P.CONS ---
History of Present Illness - Reason for Consult Consult date: 11/28/16 Dysphagia Requesting physician: Mono Dewey - History of Present Illness 86-year-old male presented with UTI, weakness. PMH intermittent dysphagia, fundoplication, GERD, DVT, hypertension, hyperlipidemia, and pneumonia. Consultation requested for dysphagia. Dysphagia chronic > 6 months intermittently. Thicker foods more difficult than liquid. Intermittent phlegm like emesis no blood. Barium swallow September 2016 reported aspiration with limited opening through the distal esophagus at the GE junction. Christopher fundoplication February [address] Vilchis. EGD with balloon dilation October [address] Vilchis. Eyes hematemesis hematochezia melena. Review of medical records indicate approximate 50 pound weight loss over the last 2 years. Heaviest weight 84 kg. Present weight 60 kg. Review of Systems Constitutional: Denies fever, chills, sweats, weight gain, or loss. HEENT: Negative for migraines, blurred vision or loss, earaches, drainage, tinnitus, oral mucosal lesions, dysphagia, or odynophagia. Cardiac: Hyperlipidemia. Negative for chest pain, arrhythmias, or palpitation. Respiratory: Negative for shortness of breath, hemoptysis, cough, or sputum production. Gastrointestinal: See HPI for pertinent findings. Genitourinary: Negative for hematuria, urgency, frequency, polyuria, dysuria, or penile discharge. Musculoskeletal: Negative for muscle aches, swelling, arthritis, and arthralgias. Neurologic: Negative for stroke or TIA. Hematologic: DVT. Endocrine: Negative for thyroid problems. Skin: Negative for rash or itching. Psychiatric: Negative history for depression and anxiety All systems: negative (See HPI) Past Medical History Past Medical History: Blood Disorder, Deep Vein Thrombosis (DVT), GERD/Reflux, Hyperlipidemia, Musculoskeletal Disorder (Known history of multiple compression fractures at the lower thoracic and lumbar spine with significant disc degeneration and osteoarthritis), Osteoarthritis (OA), Pneumonia, Prostate Disorder, Renal Disease Additional Past Medical History / Comment(s): ENLARGED PROSTATE, 7 crushed vertebrae, BACK PAIN FROM PINCHED NERVES IN BACK- drop foot sharif feet, esophogeal strictures History of Any Multi-Drug Resistant Organisms: None Reported Year Discovered:: 2016 MDRO Source:: stool Additional Past Surgical History / Comment(s): 02/08/16 laparoscopic christopher fundoplasty. Other surgical hx: Hydrocele repair, EGD (2008). EPIDURAL STEROID INJECTIONS WITH DR. DIAZ. skin cancer -LESIONS SEVERAL BRONCHOSCOPIES,SEBACEOUS CYST ON BACK REMOVED, esophagus dilations Past Anesthesia/Blood Transfusion Reactions: No Reported Reaction Past Psychological History: No Psychological Hx Reported Smoking Status: Former smoker Past Alcohol Use History: None Reported Additional Past Alcohol Use History / Comment(s): STARTED SMOKING AT AGE 16 QUIT 2006 SMOKED 1PPD Past Drug Use History: None Reported - Past Family History Brother(s) Family Medical History: Cancer Additional Family Medical History / Comment(s): COLON CANCER Father Family Medical History: Cancer Additional Family Medical History / Comment(s): FROM RESP FAILURE AT AGE 91 Sister(s) Family Medical History: Cancer Additional Family Medical History / Comment(s): LUNG CANCER Mother Family Medical History: Cancer Additional Family Medical History / Comment(s): COLON CANCER Medications and Allergies Home Medications Medication Instructions Recorded Confirmed Type Finasteride [Proscar] 5 mg PO DAILY 11/11/14 11/27/16 History Multivitamins, Thera [Multivitamin 2 tab PO DAILY 11/11/14 11/27/16 History (formulary)] Fenofibrate Nanocrystallized 145 mg PO HS 02/09/16 11/27/16 History [Tricor] Lovastatin 20 mg PO HS 02/09/16 11/27/16 History Esomeprazole Magnesium [NexIUM] 40 mg PO AC-BRKFST 04/11/16 11/27/16 History Montelukast [Singulair] 10 mg PO HS 04/11/16 11/27/16 History Lidocaine 5% Patch [Lidoderm 5% 1 patch TRANSDERM HS PRN 07/31/16 11/27/16 History Patch] Ferrous Sulfate [Feosol] 325 mg PO DAILY@1200 10/07/16 11/27/16 History Allergies Allergy/AdvReac Type Severity Reaction Status Date / Time adhesive tape AdvReac Severe tears skin Verified 11/27/16 12:14 chicken derived [Chicken] AdvReac Nausea & Verified 11/27/16 12:14 Vomiting & Diarrhea Physical Exam Vitals: Vital Signs Temp Pulse Pulse Resp BP BP Pulse Ox 11/28/16 07:23 96 11/28/16 07:00 97.8 F 73 16 116/63 93 L 11/27/16 23:26 58 L 18 11/27/16 23:00 97.7 F 58 L 18 120/67 95 11/27/16 16:42 97.2 F L 69 16 120/64 96 11/27/16 15:21 97.7 F 63 16 116/62 98 11/27/16 13:18 97.0 F L 62 16 115/63 94 L 11/27/16 12:41 72 18 127/62 99 11/27/16 12:16 85 18 126/59 99 11/27/16 11:48 97.4 F L 71 16 135/68 98 Intake and Output 11/27/16 11/28/16 11/28/16 22:59 06:59 14:59 Intake Total 400 Output Total 150 200 200 Balance 250 -200 -200 Intake: Intake, IV Titration 400 Amount Sodium Chloride 0.9% 1, 400 000 ml @ 100 mls/hr IV . Q10H ONE Rx#:[id number] Output: Urine 150 200 200 Other: Voiding Method Urinal Weight 60.781 kg 60.781 kg Patient Weight 11/29/16 06:59 Weight 60.781 kg General appearance: The patient is alert, oriented, in no acute distress. HET: Head is normocephalic and atraumatic. Pupils are equal and reactive. Oropharynx is clear without lesions. Neck: Supple without lymphadenopathy. Trachea midline. Heart: S1 S2. Regular rate and rhythm. Lungs: No crackles or wheezes are heard. Abdomen: Soft, nontender, nondistended with bowel sounds. No peritoneal signs. No palpable organomegaly or masses. Extremities: Normal skin color and turgor. No cyanosis, rash, ulceration, clubbing, or edema. Radial and pedal pulses are 2/4 bilaterally. Neurological: No focal deficits. Strength and sensation are grossly intact. Results CBC & Chem 7: 11/28/16 09:17 11/28/16 09:17 Labs: Abnormal Lab Results - Last 24 Hours (Table) 11/27/16 11/27/16 11/27/16 Range/Units 11:55 11:55 11:55 WBC 11.3 H (3.8-10.6) k/uL RBC 3.86 L (4.30-5.90) m/uL Hgb 12.4 L (13.0-17.5) gm/dL Hct 38.6 L (39.0-53.0) % MCV 100.1 H (80.0-100.0) fL Neutrophils # 9.1 H (1.3-7.7) k/uL INR (<1.2) BUN 30 H (9-20) mg/dL Glucose 72 L (74-99) mg/dL Total Creatine Kinase 32 L (55-170) U/L Albumin 3.1 L (3.5-5.0) g/dL Urine Protein (Negative) Urine Blood (Negative) Ur Leukocyte Esterase (Negative) Urine RBC (0-5) /hpf Urine WBC (0-5) /hpf Urine WBC Clumps (None) /hpf Urine Bacteria (None) /hpf Urine Mucus (None) /hpf 11/27/16 11/27/16 11/28/16 Range/Units 11:55 12:15 09:17 WBC (3.8-10.6) k/uL RBC 3.96 L (4.30-5.90) m/uL Hgb 12.5 L (13.0-17.5) gm/dL Hct (39.0-53.0) % MCV 101.8 H (80.0-100.0) fL Neutrophils # (1.3-7.7) k/uL INR 1.2 H (<1.2) BUN (9-20) mg/dL Glucose (74-99) mg/dL Total Creatine Kinase (55-170) U/L Albumin (3.5-5.0) g/dL Urine Protein 1+ H (Negative) Urine Blood Small H (Negative) Ur Leukocyte Esterase Large H (Negative) Urine RBC 14 H (0-5) /hpf Urine WBC >182 H (0-5) /hpf Urine WBC Clumps Few H (None) /hpf Urine Bacteria Rare H (None) /hpf Urine Mucus Rare H (None) /hpf Microbiology - Last 24 Hours (Table) 11/27/16 12:15 Urine Culture - Preliminary Urine,Voided Assessment and Plan (1) Dysphagia Narrative/Plan: Chronic with history of Christopher fundoplication February 2016 followed by EGD with dilation October [address] Vilchis. Status: Acute Plan: 1. Recommend general surgery consultation to Dr. Vilchis service for further evaluation as he has performed most recent EGD with dilation as well as Christopher fundoplication. 2. Nexium 20 g IV daily. 3. Aspiration precautions. Thank you for this kind referral and the opportunity to participate in the care of your patient. This consultation was discussed with Dr. Archer. The impression and plan of care have been directed as dictated.
[2016-11-28] MEDS: SODIUM CHLORIDE 0.9% 1,000 ML IV SCH ×2 (14:29→23:38)
[2016-11-28] MEDS: AMPICILLIN-SULBACTAM 3 GM in SODIUM CHLORIDE 0.9% 100 ML IVPB SCH ×3 (15:26→23:38)
--- NOTE | 2016-11-28 16:18 | P.CNPUL ---
History of Present Illness Consult date: 11/28/16 Requesting physician: Mono Dewey Reason for consult: COPD Chief complaint: shortness of breath History of present illness: This is a 86-year-old male patient being seen and examined today. The patient is well-known to our services. The patient came into the hospital for increased weakness and difficulty ambulating, decreased appetite with severe weight loss, difficulty swallowing, decreased urination as well as shortness of breath. Emergency room workup showed the patient had a UTI on admission as well as significant weakness. The patient was admitted to the hospital for severe weakness of his lower extremities, positive urinary tract infection and for orthopedic consult with PT and OT evaluation, and GI consult for dysphagia. Upon examination the patient is resting up in bed on 2 L of supplemental oxygen. He states he has shortness of breath with exertion. Patient denies any cough or congestion at this time. He is states his weakness has become so severe that he has no longer able to ambulate. CT was performed of the abdomen and pelvis and chest, and shows small left lower lobe pneumonia, COPD, severe progressive dilation of the esophagus, primary or secondary achalasia, stable severe compression fractures of the thoracic lumbar spine, prostate enlargement , and mild urinary bladder wall thickening. Review of Systems 14 point review of systems was completed and is negative unless noted above in the HPI. Past Medical History Past Medical History: Blood Disorder, Deep Vein Thrombosis (DVT), GERD/Reflux, Hyperlipidemia, Musculoskeletal Disorder (Known history of multiple compression fractures at the lower thoracic and lumbar spine with significant disc degeneration and osteoarthritis), Osteoarthritis (OA), Pneumonia, Prostate Disorder, Renal Disease Additional Past Medical History / Comment(s): ENLARGED PROSTATE, 7 crushed vertebrae, BACK PAIN FROM PINCHED NERVES IN BACK- drop foot sharif feet, esophogeal strictures History of Any Multi-Drug Resistant Organisms: None Reported Date of last positivie culture/infection: 2016 MDRO Source:: stool Additional Past Surgical History / Comment(s): 02/08/16 laparoscopic christopher fundoplasty. Other surgical hx: Hydrocele repair, EGD (2007). EPIDURAL STEROID INJECTIONS WITH DR. DIAZ. skin cancer -LESIONS SEVERAL BRONCHOSCOPIES,SEBACEOUS CYST ON BACK REMOVED, esophagus dilations Past Anesthesia/Blood Transfusion Reactions: No Reported Reaction Past Psychological History: No Psychological Hx Reported Smoking Status: Former smoker Past Alcohol Use History: None Reported Additional Past Alcohol Use History / Comment(s): STARTED SMOKING AT AGE 16 QUIT 2006 SMOKED 1PPD Past Drug Use History: None Reported - Past Family History Brother(s) Family Medical History: Cancer Additional Family Medical History / Comment(s): COLON CANCER Father Family Medical History: Cancer Additional Family Medical History / Comment(s): FROM RESP FAILURE AT AGE 91 Sister(s) Family Medical History: Cancer Additional Family Medical History / Comment(s): LUNG CANCER Mother Family Medical History: Cancer Additional Family Medical History / Comment(s): COLON CANCER Medications and Allergies Home Medications Medication Instructions Recorded Confirmed Type Finasteride [Proscar] 5 mg PO DAILY 11/11/14 11/27/16 History Multivitamins, Thera [Multivitamin 2 tab PO DAILY 11/11/14 11/27/16 History (formulary)] Fenofibrate Nanocrystallized 145 mg PO HS 02/09/16 11/27/16 History [Tricor] Lovastatin 20 mg PO HS 02/09/16 11/27/16 History Esomeprazole Magnesium [NexIUM] 40 mg PO AC-BRKFST 04/11/16 11/27/16 History Montelukast [Singulair] 10 mg PO HS 04/11/16 11/27/16 History Lidocaine 5% Patch [Lidoderm 5% 1 patch TRANSDERM HS PRN 07/31/16 11/27/16 History Patch] Ferrous Sulfate [Feosol] 325 mg PO DAILY@1200 10/07/16 11/27/16 History Allergies Allergy/AdvReac Type Severity Reaction Status Date / Time adhesive tape AdvReac Severe tears skin Verified 11/27/16 12:14 chicken derived [Chicken] AdvReac Nausea & Verified 11/27/16 12:14 Vomiting & Diarrhea Physical Exam Vitals: Vital Signs Temp Pulse Pulse Resp BP Pulse Ox 11/28/16 15:44 69 16 11/28/16 15:00 97.6 F 69 16 107/53 95 11/28/16 13:28 76 11/28/16 13:18 75 11/28/16 07:23 96 11/28/16 07:00 97.8 F 73 16 116/63 93 L 11/27/16 23:26 58 L 18 11/27/16 23:00 97.7 F 58 L 18 120/67 95 11/27/16 16:42 97.2 F L 69 16 120/64 96 Intake and Output 11/28/16 11/28/16 11/28/16 06:59 14:59 22:59 Intake Total 2750 Output Total 200 200 200 Balance -200 2550 -200 Intake: Intake, IV Titration 350 Amount Sodium Chloride 0.9% 1, 200 000 ml @ 100 mls/hr IV . Q10H ONE Rx#:[id number] Sodium Chloride 0.9% 1, 150 000 ml @ 75 mls/hr IV . [id number] [facility] Rx#:[id number] Oral 2400 Output: Urine 200 200 200 Other: Voiding Method Urinal Bedside Commode Bedside Commode Urinal Urinal # Voids 4 4 # Bowel Movements 2 2 Weight 60.781 kg 60.781 kg Patient Weight 11/29/16 06:59 Weight 60.781 kg GENERAL EXAM: Alert, weak, comfortable in no apparent distress. HEAD: Normocephalic. EYES: Normal reaction of pupils, equal size. NOSE: Clear with pink turbinates. THROAT: No erythema or exudates. NECK: No masses, no JVD. CHEST: No chest wall deformity. LUNGS: Equal air entry with no crackles, wheeze, rhonchi or dullness. Bases diminished CVS: S1 and S2 normal with no audible mumurs, regular rhythm. ABDOMEN: No hepatosplenomegaly, normal bowel sounds, no guarding or rigidity. EXTREMITIES: No edema noted, pedal pulses palpable. SKIN: No rashes CENTRAL NERVOUS SYSTEM: No focal deficits, tone is normal in all 4 extremities. Results - Laboratory Findings CBC and BMP: 11/28/16 09:17 11/28/16 09:17 PT/INR, D-dimer PT 11.5 sec (9.0-12.0) 11/27/16 11:55 INR 1.2 (<1.2) H 11/27/16 11:55 Abnormal lab findings: Abnormal Labs 11/27/16 11/27/16 11/27/16 11:55 11:55 11:55 WBC 11.3 H RBC 3.86 L Hgb 12.4 L Hct 38.6 L MCV 100.1 H Neutrophils # 9.1 H INR BUN 30 H Glucose 72 L Total Creatine Kinase 32 L Albumin 3.1 L Urine Protein Urine Blood Ur Leukocyte Esterase Urine RBC Urine WBC Urine WBC Clumps Urine Bacteria Urine Mucus 11/27/16 11/27/16 11/28/16 11:55 12:15 09:17 WBC RBC 3.96 L Hgb 12.5 L Hct MCV 101.8 H Neutrophils # INR 1.2 H BUN Glucose Total Creatine Kinase Albumin Urine Protein 1+ H Urine Blood Small H Ur Leukocyte Esterase Large H Urine RBC 14 H Urine WBC >182 H Urine WBC Clumps Few H Urine Bacteria Rare H Urine Mucus Rare H - Diagnostic Findings Chest x-ray: report reviewed, image reviewed CT scan - chest: report reviewed, image reviewed Assessment and Plan Plan: Assessment Acute hypoxic respiratory failure Acute exacerbation of COPD Urinary tract infection probable with sepsis Dysphagia Recent weight loss Ataxia Leukocytosis Macrocytic anemia GERD Hypertension Degenerative joint disease Plan Medications have been reviewed and will be continued as ordered. Continue with antibiotics and steroids. Continue with pulmonary hygiene, coughing and deep breathing exercises, and supportive care. Supplemental oxygen to maintain oxygen saturations of 92% or better. Add nebulizer treatments. GI and DVT prophylaxis. Aspiration precautions. Continue with consult and appreciate recommendations. We will continue to monitor labs/results and adjust treatment as necessary. Further recommendations pending. I performed an examination of the patient and discussed their management with the nurse practitioner. I have reviewed the nurse practitioner's note and agree with the documented findings and plan of care.
--- NOTE | 2016-11-28 16:36 | PN ---
DATE OF SERVICE: 11/28/16 This 83-year-old gentleman who was admitted with significant weakness and weight loss, also had significant difficulty in swallowing also. The patient had previous dilatation as an outpatient, the patient also had features of UTI. The patient also was complaining of back pain also. The patient being closely monitored at this time. Past medical history reviewed. REVIEW OF SYSTEM: Cardiovascular: No angina or palpitations. RESPIRATORY: As mentioned earlier. GI: As mentioned earlier. : No dysuria. Nervous system: No numbness, weakness. Current medications are: 1. [place] 10 mg q4h prn. 2. Duoneb q.i.d. and prn. 3. Pulmicort b.i.d. 4. Lovenox 40 mg subcu. 5. Lofibra 160 mg. 6. Proscar 5 mg po daily. 9. Medrol dosepak. 10. Remeron. 11. Singulair. PHYSICAL EXAMINATION: The patient is alert and oriented times three. Pulse 73. Blood pressure 116/63. Respiratory rate 16. Temperature 97.8. Pulse ox 92% on 2 L. HEENT: Conjunctivae normal. NECK: No JVD. Cardiovascular: S1, S2 muffled. Respiratory: Breath sounds diminished at the bases. Scattered rhonchi and crackles. Abdomen soft. Scaphoid. Nontender. No mass palpable. Legs no edema. No swelling. Nervous system: higher functions as mentioned earlier. Moves all four limbs. Mild diffuse. Lymphatics: No lymph nodes palpable in the neck, axillae or groin. SKIN: No ulcer, rash or bleeding. Labs: WBC 9.5. Hemoglobin 12.5, UA noted. Cultures are pending at this time. ASSESSMENT: 1. Urinary tract infection with sepsis, present on admission. 2. Recent weight loss. 3. Esophageal stricture. 4. History of recent fundoplication. 5. Generalized gait dysfunction. 6. Increased WBC. 7. Anemia. Macrocytic. 8. History of deep venous thrombosis. 9. History of gastroesophageal reflux disease. 10. Hypertension. RECOMMENDATIONS AND DISCUSSION: Continue the current medications. Continue symptomatic treatment. Continue IV antibiotics. I would also recommend surgical evaluaiotn with Dr. Vilchis for continued monitoring. Otherwise continue antibiotics. Guarded prognosis because of multiple complex medical issues. Further recommendations to follow. MTDD
--- NOTE | 2016-11-28 17:50 | P.GSCN ---
History of Present Illness Consult date: 11/28/16 Reason for Consult: Dysphagia History of present illness: This 86-year-old male who is well-known to myself. Patient was admitted to the hospital due to ataxia and UTI. Patient had a CAT scan performed which showed a dilated esophagus with some fluid and debris within the esophagus. Patient is known to have a hiatal hernia Approximately 2 years ago. He has required a previous EGD with dilatation of the GE junction due to some scar tissue. He is able tolerate liquids without difficulty. Review of Systems - Constitutional Reports as per HPI Past Medical History Past Medical History: Blood Disorder, Deep Vein Thrombosis (DVT), GERD/Reflux, Hyperlipidemia, Musculoskeletal Disorder (Known history of multiple compression fractures at the lower thoracic and lumbar spine with significant disc degeneration and osteoarthritis), Osteoarthritis (OA), Pneumonia, Prostate Disorder, Renal Disease Additional Past Medical History / Comment(s): ENLARGED PROSTATE, 7 crushed vertebrae, BACK PAIN FROM PINCHED NERVES IN BACK- drop foot sharif feet, esophogeal strictures History of Any Multi-Drug Resistant Organisms: None Reported Year Discovered:: 2016 MDRO Source:: stool Additional Past Surgical History / Comment(s): 02/08/16 laparoscopic christopher fundoplasty. Other surgical hx: Hydrocele repair, EGD (2007). EPIDURAL STEROID INJECTIONS WITH DR. DIAZ. skin cancer -LESIONS SEVERAL BRONCHOSCOPIES,SEBACEOUS CYST ON BACK REMOVED, esophagus dilations Past Anesthesia/Blood Transfusion Reactions: No Reported Reaction Past Psychological History: No Psychological Hx Reported Smoking Status: Former smoker Past Alcohol Use History: None Reported Additional Past Alcohol Use History / Comment(s): STARTED SMOKING AT AGE 16 QUIT 2006 SMOKED 1PPD Past Drug Use History: None Reported - Past Family History Brother(s) Family Medical History: Cancer Additional Family Medical History / Comment(s): COLON CANCER Father Family Medical History: Cancer Additional Family Medical History / Comment(s): FROM RESP FAILURE AT AGE 91 Sister(s) Family Medical History: Cancer Additional Family Medical History / Comment(s): LUNG CANCER Mother Family Medical History: Cancer Additional Family Medical History / Comment(s): COLON CANCER Medications and Allergies Home Medications Medication Instructions Recorded Confirmed Type Finasteride [Proscar] 5 mg PO DAILY 11/11/14 11/27/16 History Multivitamins, Thera [Multivitamin 2 tab PO DAILY 11/11/14 11/27/16 History (formulary)] Fenofibrate Nanocrystallized 145 mg PO HS 02/09/16 11/27/16 History [Tricor] Lovastatin 20 mg PO HS 02/09/16 11/27/16 History Esomeprazole Magnesium [NexIUM] 40 mg PO AC-BRKFST 04/11/16 11/27/16 History Montelukast [Singulair] 10 mg PO HS 04/11/16 11/27/16 History Lidocaine 5% Patch [Lidoderm 5% 1 patch TRANSDERM HS PRN 07/31/16 11/27/16 History Patch] Ferrous Sulfate [Feosol] 325 mg PO DAILY@1200 10/07/16 11/27/16 History Allergies Allergy/AdvReac Type Severity Reaction Status Date / Time adhesive tape AdvReac Severe tears skin Verified 11/27/16 12:14 chicken derived [Chicken] AdvReac Nausea & Verified 11/27/16 12:14 Vomiting & Diarrhea Surgical - Exam Vital Signs Temp Pulse Resp BP Pulse Ox 98.4 F 74 18 118/58 97 11/27/16 11:25 11/27/16 11:25 11/27/16 11:25 11/27/16 11:25 11/27/16 11:25 - General well developed, no distress - Eyes PERRL - ENT normal pinna - Neck no masses - Respiratory normal expansion - Cardiovascular Rhythm: regular - Abdomen Abdomen: soft, non tender Results - Labs 11/28/16 09:17 11/28/16 09:17 Abnormal Lab Results - Last 24 Hours (Table) 11/28/16 Range/Units 09:17 RBC 3.96 L (4.30-5.90) m/uL Hgb 12.5 L (13.0-17.5) gm/dL MCV 101.8 H (80.0-100.0) fL Microbiology - Last 24 Hours (Table) 11/27/16 12:15 Urine Culture - Preliminary Urine,Voided Group D Enterococcus Diabetes panel 11/28/16 Range/Units 09:17 Sodium 141 (137-145) mmol/L Potassium 4.0 (3.5-5.1) mmol/L Chloride 106 (98-107) mmol/L Carbon Dioxide 27 (22-30) mmol/L BUN 20 (9-20) mg/dL Creatinine 0.72 (0.66-1.25) mg/dL Glucose 80 (74-99) mg/dL Calcium 9.3 (8.4-10.2) mg/dL Calcium panel 11/28/16 Range/Units 09:17 Calcium 9.3 (8.4-10.2) mg/dL Pituitary panel 11/28/16 Range/Units 09:17 Sodium 141 (137-145) mmol/L Potassium 4.0 (3.5-5.1) mmol/L Chloride 106 (98-107) mmol/L Carbon Dioxide 27 (22-30) mmol/L BUN 20 (9-20) mg/dL Creatinine 0.72 (0.66-1.25) mg/dL Glucose 80 (74-99) mg/dL Calcium 9.3 (8.4-10.2) mg/dL Adrenal panel 11/28/16 Range/Units 09:17 Sodium 141 (137-145) mmol/L Potassium 4.0 (3.5-5.1) mmol/L Chloride 106 (98-107) mmol/L Carbon Dioxide 27 (22-30) mmol/L BUN 20 (9-20) mg/dL Creatinine 0.72 (0.66-1.25) mg/dL Glucose 80 (74-99) mg/dL Calcium 9.3 (8.4-10.2) mg/dL Assessment and Plan Plan: Dysphagia. Patient will remain on a clear liquid diet. If he tolerates this we will advance him to full liquid diet. Her morning will be covering me over the weekend. I'll return on service on Friday. If needed we can perform a EGD with balloon dilatation next week.
[2016-11-28] MEDS: BUDESONIDE 0.5 MG/2 ML NEBU INHALATION SCH (19:18)
[2016-11-28] MEDS: FENOFIBRATE 160 MG TAB PO SCH (20:03)
[2016-11-28] MEDS: MIRTAZAPINE 15 MG TAB PO SCH (20:03)
[2016-11-28] MEDS: MONTELUKAST 10 MG TAB PO SCH (20:03)
[2016-11-28] MEDS: ATORVASTATIN 10 MG TAB PO SCH (20:04)
[2016-11-29] MEDS: AMPICILLIN-SULBACTAM 3 GM in SODIUM CHLORIDE 0.9% 100 ML IVPB SCH ×4 (06:09→23:31)
[2016-11-29] MEDS: BUDESONIDE 0.5 MG/2 ML NEBU INHALATION SCH ×2 (07:02→19:31)
[2016-11-29] MEDS: IPRATROPIUM-ALBUTEROL 3 ML NEB INHALATION SCH ×3 (07:03→19:31)
[2016-11-29] MEDS: methylPREDNISolone 4 MG TAB TAPER PO SCH (07:19)
[2016-11-29] MEDS: FINASTERIDE 5 MG TAB PO SCH ×2 (07:20→11:20)
[2016-11-29] MEDS: ENOXAPARIN 40 MG/0.4 ML SYRINGE SQ SCH ×2 (07:20→07:59)
[2016-11-29 08:29] LABS: Basophils # (A) 0.1 k/uL (0-0.2); Basophils % (A) 1 %; CH 31.4; Eosinophils # (A) 0.2 k/uL (0-0.7); Eosinophils % (A) 3 %; HCT 38.8 % (39.0-53.0); HDW 2.36; Hypochromasia Slight; Luc # (Auto) 0.09; Luc % (Auto) 1; Lymphocytes # (A) 1.2 k/uL (1.0-4.8); Lymphocytes % (A) 15 %; MCH 31.5 pg (25.0-35.0); MCHC 30.9 g/dL (31.0-37.0); MCV 101.8 fL (80.0-100.0); Macrocytosis Slight; Mean Platelet Volume 7.8; Monocytes # (A) 0.4 k/uL (0-1.0); Monocytes % (A) 5 %; Neutrophils # (A) 5.9 k/uL (1.3-7.7); Neutrophils % (A) 75 %; RBC 3.81 m/uL (4.30-5.90); RDW 13.8 % (11.5-15.5); WBC 7.9 k/uL (3.8-10.6); WBC (Perox) 8.33
[2016-11-29 08:38] LABS: Anion Gap 6 mmol/L; Blood Urea Nitrogen 15 mg/dL (9-20); Calcium 9.3 mg/dL (8.4-10.2); Carbon Dioxide 28 mmol/L (22-30); Chloride 107 mmol/L (98-107); Glucose 67 mg/dL (74-99); Non-African American GFR(MDRD) >60 (>60 ml/min/1.73 sqM); Potassium 3.9 mmol/L (3.5-5.1); Sodium 141 mmol/L (137-145)
--- NOTE | 2016-11-29 08:44 | P.PN ---
Progress Note - Text Patient is a very pleasant 86 showed male who is seen and examined at the bedside for follow-up evaluation for his low back pain status post fall on the buttocks. He is known to have multiple compression fracture deformities of the thoracic and lumbar spines. Since being seen and examined yesterday, he continues to have weakness with hip flexion bilaterally. He states he has been trying to work to increase his lower extremity strength. Last night he states 3 different LSO braces were brought to the bedside. None of these braces were able to fit appropriately. He states the braces were taken back and they will come back today with more bracing options to see if any of these braces may fit more appropriately. He continues to have some edema in bilateral lower extremities but the pitting edema around his calves has significantly improved as compared to yesterday. He continues of significant pitting edema at the bilateral ankles and feet. He continues to be seen and examined by Dr. Vilchis in general surgery. Per nursing and the patient, patient may plan to have an EGD with balloon dilation performed while in hospital. He is currently on a clear liquid diet. Patient also continues to be treated for UTI and bladder cystitis. Physical Exam: Patient is awake, alert, and oriented 3 Vital signs stable Good chest excursion with deep inspiration and expiration Abdomen soft nontender No significant pain with palpation of the thoracic spine or upper lumbar spine Some pain with palpation along the lower lumbar spine and towards the right Examination of the thoracic and lumbar spines shows no evidence of bruising, erythema, laceration, or obvious sign of infection No signs or symptoms of DVT; no calf pain Significant bilateral pitting edema of the lower extremities with some significant improvement over the calves bilaterally but continues to have significant swelling of the bilateral ankles and feet Extensor hallucis longus, plantarflexion, and dorsiflexion positive sustained bilateral lower extremities the strength at 4+/5 Significant difficulty with hip flexion bilaterally; hip flexion strength 3/5 bilaterally Assessment: Lumbar pain Generalized lower extremity weakness most significant with bilateral hip flexion Multiple thoracic and lumbar compression fracture deformities at T11, T12, L1, L2, L4, and L5 Degenerative disc disease Lumbar spinal canal stenosis Diminished ability to ambulate Status post fall from chair Urinary tract infection bladder cystitis Dysphagia Bilateral lower extremity pitting edema Plan: 1. We will currently plan to continue conservative treatment in regards to the patient's thoracic and lumbar spines. Bracing was attempted to be provided yesterday but none of the 3 braces brought were able to fit the patient appropriately. New bracing will be attempted today with different braces. If one of these braces is able to fit appropriate, the patient will be fitted for this brace. At that time, he may wear this brace while ambulating and doing activities. He does not have to wear this brace while lying in bed or while bathing. He may work with physical therapy to increase mobility, ambulation, and transfers with this brace intact. We are not currently planning for surgical intervention in regards to the patient's thoracic or lumbar spines. We 'll also plan to continue with Medrol Dosepak as prescribed yesterday by Dr. Deangelo Ibarra. 2. Medicine to continue following the patient for his other medical diagnoses including UTI and bladder cystitis 3. Dr. Vilchis in general surgery will continue to follow the patient for further treatment for dysphagia 3. Pulmonology will continue to follow patient 4. Once cleared by all other medical providers and once a brace has been fitted appropriately, patient is cleared for discharge from an orthopedic spine standpoint 5. Following discharge, patient may follow-up with Maco Landry PA-C or Dr. Deangelo Ibarra at [facility] approximately 3-4 weeks for further evaluation 6. Patient has been discussed in detail with Dr. Deangelo Ibarra and he agrees with this plan
[2016-11-29] MEDS ORDERED: PROPOFOL 10 MG/ML 20 ML VIAL IV ONE (14:08)
[2016-11-29] MEDS ORDERED: IV FLUID CONTINUATION 1,000 ML IV ONE (14:08)
--- NOTE | 2016-11-29 14:14 | P.PN ---
Subjective 11/28/16- This is a 86-year-old male patient being seen and examined today. The patient is well-known to our services. The patient came into the hospital for increased weakness and difficulty ambulating, decreased appetite with severe weight loss, difficulty swallowing, decreased urination as well as shortness of breath. Emergency room workup showed the patient had a UTI on admission as well as significant weakness. The patient was admitted to the hospital for severe weakness of his lower extremities, positive urinary tract infection and for orthopedic consult with PT and OT evaluation, and GI consult for dysphagia. Upon examination the patient is resting up in bed on 2 L of supplemental oxygen. He states he has shortness of breath with exertion. Patient denies any cough or congestion at this time. He is states his weakness has become so severe that he has no longer able to ambulate. CT was performed of the abdomen and pelvis and chest, and shows small left lower lobe pneumonia, COPD, severe progressive dilation of the esophagus, primary or secondary achalasia, stable severe compression fractures of the thoracic lumbar spine, prostate enlargement , and mild urinary bladder wall thickening. 11/29/16 is being evaluated and examined today on rounds. The patient is resting in bed on room air. Oxygen saturations in the mid 90s. Continues to have shortness of breath with exertion. Surgical evaluated the patient yesterday so far there are no procedures planned at this time however there could be a possibility of an EGD with balloon dilation next week. Currently the patient is on a clear liquid diet, diet can be advanced per recommendations from surgical services. Objective - Vital Signs Vital signs: Vital Signs Temp 97.8 F 11/29/16 13:47 Pulse 68 11/29/16 13:47 Resp 18 11/29/16 13:47 BP 111/58 11/29/16 13:47 Pulse Ox 92 L 11/29/16 13:47 Intake & Output 11/28/16 11/29/16 11/29/16 18:59 06:59 18:59 Intake Total 2750 3175 Output Total 400 225 Balance 2350 2950 Weight 60.781 kg 60.781 kg Intake: Intake, IV Titration 350 1535 Amount Ampicillin-Sulbactam 3 gm 200 In Sodium Chloride 0.9% 100 ml @ 100 mls/hr IVPB Q6HR [facility] Rx#:[id number] Sodium Chloride 0.9% 1, 200 000 ml @ 100 mls/hr IV . Q10H [facility] Rx#:[id number] Sodium Chloride 0.9% 1, 150 1335 000 ml @ 75 mls/hr IV . [id number] [facility] Rx#:[id number] Oral 2400 1640 Output: Urine 400 225 Other: Voiding Method Bedside Commode Bedside Commode Bedside Commode Urinal Urinal Urinal # Voids 4 2 2 # Bowel Movements 2 - Exam GENERAL EXAM: Alert, weak, comfortable in no apparent distress. HEAD: Normocephalic. EYES: Normal reaction of pupils, equal size. NOSE: Clear with pink turbinates. THROAT: No erythema or exudates. NECK: No masses, no JVD. CHEST: No chest wall deformity. LUNGS: Equal air entry with no crackles, wheeze, rhonchi or dullness. Bases diminished CVS: S1 and S2 normal with no audible mumurs, regular rhythm. ABDOMEN: No hepatosplenomegaly, normal bowel sounds, no guarding or rigidity. EXTREMITIES: No edema noted, pedal pulses palpable. SKIN: No rashes CENTRAL NERVOUS SYSTEM: No focal deficits, tone is normal in all 4 extremities. - Labs CBC & Chem 7: 11/29/16 07:27 11/29/16 07:27 Labs: Abnormal Lab Results - Last 24 Hours (Table) 11/29/16 11/29/16 Range/Units 07:27 07:27 RBC 3.81 L (4.30-5.90) m/uL Hgb 12.0 L (13.0-17.5) gm/dL Hct 38.8 L (39.0-53.0) % MCV 101.8 H (80.0-100.0) fL MCHC 30.9 L (31.0-37.0) g/dL Glucose 67 L (74-99) mg/dL Microbiology - Last 24 Hours (Table) 11/28/16 19:43 Gram Stain - Preliminary Sputum 11/27/16 12:15 Urine Culture - Preliminary Urine,Voided Group D Enterococcus Assessment and Plan Plan: Assessment Acute hypoxic respiratory failure Acute exacerbation of COPD Urinary tract infection probable with sepsis Dysphagia Recent weight loss Ataxia Leukocytosis Macrocytic anemia GERD Hypertension Degenerative joint disease Plan Medications have been reviewed and will be continued as ordered. Diet as ordered per surgical services. Continue with antibiotics and steroids. Continue with pulmonary hygiene, coughing and deep breathing exercises, and supportive care. Supplemental oxygen to maintain oxygen saturations of 92% or better. Add nebulizer treatments. GI and DVT prophylaxis. Aspiration precautions. Continue with consult and appreciate recommendations. We will continue to monitor labs/results and adjust treatment as necessary. Further recommendations pending. I performed an examination of the patient and discussed their management with the nurse practitioner. I have reviewed the nurse practitioner's note and agree with the documented findings and plan of care.
[2016-11-29] MEDS ORDERED: SODIUM CHLORIDE 0.9% 1,000 ML IV ONE (14:36)
--- NOTE | 2016-11-29 14:41 | P.OP ---
Preoperative Diagnosis: Dysphagia Postoperative Diagnosis: Dysphagia, esophageal stricture, esophageal dysmotility Procedure(s) Performed: EGD with esophageal dilation Implants: Anesthesia: MAC Surgeon: Kari Rosenberg Pathology: none sent Condition: stable Disposition: PACU Indications for Procedure: The patient presented with dysphagia. He has a history of esophageal strictures in the past. Operative Findings: The patient is taken to the endoscopy suite. A gastroscope is passed per mouth to the third and fourth portions of the duodenum. The pharynx itself shows some thickish secretions and small amounts of food. His esophagus has evidence of food and liquid as soon as the scope is inserted past the upper esophageal sphincter. This was too thick to be aspirated with the endoscope. An orogastric tube was then placed multiple times and 2-300 mL's of liquid and fluid was aspirated. The scope was then able to be passed all the way. The esophagus is markedly dilated and inflamed. The GE junction was able to be easily traversed with the endoscope. There is evidence of a Екатерина wrap on retroflexion of the scope. A balloon dilator was then passed on the biopsy port of the endoscope. He is progressively dilated to 20 mm 3. There was no evidence of any significant tearing at the GE junction. I'll keep him on clear liquids today. Order upper GI esophagram on him tomorrow. Further recommendations to follow. Description of Procedure:
--- NOTE | 2016-11-29 16:22 | P.PN ---
Progress Note - Text The patient was seen on rounds this morning and was coughing up thick secretions with food material. I therefore recommended we preceded with EGD with dilation. This had been discussed with the patient yesterday by Dr. Vilchis who is currently out of town.
[2016-11-29] MEDS: SODIUM CHLORIDE 0.9% 1,000 ML IV SCH (18:48)
[2016-11-29] MEDS: FENOFIBRATE 160 MG TAB PO SCH (20:24)
[2016-11-29] MEDS: ATORVASTATIN 10 MG TAB PO SCH (20:24)
[2016-11-29] MEDS: MIRTAZAPINE 15 MG TAB PO SCH (20:24)
[2016-11-29] MEDS: MONTELUKAST 10 MG TAB PO SCH (20:24)
--- NOTE | 2016-11-29 21:44 | PN ---
DATE OF SERVICE: 11/29/2016 This 86-year-old gentleman who was admitted with UTI with sepsis also had recent weight loss. The patient also has a possible esophageal stricture. Patient is scheduled to have esophageal dilatation by Dr. Rosenberg. Past medical history reviewed. REVIEW OF SYSTEMS: CARVIOVASCULAR SYSTEM: No angina, palpitations. RESPIRATORY SYSTEM: As mentioned earlier. GI: As mentioned earlier. : No dysuria, retention. NERVOUS SYSTEM: No numbness, weakness. Current medications are reviewed and include: 1. [place] 10 mg q.4 p.r.n. 2. DuoNeb q.i.d. and p.r.n. 3. Unasyn 3 grams q.6. 4. Pulmicort. 5. Lofibra. 6. Proscar. 7. Medrol Dosepak. 8. Singulair. PHYSICAL EXAM: Patient is alert and oriented x2. Pulse 70, blood pressure 126/74 , respiration 20, temperature 98.2, pulse ox 97% on room air. HEENT: Conjunctivae normal. Oral mucosa moist. NECK: No jugular venous distention. No carotid bruit. No lymph node enlargement. No thyroid enlargement. CARDIOVASCULAR: S1, S2 muffled. RESPIRATORY: Breath sounds diminished at the bases. A few scattered rhonchi and crackles. Expiratory wheezing also present. ABDOMEN: Soft, non-tender. LEGS: No edema. No swelling. NERVOUS SYSTEM: No focal deficit. LABS: WBC 7.9, hemoglobin 12. ASSESSMENT: 1. Urinary tract infection with sepsis, present on admission. 2. Esophageal stricture, status post dilatation. 3. Recent weight loss. 4. History of recent fundoplication. 5. Generalized gait dysfunction. 6. Increased white count. 7. Anemia, macrocytic. 8. History of deep vein thrombosis. 9. History of gastroesophageal reflux disease. 10. Hypertension. RECOMMENDATIONS AND DISCUSSION: I recommend to continue the current medications , continue the monitoring and symptomatic treatment. Otherwise, at this time we will monitor the patient closely, continue with the antibiotics. Closely follow with Surgery. Guarded prognosis. Further recommendations to follow. MTDD
[2016-11-30] MEDS: AMPICILLIN-SULBACTAM 3 GM in SODIUM CHLORIDE 0.9% 100 ML IVPB SCH ×4 (05:08→23:54)
[2016-11-30] MEDS: SODIUM CHLORIDE 0.9% 1,000 ML IV SCH ×2 (05:09→16:50)
[2016-11-30] MEDS: methylPREDNISolone 4 MG TAB TAPER PO SCH (07:07)
[2016-11-30] MEDS: FINASTERIDE 5 MG TAB PO SCH (07:08)
[2016-11-30] MEDS: ENOXAPARIN 40 MG/0.4 ML SYRINGE SQ SCH (07:08)
[2016-11-30] MEDS: IPRATROPIUM-ALBUTEROL 3 ML NEB INHALATION SCH ×3 (07:14→20:18)
[2016-11-30] MEDS: BUDESONIDE 0.5 MG/2 ML NEBU INHALATION SCH ×2 (07:14→20:18)
[2016-11-30 07:51] LABS: Basophils # (A) 0.1 k/uL (0-0.2); Basophils % (A) 1 %; CH 30.9; CHCM 30.2; Eosinophils # (A) 0.3 k/uL (0-0.7); Eosinophils % (A) 5 %; HCT 35.6 % (39.0-53.0); HDW 2.37; HGB 11.1 gm/dL (13.0-17.5); Hypochromasia Moderate; Luc # (Auto) 0.12; Luc % (Auto) 2; Lymphocytes # (A) 1.2 k/uL (1.0-4.8); Lymphocytes % (A) 19 %; MCH 32.2 pg (25.0-35.0); MCHC 31.3 g/dL (31.0-37.0); Macrocytosis Slight; Mean Platelet Volume 6.9; Monocytes # (A) 0.3 k/uL (0-1.0); Monocytes % (A) 5 %; Neutrophils # (A) 4.2 k/uL (1.3-7.7); Neutrophils % (A) 68 %; RBC 3.46 m/uL (4.30-5.90); RDW 13.3 % (11.5-15.5); WBC 6.1 k/uL (3.8-10.6); WBC (Perox) 5.93
[2016-11-30 07:54] LABS: Anion Gap 10 mmol/L; Blood Urea Nitrogen 13 mg/dL (9-20); Calcium 8.9 mg/dL (8.4-10.2); Carbon Dioxide 23 mmol/L (22-30); Chloride 109 mmol/L (98-107); Glucose 55 mg/dL (74-99); Non-African American GFR(MDRD) >60 (>60 ml/min/1.73 sqM); Sodium 142 mmol/L (137-145)
--- NOTE | 2016-11-30 10:56 | P.PN ---
Progress Note - Text Patient is a very pleasant 86 showed male who is seen and examined at the bedside for follow-up evaluation for his low back pain status post fall on the buttocks. He is known to have multiple compression fracture deformities of the thoracic and lumbar spines. Since being seen and examined yesterday, he continues to have weakness with hip flexion bilaterally. He states he has been trying to work to increase his lower extremity strength. He was seen and examined yesterday for further bracing options. A custom brace is currently being made. He did undergo an EEG and balloon dilation yesterday performed by Dr. Rosenberg without significant benefit. Patient is currently waiting to undergo barium swallow study today. Nursing states based on the results of the barium swallow today, patient may be discharged today. Patient also continues to be treated for UTI and bladder cystitis. Physical Exam: Patient is awake, alert, and oriented 3 Vital signs stable Good chest excursion with deep inspiration and expiration Abdomen soft nontender No significant pain with palpation of the thoracic spine or upper lumbar spine Some pain with palpation along the lower lumbar spine and towards the right Examination of the thoracic and lumbar spines shows no evidence of bruising, erythema, laceration, or obvious sign of infection No signs or symptoms of DVT; no calf pain Significant bilateral pitting edema of the lower extremities with some significant improvement over the calves bilaterally but continues to have significant swelling of the bilateral ankles and feet Extensor hallucis longus, plantarflexion, and dorsiflexion positive sustained bilateral lower extremities the strength at 4+/5 Significant difficulty with hip flexion bilaterally; hip flexion strength 3/5 bilaterally Assessment: Lumbar pain Generalized lower extremity weakness most significant with bilateral hip flexion Multiple thoracic and lumbar compression fracture deformities at T11, T12, L1, L2, L4, and L5 Degenerative disc disease Lumbar spinal canal stenosis Diminished ability to ambulate Status post fall from chair Urinary tract infection bladder cystitis Dysphagia Bilateral lower extremity pitting edema Plan: 1. We will currently plan to continue conservative treatment in regards to the patient's thoracic and lumbar spines. Bracing was attempted to be provided 2 days ago but none of the 3 braces brought were able to fit the patient appropriately. Custom bracing was ordered yesterday. Patient is waiting for this brace to be delivered and fitted appropriately. Once this brace is delivered and fitted properly, he may wear this brace while ambulating and doing activities. He does not have to wear this brace while lying in bed or while bathing. He may work with physical therapy to increase mobility, ambulation, and transfers with this brace intact. We discussed that he could work with physical therapy to increase mobility, ambulation and transfers without the brace intact as it is currently not available. He continues has significant weakness of bilateral lower extremities. Staying the bed for an extended period of time without the benefit of therapy only further weaken his lower extremities and hinder his ability to regain his bilateral lower extremity strength. We'll plan for consultation and evaluation by physical therapy. Patient may benefit by transfer to rehab prior to returning home. Based on his significant weakness and difficulty with ambulation, I feel this would be an appropriate plan of care per medicine's recommendations. We are not currently planning for surgical intervention in regards to the patient's thoracic or lumbar spines. We'll also plan to continue with Medrol Dosepak as prescribed yesterday by Dr. Deangelo Ibarra. 2. Medicine to continue following the patient for his other medical diagnoses including UTI and bladder cystitis 3. Dr. Rosenberg and Dr. Vilchis in general surgery will continue to follow the patient for further treatment for dysphagia; patient currently scheduled to undergo barium swallow study today 3. Pulmonology will continue to follow patient 4. Once cleared by all other medical providers, patient is cleared for discharge from an orthopedic spine standpoint; we discussed the patient may be discharged before his custom brace arrives as it may take multiple days for the custom bracing to be completed, delivered, and fitted appropriately 5. Following discharge, patient may follow-up with Maco Landry PA-C or Dr. Deangelo Ibarra at [facility] approximately 3-4 weeks for further evaluation 6. Patient has been discussed in detail with Dr. Deangelo Ibarra and he agrees with this plan
--- NOTE | 2016-11-30 11:02 | FL ---
Limited barium swallow HISTORY: Status post esophageal dilation for stricture Exam limited to the level of the gastroesophageal junction. Retained contrast present within the colon. Contrast at the right lung base likely due to old aspiration on previous exam. The esophagus is markedly dilated. Patient was given Omnipaque to drink. There is mixing of the contr ast material within dilated esophagus. Only minimal contrast coursing from a rattail appearance at th e distal esophagus. No extravasation. Esophageal contractions noted. Mixing of contrast within retain ed secretions within the esophagus noted. IMPRESSION: Persistent severe stenosis of the distal esophagus.
--- NOTE | 2016-11-30 12:13 | P.PN ---
Subjective Principal diagnosis: Dysphasia, weight loss The patient underwent a EGD with dilation yesterday. It was dilated several times with no significant improvement seen at the GE junction. He subsequently underwent an upper GI barium swallow today. This showed no drainage from the esophagus into the stomach. Objective - Vital Signs Vital signs: Vital Signs Temp 97.4 F L 11/30/16 07:00 Pulse 80 11/30/16 07:38 Resp 18 11/30/16 07:23 BP 141/69 11/30/16 09:30 Pulse Ox 95 11/30/16 07:18 Intake & Output 11/29/16 11/30/16 11/30/16 18:59 06:59 18:59 Intake Total 600 1964 Output Total 200 Balance 600 1764 Weight 60.781 kg 63 kg Intake: IV 600 Intake, IV Titration 1844 Amount Ampicillin-Sulbactam 3 gm 200 In Sodium Chloride 0.9% 100 ml @ 100 mls/hr IVPB Q6HR [facility] Rx#:[id number] Sodium Chloride 0.9% 1, 1644 000 ml As IV .[facility] Rx#:[id number] Oral 120 Output: Urine 200 Other: Voiding Method Bedside Commode Bedside Commode Bedside Commode Urinal Urinal Urinal # Voids 400 2 2 - Constitutional General appearance: Present: cooperative, no acute distress, thin - Labs CBC & Chem 7: 11/30/16 06:48 11/30/16 06:48 Labs: Abnormal Lab Results - Last 24 Hours (Table) 11/30/16 11/30/16 Range/Units 06:48 06:48 RBC 3.46 L (4.30-5.90) m/uL Hgb 11.1 L (13.0-17.5) gm/dL Hct 35.6 L (39.0-53.0) % MCV 103.0 H (80.0-100.0) fL Chloride 109 H (98-107) mmol/L Glucose 55 L (74-99) mg/dL Microbiology - Last 24 Hours (Table) 11/27/16 12:15 Urine Culture - Final Urine,Voided Enterococcus faecalis 11/28/16 19:43 Gram Stain - Preliminary Sputum Assessment and Plan (1) Achalasia Status: Acute (2) Esophageal dysmotility Status: Acute (3) Dysphagia Status: Acute (4) Severe protein-calorie malnutrition Status: Acute Plan: I had a discussion with the patient and his . He had no significant improvement with dilation of the esophagus. Due to the severe protein calorie malnutrition, and recommend a PEG tube to correct that. He could then be worked up to see if he would be a surgical candidate. Currently with the degree of malnutrition I think he would be at very high risk. I had a conversation with Dr. Lomas, who has seen the patient multiple times over the last 3 years, and he is in agreement. The patient and family would like to proceed as soon as possible so I'll do this for him.
--- NOTE | 2016-11-30 12:43 | P.PN ---
Subjective Principal diagnosis: 11/28/16- This is a 86-year-old male patient being seen and examined today. The patient is well-known to our services. The patient came into the hospital for increased weakness and difficulty ambulating, decreased appetite with severe weight loss, difficulty swallowing, decreased urination as well as shortness of breath. Emergency room workup showed the patient had a UTI on admission as well as significant weakness. The patient was admitted to the hospital for severe weakness of his lower extremities, positive urinary tract infection and for orthopedic consult with PT and OT evaluation, and GI consult for dysphagia. Upon examination the patient is resting up in bed on 2 L of supplemental oxygen. He states he has shortness of breath with exertion. Patient denies any cough or congestion at this time. He is states his weakness has become so severe that he has no longer able to ambulate. CT was performed of the abdomen and pelvis and chest, and shows small left lower lobe pneumonia, COPD, severe progressive dilation of the esophagus, primary or secondary achalasia, stable severe compression fractures of the thoracic lumbar spine, prostate enlargement , and mild urinary bladder wall thickening. 11/29/16 is being evaluated and examined today on rounds. The patient is resting in bed on room air. Oxygen saturations in the mid 90s. Continues to have shortness of breath with exertion. Surgical evaluated the patient yesterday so far there are no procedures planned at this time however there could be a possibility of an EGD with balloon dilation next week. Currently the patient is on a clear liquid diet, diet can be advanced per recommendations from surgical services. 11/30/16 patient's seen evaluate exam and on fifth floor care plan discussed with the patient and at length at bedside. Plan discussed with Dr. Rosenberg as well, patient is status post endoscopy continued to have extensive aclasia with pulling of contents above the narrowing of the esophagus, patient is being planned plan for PEG tube likely tomorrow Objective - Vital Signs Vital signs: Vital Signs Temp 97.4 F L 11/30/16 07:00 Pulse 80 11/30/16 07:38 Resp 18 11/30/16 07:23 BP 141/69 11/30/16 09:30 Pulse Ox 95 11/30/16 07:18 Intake & Output 11/29/16 11/30/16 11/30/16 18:59 06:59 18:59 Intake Total 600 1964 Output Total 200 Balance 600 1764 Weight 60.781 kg 63 kg Intake: IV 600 Intake, IV Titration 1844 Amount Ampicillin-Sulbactam 3 gm 200 In Sodium Chloride 0.9% 100 ml @ 100 mls/hr IVPB Q6HR [facility] Rx#:[id number] Sodium Chloride 0.9% 1, 1644 000 ml As IV .[facility] Rx#:[id number] Oral 120 Output: Urine 200 Other: Voiding Method Bedside Commode Bedside Commode Bedside Commode Urinal Urinal Urinal # Voids 400 2 2 - Exam GENERAL EXAM: extremely cachectic Alert, weak, comfortable in no apparent distress. HEAD: Normocephalic. EYES: Normal reaction of pupils, equal size. NOSE: Clear with pink turbinates. THROAT: No erythema or exudates. NECK: No masses, no JVD. CHEST: No chest wall deformity. LUNGS: Equal air entry with no crackles, wheeze, rhonchi or dullness. Bases diminished CVS: S1 and S2 normal with no audible mumurs, regular rhythm. ABDOMEN: No hepatosplenomegaly, normal bowel sounds, no guarding or rigidity. EXTREMITIES: No edema noted, pedal pulses palpable. SKIN: No rashes CENTRAL NERVOUS SYSTEM: No focal deficits, tone is normal in all 4 extremities. - Labs CBC & Chem 7: 11/30/16 06:48 11/30/16 06:48 Labs: Abnormal Lab Results - Last 24 Hours (Table) 11/30/16 11/30/16 Range/Units 06:48 06:48 RBC 3.46 L (4.30-5.90) m/uL Hgb 11.1 L (13.0-17.5) gm/dL Hct 35.6 L (39.0-53.0) % MCV 103.0 H (80.0-100.0) fL Chloride 109 H (98-107) mmol/L Glucose 55 L (74-99) mg/dL Microbiology - Last 24 Hours (Table) 11/27/16 12:15 Urine Culture - Final Urine,Voided Enterococcus faecalis 11/28/16 19:43 Gram Stain - Preliminary Sputum Assessment and Plan Plan: Assessment recurrent aspiration pneumonia related to esophageal Achalasia and reflux, with protein calorie malnourishment Acute on chronichypoxic respiratory failure severe COPD with Acute exacerbation of COPD Urinary tract infection probable with sepsis Dysphagia Recent weight loss Achalasia Leukocytosis Macrocytic anemia GERDand esophageal stenosis at the distal end Hypertension Degenerative joint disease Plan Medications have been reviewed and will be continued as ordered. Diet as ordered per surgical services. Continue with antibiotics and steroids. Continue with pulmonary hygiene, coughing and deep breathing exercises, and supportive care. Supplemental oxygen to maintain oxygen saturations of 92% or better. Add nebulizer treatments. GI and DVT prophylaxis. Aspiration precautions. Continue with consult and appreciate recommendations. We will continue to monitor labs/results and adjust treatment as necessary. agree with PEG tube placementFurther recommendations pending. Time with Patient: Greater than 30
--- NOTE | 2016-11-30 18:46 | P.PN ---
<Nelida Mishra - Last Filed: 11/30/16 18:15> Progress Note - Text DATE OF SERVICE: 11/30/2016 PRESENTING COMPLAINT: Weakness INTERVAL HISTORY: 86-year-old gentleman with significant weight loss over 100 pounds in the last 2 years, has a history significant for difficulty swallowing and stricture and esophageal dysmotility, has a decreased ability to ambulate and is complaining of weakness. On admission patient was found to have a UTI started on IV antibiotics. Has low back pain as result of a fall on the buttocks, orthopedics is following, multiple thoracic and lumbar compression fracture deformities at T11, T12, L1, L2, L4, and L5. Additionally patient had an EGD with esophageal dilatation performed on 11/29/2016. 11/30/2016: Patient sitting up the bedside present, laughing joking, somewhat nervous and has some questions regarding current procedures that have been done, as well as future plans for swallowing evaluation. Orthopedics is ordered a custom brace for the patient and it will require fitting, and once fitted patient should wear it while ambulating and doing activities. REVIEW OF SYSTEMS: Done for constitutional ,cardiovascular, GI, pulmonary with relevant findings as above. CURRENT MEDICATIONS [place], DuoNeb's, ampicillin, Pulmicort, Lovenox, Lidoderm patch, Medrol Dosepak. PHYSICAL EXAM VITAL SIGNS: Temperature 97.4, pulse 73, respirations 16, blood pressure 129/64, oxygen saturation 95% on room air. GENERAL APPEARANCE: Sitting in a chair at the bedside , not in distress but mildly anxious appearing EYES: Pupils equal. Conjunctiva normal. NECK: JVD not raised. Mass not palpable. RESPIRATORY: Respiratory effort normal. Lungs clear to auscultation. CARDIOVASCULAR: First and second sounds normal. Trace edema. ABDOMEN: Soft. Liver and spleen not palpable. No tenderness. No mass palpable. PSYCHIATRY: Alert and oriented x3. Mood and affect mildly anxious appearing INVESTIGATIONS: LABS: Hemoglobin 11.1, sodium 142, BUN 13, creatinine 0.71. BARIUM SWALLOW: The esophagus is markedly dilated only minimal contrast coursing from a rattail appearance at the distal esophagus. No extravasation. Esophageal contractions noted. Persistent severe stenosis of the distal esophagus. ASSESSMENT: -Urinary tract infection with sepsis, present on admission -Esophageal stricture, status post dilatation. -Significant recent weight loss -Medical debility -Essential hypertension -Chronic back pain, secondary to multiple thoracic and lumbar compression fractures -Protein calorie malnutrition secondary to esophageal stricture PLAN: Surgery is recommending PEG tube placement to help correct protein calorie malnutrition with the possibility at a later date to become a surgical candidate to correct the stricture. We'll continue current antibiotic therapy for the UTI, PT and OT has been consulted with an evaluation for placement at rehabilitation. Orthopedics has ordered a specialty brace requiring fitting for the patient. Plan of care discussed at length with patient and at the bedside. All questions answered to their satisfaction. We'll continue to monitor closely. PROTOCOL MANAGER statement: Patient was seen and examined by nurse practitioner Nelida Mishra and all elements of the case discussed with attending Dr. Vergara <Sandor Vergara - Last Filed: 12/01/16 12:50> Progress Note - Text Attending note. Date of service-November This patient was seen and examined by me . I reviewed the note of my nurse practitioner, Ms. Mishra. Discussed with her, additional findings as below. Patient admitted with multiple problems. Patient has severe esophageal stricture. Dilatation was attempted by Dr. Rosenberg. Patient is due to get a PEG tube. Several family members at the bedside. On examination: Sitting up in a chair. Tired appearing. Anxious. Pulse ox 94% room air Lungs-decreased breath sounds Investigations: Hemoglobin 10.6 potassium 3.9 glucose 54 Assessment and plan: -Acute UTI from Enterococcus faecalis with no sepsis on presentation -Recurrent aspiration pneumonia from is a is a fascial stricture -Severe protein calorie malnutrition from decreased oral intake -Severe dysphagia stricture distal with attempted dilatation, slow to respond -COPD in an ex-smoker -Chronic severe GERD -Severe esophagitis -Hyperlipidemia -Urine outflow obstruction, chronic -Chronic DVT -Macrocytic anemia likely nutritional -Chronic low back pain from multiple compression fractures from T12 to L5 -Probable osteoporosis -Chronic insomnia from medical causes Care was discussed in detail with the patient and and family members present. Awaiting PEG tube. Patient should be able to tolerate some liquids by mouth at least. We will send off macrocytic anemia workup including B12 folate.
[2016-11-30] MEDS: FENOFIBRATE 160 MG TAB PO SCH (20:51)
[2016-11-30] MEDS: MIRTAZAPINE 15 MG TAB PO SCH (20:51)
[2016-11-30] MEDS: ATORVASTATIN 10 MG TAB PO SCH (20:51)
[2016-11-30] MEDS: MONTELUKAST 10 MG TAB PO SCH (20:51)
[2016-12-01] MEDS: AMPICILLIN-SULBACTAM 3 GM in SODIUM CHLORIDE 0.9% 100 ML IVPB SCH ×4 (06:30→23:56)
[2016-12-01] MEDS: ENOXAPARIN 40 MG/0.4 ML SYRINGE SQ SCH (07:09)
[2016-12-01] MEDS: BUDESONIDE 0.5 MG/2 ML NEBU INHALATION SCH ×2 (07:19→20:23)
[2016-12-01] MEDS: IPRATROPIUM-ALBUTEROL 3 ML NEB INHALATION SCH ×3 (07:19→20:23)
[2016-12-01 07:56] LABS: Anion Gap 7 mmol/L; Blood Urea Nitrogen 17 mg/dL (9-20); Calcium 8.7 mg/dL (8.4-10.2); Carbon Dioxide 24 mmol/L (22-30); Chloride 110 mmol/L (98-107); Glucose 54 mg/dL (74-99); Non-African American GFR(MDRD) >60 (>60 ml/min/1.73 sqM); Potassium 3.9 mmol/L (3.5-5.1); Sodium 141 mmol/L (137-145)
[2016-12-01] MEDS ORDERED: LIDOCAINE 1% INJ 10MG/ML (20 ML MDV) ONE (07:59)
[2016-12-01] MEDS ORDERED: PROPOFOL 10 MG/ML 20 ML VIAL IV ONE (07:59)
[2016-12-01] MEDS ORDERED: IV FLUID CONTINUATION 1,000 ML IV ONE (07:59)
[2016-12-01 08:00] LABS: Basophils # (A) 0.1 k/uL (0-0.2); Basophils % (A) 1 %; CH 31.1; CHCM 30.6; Eosinophils # (A) 0.2 k/uL (0-0.7); Eosinophils % (A) 3 %; HCT 33.1 % (39.0-53.0); HGB 10.6 gm/dL (13.0-17.5); Hypochromasia Slight; Luc # (Auto) 0.12; Luc % (Auto) 2; Lymphocytes # (A) 1.5 k/uL (1.0-4.8); Lymphocytes % (A) 25 %; MCH 32.6 pg (25.0-35.0); MCHC 31.9 g/dL (31.0-37.0); Macrocytosis Slight; Mean Platelet Volume 6.9; Monocytes # (A) 0.3 k/uL (0-1.0); Monocytes % (A) 5 %; Neutrophils # (A) 3.8 k/uL (1.3-7.7); Neutrophils % (A) 64 %; RBC 3.25 m/uL (4.30-5.90); RDW 13.4 % (11.5-15.5); WBC 5.9 k/uL (3.8-10.6); WBC (Perox) 5.96
--- NOTE | 2016-12-01 08:27 | P.PCN ---
Date of Procedure: 12/01/16 Preoperative Diagnosis: Protein calorie malnutrition, achalasia Postoperative Diagnosis: Same Procedure(s) Performed: PEG tube placement Implants: Anesthesia: HERMINIA Surgeon: Kari Rosenberg Pathology: none sent Condition: stable Disposition: PACU Indications for Procedure: The patient has severe protein calorie malnutrition with loss of about 100 pounds in the last year. He has evidence of severe achalasia which did not respond esophageal dilation. Due to his general weakness/deconditioning a PEG tube will be placed for nutrition prior to any surgery. Operative Findings: The patient's taken the endoscopy suite worry gastroscope is passed per mouth into the stomach. The stomach is insufflated. It's then transilluminated and palpated. A site was chosen for placement. The abdomen is prepped. Local anesthetic is instilled in the skin and subcutaneous tissue. Skin jasson is made. An introducer needle is placed. A guidewire is placed through the introducer and grasped with a polypectomy snare. The endoscope and snare are removed per mouth. A [place] pull PEG tube is then attached to the guidewire. A guidewire was brought out through the abdominal wall. It's trimmed to size and attached to the appropriate adapters. The endoscope was reinserted and the fung is noted to seat against the gastric wall without bleeding. The scope was withdrawn. He tolerated the procedure without difficulty as taken recovery room in satisfactory condition. Description of Procedure:
[2016-12-01] MEDS ORDERED: HYDROcodone/APAP 15 ML SOLUTION PO PRN (08:28)
[2016-12-01] MEDS: methylPREDNISolone 4 MG TAB TAPER PO SCH (09:51)
[2016-12-01] MEDS: FINASTERIDE 5 MG TAB PO SCH (09:51)
--- NOTE | 2016-12-01 10:21 | P.PN ---
Subjective Principal diagnosis: 11/28/16- This is a 86-year-old male patient being seen and examined today. The patient is well-known to our services. The patient came into the hospital for increased weakness and difficulty ambulating, decreased appetite with severe weight loss, difficulty swallowing, decreased urination as well as shortness of breath. Emergency room workup showed the patient had a UTI on admission as well as significant weakness. The patient was admitted to the hospital for severe weakness of his lower extremities, positive urinary tract infection and for orthopedic consult with PT and OT evaluation, and GI consult for dysphagia. Upon examination the patient is resting up in bed on 2 L of supplemental oxygen. He states he has shortness of breath with exertion. Patient denies any cough or congestion at this time. He is states his weakness has become so severe that he has no longer able to ambulate. CT was performed of the abdomen and pelvis and chest, and shows small left lower lobe pneumonia, COPD, severe progressive dilation of the esophagus, primary or secondary achalasia, stable severe compression fractures of the thoracic lumbar spine, prostate enlargement , and mild urinary bladder wall thickening. 11/29/16 is being evaluated and examined today on rounds. The patient is resting in bed on room air. Oxygen saturations in the mid 90s. Continues to have shortness of breath with exertion. Surgical evaluated the patient yesterday so far there are no procedures planned at this time however there could be a possibility of an EGD with balloon dilation next week. Currently the patient is on a clear liquid diet, diet can be advanced per recommendations from surgical services. 11/30/16 patient's seen evaluate exam and on fifth floor care plan discussed with the patient and at length at bedside. Plan discussed with Dr. Rosenberg as well, patient is status post endoscopy continued to have extensive aclasia with pulling of contents above the narrowing of the esophagus, patient is being planned plan for PEG tube likely tomorrow 12/01/16 patient seen and examined on fifth floor patient is for PEG tube later on today by Dr. Rosenberg overall in good spirits have discussed at length about the nutritional support with both patient and Objective - Vital Signs Vital signs: Vital Signs Temp 97.9 F 12/01/16 07:00 Pulse 57 L 12/01/16 08:00 Resp 16 12/01/16 08:00 BP 120/59 12/01/16 07:00 Pulse Ox 93 L 12/01/16 07:00 Intake & Output 11/30/16 12/01/16 12/01/16 18:59 06:59 18:59 Intake Total 0 300 Output Total 1200 200 Balance -1200 100 Weight 63 kg 55 kg Intake: IV 300 Oral 0 Output: Urine 1200 200 Other: Voiding Method Bedside Commode Bedside Commode Bedside Commode Urinal Urinal Urinal # Voids 2 2 2 - Exam GENERAL EXAM: extremely cachectic Alert, weak, comfortable in no apparent distress. HEAD: Normocephalic. EYES: Normal reaction of pupils, equal size. NOSE: Clear with pink turbinates. THROAT: No erythema or exudates. NECK: No masses, no JVD. CHEST: No chest wall deformity. LUNGS: Equal air entry with no crackles, wheeze, rhonchi or dullness. Bases diminished CVS: S1 and S2 normal with no audible mumurs, regular rhythm. ABDOMEN: No hepatosplenomegaly, normal bowel sounds, no guarding or rigidity. EXTREMITIES: No edema noted, pedal pulses palpable. SKIN: No rashes CENTRAL NERVOUS SYSTEM: No focal deficits, tone is normal in all 4 extremities. - Labs CBC & Chem 7: 12/01/16 06:36 12/01/16 06:36 Labs: Abnormal Lab Results - Last 24 Hours (Table) 12/01/16 12/01/16 Range/Units 06:36 06:36 RBC 3.25 L (4.30-5.90) m/uL Hgb 10.6 L (13.0-17.5) gm/dL Hct 33.1 L (39.0-53.0) % MCV 102.0 H (80.0-100.0) fL Chloride 110 H (98-107) mmol/L Glucose 54 L (74-99) mg/dL Microbiology - Last 24 Hours (Table) 11/28/16 19:43 Gram Stain - Final Sputum Sputum Culture - Final Assessment and Plan Plan: Assessment recurrent aspiration pneumonia related to esophageal Achalasia and reflux, with protein calorie malnourishment Acute on chronichypoxic respiratory failure severe COPD with Acute exacerbation of COPD Urinary tract infection probable with sepsis Dysphagia Recent weight loss Achalasia Leukocytosis Macrocytic anemia GERDand esophageal stenosis at the distal end Hypertension Degenerative joint disease Plan Medications have been reviewed and will be continued as ordered. Diet as ordered per surgical services. Continue with antibiotics and steroids. Continue with pulmonary hygiene, coughing and deep breathing exercises, and supportive care. Supplemental oxygen to maintain oxygen saturations of 92% or better. Add nebulizer treatments. GI and DVT prophylaxis. Aspiration precautions. Continue with consult and appreciate recommendations. We will continue to monitor labs/results and adjust treatment as necessary. agree with PEG tube placementFurther recommendations pending. Time with Patient: Greater than 30
--- NOTE | 2016-12-01 12:43 | P.PN ---
Progress Note - Text DATE OF SERVICE: 12/01/2016 PRESENTING COMPLAINT: Weakness INTERVAL HISTORY: 86-year-old gentleman with significant weight loss over 100 pounds in the last 2 years, has a history significant for difficulty swallowing and stricture and esophageal dysmotility, has a decreased ability to ambulate and is complaining of weakness. On admission patient was found to have a UTI started on IV antibiotics. Has low back pain as result of a fall on the buttocks, orthopedics is following, multiple thoracic and lumbar compression fracture deformities at T11, T12, L1, L2, L4, and L5. Additionally patient had an EGD with esophageal dilatation performed on 11/29/2016. 11/30/2016: Patient sitting up the bedside present, laughing joking, somewhat nervous and has some questions regarding current procedures that have been done, as well as future plans for swallowing evaluation. Orthopedics is ordered a custom brace for the patient and it will require fitting, and once fitted patient should wear it while ambulating and doing activities. 12/01/2016: Patient is lying in bed resting quietly. Status post PEG tube placement. Abdominal dressing in place and beneath it G tube. Operative site clean and dry , redness noted around tube insertion site. at the bedside, discussion had regarding tube feedings, plan of care for the next couple days, some discharge planning information. is in agreement with the plan, questions were answered. REVIEW OF SYSTEMS: Done for constitutional ,cardiovascular, GI, pulmonary with relevant findings as above. CURRENT MEDICATIONS [place], DuoNeb's, ampicillin, Pulmicort, Lovenox, Lidoderm patch, Medrol Dosepak. PHYSICAL EXAM VITAL SIGNS: Temperature 98.7, pulse 66, respiratory rate 16, blood pressure 122/65, oxygen saturation 94% on room air. GENERAL APPEARANCE: Lying in bed , not in distress EYES: Pupils equal. Conjunctiva normal. NECK: JVD not raised. Mass not palpable. RESPIRATORY: Respiratory effort normal. Lungs diminished breath sounds bilaterally. CARDIOVASCULAR: First and second sounds normal. Trace edema. ABDOMEN: Soft. Liver and spleen not palpable. Mild tenderness to operative site. G tube located in the left lower quadrant. Dressing in place. No mass palpable. PSYCHIATRY: Alert and oriented x3. Mood and affect mildly anxious appearing INVESTIGATIONS: LABS: Hemoglobin 10.6, sodium 141, potassium 3.9, BUN 17, creatinine 0.69 ASSESSMENT: -Acute UTI from Enterococcus faecalis with no sepsis on presentation -Recurrent aspiration pneumonia from a recurrent esophageal stricture -Severe protein calorie malnutrition from decreased oral intake. -Severe dysphasia stricture distal with attempted dilatation, slow to respond. -COPD and an ex-smoker. -Chronic severe occurred. -Severe esophagitis. -Hyperlipidemia. -GERD outflow obstruction, chronic. -Chronic DVT. -Macrocytic anemia likely nutritional. -Chronic low back pain from multiple compression fractures from T12 to L5. -Probable osteoporosis. -Chronic insomnia for medical causes. PLAN: G-tube placed today, will consult nutritional services to start bolus feedings rather than using a pump. We'll continue current antibiotic therapy for the UTI , PT and OT has been consulted with an evaluation for placement at rehabilitation. Orthopedics has ordered a specialty brace requiring fitting for the patient. Plan of care discussed at length at the bedside. All questions answered to her satisfaction. We'll continue to monitor closely. CERTIFIED FORKLIFT OPERATOR statement: Patient was seen and examined by nurse practitioner Nelida Mishra and all elements of the case discussed with attending Dr. Vergara
[2016-12-01] MEDS: SODIUM CHLORIDE 0.9% 1,000 ML IV SCH (14:47)
--- NOTE | 2016-12-01 18:14 | XR ---
EXAMINATION TYPE: XR abdomen 2V DATE OF EXAM: 12/01/2016 CLINICAL DATA: 86-year-old male check placement of PEG tube, [facility] COMPARISON: 09/26/2016 FINDINGS: Overall nonobstructive bowel gas pattern. There is prominent retained oral contrast material througho ut the colon. PEG tube catheter projects over the abdomen but the distal end is not really identified . IMPRESSION: The PEG tube catheter is seen projecting over the abdomen. However, the distal end is not clearly del ineated due to extensive retained oral contrast within the colon.
[2016-12-01] MEDS: MONTELUKAST 10 MG TAB PO SCH (21:49)
[2016-12-01] MEDS: ATORVASTATIN 10 MG TAB PO SCH (21:49)
[2016-12-01] MEDS: FENOFIBRATE 160 MG TAB PO SCH (21:49)
[2016-12-01] MEDS: MIRTAZAPINE 15 MG TAB PO SCH (21:49)
[2016-12-02] MEDS: AMPICILLIN-SULBACTAM 3 GM in SODIUM CHLORIDE 0.9% 100 ML IVPB SCH ×3 (05:46→18:22)
[2016-12-02] MEDS: BUDESONIDE 0.5 MG/2 ML NEBU INHALATION SCH ×2 (07:14→20:00)
[2016-12-02] MEDS: IPRATROPIUM-ALBUTEROL 3 ML NEB INHALATION SCH ×3 (07:14→20:00)
[2016-12-02] MEDS: SODIUM CHLORIDE 0.9% 1,000 ML IV SCH ×2 (07:22→08:10)
[2016-12-02] MEDS: methylPREDNISolone 4 MG TAB TAPER PO SCH (07:48)
[2016-12-02] MEDS: ENOXAPARIN 40 MG/0.4 ML SYRINGE SQ SCH (07:48)
[2016-12-02] MEDS: FINASTERIDE 5 MG TAB PO SCH (07:49)
[2016-12-02 08:36] LABS: Anion Gap 13 mmol/L; Blood Urea Nitrogen 15 mg/dL (9-20); Calcium 8.6 mg/dL (8.4-10.2); Carbon Dioxide 22 mmol/L (22-30); Chloride 108 mmol/L (98-107); Non-African American GFR(MDRD) >60 (>60 ml/min/1.73 sqM); Potassium 3.7 mmol/L (3.5-5.1); Sodium 143 mmol/L (137-145)
[2016-12-02 08:50] LABS: Basophils # (A) 0.1 k/uL (0-0.2); Basophils % (A) 1 %; CH 31.4; CHCM 30.7; Eosinophils # (A) 0.3 k/uL (0-0.7); Eosinophils % (A) 3 %; HCT 37.1 % (39.0-53.0); HDW 2.39; HGB 11.5 gm/dL (13.0-17.5); Hypochromasia Slight; Luc % (Auto) 1; Lymphocytes # (A) 1.1 k/uL (1.0-4.8); Lymphocytes % (A) 13 %; MCHC 31.1 g/dL (31.0-37.0); MCV 102.8 fL (80.0-100.0); Macrocytosis Slight; Mean Platelet Volume 7.6; Monocytes # (A) 0.4 k/uL (0-1.0); Monocytes % (A) 5 %; Neutrophils # (A) 6.4 k/uL (1.3-7.7); Neutrophils % (A) 77 %; RBC 3.61 m/uL (4.30-5.90); RDW 13.7 % (11.5-15.5); WBC 8.3 k/uL (3.8-10.6); WBC (Perox) 8.36
[2016-12-02 08:57] LABS: Glucose 34 mg/dL (74-99)
[2016-12-02] MEDS ORDERED: DEXTROSE 10 % IN WATER 250 ML IV STA (09:09)
[2016-12-02 09:21] LABS: Glucose,Whole Blood 85 mg/dL (75-99)
[2016-12-02 10:52] VITALS: BMI 19.5
--- NOTE | 2016-12-02 11:18 | PN ---
DATE OF SERVICE: 12/01/2016 ATTENDING NOTE: This patient was seen and examined by me. I discussed the care with my nurse practitioner, Ms. Mishra. Additional findings below. This is a patient with dysphagia, found to have esophageal stricture, status post PEG tube. Also, got low back pain. Patient is status post PEG tube. Feeding has not been started. Sitting up, awake. ON EXAMINATION: LUNGS: Decreased breath sounds. CARDIOVASCULAR: First and second sounds normal. ABDOMEN: Soft, nontender. PEG tube in place. INVESTIGATIONS: Hemoglobin 10.6. ASSESSMENT: 1. Acute urinary tract infection from Enterococcus faecalis with no sepsis. 2 Recurrent aspiration pneumonia from esophageal stricture. 3. PEG tube in place. PLAN: Will have dietitian to see if patient can have bolus feeding. Antibiotics are to continue. Care was discussed with the patient and . Will follow. It may be noted that patient's B12 and folate came back to be normal. MTDD
--- NOTE | 2016-12-02 12:13 | P.PN ---
Subjective 11/28/16- This is a 86-year-old male patient being seen and examined today. The patient is well-known to our services. The patient came into the hospital for increased weakness and difficulty ambulating, decreased appetite with severe weight loss, difficulty swallowing, decreased urination as well as shortness of breath. Emergency room workup showed the patient had a UTI on admission as well as significant weakness. The patient was admitted to the hospital for severe weakness of his lower extremities, positive urinary tract infection and for orthopedic consult with PT and OT evaluation, and GI consult for dysphagia. Upon examination the patient is resting up in bed on 2 L of supplemental oxygen. He states he has shortness of breath with exertion. Patient denies any cough or congestion at this time. He is states his weakness has become so severe that he has no longer able to ambulate. CT was performed of the abdomen and pelvis and chest, and shows small left lower lobe pneumonia, COPD, severe progressive dilation of the esophagus, primary or secondary achalasia, stable severe compression fractures of the thoracic lumbar spine, prostate enlargement , and mild urinary bladder wall thickening. 11/29/16 is being evaluated and examined today on rounds. The patient is resting in bed on room air. Oxygen saturations in the mid 90s. Continues to have shortness of breath with exertion. Surgical evaluated the patient yesterday so far there are no procedures planned at this time however there could be a possibility of an EGD with balloon dilation next week. Currently the patient is on a clear liquid diet, diet can be advanced per recommendations from surgical services. 11/30/16 patient's seen evaluate exam and on fifth floor care plan discussed with the patient and at length at bedside. Plan discussed with Dr. Rosenberg as well, patient is status post endoscopy continued to have extensive aclasia with pulling of contents above the narrowing of the esophagus, patient is being planned plan for PEG tube likely tomorrow 12/01/16 patient seen and examined on fifth floor patient is for PEG tube later on today by Dr. Rosenberg overall in good spirits have discussed at length about the nutritional support with both patient and 12/02/16 patient is seen and evaluated and examined today on the fifth floor. The patient did have a PEG tube insertion yesterday. Patient has been cleared to use the PEG tube. He did receive his medications through the PEG tube this morning. The patient will be started on tube feedings today as well. Currently the recommendations are for bolus feeds please see those orders. Currently the patient is resting up in bed on room air. He does have some shortness of breath with exertion denies any cough or congestion at this time. Currently there is a custom brace being made for the patient's back per ortho. No further complaints no overnight events. Objective - Vital Signs Vital signs: Vital Signs Temp 98.2 F 12/02/16 07:00 Pulse 80 12/02/16 07:22 Resp 18 12/02/16 07:00 BP 128/54 12/02/16 07:00 Pulse Ox 93 L 12/02/16 07:00 Intake & Output 12/01/16 12/02/16 12/02/16 18:59 06:59 18:59 Intake Total 300 590 900 Output Total 425 500 250 Balance -125 90 650 Weight 57 kg 62 kg 62 kg Intake: IV 300 Oral 590 Tube Feeding 900 Output: Urine 425 500 250 Other: Voiding Method Bedside Commode Bedside Commode Bedside Commode Urinal Urinal Urinal # Voids 2 1 # Bowel Movements 1 - Exam GENERAL EXAM: Cachectic Alert, weak, comfortable in no apparent distress. HEAD: Normocephalic. EYES: Normal reaction of pupils, equal size. NOSE: Clear with pink turbinates. THROAT: No erythema or exudates. NECK: No masses, no JVD. CHEST: No chest wall deformity. LUNGS: Equal air entry with no crackles, wheeze, rhonchi or dullness. Bases diminished CVS: S1 and S2 normal with no audible mumurs, regular rhythm. ABDOMEN: No hepatosplenomegaly, normal bowel sounds, no guarding or rigidity. Left-sided PEG tube insertion site clean and dry and intact. EXTREMITIES: No edema noted, pedal pulses palpable. SKIN: No rashes CENTRAL NERVOUS SYSTEM: No focal deficits, tone is normal in all 4 extremities. 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 Medications have been reviewed and will be continued as ordered. Diet as ordered per surgical services. Continue with antibiotics and steroids. Continue with pulmonary hygiene, coughing and deep breathing exercises, and supportive care. Supplemental oxygen to maintain oxygen saturations of 92% or better. Add nebulizer treatments. GI and DVT prophylaxis. Aspiration precautions. Continue with consult and appreciate recommendations. We will continue to monitor labs/results and adjust treatment as necessary. Further recommendations pending. I performed an examination of the patient and discussed their management with the nurse practitioner. I have reviewed the nurse practitioner's note and agree with the documented findings and plan of care.
--- NOTE | 2016-12-02 16:51 | P.PN ---
Progress Note - Text The patient is resting comfortably in his bed. He had a PEG tube placed by Dr. Rosenberg over the weekend. Apparently he started using his PEG tube for feeding. On exam his vital signs are stable. His abdomen is soft. History of esophageal dysmotility. Patient has had PEG tube placed for his chronic malnutrition. The patient will follow-up in the office outpatient.
--- NOTE | 2016-12-02 17:18 | P.PN ---
Progress Note - Text DATE OF SERVICE: 12/02/2016 PRESENTING COMPLAINT: Weakness INTERVAL HISTORY: 86-year-old gentleman with significant weight loss has a history of difficulty swallowing and stricture and esophageal dysmotility, has a decreased ability to ambulate and is complaining of weakness.Found to have a UTI started on IV antibiotics. Has low back pain as result of a fall on the buttocks, orthopedics is following, multiple thoracic and lumbar compression fracture deformities at T11, T12, L1, L2, L4, and L5. Additionally patient had an EGD with esophageal dilatation performed on 11/29/2016. 11/30/2016: Patient sitting up the bedside present, laughing joking, somewhat nervous and has some questions regarding current procedures that have been done, as well as future plans for swallowing evaluation. Orthopedics is ordered a custom brace for the patient and it will require fitting, and once fitted patient should wear it while ambulating and doing activities. 12/01/2016: Patient is lying in bed resting quietly. Status post PEG tube placement. Abdominal dressing in place and beneath it G tube. Operative site clean and dry , redness noted around tube insertion site. at the bedside, discussion had regarding tube feedings, plan of care for the next couple days, some discharge planning information. is in agreement with the plan, questions were answered. 12/02/2016: Patient is lying in bed appears comfortable area complaints of some tenderness at the PEG tube insertion site. Patient had many questions regarding diet, notified nutrition services to obtain answers to those questions. Patient's ambulatory with assistance to and from the bathroom, bolus tube feedings to be initiated today. REVIEW OF SYSTEMS: Done for constitutional ,cardiovascular, GI, pulmonary with relevant findings as above. CURRENT MEDICATIONS [place], DuoNeb's, ampicillin, Pulmicort, Lovenox, Lidoderm patch, Medrol Dosepak. PHYSICAL EXAM VITAL SIGNS: Temperature 98.2, pulse 71, respiratory rate 18, blood pressure 120/54, oxygen saturation 93% on room air. GENERAL APPEARANCE: Lying in bed , mildly anxious appearing EYES: Pupils equal. Conjunctiva normal. NECK: JVD not raised. Mass not palpable. RESPIRATORY: Respiratory effort normal. Lungs diminished breath sounds bilaterally. CARDIOVASCULAR: First and second sounds normal. Trace edema. ABDOMEN: Soft. Liver and spleen not palpable. Mild tenderness to operative site. G tube located in the left lower quadrant. Dressing in place. No mass palpable. PSYCHIATRY: Alert and oriented x3. Mood and affect mildly anxious appearing INVESTIGATIONS: LABS: Hemoglobin 11.5, sodium 143, potassium 3.7, BUN 15, creatinine 0.63, ASSESSMENT: -Acute UTI from Enterococcus faecalis with no sepsis on presentation -Recurrent aspiration pneumonia from a recurrent esophageal stricture -PEG tube in place -Severe protein calorie malnutrition from decreased oral intake. -Severe dysphasia stricture distal with attempted dilatation, slow to respond. -COPD and an ex-smoker. -Chronic severe occurred. -Severe esophagitis. -Hyperlipidemia. -GERD outflow obstruction, chronic. -Chronic DVT. -Macrocytic anemia likely nutritional. -Chronic low back pain from multiple compression fractures from T12 to L5. -Probable osteoporosis. -Chronic insomnia for medical causes. -Hypoglycemia, likely due to decreased intake. PLAN Bolus feedings initiated today, we will see how patient tolerates these. We'll continue current antibiotic therapy for the UTI, discharge planning for rehab at [facility]. Orthopedics has ordered a specialty brace requiring fitting for the patient. Brace will be fitted and delivered to the patient when ready. Plan of care discussed with patient and he is in agreement with current plan. SHELTER CASE MANAGER statement: Patient was seen and examined by nurse practitioner Nelida Mishra and all elements of the case discussed with attending Dr. Vergara
[2016-12-02] MEDS: ATORVASTATIN 10 MG TAB PO SCH (20:12)
[2016-12-02] MEDS: MONTELUKAST 10 MG TAB PO SCH (20:12)
[2016-12-02] MEDS: MIRTAZAPINE 15 MG TAB PO SCH (20:12)
[2016-12-02] MEDS: FENOFIBRATE 160 MG TAB PO SCH (20:12)
[2016-12-03 02:37] LABS: Glucose,Whole Blood 116 mg/dL (75-99)
[2016-12-03] MEDS: BUDESONIDE 0.5 MG/2 ML NEBU INHALATION SCH (07:18)
[2016-12-03] MEDS: IPRATROPIUM-ALBUTEROL 3 ML NEB INHALATION SCH ×2 (07:18→13:30)
[2016-12-03] MEDS: SODIUM CHLORIDE 0.9% 1,000 ML IV SCH ×2 (07:50→12:26)
[2016-12-03 08:04] LABS: Anion Gap 5 mmol/L; Blood Urea Nitrogen 20 mg/dL (9-20); Calcium 8.5 mg/dL (8.4-10.2); Carbon Dioxide 27 mmol/L (22-30); Chloride 110 mmol/L (98-107); Glucose 76 mg/dL (74-99); Non-African American GFR(MDRD) >60 (>60 ml/min/1.73 sqM); Potassium 3.6 mmol/L (3.5-5.1); Sodium 142 mmol/L (137-145)
[2016-12-03] MEDS: AMOXICILLIN 500 MG CAP PO SCH ×2 (08:18→15:34)
[2016-12-03] MEDS: FINASTERIDE 5 MG TAB PO SCH (08:18)
[2016-12-03] MEDS: ENOXAPARIN 40 MG/0.4 ML SYRINGE SQ SCH (08:18)
[2016-12-03] MEDS: methylPREDNISolone 4 MG TAB TAPER PO SCH (08:18)
[2016-12-03 08:39] VITALS: BP 125/59; TEMP 98.1
[2016-12-03 08:40] VITALS: RESP 16
[2016-12-03 08:44] LABS: Basophils # (A) 0.1 k/uL (0-0.2); Basophils % (A) 1 %; CHCM 30.8; Eosinophils # (A) 0.2 k/uL (0-0.7); Eosinophils % (A) 3 %; HGB 10.2 gm/dL (13.0-17.5); Hypochromasia Slight; Luc # (Auto) 0.11; Luc % (Auto) 2; Lymphocytes % (A) 14 %; MCH 32.3 pg (25.0-35.0); MCHC 31.9 g/dL (31.0-37.0); MCV 101.3 fL (80.0-100.0); Macrocytosis Slight; Mean Platelet Volume 6.9; Monocytes # (A) 0.4 k/uL (0-1.0); Monocytes % (A) 6 %; Neutrophils % (A) 75 %; RBC 3.15 m/uL (4.30-5.90); RDW 13.6 % (11.5-15.5); WBC 6.8 k/uL (3.8-10.6)
--- NOTE | 2016-12-03 10:54 | P.PN ---
Subjective 11/28/16- This is a 86-year-old male patient being seen and examined today. The patient is well-known to our services. The patient came into the hospital for increased weakness and difficulty ambulating, decreased appetite with severe weight loss, difficulty swallowing, decreased urination as well as shortness of breath. Emergency room workup showed the patient had a UTI on admission as well as significant weakness. The patient was admitted to the hospital for severe weakness of his lower extremities, positive urinary tract infection and for orthopedic consult with PT and OT evaluation, and GI consult for dysphagia. Upon examination the patient is resting up in bed on 2 L of supplemental oxygen. He states he has shortness of breath with exertion. Patient denies any cough or congestion at this time. He is states his weakness has become so severe that he has no longer able to ambulate. CT was performed of the abdomen and pelvis and chest, and shows small left lower lobe pneumonia, COPD, severe progressive dilation of the esophagus, primary or secondary achalasia, stable severe compression fractures of the thoracic lumbar spine, prostate enlargement , and mild urinary bladder wall thickening. 11/29/16 is being evaluated and examined today on rounds. The patient is resting in bed on room air. Oxygen saturations in the mid 90s. Continues to have shortness of breath with exertion. Surgical evaluated the patient yesterday so far there are no procedures planned at this time however there could be a possibility of an EGD with balloon dilation next week. Currently the patient is on a clear liquid diet, diet can be advanced per recommendations from surgical services. 11/30/16 patient's seen evaluate exam and on fifth floor care plan discussed with the patient and at length at bedside. Plan discussed with Dr. Rosenberg as well, patient is status post endoscopy continued to have extensive aclasia with pulling of contents above the narrowing of the esophagus, patient is being planned plan for PEG tube likely tomorrow 12/01/16 patient seen and examined on fifth floor patient is for PEG tube later on today by Dr. Rosenberg overall in good spirits have discussed at length about the nutritional support with both patient and 12/02/16 patient is seen and evaluated and examined today on the fifth floor. The patient did have a PEG tube insertion yesterday. Patient has been cleared to use the PEG tube. He did receive his medications through the PEG tube this morning. The patient will be started on tube feedings today as well. Currently the recommendations are for bolus feeds please see those orders. Currently the patient is resting up in bed on room air. He does have some shortness of breath with exertion denies any cough or congestion at this time. Currently there is a custom brace being made for the patient's back per ortho. No further complaints no overnight events. 12/03/16- Patient is being seen examined and evaluated today on the fifth floor. Patient did have PEG tube insertion site on 12/01/2016 currently is undergoing bolus tube feeds and tolerating well. Patient is also tolerating a full liquid diet also. Currently the patient is preparing for discharge [facility] today. Patient continues on room air denies any cough or congestion at this time. Occasionally has shortness of breath with exertion. Patient is still awaiting on custom back brace that is being made per ortho. Objective - Vital Signs Vital signs: Vital Signs Temp 98.1 F 12/03/16 07:00 Pulse 60 12/03/16 08:00 Resp 16 12/03/16 08:00 BP 125/59 12/03/16 07:00 Pulse Ox 94 L 12/03/16 07:00 Intake & Output 12/02/16 12/03/16 12/03/16 18:59 06:59 18:59 Intake Total 900 3300 657.5 Output Total 250 Balance 650 3300 657.5 Weight 62 kg 63 kg 63 kg Intake: Intake, IV Titration 600 187.5 Amount Sodium Chloride 0.9% 1, 600 187.5 000 ml @ 75 mls/hr IV . [id number] [facility] Rx#:[id number] Oral 440 Tube Feeding 900 2700 Other 30 Output: Urine 250 Other: Voiding Method Bedside Commode Bedside Commode Bedside Commode Urinal Urinal Urinal # Voids 1 2 # Bowel Movements 2 2 - Exam GENERAL EXAM: Cachectic Alert, weak, comfortable in no apparent distress. HEAD: Normocephalic. EYES: Normal reaction of pupils, equal size. NOSE: Clear with pink turbinates. THROAT: No erythema or exudates. NECK: No masses, no JVD. CHEST: No chest wall deformity. LUNGS: Equal air entry with no crackles, wheeze, rhonchi or dullness. Bases diminished CVS: S1 and S2 normal with no audible mumurs, regular rhythm. ABDOMEN: No hepatosplenomegaly, normal bowel sounds, no guarding or rigidity. Left-sided PEG tube insertion site clean and dry and intact. EXTREMITIES: No edema noted, pedal pulses palpable. SKIN: No rashes CENTRAL NERVOUS SYSTEM: No focal deficits, tone is normal in all 4 extremities. 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 Continue to monitor the patient on his bolus feedings. Medications have been reviewed and will be continued as ordered. Diet as ordered per surgical services. Continue with antibiotics and steroids. Continue with pulmonary hygiene, coughing and deep breathing exercises, and supportive care. Supplemental oxygen to maintain oxygen saturations of 92% or better. Add nebulizer treatments. GI and DVT prophylaxis. Aspiration precautions. Continue with consult and appreciate recommendations. We will continue to monitor labs/results and adjust treatment as necessary. Further recommendations pending. I performed an examination of the patient and discussed their management with the nurse practitioner. I have reviewed the nurse practitioner's note and agree with the documented findings and plan of care.
--- NOTE | 2016-12-03 11:46 | PN ---
DATE OF SERVICE: 12/02/2016 ATTENDING NOTE: This patient was seen and examined by me today. Discussed with my ASSET PROTECTION AGENT, Ms. Mishra. Additional findings are below. This patient is status post PEG tube placement. Getting a brace for lumbar compression fractures. Bolus feeding was started today. Patient did have a loose stool. Otherwise laying in bed. Patient did walk a bit, feels tired. White count 8.3, potassium 3.7. ASSESSMENT: 1. Acute urinary tract infection from Enterococcus faecalis. 2. Recurrent aspiration pneumonia from recurrent ( ) stricture. 3. PEG tube feeding started. PLAN: Care was discussed with patient. We do discharge planning. Questions were answered. Will change patient to amoxicillin orally. MTDD
[2016-12-03 13:32] VITALS: PULSE 76
--- NOTE | 2016-12-03 14:50 | P.DS ---
Providers Date of admission: 11/27/16 13:35 Expected date of discharge: 12/03/16 Attending physician: Sandor Vergara Consults: 11/27/16 13:40 Consult Physician Routine Consulting Provider: Michael Ibarra Consult Reason/Comments: back pain Do you want consulting provider notified?: Yes 11/27/16 22:51 Consult Physician Routine Consulting Provider: Jasmeet Lomas Consult Reason/Comments: copd Do you want consulting provider notified?: Yes 11/28/16 11:44 Consult Physician Routine Consulting Provider: Ruel Vilchis Consult Reason/Comments: esophageal dysfuntion Do you want consulting provider notified?: Yes Primary care physician: [place] [facility] Course: Hospital course: This patient admitted with weight loss differently swallowing. Found to have distal esophageal stricture. Attempted dilatation by Dr. Rosenberg was unsuccessful. Because of malnutrition and decreased oral intake a PEG tube was placed. Patient started tolerating bolus feeding. A back brace has been ordered because of compression fractures. Patient walking with assistance. bit tired. Also completing a course of antibiotics for UTI. Discharge planning discussion more than 35 minutes On examination: Lungs-decreased breath sounds Psych AO 3 mood affect normal Abdomen soft nontender with a PEG tube in place Labs: Hemoglobin 10.2 Procedure: EGD by Dr. Rosenberg PEG tube placement Dr. Rosenberg Plan - Discharge Summary New Discharge Prescriptions: New Budesonide [Pulmicort] 0.5 mg INHALATION RT-BID #7 neb Enoxaparin [Lovenox] 40 mg SQ DAILY syr Fenofibrate [Lofibra] 160 mg PO HS #10 tab HYDROcodone/APAP [[place] Elixir 7.5-325Mg/15Ml] 15 ml PO Q6H PRN #20 dose PRN Reason: Pain Ipratropium-Albuterol Nebulize [Duoneb 0.5 mg-3 mg/3 ml Soln] 3 ml INHALATION RT-TID #20 neb methylPREDNISolone Dose Pack [Medrol Dose Pack] 8 mg PO DAILY #1 tab Amoxicillin 500 mg PO Q8HR #21 cap Continue Multivitamins, Thera [Multivitamin (formulary)] 2 tab PO DAILY Finasteride [Proscar] 5 mg PO DAILY Lovastatin 20 mg PO HS Montelukast [Singulair] 10 mg PO HS Esomeprazole Magnesium [NexIUM] 40 mg PO AC-BRKFST Magnesium Oxide [Mag-Ox] 400 mg PO TID tab Lidocaine 5% Patch [Lidoderm 5% Patch] 1 patch TRANSDERM HS PRN PRN Reason: Pain Ferrous Sulfate [Iron (65 MG Elemental)] 325 mg PO DAILY@1200 Mirtazapine [Remeron] 15 mg PO HS #10 tablet Discontinued HYDROcodone/APAP 10-325MG [[place] 10-325] 1 tab PO Q4H PRN #20 tab PRN Reason: Pain No Action Fenofibrate Nanocrystallized [Tricor] 145 mg PO HS Discharge Medication List Finasteride [Proscar] 5 mg PO DAILY 11/11/14 [History] Multivitamins, Thera [Multivitamin (formulary)] 2 tab PO DAILY 11/11/14 [History ] Fenofibrate Nanocrystallized [Tricor] 145 mg PO HS 02/09/16 [History] Lovastatin 20 mg PO HS 02/09/16 [History] Esomeprazole Magnesium [NexIUM] 40 mg PO AC-BRKFST 04/11/16 [History] Montelukast [Singulair] 10 mg PO HS 04/11/16 [History] Magnesium Oxide [Mag-Ox] 400 mg PO TID tab 06/28/16 [Rx] Lidocaine 5% Patch [Lidoderm 5% Patch] 1 patch TRANSDERM HS PRN 07/31/16 [ History] Ferrous Sulfate [Iron (65 MG Elemental)] 325 mg PO DAILY@1200 10/07/16 [History] Amoxicillin 500 mg PO Q8HR #21 cap 12/03/16 [Rx] Budesonide [Pulmicort] 0.5 mg INHALATION RT-BID #7 neb 12/03/16 [Rx] Enoxaparin [Lovenox] 40 mg SQ DAILY syr 12/03/16 [Rx] Fenofibrate [Lofibra] 160 mg PO HS #10 tab 12/03/16 [Rx] HYDROcodone/APAP [[place] Elixir 7.5-325Mg/15Ml] 15 ml PO Q6H PRN #20 dose [Rx] Ipratropium-Albuterol Nebulize [Duoneb 0.5 mg-3 mg/3 ml Soln] 3 ml INHALATION RT -TID #20 neb 12/03/16 [Rx] Mirtazapine [Remeron] 15 mg PO HS #10 tablet 12/03/16 [Rx] methylPREDNISolone Dose Pack [Medrol Dose Pack] 8 mg PO DAILY #1 tab 12/03/16 [ Rx] Follow up Appointment(s)/Referral(s): Escobar Mcdaniels DO [Primary Care Provider] - 1-2 days Maco Landry PAC [PHYSICIAN MACHINE [employer]] - 3 Weeks (Patient may follow-up with Maco Landry PA-C or Dr. Deangelo Ibarra at [facility] in 3-4 weeks following discharge. ) Kristina [place], [NON-STAFF] - As Needed [facility], [NON-STAFF] - Jasmeet Lomas MD [STAFF PHYSICIAN] - 1 Week Ruel Vilchis MD [STAFF PHYSICIAN] - 1 Week Activity/Diet/Wound Care/Special Instructions: 1. Patient may wear LSO brace for comfort and support while sitting upright at greater than 45, while working with therapy, and while ambulating; patient does not have to wear the brace while lying in bed or bathing 2. Patient should avoid excessive bending, twisting, and lifting; no lifting greater than 10 pounds Tube feeding instructions: Goal of 150 ml every 4 hours with 30 ml free water flushes every 4 hours send tube feeding instructions to [facility] Discharge Disposition: TRANSFER TO SNF/ECF
== END 2016-12-03 16:28 | DRG 177 ==
LOC: EC 11:12 → 5MS5E 13:35
PROVIDERS: ADMIT Hospitalist; ATTEND Hospitalist
PROC: 0D758ZZ Dilation of Esophagus, Via Natural or Artificial Opening Endoscopic (ICD-10-PCS; principal; 2016-11-29 07:30)
PROC: 0DH63UZ Insertion of Feeding Device into Stomach, Percutaneous Approach (ICD-10-PCS; 2016-12-01)
DX: J69.0 Pneumonitis due to inhalation of food and vomit (principal); E43 Unspecified severe protein-calorie malnutrition; J96.21 Acute and chronic respiratory failure with hypoxia; K22.0 Achalasia of cardia; M48.54XA Collapsed vertebra, not elsewhere classified, thoracic region, initial encounter for fracture; M48.56XA Collapsed vertebra, not elsewhere classified, lumbar region, initial encounter for fracture; K22.2 Esophageal obstruction; J44.1 Chronic obstructive pulmonary disease with (acute) exacerbation; D53.9 Nutritional anemia, unspecified; B95.2 Enterococcus as the cause of diseases classified elsewhere; E16.2 Hypoglycemia, unspecified; E78.5 Hyperlipidemia, unspecified; F51.04 Psychophysiologic insomnia; G89.29 Other chronic pain; I10 Essential (primary) hypertension; K21.0 Gastro-esophageal reflux disease with esophagitis; K22.4 Dyskinesia of esophagus; K22.8 Other specified diseases of esophagus; K44.9 Diaphragmatic hernia without obstruction or gangrene; M19.90 Unspecified osteoarthritis, unspecified site; M48.00 Spinal stenosis, site unspecified; M81.0 Age-related osteoporosis without current pathological fracture; N30.90 Cystitis, unspecified without hematuria; N40.0 Benign prostatic hyperplasia without lower urinary tract symptoms; R47.02 Dysphasia; W07.XXXA Fall from chair, initial encounter; Z79.899 Other long term (current) drug therapy; Z80.0 Family history of malignant neoplasm of digestive organs; Z80.1 Family history of malignant neoplasm of trachea, bronchus and lung; Z85.828 Personal history of other malignant neoplasm of skin; Z86.718 Personal history of other venous thrombosis and embolism; Z87.891 Personal history of nicotine dependence
CPT/HCPCS: 36415; 43246; 43249; 71020; 71250; 72131; 74020; 74176; 74220; 80048; 80053; 81001; 82550; 82553; 82607; 82746; 83735; 84100; 84484; 85025; 85610; 85730; 87070; 87077; 87086; 87186; 87205; 93005; 94640; 94760; 96361; 96365; 99285

== ENCOUNTER → 2017-02-05 | Outpatient (CLI) | payer MEDICARE, OTHER ==
--- NOTE | 2017-02-05 15:42 | CT ---
EXAMINATION TYPE: CT abdomen pelvis wo con DATE OF EXAM: 02/05/2017 COMPARISON: Prior CT 11/28/2016 HISTORY: Back pain. CT DLP: 439.50 mGycm Automated exposure control for dose reduction was used. TECHNIQUE: Helical acquisition of images from the lung bases through the pelvis. FINDINGS: Distal esophagus is dilated and fluid-filled. Postop changes are noted at the gastroesophag eal junction, there is likely esophageal stricture present. LUNG BASES: Calcifications are again noted compatible with old granulomatous disease, there are areas of scarring. Coronary artery calcifications are present. AORTA: No significant abnormality is appreciated. LIVER/GB: No significant abnormality is appreciated. PANCREAS: No significant abnormality is seen. SPLEEN: No significant abnormality is seen. ADRENALS: No significant abnormality is seen. KIDNEYS: There is calcification at the lower pole left kidney measuring approximately 3 to 4 mm not s een on previous exam. Additional punctate nonobstructive calculus is present at the lower pole, there are likely some vascular calcifications present. Bilateral cystic changes again noted within the kid neys. REPRODUCTIVE ORGANS: No significant interval change is seen. URINARY BLADDER: Level of the distal left ureter is a punctate focus of increased density, difficult to exclude a small calcification at this level however there is no ureteral dilation. Urinary bladde r is showing a thickened wall, markedly enlarged prostate shows an inferior impression on the bladder as on prior exam. Nondependent calcification present likely within the wall anterolaterally on the l eft 80, some dependent calcification or high attenuation present posteriorly on same image as well as image 75 towards the right\. BOWEL: No significant abnormality is seen. FREE AIR: No Free Air is visible. ASCITES: None visible. PELVIC ADENOPATHY: None visualized. RETROPERITONEAL ADENOPATHY: No Retroperitoneal Adenopathy visible. OSSEOUS STRUCTURES: No significant interval change is seen multiple severe osteoporotic compression fractures are again noted with some retropulsion at multiple levels as on previous exam., vertebral p kalpesh at T12 and L1, marked impression essentially L5 to lesser extent L4 superior endplate L2. Kyphos is centered at T12-L1. There is been interval sclerosis at the site of patient's comminuted ramus fra ctures bilaterally.. 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 NONOBSTRUCTIVE LEFT NEPHROLITHIASIS. DIFFICULT TO EXCLUDE DISTAL LEFT URETERAL CALCULUS OR BLADDER STONE.
== END | disposition home or self-care (01) ==
LOC: RADCTMAIN 14:58
PROVIDERS: ATTEND Urology
DX: S32.9XXA Fracture of unspecified parts of lumbosacral spine and pelvis, initial encounter for closed fracture (principal); M80.88XA Other osteoporosis with current pathological fracture, vertebra(e), initial encounter for fracture; N20.0 Calculus of kidney
CPT/HCPCS: 74176

== ENCOUNTER → 2017-06-26 | Outpatient (CLI) | payer MEDICARE, OTHER ==
[2017-06-26 15:46] VITALS: BMI 23.8
== END | disposition home or self-care (01) ==
LOC: MNTWWP 12:49
PROVIDERS: ATTEND Surgery
DX: K22.0 Achalasia of cardia (principal); E43 Unspecified severe protein-calorie malnutrition
CPT/HCPCS: 97802

== ENCOUNTER 2017-09-02 18:36 | Inpatient (IN) | payer MEDICARE, OTHER ==
--- NOTE | 2017-09-02 18:46 | ED ---
Fall HPI - General Source: patient, EMS, RN notes reviewed Mode of arrival: EMS Limitations: physical limitation <Jenaro Schultz - Last Filed: 09/02/17 19:18> <Edgar Aadn - Last Filed: 09/02/17 20:17> - General Stated Complaint: fall/hip pain Time Seen by Provider: 09/02/17 18:44 - History of Present Illness Initial Comments: This is a 87-year-old male presents emergency department via EMS chief complaint trip and fall. Patient states it slipped on on the bathroom states that he fell onto his right hip. Patient has multiple skin tears to his arm. Patient complains of right hip pain denies head injury no loss conscious. Patient was able to crawl to the phone and call for help. Patient denies any current chest pain, shortness breath, nausea, vomiting. There is no loss conscious. Patient does not take any blood thinners. (Jenaro Schultz) - Related Data Home Medications Medication Instructions Recorded Confirmed No Known Home Medications [No 09/02/17 09/02/17 Known Home Medications] Allergies Allergy/AdvReac Type Severity Reaction Status Date / Time adhesive tape AdvReac Severe tears skin Verified 09/02/17 19:12 chicken derived [Chicken] AdvReac Nausea & Verified 09/02/17 19:12 Vomiting & Diarrhea Review of Systems ROS Other: All systems not noted in ROS Statement are negative. <Jenaro Schultz - Last Filed: 09/02/17 19:18> ROS Other: All systems not noted in ROS Statement are negative. <Edgar Adan - Last Filed: 09/02/17 20:17> ROS Statement: Those systems with pertinent positive or pertinent negative responses have been documented in the HPI. 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 Other surgical hx: Hydrocele repair, EGD (2007). EPIDURAL STEROID INJECTIONS WITH DR. DIAZ. skin cancer -LESIONS SEVERAL BRONCHOSCOPIES,SEBACEOUS CYST ON BACK REMOVED, esophagus dilations, PEG tube dec 2016 Past Anesthesia/Blood Transfusion Reactions: No Reported Reaction Past Psychological History: No Psychological Hx Reported Smoking Status: Former smoker Past Alcohol Use History: None Reported Past Drug Use History: None Reported - Past Family History Brother(s) Family Medical History: Cancer Additional Family Medical History / Comment(s): COLON CANCER Father Family Medical History: Cancer Additional Family Medical History / Comment(s): FROM RESP FAILURE AT AGE 91 Sister(s) Family Medical History: Cancer Additional Family Medical History / Comment(s): LUNG CANCER Mother Family Medical History: Cancer Additional Family Medical History / Comment(s): COLON CANCER <Jenaro Schultz - Last Filed: 09/02/17 19:18> General Exam General appearance: alert, in no apparent distress Head exam: Present: atraumatic, normocephalic, normal inspection Eye exam: Present: normal appearance, PERRL, EOMI. Absent: scleral icterus, conjunctival injection, periorbital swelling Neck exam: Present: normal inspection, full ROM. Absent: tenderness, meningismus, lymphadenopathy Respiratory exam: Present: normal lung sounds bilaterally. Absent: respiratory distress, wheezes, rales, rhonchi, stridor Cardiovascular Exam: Present: regular rate, normal rhythm, normal heart sounds. Absent: systolic murmur, diastolic murmur, rubs, gallop, clicks Extremities exam: Present: other (Multiple skin tears noted to bilateral arms, right hip tenderness with rotation noted pain with any movement. Neurovascular intact) Neurological exam: Present: alert, oriented X3, CN II-XII intact, reflexes normal. Absent: motor sensory deficit Skin exam: Present: warm, dry <Jenaro Schultz - Last Filed: 09/02/17 19:18> Course <Jenaro Schultz - Last Filed: 09/02/17 19:18> <Edgar Adan - Last Filed: 09/02/17 20:17> Vital Signs 09/02/17 09/02/17 18:49 19:12 Temperature 97.8 F 97.1 F L Pulse Rate 100 105 H Respiratory 18 18 Rate Blood Pressure 110/61 109/64 O2 Sat by Pulse 90 L 94 L Oximetry - Reevaluation(s) Reevaluation #1: 09/02/17 18:46 Patient was offered IV pain meds on initial exam and history and physical though he declined at this time. (Jenaro Schultz) Medical Decision Making <Jenaro Schultz - Last Filed: 09/02/17 19:18> <Edgar Adan - Last Filed: 09/02/17 20:17> - Medical Decision Making EKG shows sinus tachycardia with right bundle, left anterior fascicular, and bifascicular block rate of 103, AL interval 178, QRS duration 126, QTC 482, patient has history of bifascicular block compared to EKG in November 2016. ( Edgar Adan) Disposition <Jenaro Schultz - Last Filed: 09/02/17 19:18> <Edgar Adan - Last Filed: 09/02/17 20:17> Clinical Impression: Fall, Closed right hip fracture, Multiple skin tears Disposition: ADMITTED IP TO THIS [facility] Condition: Stable
--- NOTE | 2017-09-02 19:14 | XR ---
EXAMINATION TYPE: XR Hip RT and AP Pelvis DATE OF EXAM: 09/02/2017 COMPARISON: NONE HISTORY: Pain TECHNIQUE: A single AP view of the pelvis is obtained. Two views of the right hip are obtained. FINDINGS: Three-part Right sided intertrochanteric fracture noted. No additional fractures seen. IMPRESSION: Right sided intertrochanteric fracture.
[2017-09-02] MEDS ORDERED: HYDROcodone/APAP 5-325MG 1 EACH TAB PO PRN (19:19)
[2017-09-02] MEDS ORDERED: ACETAMINOPHEN TAB 325 MG TAB PO PRN (19:19)
[2017-09-02] MEDS ORDERED: ONDANSETRON 4 MG/2 ML VIAL IVP PRN (19:19)
--- NOTE | 2017-09-02 19:40 | XR ---
EXAMINATION TYPE: XR chest 1V DATE OF EXAM: 09/02/2017 HISTORY: Shortness of breath. COMPARISON: 11/27/2016 TECHNIQUE: Single view of the chest is submitted. FINDINGS: Demonstrated are scattered senescent parenchymal change. Increased density right medial lung base may reflect developing infiltrate. Discoid atelectasis right mid lung zone as well as left suprahilar region. The heart is stable. Hilar and mediastinal structures are within normal limits. Degenerative changes are seen of the dorsal spine. IMPRESSION: 1. Increased density right medial lung base may reflect developing infiltrate. Discoid atelectasis r ight mid lung zone as well as left suprahilar region.
[2017-09-02] MEDS: MORPHINE SULFATE 4 MG/ML SYRINGE IV PRN (19:59)
[2017-09-02 20:09] LABS: Basophils % (A) 0 %; Eosinophils # (A) 0.1 k/uL (0-0.7); Eosinophils % (A) 1 %; HGB 14.5 gm/dL (13.0-17.5); Lymphocytes # (A) 0.5 k/uL (1.0-4.8); Lymphocytes % (A) 4 %; MCH 32.4 pg (25.0-35.0); MCHC 32.9 g/dL (31.0-37.0); MCV 98.4 fL (80.0-100.0); Mean Platelet Volume 9.1; Monocytes # (A) 0.7 k/uL (0-1.0); Monocytes % (A) 5 %; Neutrophils # (A) 13.2 k/uL (1.3-7.7); Neutrophils % (A) 90 %; Platelet Count 184 k/uL (150-450); RBC 4.47 m/uL (4.30-5.90); RDW 13.3 % (11.5-15.5); WBC 14.6 k/uL (3.8-10.6)
[2017-09-02 20:18] LABS: Albumin 3.8 g/dL (3.5-5.0); Calcium 9.7 mg/dL (8.4-10.2); Potassium 4.5 mmol/L (3.5-5.1); Total Protein 6.7 g/dL (6.3-8.2)
[2017-09-02 20:20] LABS: INR 1.2 (<1.2); Partial Thromboplastin Time 25.1 sec (22.0-30.0); Prothrombin Time 11.4 sec (9.0-12.0)
[2017-09-02 20:21] LABS: Amorphous Sediment,Urine Rare /hpf; Appearance,Urine Cloudy (Clear); Bacteria,Urine Occasional /hpf; Bilirubin,Urine Negative (Negative); Blood,Urine Negative (Negative); Color,Urine Yellow; Glucose,Urine (UA) Negative (Negative); Hyaline Casts,Urine 11 /lpf (0-2); Ketones,Urine Negative (Negative); Leukocyte Esterase,Urine Large (Negative); Mucus,Urine Rare /hpf; Nitrite,Urine Negative (Negative); PH, Urine 6.5 (5.0-8.0); Protein,Urine 1+ (Negative); RBC,Urine 9 /hpf (0-5); Specific Gravity,Urine 1.016 (1.001-1.035); Squamous Epithelial Cell,Urine <1 /hpf (0-4); Urobilinogen,Urine <2.0 mg/dL (<2.0); WBC,Urine 31 /hpf (0-5)
[2017-09-02] MEDS ORDERED: HEPARIN SODIUM,PORCINE 5,000 UNIT/ML 1 ML VIAL SQ STA (21:50)
[2017-09-03 08:28] VITALS: BMI 24.3
--- NOTE | 2017-09-03 09:26 | P.HPOR ---
History of Present Illness H&P Date: 09/03/17 This is an 87-year-old male who is admitted for right hip fracture after a fall yesterday, 09/02/2017. Patient states that he tripped over a rug which caused him to fall. Patient denies hitting his head or any loss of consciousness. Patient was then evaluated in the emergency room where x-rays showed intertrochanteric fracture of the right hip. Patient states that he usually uses a walker for ambulation around the house and a cane when he leaves the house. Patient states he has a history of compression fractures in the lower back. Patient's past medical history significant for dysphagia for which he has a feeding tube placed. Patient denies any fever/chills, numbness, weakness, tingling, abdominal pain, shortness of breath or chest pain. Review of Systems See HPI. 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 Other surgical hx: Hydrocele repair, EGD (2007). EPIDURAL STEROID INJECTIONS WITH DR. DIAZ. skin cancer -LESIONS SEVERAL BRONCHOSCOPIES,SEBACEOUS CYST ON BACK REMOVED, esophagus dilations, PEG tube dec 2016 Past Anesthesia/Blood Transfusion Reactions: No Reported Reaction Past Psychological History: No Psychological Hx Reported Smoking Status: Former smoker Past Alcohol Use History: None Reported Additional Past Alcohol Use History / Comment(s): STARTED SMOKING AT AGE 16 QUIT 2006 SMOKED 1PPD Past Drug Use History: None Reported - Past Family History Brother(s) Family Medical History: Cancer Additional Family Medical History / Comment(s): COLON CANCER Father Family Medical History: Cancer Additional Family Medical History / Comment(s): FROM RESP FAILURE AT AGE 91 Sister(s) Family Medical History: Cancer Additional Family Medical History / Comment(s): LUNG CANCER Mother Family Medical History: Cancer Additional Family Medical History / Comment(s): COLON CANCER Medications and Allergies Home Medications Medication Instructions Recorded Confirmed Type No Known Home Medications [No 09/02/17 09/02/17 History Known Home Medications] Allergies Allergy/AdvReac Type Severity Reaction Status Date / Time adhesive tape AdvReac Severe tears skin Verified 09/02/17 19:12 chicken derived [Chicken] AdvReac Nausea & Verified 09/02/17 19:12 Vomiting & Diarrhea Physical Examination On exam patient is alert and oriented 3. Patient is lying in bed in no acute distress. Right lower extremity is shortened and externally rotated. Calf is soft and nontender to palpation. Right lower extremity is warm and well perfused. Neurovascular status and circulatory status are intact. Bilateral upper extremities with multiple abrasions. Gauze dressings in place. Dressings are clean, dry and intact. Patient has full range of motion of bilateral upper extremities. Exam of the head, neck, and left lower extremity are within normal limits. Results X-rays of the right hip and pelvis show intertrochanteric fracture of the right femur. - Labs Labs: Abnormal Lab Results - Last 24 Hours (Table) 09/02/17 09/02/17 09/02/17 Range/Units 19:59 19:59 19:59 WBC 14.6 H (3.8-10.6) k/uL Neutrophils # 13.2 H (1.3-7.7) k/uL Lymphocytes # 0.5 L (1.0-4.8) k/uL INR 1.2 H (<1.2) BUN 44 H (9-20) mg/dL Glucose 109 H (74-99) mg/dL Alkaline Phosphatase 141 H (38-126) U/L Urine Protein (Negative) Ur Leukocyte Esterase (Negative) Urine RBC (0-5) /hpf Urine WBC (0-5) /hpf Amorphous Sediment (None) /hpf Urine Bacteria (None) /hpf Hyaline Casts (0-2) /lpf Urine Mucus (None) /hpf 09/02/17 Range/Units 20:08 WBC (3.8-10.6) k/uL Neutrophils # (1.3-7.7) k/uL Lymphocytes # (1.0-4.8) k/uL INR (<1.2) BUN (9-20) mg/dL Glucose (74-99) mg/dL Alkaline Phosphatase (38-126) U/L Urine Protein 1+ H (Negative) Ur Leukocyte Esterase Large H (Negative) Urine RBC 9 H (0-5) /hpf Urine WBC 31 H (0-5) /hpf Amorphous Sediment Rare H (None) /hpf Urine Bacteria Occasional H (None) /hpf Hyaline Casts 11 H (0-2) /lpf Urine Mucus Rare H (None) /hpf H & H 09/02/17 Range/Units 19:59 Hgb 14.5 (13.0-17.5) gm/dL Hct 44.0 (39.0-53.0) % Coagulation 09/02/17 Range/Units 19:59 INR 1.2 H (<1.2) Result Diagrams: 09/02/17 19:59 09/02/17 19:59 Assessment and Plan (1) Closed right hip fracture Current Visit: Yes Status: Acute Code(s): S72.001A - FRACTURE OF UNSP PART OF NECK OF RIGHT FEMUR, INIT SNOMED Code(s): 941463681 (2) Fall Current Visit: Yes Status: Acute Code(s): W19.XXXA - UNSPECIFIED FALL, INITIAL ENCOUNTER SNOMED Code(s): 2063699 (3) Multiple skin tears Current Visit: Yes Status: Acute Code(s): T14.8XXA - OTHER INJURY OF UNSPECIFIED BODY REGION, INITIAL ENCOUNTER SNOMED Code(s): 363958605 Plan: 1. NPO 2. Nonweightbearing to right lower extremity. 3. Daily dressing changes to bilateral upper extremities. 4. Closed reduction and intramedullary hip screw fixation is planned for later today pending medical clearance consent.
[2017-09-03] MEDS: SODIUM CHLORIDE 0.9% 1,000 ML IV SCH ×3 (10:12→22:37)
[2017-09-03] MEDS: MORPHINE SULFATE 4 MG/ML SYRINGE IV PRN (11:54)
[2017-09-03] MEDS ORDERED: KETOROLAC 30 MG/ML 1 ML VIAL IVP PRN (14:30)
[2017-09-03] MEDS ORDERED: IV FLUID CONTINUATION 1,000 ML IV ONE (15:46)
--- NOTE | 2017-09-03 15:54 | P.CONS ---
History of Present Illness - Reason for Consult Preoperative clearance - History of Present Illness Patient is a pleasant 87-year-old gentleman came in after mechanical fall found to have right hip intertrochanteric fracture. Patient is pretty functional functional status is greater than 4 MET S, patient's EKG also showed some abnormalities including right bundle branch block. Patient denied any chest pain at this point of time patient is going to surgery in couple hours. I really wanted to get an echocardiogram but the since we don't have much time patient can go in and get the surgery done. Patient is low risk for surgery patient is not a smoker does have a PEG tube in place no other significant chronic medical problems never had any heart attack doesn't have any history of congestive heart failure. Patient denied any chest pain at this point of time. Patient had history of dysphagia with PEG tube in place although there is no obvious drainage from that site area, there is some mal odor around that area walk-in that site and look at it again to make sure there is no infection around it but patient still can go for the surgery. Review of Systems REVIEW OF SYSTEMS: CONSTITUTIONAL: No fever, no malaise, no fatigue. HEENT: No recent visual problems or hearing problems. Denied any sore throat. CARDIOVASCULAR: No chest pain, orthopnea, PND, no palpitations, no syncope. PULMONARY: No shortness of breath, no cough, no hemoptysis. GASTROINTESTINAL: No diarrhea, no nausea, no vomiting, no abdominal pain. Normoactive bowel sounds. NEUROLOGICAL: No headaches, no weakness, no numbness. HEMATOLOGICAL: Denies any bleeding or petechiae. GENITOURINARY: Denies any burning micturition, frequency, or urgency. MUSCULOSKELETAL/RHEUMATOLOGICAL: Pain in the right hip area ENDOCRINE: Denies any polyuria or polydipsia. The rest of the 14-point review of systems is negative. 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 Other surgical hx: Hydrocele repair, EGD (2007). EPIDURAL STEROID INJECTIONS WITH DR. DIAZ. skin cancer -LESIONS SEVERAL BRONCHOSCOPIES,SEBACEOUS CYST ON BACK REMOVED, esophagus dilations, PEG tube dec 2016 Past Anesthesia/Blood Transfusion Reactions: No Reported Reaction Past Psychological History: No Psychological Hx Reported Smoking Status: Former smoker Past Alcohol Use History: None Reported Additional Past Alcohol Use History / Comment(s): STARTED SMOKING AT AGE 16 QUIT 2006 SMOKED 1PPD Past Drug Use History: None Reported - Past Family History Brother(s) Family Medical History: Cancer Additional Family Medical History / Comment(s): COLON CANCER Father Family Medical History: Cancer Additional Family Medical History / Comment(s): FROM RESP FAILURE AT AGE 91 Sister(s) Family Medical History: Cancer Additional Family Medical History / Comment(s): LUNG CANCER Mother Family Medical History: Cancer Additional Family Medical History / Comment(s): COLON CANCER Medications and Allergies Home Medications Medication Instructions Recorded Confirmed Type No Known Home Medications [No 09/02/17 09/02/17 History Known Home Medications] Allergies Allergy/AdvReac Type Severity Reaction Status Date / Time adhesive tape AdvReac Severe tears skin Verified 09/02/17 19:12 chicken derived [Chicken] AdvReac Nausea & Verified 09/02/17 19:12 Vomiting & Diarrhea Physical Exam Vitals: Vital Signs Temp Pulse Pulse Resp BP BP Pulse Ox 09/03/17 14:46 98.2 F 71 16 118/68 92 L 09/03/17 07:43 98.3 F 80 16 96/61 97 09/03/17 01:06 98.9 F 89 16 121/56 94 L 09/03/17 00:00 16 09/02/17 23:05 104 H 17 09/02/17 21:45 98.1 F 104 H 17 97/55 92 L 09/02/17 20:57 98.5 F 99 16 98/74 92 L 09/02/17 19:12 97.1 F L 105 H 18 109/64 94 L 09/02/17 18:49 97.8 F 100 18 110/61 90 L Intake and Output 09/03/17 09/03/17 09/03/17 06:59 14:59 22:59 Intake Total 280 Output Total 200 Balance 280 -200 Intake: Tube Feeding 280 Output: Urine 200 Other: Voiding Method Urinal Weight 64.41 kg PHYSICAL EXAMINATION: GENERAL: The patient is alert and oriented x3, not in any acute distress. Well developed, well nourished. HEENT: Pupils are round and equally reacting to light. EOMI. No scleral icterus. No conjunctival pallor. Normocephalic, atraumatic. No pharyngeal erythema. No thyromegaly. CARDIOVASCULAR: S1 and S2 present. No murmurs, rubs, or gallops. PULMONARY: Chest is clear to auscultation, no wheezing or crackles. ABDOMEN: Soft, nontender, nondistended, normoactive bowel sounds. PEG tube in place -Musculoskeletal: Deferred to orthopedic surgery EXTREMITIES: No cyanosis, clubbing, or pedal edema. NEUROLOGICAL: Gross neurological examination did not reveal any focal deficits. SKIN: No rashes. Results CBC & Chem 7: 09/02/17 19:59 09/02/17 19:59 Labs: Abnormal Lab Results - Last 24 Hours (Table) 09/02/17 09/02/17 09/02/17 Range/Units 19:59 19:59 19:59 WBC 14.6 H (3.8-10.6) k/uL Neutrophils # 13.2 H (1.3-7.7) k/uL Lymphocytes # 0.5 L (1.0-4.8) k/uL INR 1.2 H (<1.2) BUN 44 H (9-20) mg/dL Glucose 109 H (74-99) mg/dL Alkaline Phosphatase 141 H (38-126) U/L Urine Protein (Negative) Ur Leukocyte Esterase (Negative) Urine RBC (0-5) /hpf Urine WBC (0-5) /hpf Amorphous Sediment (None) /hpf Urine Bacteria (None) /hpf Hyaline Casts (0-2) /lpf Urine Mucus (None) /hpf 09/02/17 Range/Units 20:08 WBC (3.8-10.6) k/uL Neutrophils # (1.3-7.7) k/uL Lymphocytes # (1.0-4.8) k/uL INR (<1.2) BUN (9-20) mg/dL Glucose (74-99) mg/dL Alkaline Phosphatase (38-126) U/L Urine Protein 1+ H (Negative) Ur Leukocyte Esterase Large H (Negative) Urine RBC 9 H (0-5) /hpf Urine WBC 31 H (0-5) /hpf Amorphous Sediment Rare H (None) /hpf Urine Bacteria Occasional H (None) /hpf Hyaline Casts 11 H (0-2) /lpf Urine Mucus Rare H (None) /hpf Assessment and Plan Plan: -Preoperative clearance for right hip fracture and arthroplasty: Patient is low risk for surgery patient can go in and get the surgery done. Considering his age and avoid opiate analgesia patient was started on Toradol and GI prophylaxis. -Gastroesophageal reflux disease -DVT in the past: Patient regarding anticoagulation for hip surgery will be left to orthopedic surgical services -Dysphagia: PEG tube in place -Fall mechanical leading to skin tears switched to oral need local wound care.
[2017-09-03] MEDS ORDERED: HYDROcodone/APAP 5-325MG 1 EACH TAB PO PRN ×2 (16:25)
[2017-09-03] MEDS ORDERED: NALOXONE 0.4 MG/ML 1 ML VIAL IV PRN (16:25)
[2017-09-03] MEDS ORDERED: MORPHINE SULFATE 4 MG/ML SYRINGE IVP PRN ×3 (16:25)
[2017-09-03] MEDS ORDERED: MAGNESIUM HYDROXIDE 2,400 MG/10 ML CUP PO PRN (16:25)
[2017-09-03] MEDS ORDERED: DIAZEPAM 5 MG TAB PO PRN (16:25)
[2017-09-03] MEDS ORDERED: ONDANSETRON 4 MG/2 ML VIAL IVP PRN (16:25)
[2017-09-03] MEDS ORDERED: NEOSTIGMINE 1 MG/ML 10 ML VIAL ONE (17:05)
[2017-09-03] MEDS ORDERED: PROPOFOL 10 MG/ML 20 ML VIAL IV ONE (17:05)
[2017-09-03] MEDS ORDERED: MIDAZOLAM 2 MG/2 ML VIAL ONE (17:05)
[2017-09-03] MEDS ORDERED: GLYCOPYRROLATE 0.2 MG/ML 2 ML VIAL ONE (17:05)
[2017-09-03] MEDS ORDERED: LIDOCAINE 1% INJ 10MG/ML (20 ML MDV) ONE (17:05)
[2017-09-03] MEDS ORDERED: fentaNYL (PF) 50 MCG/ML 2 ML AMP ONE (17:05)
[2017-09-03] MEDS ORDERED: PHENYLEPHRINE-0.9% NACL SYG 1 MG/10 ML SYRINGE ONE (17:05)
[2017-09-03] MEDS ORDERED: MORPHINE SULFATE 10 MG/ML SYRINGE ONE (17:05)
[2017-09-03] MEDS ORDERED: SUCCINYLCHOLINE CHLORIDE 100 MG/5 ML SYR IV ONE (17:05)
[2017-09-03] MEDS ORDERED: VECURONIUM 10 MG VIAL IV ONE (17:05)
[2017-09-03] MEDS: ceFAZolin IN SWFI 2 GM/20 ML SYRINGE IVP SCH (17:25)
[2017-09-03] MEDS ORDERED: LACTATED RINGERS 1,000 ML IV ONE (17:55)
--- NOTE | 2017-09-03 17:56 | P.OP ---
Date of Procedure: 09/03/17 Preoperative Diagnosis: 4 part intratrochanteric fracture Postoperative Diagnosis: Four-part intertrochanteric fracture of the right hip Procedure(s) Performed: Close reduction and intramedullary hip screw fixation of the right hip Implants: [employer] intertan nail 130, 11.5 mm x 18 cm. [employer] Intertan integrated interlocking lag screw, 110 mm lag screw, 105 mm compression screw. [employer] L-P screw, 5.0 mm x 37.5 mm. Anesthesia: GETA Surgeon: Jenaro Daniels Baker Biscuit #1: Gaye Hernandes Estimated Blood Loss (ml): 100 Pathology: none sent Condition: stable Disposition: PACU Indications for Procedure: This is an 87-year-old gentleman who slipped and fell at home, and sustained a intertrochanteric fracture of his right hip. He was seen and evaluated with the x-rays reviewed, and after discussing the surgical and nonsurgical treatment options with him and his family at length, I recommended a close reduction and intramedullary hip screw fixation of the right hip. Consent was obtained. Operative Findings: The operative findings are consistent with a four-part intertrochanteric fracture of the right hip. Description of Procedure: The patient was seen in the preoperative area, consent was reviewed, and the operative site was marked with a skin marker. The patient was brought to the operating room and placed on the operating room table. Anesthesia was administered by the anesthesia department. 2 g of Ancef were administered intravenously. The patient was placed supine on the fracture table with the fractured extremity in traction boot. His other extremity was placed in a well leg bolanos and his bony prominences were padded. A universal timeout was then performed which confirmed the patient's name, surgical site, ALLERGIES, and consent. Fracture reduction was performed with traction and adduction maneuver which was confirmed with fluoroscopy. After reduction was performed, his extremity was then prepped and draped in the usual sterile fashion. Utilizing fluoroscopy to identify the tip of the greater trochanter, a 3 cm incision was made just proximal to the greater trochanter. Utilizing a curved awl, the starting hole was created at the tip of the greater trochanter and centralized in the AP plane. These locations were confirmed by fluoroscopy. Guidewire was then inserted down the medullary canal. Sequentially reaming of the femur was performed to 13 mm distally and 17 mm proximally. After reaming, appropriate size nail was inserted over the guidewire. The nail was inserted to the appropriate depth and the guidewire was removed. The lag screw targeting device was placed in the jig and a small skin incision was made and the targeting guide was placed down to bone. Utilizing the distally threaded guidewire, the guidewire was placed in the appropriate position in the femoral head, both anterior, posterior and mediolateral. Next, the drill for the second screw was then placed through the guide and drilled to the appropriate depth. The guidewire was measured and the appropriate depth was then reamed. The final size screw was placed to the appropriate depth. Traction was released and the fracture site was compressed with the aid of the second screw. The proximal drill guide was then removed and the distal drill guide was then inserted in the jig. Skin incision was made down to bone and the distal drill guide was then placed. Distal hole was then drilled and measured to the appropriate depth. Distal screw was then placed. The entire jig was then removed and final fluoroscopic x-rays were obtained. The wounds were then irrigated copiously with saline solution. Fascia was closed with 0-Vicryl. Subcutaneous tissues were closed with 2-0 Vicryl and the skin was closed with cj. Sterile dressings were applied. The patient was transported to the recovery room in stable condition. The hr administrative assistant RUTHY Richmond was required due the complexity of surgery the need for a skilled surgical supervisor
--- NOTE | 2017-09-03 19:31 | XR ---
PROCEDURE: XR Hip Limited RT - 1V DATE AND TIME: 09/03/2017 6:59 PM REFERRING PHYSICIAN: Gaye Hernandes CLINICAL INDICATION: PHH, post op IT nail TECHNIQUE: Department protocol. COMPARISON: None FINDINGS: The orthopedic hardware is intact. The bones and joints are unremarkable postoperatively. E xpected postprocedural soft tissue changes are noted laterally. IMPRESSION: Postprocedural.
[2017-09-03] MEDS: SENNOSIDES-DOCUSATE SODIUM 1 EACH TAB PO SCH (22:36)
[2017-09-04] MEDS: SODIUM CHLORIDE 0.9% 1,000 ML IV SCH ×4 (05:08→22:37)
[2017-09-04] MEDS: MORPHINE SULFATE 4 MG/ML SYRINGE IV PRN (06:53)
--- NOTE | 2017-09-04 08:39 | XR ---
Limited right hip HISTORY: Open reduction internal fixation 2 intraoperative C-arm images document the procedure
[2017-09-04 08:53] LABS: Basophils # (A) 0.1 k/uL (0-0.2); Basophils % (A) 1 %; Eosinophils # (A) 0.1 k/uL (0-0.7); Eosinophils % (A) 1 %; HCT 33.6 % (39.0-53.0); Hypochromasia Slight; Lymphocytes # (A) 0.7 k/uL (1.0-4.8); Lymphocytes % (A) 7 %; MCH 32.1 pg (25.0-35.0); MCHC 31.4 g/dL (31.0-37.0); MCV 102.1 fL (80.0-100.0); Macrocytosis Slight; Monocytes # (A) 0.6 k/uL (0-1.0); Monocytes % (A) 7 %; Neutrophils # (A) 7.8 k/uL (1.3-7.7); Neutrophils % (A) 83 %; Platelet Count 116 k/uL (150-450); RBC 3.29 m/uL (4.30-5.90); RDW 13.1 % (11.5-15.5); WBC 9.4 k/uL (3.8-10.6)
[2017-09-04 08:58] LABS: HGB 10.6 gm/dL (13.0-17.5)
[2017-09-04] MEDS: RIVAROXABAN 10 MG TAB PO SCH (09:02)
[2017-09-04] MEDS: ceFAZolin IN SWFI 2 GM/20 ML SYRINGE IVP SCH (09:02)
--- NOTE | 2017-09-04 09:10 | P.PN ---
Subjective Progress Note Date: 09/04/17 This is an 87-year-old male who is status post closed reduction and intramedullary hip screw fixation of the right hip. This is postoperative day # 1. Patient states that his pain is under control. Patient states that he feels good sitting up in a chair this morning. Patient denies any new complaints today. Patient denies any fever/chills, numbness, weakness, tingling , abdominal pain, shortness of breath or chest pain. Objective - Vital Signs Vital signs: Vital Signs Temp 99.1 F 09/04/17 07:16 Pulse 81 09/04/17 07:16 Resp 14 09/04/17 07:16 BP 92/55 09/04/17 07:16 Pulse Ox 94 L 09/04/17 07:16 Intake & Output 09/03/17 09/04/17 09/04/17 18:59 06:59 18:59 Intake Total 850 1100 Output Total 400 425 Balance 450 675 Weight 64.41 kg Intake: IV 850 Intake, IV Titration 600 Amount Lactated Ringers 1,000 ml 375 As IV .[facility] Rx#: [id number] Sodium Chloride 0.9% 1, 225 000 ml @ 75 mls/hr IV . [id number] [facility] Rx#:[id number] Oral 400 Tube Feeding 100 Output: Urine 300 425 Estimated Blood Loss 100 Other: # Voids 2 - Exam Vital signs are stable. Patient is in no acute distress and is alert and oriented 3. Calf is soft and nontender to palpation. Dressing is clean, dry, and intact. Patient has full foot and ankle motion without pain or difficulty. Neurovascular status and circulatory status are intact. - Labs CBC & Chem 7: 09/04/17 07:28 09/02/17 19:59 Labs: Abnormal Lab Results - Last 24 Hours (Table) 09/04/17 Range/Units 07:28 RBC 3.29 L (4.30-5.90) m/uL Hgb 10.6 L D (13.0-17.5) gm/dL Hct 33.6 L (39.0-53.0) % MCV 102.1 H (80.0-100.0) fL Plt Count 116 L (150-450) k/uL Neutrophils # 7.8 H (1.3-7.7) k/uL Lymphocytes # 0.7 L (1.0-4.8) k/uL Assessment and Plan (1) Closed right hip fracture Current Visit: Yes Status: Acute Code(s): S72.001A - FRACTURE OF UNSP PART OF NECK OF RIGHT FEMUR, INIT SNOMED Code(s): 166957255 (2) Fall Current Visit: Yes Status: Acute Code(s): W19.XXXA - UNSPECIFIED FALL, INITIAL ENCOUNTER SNOMED Code(s): 2362270 (3) Multiple skin tears Current Visit: Yes Status: Acute Code(s): T14.8XXA - OTHER INJURY OF UNSPECIFIED BODY REGION, INITIAL ENCOUNTER SNOMED Code(s): 078561399 Plan: 1. Toe-touch weightbearing to right lower extremity with a walker. 2. Continue routine postoperative care, pain control and physical therapy. 3. Daily dressing changes to bilateral upper extremities and to right hip. 4. Anticoagulation with Xarelto. 5. Appreciate input from medicine. 6. Possible discharge to rehab tomorrow.
[2017-09-04] MEDS ORDERED: HYDROmorphone 2 MG TAB PO PRN ×3 (09:18→09:19)
--- NOTE | 2017-09-04 10:24 | FL ---
Fluoroscopy HISTORY: Hip fracture 24 seconds fluoroscopy time supplied to the referring clinician. 2 intraoperative C-arm images docum ent the procedure. See dictated report from orthopedic surgery.
[2017-09-04 14:33] VITALS: RESP 16
--- NOTE | 2017-09-04 15:31 | P.PN ---
Subjective Patient was admitted after a fall and right hip fracture patient's x-ray underwent surgery patient is clinically doing well patient still has a Henderson catheter which will be removed tomorrow morning patient is on the Dilaudid which will be discontinued will use Toradol for pain with GI prophylaxis patient is on anticoagulation for DVT prophylaxis. Constitutional: Denied any fatigue denied any fever. Cardio vascular: denied any chest pain, palpitations Gastrointestinal denied any nausea vomiting Pulmonary: Denied any shortness of breath cough Neurologic denied any new focal deficits Objective - Vital Signs Vital signs: Vital Signs Temp 98.8 F 09/04/17 14:32 Pulse 90 09/04/17 14:32 Resp 16 09/04/17 14:32 BP 120/73 09/04/17 14:32 Pulse Ox 71 L 09/04/17 14:32 Intake & Output 09/03/17 09/04/17 09/04/17 18:59 06:59 18:59 Intake Total 850 1100 770 Output Total 400 425 Balance 450 675 770 Weight 64.41 kg Intake: IV 850 Intake, IV Titration 600 520 Amount Lactated Ringers 1,000 ml 375 As IV [id number] Rx#: [id number] Sodium Chloride 0.9% 1, 520 000 ml @ 65 mls/hr IV . [id number] Rx#:[id number] Sodium Chloride 0.9% 1, 225 000 ml @ 75 mls/hr IV . [id number] [facility] Rx#:[id number] Oral 400 250 Tube Feeding 100 Output: Urine 300 425 Estimated Blood Loss 100 Other: # Voids 2 2 - Exam PHYSICAL EXAMINATION: GENERAL: The patient is alert and oriented x3, not in any acute distress. Well developed, well nourished. HEENT: Pupils are round and equally reacting to light. EOMI. No scleral icterus. No conjunctival pallor. Normocephalic, atraumatic. No pharyngeal erythema. No thyromegaly. CARDIOVASCULAR: S1 and S2 present. No murmurs, rubs, or gallops. PULMONARY: Chest is clear to auscultation, no wheezing or crackles. ABDOMEN: Soft, nontender, nondistended, normoactive bowel sounds. PEG tube in place -Musculoskeletal: Deferred to orthopedic surgery EXTREMITIES: No cyanosis, clubbing, or pedal edema. NEUROLOGICAL: Gross neurological examination did not reveal any focal deficits. SKIN: No rashes. - Labs CBC & Chem 7: 09/04/17 07:28 09/02/17 19:59 Labs: Abnormal Lab Results - Last 24 Hours (Table) 09/04/17 Range/Units 07:28 RBC 3.29 L (4.30-5.90) m/uL Hgb 10.6 L D (13.0-17.5) gm/dL Hct 33.6 L (39.0-53.0) % MCV 102.1 H (80.0-100.0) fL Plt Count 116 L (150-450) k/uL Neutrophils # 7.8 H (1.3-7.7) k/uL Lymphocytes # 0.7 L (1.0-4.8) k/uL Assessment and Plan Plan: -Status post right hip arthroplasty postoperative day one Considering his age and avoid opiate analgesia patient was started on Toradol and GI prophylaxis. -Gastroesophageal reflux disease -DVT in the past: Patient regarding anticoagulation for hip surgery will be left to orthopedic surgical services -Dysphagia: PEG tube in place -Fall mechanical leading to skin tears switched to oral need local wound care.
[2017-09-04] MEDS: KETOROLAC 30 MG/ML 1 ML VIAL IVP PRN ×2 (16:51→22:40)
[2017-09-04] MEDS: SENNOSIDES-DOCUSATE SODIUM 1 EACH TAB PO SCH (22:37)
[2017-09-05] MEDS: SODIUM CHLORIDE 0.9% 1,000 ML IV SCH ×3 (06:31→17:54)
[2017-09-05 07:58] LABS: Basophils % (A) 1 %; Eosinophils # (A) 0.4 k/uL (0-0.7); Eosinophils % (A) 5 %; HCT 27.7 % (39.0-53.0); Lymphocytes % (A) 14 %; MCH 32.1 pg (25.0-35.0); MCHC 31.7 g/dL (31.0-37.0); MCV 101.2 fL (80.0-100.0); Macrocytosis Slight; Mean Platelet Volume 9.3; Monocytes # (A) 0.5 k/uL (0-1.0); Monocytes % (A) 6 %; Neutrophils # (A) 5.5 k/uL (1.3-7.7); Neutrophils % (A) 73 %; Platelet Count 120 k/uL (150-450); RBC 2.74 m/uL (4.30-5.90); RDW 13.2 % (11.5-15.5); WBC 7.6 k/uL (3.8-10.6)
[2017-09-05 08:18] LABS: HGB 8.8 gm/dL (13.0-17.5)
--- NOTE | 2017-09-05 08:31 | P.PN ---
Subjective Progress Note Date: 09/05/17 Principal diagnosis: Right hip fracture. Status post intertrochanteric nail insertion right hip. This is an 87-year-old male with history of fall sustaining injury to his right hip. He is status post close reduction with insertion of intertrochanteric nail the right hip on 09-03-17. He is doing well from an orthopedic standpoint. He has no new complaints or concerns today. Objective - Vital Signs Vital signs: Vital Signs Temp 97.8 F 09/05/17 07:15 Pulse 66 09/05/17 07:15 Resp 16 09/05/17 07:15 BP 100/46 09/05/17 07:15 Pulse Ox 93 L 09/05/17 07:15 Intake & Output 09/04/17 09/05/17 09/05/17 18:59 06:59 18:59 Intake Total 770 2340 Output Total 970 Balance 770 1370 Intake: Intake, IV Titration 520 240 Amount Sodium Chloride 0.9% 1, 520 240 000 ml @ 65 mls/hr IV . [id number] [facility] Rx#:[id number] Oral 250 300 Tube Feeding 1800 Output: Urine 970 Other: Voiding Method Indwelling Catheter # Voids 2 1 - Exam This is a pleasant 87-year-old male in no acute distress. He is alert and oriented 3. Exam of the right lower extremity reveals no erythema and minimal ecchymosis. There is no active drainage from the incisions. There is no drainage on the dressing. He has full foot and ankle motion without difficulty or pain. Neurovascular status to the lower extremity is intact. - Labs CBC & Chem 7: 09/05/17 06:29 09/02/17 19:59 Labs: Abnormal Lab Results - Last 24 Hours (Table) 09/04/17 09/05/17 Range/Units 07:28 06:29 RBC 3.29 L 2.74 L (4.30-5.90) m/uL Hgb 10.6 L D 8.8 L D (13.0-17.5) gm/dL Hct 33.6 L 27.7 L (39.0-53.0) % MCV 102.1 H 101.2 H (80.0-100.0) fL Plt Count 116 L 120 L (150-450) k/uL Neutrophils # 7.8 H (1.3-7.7) k/uL Lymphocytes # 0.7 L (1.0-4.8) k/uL Assessment and Plan (1) Status post hip surgery Current Visit: Yes Status: Acute Code(s): Z98.890 - OTHER SPECIFIED POSTPROCEDURAL STATES SNOMED Code(s): 614563432 (2) Closed right hip fracture Current Visit: Yes Status: Acute Code(s): S72.001A - FRACTURE OF UNSP PART OF NECK OF RIGHT FEMUR, INIT SNOMED Code(s): 589316302 Plan: The clinical findings are discussed the patient. He may be discharged to inpatient rehab from an orthopedic standpoint. He is toe-touch weightbearing with walker.
[2017-09-05] MEDS: RIVAROXABAN 10 MG TAB PO SCH (09:24)
[2017-09-05 14:44] VITALS: BP 127/75; PULSE 82; TEMP 98.8
[2017-09-05] MEDS: KETOROLAC 30 MG/ML 1 ML VIAL IVP PRN (16:50)
--- NOTE | 2017-09-05 16:50 | P.DS ---
Providers Date of admission: 09/02/17 19:22 Expected date of discharge: 09/05/17 Attending physician: Jenaro Daniels Consults: 09/02/17 19:19 Consult Physician Stat Consulting Provider: Dominik Interiano Consult Reason/Comments: Surgical clearance/ medical management Do you want consulting provider notified?: Yes Primary care physician: Bishop Howe MD - Discharge Diagnosis(es) (1) Closed right hip fracture Current Visit: Yes Status: Acute (2) Fall Current Visit: Yes Status: Acute Hospital Course: Patient is a pleasant 87-year-old male who was admitted to the hospital on 2017 for right hip fracture. He underwent right closed reduction with intramedullary hip screw fixation performed by Dr. Jenaro Daniels on 09/03/2017. Patient has been progressing well postsurgically. Patient is ready for discharge to rehabilitation facility. Patient was cleared for surgical intervention by Dr. Rainey. Patient feels he is progressing postsurgically and is ready for discharge today. He is scheduled to be discharged today at 1800 hrs. At discharge, he is given prescriptions for Xarelto, Senokot and [place] 7.5 mg/325 mg. He should take his medications as prescribed. He should remain toe-touch weightbearing on the right lower extremity. He may continue to use a walker to aid in ambulation as needed. Patient may shower in 2 days if he is not experiencing any drainage from the incision sites. May continue with daily dressing changes as needed. Palo will plan to remain intact for the next 10-14 days. He'll plan to follow up with Dr. Jenaro Daniels for further evaluation in approximately 2 weeks at [facility]. Procedures: Closed reduction intramedullary nail fixation for right intertrochanteric hip fracture Patient Condition at Discharge: Stable Plan - Discharge Summary Discharge Rx Participant: No New Discharge Prescriptions: New Rivaroxaban [Xarelto] 10 mg PO DAILY #30 tab Sennosides [Senokot] 1 tab PO BID #60 tablet HYDROcodone/APAP 7.5-325MG [[place] 7.5-325] 1 - 2 tab PO Q4-6H PRN #10 tab PRN Reason: Pain Discharge Medication List Rivaroxaban [Xarelto] 10 mg PO DAILY #30 tab 09/04/17 [Rx] Sennosides [Senokot] 1 tab PO BID #60 tablet 09/04/17 [Rx] HYDROcodone/APAP 7.5-325MG [[place] 7.5-325] 1 - 2 tab PO Q4-6H PRN #10 tab [Rx] Follow up Appointment(s)/Referral(s): Bishop Howe MD [Primary Care Provider] - 1-2 days Jenaro Daniels DO [Doctor of Osteopathic Medicine] - 09/17/17 1:00 pm Activity/Diet/Wound Care/Special Instructions: Toe-touch weightbearing to right lower extremity with walker May shower after 2 days if no drainage from the incision. Daily dressing changes to bilateral upper extremities and to right hip. Kaye may be removed in 10-14 days. [facility]up with [facility]. Please call with any questions or concerns, Discharge Disposition: TRANSFER TO SNF/ECF
== END 2017-09-05 18:00 | DRG 481 ==
LOC: EC 18:36 → 3SUR 19:22
PROVIDERS: ADMIT Orthopaedic Surgery; ATTEND Orthopaedic Surgery
PROC: 0QS636Z Reposition Right Upper Femur with Intramedullary Internal Fixation Device, Percutaneous Approach (ICD-10-PCS; principal; 2017-09-02)
DX: S72.141A Displaced intertrochanteric fracture of right femur, initial encounter for closed fracture (principal); Z43.1 Encounter for attention to gastrostomy; W01.0XXA Fall on same level from slipping, tripping and stumbling without subsequent striking against object, initial encounter; Y92.009 Unspecified place in unspecified non-institutional (private) residence as the place of occurrence of the external cause; E78.5 Hyperlipidemia, unspecified; I45.10 Unspecified right bundle-branch block; K21.9 Gastro-esophageal reflux disease without esophagitis; N40.0 Benign prostatic hyperplasia without lower urinary tract symptoms; S41.119A Laceration without foreign body of unspecified upper arm, initial encounter; Z80.0 Family history of malignant neoplasm of digestive organs; Z80.1 Family history of malignant neoplasm of trachea, bronchus and lung; Z85.828 Personal history of other malignant neoplasm of skin; Z87.891 Personal history of nicotine dependence; Z86.718 Personal history of other venous thrombosis and embolism; M19.90 Unspecified osteoarthritis, unspecified site; Z87.01 Personal history of pneumonia (recurrent); Z91.018 Allergy to other foods; Z91.048 Other nonmedicinal substance allergy status; M21.372 Foot drop, left foot; M21.371 Foot drop, right foot; G58.9 Mononeuropathy, unspecified; Z87.311 Personal history of (healed) other pathological fracture
CPT/HCPCS: 71045; 73501; 73502; 80053; 81001; 85025; 85610; 85730; 86850; 86900; 86901; 93005; 94760; 96374; 96375; 99285

== ENCOUNTER 2017-09-10 10:47 | Emergency (ER) | payer MEDICARE, OTHER ==
[2017-09-10 10:53] VITALS: RESP 18
--- NOTE | 2017-09-10 11:59 | ED ---
General Adult HPI - General Chief complaint: Recheck/Abnormal Lab/Rx Stated complaint: INFECTION AT TUBE SITE Time Seen by Provider: 09/10/17 11:17 Source: patient Mode of arrival: wheelchair Limitations: no limitations - History of Present Illness Initial comments: 87-year-old male presenting with concern for infected PEG tube. Symptoms have progressed over the past one week. There has been some drainage and foul- smelling or around his PEG tube. He denies any pain. Denies any issues with feeding. Patient is currently in the [facility] for hip fracture. He has not had any oral antibiotics. He has been applying triple antibiotic cream with no relief. Denies nausea vomiting. Denies fever or chills. - Related Data Home Medications Medication Instructions Recorded Confirmed Bisacodyl [Dulcolax] 10 mg RECTAL DAILY PRN 09/10/17 09/10/17 HYDROcodone/APAP 7.5-325MG [[place] 1 tab PEG/G-TUBE Q4H PRN 09/10/17 09/10/17 7.5-325] Rivaroxaban [Xarelto] 10 mg PEG/G-TUBE DAILY 09/10/17 09/10/17 Sennosides [Senokot] 1 tab PEG/G-TUBE BID 09/10/17 09/10/17 Previous Rx's Medication Instructions Recorded Nystatin 100,000Unit/gm Cream 1 applic TOPICAL TID #30 gm 09/10/17 [Mycostatin Cream] Allergies Allergy/AdvReac Type Severity Reaction Status Date / Time adhesive tape AdvReac Severe tears skin Verified 09/10/17 11:11 chicken derived [Chicken] AdvReac Nausea & Verified 09/10/17 11:11 Vomiting & Diarrhea Review of Systems ROS Statement: Those systems with pertinent positive or pertinent negative responses have been documented in the HPI. ROS Other: All systems not noted in ROS Statement are negative. 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 Other surgical hx: Hydrocele repair, EGD (2007). EPIDURAL STEROID INJECTIONS WITH DR. DIAZ. skin cancer -LESIONS SEVERAL BRONCHOSCOPIES,SEBACEOUS CYST ON BACK REMOVED, esophagus dilations, PEG tube dec 2016 Past Anesthesia/Blood Transfusion Reactions: No Reported Reaction Past Psychological History: No Psychological Hx Reported Smoking Status: Former smoker Past Alcohol Use History: None Reported Past Drug Use History: None Reported - Past Family History Brother(s) Family Medical History: Cancer Additional Family Medical History / Comment(s): COLON CANCER Father Family Medical History: Cancer Additional Family Medical History / Comment(s): FROM RESP FAILURE AT AGE 91 Sister(s) Family Medical History: Cancer Additional Family Medical History / Comment(s): LUNG CANCER Mother Family Medical History: Cancer Additional Family Medical History / Comment(s): COLON CANCER General Exam Limitations: no limitations General appearance: alert, in no apparent distress Head exam: Present: atraumatic, normocephalic Eye exam: Present: normal appearance, PERRL ENT exam: Present: normal exam Neck exam: Present: normal inspection. Absent: tenderness, meningismus Respiratory exam: Present: normal lung sounds bilaterally. Absent: respiratory distress Cardiovascular Exam: Present: regular rate, normal rhythm GI/Abdominal exam: Present: soft, other (Approximately 2 cm of circumferential erythema around PEG tube site, no purulence. No fluctuance or induration. There are several satellite lesions consistent with yeast.). Absent: distended , tenderness, guarding, rebound Course Vital Signs 09/10/17 10:48 Temperature 98.0 F Pulse Rate 71 Respiratory 18 Rate Blood Pressure 128/60 O2 Sat by Pulse 97 Oximetry Medical Decision Making - Medical Decision Making 87-year-old male with PEG tube and local infection. Exam is consistent with yeast, patient will be prescribed nystatin. They will observe for resolution and return with worsening or changing symptoms. Disposition Clinical Impression: Yeast infection of the skin Disposition: HOME SELF-CARE Condition: Good Instructions: Skin Yeast Infection (ED) Prescriptions: Nystatin 100,000Unit/gm Cream [Mycostatin Cream] 1 applic TOPICAL TID #30 gm Is patient prescribed a controlled substance at d/c from ED?: No Referrals: Bishop Howe MD [Primary Care Provider] - 1-2 days Time of Disposition: 11:59
[2017-09-10 12:11] VITALS: BP 114/58; PULSE 67; TEMP 99.5
== END 2017-09-10 12:19 | disposition home or self-care (01) ==
LOC: EC 10:47
DX: B37.2 Candidiasis of skin and nail (principal); K94.22 Gastrostomy infection; S72.009A Fracture of unspecified part of neck of unspecified femur, initial encounter for closed fracture; Z87.891 Personal history of nicotine dependence; Z79.01 Long term (current) use of anticoagulants; Z79.899 Other long term (current) drug therapy; Z91.09 Other allergy status, other than to drugs and biological substances; Z85.828 Personal history of other malignant neoplasm of skin; Z86.718 Personal history of other venous thrombosis and embolism; Z98.890 Other specified postprocedural states; Z80.0 Family history of malignant neoplasm of digestive organs; X58.XXXA Exposure to other specified factors, initial encounter
CPT/HCPCS: 99282

== ENCOUNTER 2018-01-28 23:33 | Emergency (ER) | payer MEDICARE, OTHER ==
[2018-01-28 23:42] VITALS: TEMP 97.8
[2018-01-29] MEDS ORDERED: SODIUM CHLORIDE 0.9% 500 ML IV STA (00:38)
[2018-01-29 01:53] LABS: Basophils # (A) 0.1 k/uL (0-0.2); Basophils % (A) 1 %; Eosinophils # (A) 0.2 k/uL (0-0.7); Eosinophils % (A) 2 %; HCT 38.7 % (39.0-53.0); HGB 11.9 gm/dL (13.0-17.5); Hypochromasia Slight; Lymphocytes # (A) 0.9 k/uL (1.0-4.8); Lymphocytes % (A) 9 %; MCH 31.4 pg (25.0-35.0); MCHC 30.8 g/dL (31.0-37.0); Macrocytosis Slight; Mean Platelet Volume 9.2; Monocytes # (A) 0.5 k/uL (0-1.0); Monocytes % (A) 5 %; Neutrophils % (A) 82 %; RBC 3.79 m/uL (4.30-5.90); RDW 13.8 % (11.5-15.5); WBC 9.8 k/uL (3.8-10.6)
[2018-01-29 01:55] LABS: Appearance,Urine Cloudy (Clear); Bacteria,Urine Rare /hpf; Bilirubin,Urine Negative (Negative); Blood,Urine Negative (Negative); Color,Urine Yellow; Glucose,Urine (UA) Negative (Negative); Ketones,Urine Negative (Negative); Leukocyte Esterase,Urine Large (Negative); Mucus,Urine Rare /hpf; Nitrite,Urine Positive (Negative); PH, Urine 7.5 (5.0-8.0); Protein,Urine 1+ (Negative); RBC,Urine 5 /hpf (0-5); Specific Gravity,Urine 1.015 (1.001-1.035); Squamous Epithelial Cell,Urine <1 /hpf (0-4); Urobilinogen,Urine <2.0 mg/dL (<2.0); WBC,Urine 57 /hpf (0-5)
[2018-01-29 01:57] LABS: Platelet Count 671 k/uL (150-450)
[2018-01-29 02:01] LABS: ALT 75 U/L (21-72); AST 79 U/L (17-59); Albumin 2.9 g/dL (3.5-5.0); Alkaline Phosphatase 178 U/L (38-126); Amylase 33 U/L (30-110); Anion Gap 4 mmol/L; Blood Urea Nitrogen 32 mg/dL (9-20); Carbon Dioxide 31 mmol/L (22-30); Chloride 104 mmol/L (98-107); Glucose 90 mg/dL (74-99); Lipase 95 U/L (23-300); Potassium 5.1 mmol/L (3.5-5.1); Sodium 139 mmol/L (137-145); Total Bilirubin 0.5 mg/dL (0.2-1.3); Total Protein 6.7 g/dL (6.3-8.2)
--- NOTE | 2018-01-29 02:29 | XR ---
EXAMINATION TYPE: XR chest 2V DATE OF EXAM: 01/29/2018 COMPARISON: NONE HISTORY: Fever abdominal pain TECHNIQUE: Frontal and lateral views of the chest are obtained. FINDINGS: There are patchy linear densities in both lungs. Heart size is normal. There is no heart f ailure. There is coarsening of interstitial markings. There is osteopenia. I see no definite pleural effusion. IMPRESSION: Fibrotic changes and atelectasis in both lungs without significant change compared to ol d exam. No heart failure.
--- NOTE | 2018-01-29 02:34 | ED ---
General Adult HPI - General Source: patient, EMS Mode of arrival: EMS Limitations: no limitations <Jaleesa Small - Last Filed: 01/29/18 03:17> <Kimberley Perry - Last Filed: 01/29/18 07:36> - General Chief complaint: Recheck/Abnormal Lab/Rx Stated complaint: Abd pain Time Seen by Provider: 01/28/18 23:40 - History of Present Illness Initial comments: 87-year-old male patient who is status post PEG tube site change one month ago presents to the emergency department today after having an episode of abdominal pain around 10 PM. Patient is currently receiving rehabilitative care at [facility] [place] and reported his pain to the nurses there. Patient states that his pain resolved after a short time however the staff sent him here anyway. Patient is currently reporting no pain to his abdomen. Patient states that he has had a low-grade fever throughout the day today. States he is having some greenish yellow discharge from his old PEG tube site. He denies any cough, congestion, or chest pain. He denies any nausea or vomiting. States he has been having diarrhea since having the PEG tube put in over a year ago, states bowel movements have not changed. Denies any hematochezia or melena. Denies any hematuria, dysuria, urinary frequency, urinary urgency. States he is eating and drinking without difficulty today. Patient denies any recent rash, back pain, numbness, tingling, dizziness, weakness, headache, visual changes, or any other complaints. (Jaleesa Small) - Related Data Home Medications Medication Instructions Recorded Confirmed Bisacodyl [Dulcolax] 10 mg RECTAL DAILY PRN 09/10/17 09/10/17 HYDROcodone/APAP 7.5-325MG [[place] 1 tab PEG/G-TUBE Q4H PRN 09/10/17 09/10/17 7.5-325] Rivaroxaban [Xarelto] 10 mg PEG/G-TUBE DAILY 09/10/17 09/10/17 Sennosides [Senokot] 1 tab PEG/G-TUBE BID 09/10/17 09/10/17 Previous Rx's Medication Instructions Recorded Nystatin 100,000Unit/gm Cream 1 applic TOPICAL TID #30 gm 09/10/17 [Mycostatin Cream] Sulfamethoxazole/Trimethoprim 1 each PO BID #20 tablet 01/29/18 [Bactrim DS 800-160 mg] Allergies Allergy/AdvReac Type Severity Reaction Status Date / Time adhesive tape AdvReac Severe tears skin Verified 01/28/18 23:42 chicken derived [Chicken] AdvReac Nausea & Verified 01/28/18 23:42 Vomiting & Diarrhea Review of Systems ROS Other: All systems not noted in ROS Statement are negative. <Jaleesa Small - Last Filed: 01/29/18 03:17> ROS Other: All systems not noted in ROS Statement are negative. <Kimberley Perry - Last Filed: 01/29/18 07:36> ROS Statement: Those systems with pertinent positive or pertinent negative responses have been documented in the HPI. 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 Other surgical hx: Hydrocele repair, EGD (2007). EPIDURAL STEROID INJECTIONS WITH DR. DIAZ. skin cancer -LESIONS SEVERAL BRONCHOSCOPIES,SEBACEOUS CYST ON BACK REMOVED, esophagus dilations, PEG tube dec 2016 Past Anesthesia/Blood Transfusion Reactions: No Reported Reaction Past Psychological History: No Psychological Hx Reported Smoking Status: Former smoker Past Alcohol Use History: None Reported Past Drug Use History: None Reported - Past Family History Brother(s) Family Medical History: Cancer Additional Family Medical History / Comment(s): COLON CANCER Father Family Medical History: Cancer Additional Family Medical History / Comment(s): FROM RESP FAILURE AT AGE 91 Sister(s) Family Medical History: Cancer Additional Family Medical History / Comment(s): LUNG CANCER Mother Family Medical History: Cancer Additional Family Medical History / Comment(s): COLON CANCER <Jaleesa Small - Last Filed: 01/29/18 03:17> General Exam Limitations: no limitations General appearance: alert, in no apparent distress, other (This is a well- developed, well-nourished elderly male patient in no acute distress. Vital signs upon presentation are temperature 97.8F, pulse 83, respirations 17, blood pressure 132/64, pulse ox 94% on room air.) Eye exam: Present: normal appearance, PERRL, EOMI. Absent: scleral icterus, conjunctival injection, periorbital swelling ENT exam: Present: normal exam, normal oropharynx, mucous membranes moist Respiratory exam: Present: normal lung sounds bilaterally. Absent: respiratory distress, wheezes, rales, rhonchi, stridor Cardiovascular Exam: Present: regular rate, normal rhythm, normal heart sounds. Absent: systolic murmur, diastolic murmur, rubs, gallop, clicks GI/Abdominal exam: Present: soft, normal bowel sounds, other (Patient does have healing PEG tube site, there is evidence of yellowish green drainage on his dressing. Minimal surrounding erythema. No erythema surrounding the new PEG tube site.). Absent: distended, tenderness, guarding, rebound, rigid Neurological exam: Present: alert, oriented X3, CN II-XII intact Psychiatric exam: Present: normal affect, normal mood Skin exam: Present: warm, dry, intact, normal color. Absent: rash <Jaleesa Small M - Last Filed: 01/29/18 03:17> Vital Signs 01/28/18 01/29/18 23:36 03:37 Temperature 97.8 F Pulse Rate 83 81 Respiratory 17 16 Rate Blood Pressure 132/64 126/64 O2 Sat by Pulse 94 L 94 L Oximetry Medical Decision Making - Lab Data Result diagrams: 01/29/18 01:13 01/29/18 01:13 - Radiology Data Radiology results: report reviewed, image reviewed <Jaleesa Small - Last Filed: 01/29/18 03:17> - Lab Data Result diagrams: 01/29/18 01:13 01/29/18 01:13 <Kimberley Perry - Last Filed: 01/29/18 07:36> - Medical Decision Making 87-year-old male patient presents to the emergency department today for evaluation after having an episode of abdominal pain earlier today. Patient states his pain is currently resolved and he is having no pain at all. Patient also did have a low-grade temperature upon arrival. Physical examination did reveal some yellowish green drainage from the old PEG tube site with minimal surrounding erythema. Abdomen was soft and nontender. Lungs clear to auscultation with good air movement. Labs reviewed and revealed a normal white blood cell count. Patient does have chronic changes to his hemoglobin BUN, and liver enzymes. Urinalysis did show 1+ protein, large leukocyte esterase, 57 white blood cells, rare bacteria, and rare mucous. Chest x-ray showed no acute cardiopulmonary process. We will treat patient for urinary tract infection and cellulitis to his PEG site with Bactrim. As patient's abdominal exam is negative at this time he is not complaining of any pain but did not perform any imaging. He'll be discharged to [place] [facility] [place]. (Jaleesa Small) I personally saw and examined the patient. I reviewed and agree with the mid- level provider findings including all diagnostic interpretations and treatment plans as written unless otherwise stated. I was present for amador portions of any procedures performed. (Kimberley Perry) - Lab Data Lab Results 01/29/18 01/29/18 01/29/18 Range/Units 01:13 01:13 01:13 WBC 9.8 (3.8-10.6) k/uL RBC 3.79 L (4.30-5.90) m/uL Hgb 11.9 L (13.0-17.5) gm/dL Hct 38.7 L (39.0-53.0) % MCV 102.0 H (80.0-100.0) fL MCH 31.4 (25.0-35.0) pg MCHC 30.8 L (31.0-37.0) g/dL RDW 13.8 (11.5-15.5) % Plt Count 671 H D (150-450) k/uL Neutrophils % 82 % Lymphocytes % 9 % Monocytes % 5 % Eosinophils % 2 % Basophils % 1 % Neutrophils # 8.0 H (1.3-7.7) k/uL Lymphocytes # 0.9 L (1.0-4.8) k/uL Monocytes # 0.5 (0-1.0) k/uL Eosinophils # 0.2 (0-0.7) k/uL Basophils # 0.1 (0-0.2) k/uL Hypochromasia Slight Macrocytosis Slight Sodium 139 (137-145) mmol/L Potassium 5.1 (3.5-5.1) mmol/L Chloride 104 (98-107) mmol/L Carbon Dioxide 31 H (22-30) mmol/L Anion Gap 4 mmol/L BUN 32 H (9-20) mg/dL Creatinine 0.59 L (0.66-1.25) mg/dL Est GFR (CKD-EPI)AfAm >90 (>60 ml/min/1.73 sqM) Est GFR (CKD-EPI)NonAf >90 (>60 ml/min/1.73 sqM) Glucose 90 (74-99) mg/dL Plasma Lactic Acid Michael 1.3 (0.7-2.0) mmol/L Calcium 9.0 (8.4-10.2) mg/dL Total Bilirubin 0.5 (0.2-1.3) mg/dL AST 79 H (17-59) U/L ALT 75 H (21-72) U/L Alkaline Phosphatase 178 H (38-126) U/L Total Protein 6.7 (6.3-8.2) g/dL Albumin 2.9 L (3.5-5.0) g/dL Amylase 33 (30-110) U/L Lipase 95 (23-300) U/L Urine Color Urine Appearance (Clear) Urine pH (5.0-8.0) Ur Specific [place] (1.001-1.035) Urine Protein (Negative) Urine Glucose (UA) (Negative) Urine Ketones (Negative) Urine Blood (Negative) Urine Nitrite (Negative) Urine Bilirubin (Negative) Urine Urobilinogen (<2.0) mg/dL Ur Leukocyte Esterase (Negative) Urine RBC (0-5) /hpf Urine WBC (0-5) /hpf Ur Squamous Epith Cells (0-4) /hpf Urine Bacteria (None) /hpf Urine Mucus (None) /hpf 01/29/18 Range/Units 01:13 WBC (3.8-10.6) k/uL RBC (4.30-5.90) m/uL Hgb (13.0-17.5) gm/dL Hct (39.0-53.0) % MCV (80.0-100.0) fL MCH (25.0-35.0) pg MCHC (31.0-37.0) g/dL RDW (11.5-15.5) % Plt Count (150-450) k/uL Neutrophils % % Lymphocytes % % Monocytes % % Eosinophils % % Basophils % % Neutrophils # (1.3-7.7) k/uL Lymphocytes # (1.0-4.8) k/uL Monocytes # (0-1.0) k/uL Eosinophils # (0-0.7) k/uL Basophils # (0-0.2) k/uL Hypochromasia Macrocytosis Sodium (137-145) mmol/L Potassium (3.5-5.1) mmol/L Chloride (98-107) mmol/L Carbon Dioxide (22-30) mmol/L Anion Gap mmol/L BUN (9-20) mg/dL Creatinine (0.66-1.25) mg/dL Est GFR (CKD-EPI)AfAm (>60 ml/min/1.73 sqM) Est GFR (CKD-EPI)NonAf (>60 ml/min/1.73 sqM) Glucose (74-99) mg/dL Plasma Lactic Acid Michael (0.7-2.0) mmol/L Calcium (8.4-10.2) mg/dL Total Bilirubin (0.2-1.3) mg/dL AST (17-59) U/L ALT (21-72) U/L Alkaline Phosphatase (38-126) U/L Total Protein (6.3-8.2) g/dL Albumin (3.5-5.0) g/dL Amylase (30-110) U/L Lipase (23-300) U/L Urine Color Yellow Urine Appearance Cloudy (Clear) Urine pH 7.5 (5.0-8.0) Ur Specific [place] 1.015 (1.001-1.035) Urine Protein 1+ H (Negative) Urine Glucose (UA) Negative (Negative) Urine Ketones Negative (Negative) Urine Blood Negative (Negative) Urine Nitrite Positive (Negative) Urine Bilirubin Negative (Negative) Urine Urobilinogen <2.0 (<2.0) mg/dL Ur Leukocyte Esterase Large H (Negative) Urine RBC 5 (0-5) /hpf Urine WBC 57 H (0-5) /hpf Ur Squamous Epith Cells <1 (0-4) /hpf Urine Bacteria Rare H (None) /hpf Urine Mucus Rare H (None) /hpf - Radiology Data Two-view x-ray of the chest is obtained. There are patchy linear densities in both lungs. Heart size normal. Is no heart failure. This worsening of interstitial markings. There is osteopenia. I see no definite pleural effusion. Impression by Dr. Carmona shows fibrotic changes and atelectasis in both lungs without significant change compared to old exam. No heart failure. (Jaleesa Small) Disposition Is patient prescribed a controlled substance at d/c from ED?: No Time of Disposition: 02:34 <Jaleesa Small - Last Filed: 01/29/18 03:17> <Kimberley Perry - Last Filed: 01/29/18 07:36> Clinical Impression: Urinary tract infection Disposition: HOME SELF-CARE Condition: Good Instructions: Urinary Tract Infection in Men (ED), Urinary Tract Infection in Older Adults (ED) Additional Instructions: Complete antibiotic prescription and full. Follow-up with the urologist for further evaluation. Return here immediately for any new, worsening, or concerning symptoms. Prescriptions: Sulfamethoxazole/Trimethoprim [Bactrim DS 800-160 mg] 1 each PO BID #20 tablet Referrals: Bishop Howe MD [Primary Care Provider] - 1-2 days Zaire Pacheco MD [STAFF PHYSICIAN] - 1-2 days
[2018-01-29 03:39] VITALS: BP 126/64; PULSE 81; RESP 16
== END 2018-01-29 03:54 | disposition home or self-care (01) ==
LOC: EC 23:33
DX: N39.0 Urinary tract infection, site not specified (principal); R19.7 Diarrhea, unspecified; Z86.718 Personal history of other venous thrombosis and embolism; Z85.828 Personal history of other malignant neoplasm of skin; Z87.891 Personal history of nicotine dependence; Z79.01 Long term (current) use of anticoagulants; Z79.899 Other long term (current) drug therapy; Z91.018 Allergy to other foods; Z91.048 Other nonmedicinal substance allergy status; Z98.890 Other specified postprocedural states; Z93.1 Gastrostomy status
CPT/HCPCS: 36415; 71046; 80053; 81001; 82150; 83605; 83690; 85025; 87040; 87077; 87086; 87186; 99284

== ENCOUNTER → 2018-11-24 | Outpatient (CLI) | payer MEDICARE, OTHER ==
--- NOTE | 2018-11-24 09:03 | CT ---
EXAMINATION TYPE: CT abdomen pelvis wo con DATE OF EXAM: 11/24/2018 COMPARISON: 02/05/2017 HISTORY: renal stones, gross hematuria CT DLP: 735 mGycm Automated exposure control for dose reduction was used. TECHNIQUE: Helical acquisition of images was performed from the lung bases through the pelvis. FINDINGS: LUNG BASES: Increased anterior posterior diameter of the chest of underlying COPD and multifocal pleu ral parenchymal scarring are seen at the lung bases. There is folding of the esophagus upon itself in the esophagus is dilated and fluid-filled interstitial visualized portions. LIVER/GB: No significant abnormality is appreciated. PANCREAS: Diffuse pancreatic parenchymal atrophy is noted without ductal dilatation. Cystic pancreati c lesion measures 1.8 cm, unchanged from the prior. SPLEEN: There is a small splenule seen. ADRENALS: There is some thickening of the adrenal glands bilaterally that is similar to the prior exa m of 2016 and likely relates to benign adrenal gland hyperplasia. KIDNEYS: Within the left distal ureter there is an incompletely obstructing calculus measuring 6 mm a nd a second incompletely obstructing calculus measuring 1 cm just proximal to the left ureterovesicul ar junction. Within the urinary bladder there are layering calculi, at least 3 in number measuring 1 cm, 4 mm, and 5 mm. At the right ureterovesicular junction there is a 1 cm calculus however there is no hydronephrosis seen. There is no enlarged and heterogenous prostate gland impressing on the urinar y bladder containing numerous dystrophic calcifications. The kidneys display cortical thinning and atrophy, right greater than left. There are also multiple p robable renal cysts measuring up to 3.1 cm on the right and 3.4 cm on the left. Urinary bladder also displaced diffuse urinary bladder wall thickening. FREE AIR: No free air is visualized ADENOPATHY: No greater than 1 cm short axis lymph node is seen within the abdomen or pelvis. BOWEL: There is wall thickening and the appearance of stricturing at the gastroesophageal junction w ith postsurgical change. Percutaneous enteric gastric tube is seen within the stomach with a small am ount of fluid tracking along the tubing and abutting loops of small bowel. The stomach is incompletel y distended. Findings are similar to the prior of 2017. Multiple sigmoid diverticula are present. No dilated large or small bowel. OSSEOUS STRUCTURES: Surgical fixation of a prior right femoral fracture is noted. Healed fracture def ormities of the left inferior pubic ramus and bilateral superior pubic rami are seen. There is diffus e osseous demineralization seen and degenerative changes of the spine. Multiple old compression defor mities are similar to the prior exam at L5, L4, L3, L2, L1, T12, and T11 although there is progressio n at L3. OTHER: There is severe atherosclerosis of the abdominal aorta and its branches. There is a peripherally calcified ovoid structure in the pelvis that is also unchanged from the prior of 2017 and may represent a calcified epiploic appendage or lymph node. IMPRESSION: 1. INTERVAL DEVELOPMENT OF CALCULI AND THE BILATERAL URETEROVESICULAR JUNCTIONS AND DISTAL LEFT URETE R WELL DIFFUSE URINARY BLADDER WALL THICKENING THAT MAY PARTIALLY RELATE TO INCOMPLETE DISTENTI ON ALTHOUGH CHRONIC INFLAMMATORY PROCESS IS SUSPECTED. NEW CALCULI ARE ALSO SEEN LAYERING DEPENDENTLY WITHIN THE URINARY BLADDER. ALTHOUGH CALCULI ARE SEEN AT THE URETEROVESICULAR JUNCTIONS NO HYDRONEPH ROSIS IS EVIDENT. CORTICAL RENAL ATROPHY IS PRESENT SUGGESTING CHRONICITY, RIGHT GREATER THAN LEFT. 2. DILATION OF A FLUID-FILLED DISTAL ESOPHAGUS IN THE APPEARANCE OF STRICTURING AT THE SURGICAL SITE OF THE GASTROESOPHAGEAL JUNCTION. ASPIRATION PRECAUTIONS ARE RECOMMENDED. 3. MULTIPLE BENIGN-APPEARING RENAL CYSTS. 4. PROGRESSION OF THE L3 COMPRESSION DEFORMITY AND SIMILAR. COMPRESSION DEFORMITIES THROUGHOUT THE TH ORACOLUMBAR JUNCTION. 5. STABLE APPEARING PANCREATIC CYSTIC LESION IN COMPARISON TO 2017. ANNUAL SURVEILLANCE IS RECOMMENDE D FOR FURTHER CHARACTERIZATION WITH MRCP.
== END | disposition home or self-care (01) ==
LOC: RADCTMAIN 07:43
PROVIDERS: ATTEND Urology
DX: N20.1 Calculus of ureter (principal); N21.0 Calculus in bladder; N28.1 Cyst of kidney, acquired; N26.1 Atrophy of kidney (terminal); K86.89 Other specified diseases of pancreas
CPT/HCPCS: 74176

== ENCOUNTER 2018-12-16 09:09 | Day surgery (SDC) | payer MEDICARE, OTHER ==
[2018-12-10 15:43] VITALS: BMI 27.3
--- NOTE | 2018-12-15 13:50 | P.GSHP ---
History of Present Illness H&P Date: 12/15/18 88 yo healthy male with gross hematuria Was found on ct scan to have multple bladder stones, a large prostate and bilateral distal ureteral stones [place] [facility] [place] the bladder stones but due to edema, bleeding from the stones and large prostate I was unable to ID the left UO and only have linmited intubation of the right uo By removing the bladder stones I am hoping that the edema subsides and that I can access the ureters to remove the ureteral stones. - Constitutional Constitutional: Denies chills, Denies fever - EENT Eyes: denies blurred vision, denies pain Ears, nose, mouth and throat: Denies headache, Denies sore throat - Cardiovascular Cardiovascular: Denies chest pain, Denies shortness of breath - Respiratory Respiratory: Denies cough, Denies 7 - Gastrointestinal Gastrointestinal: Denies abdominal pain, Denies diarrhea, Denies nausea, Denies vomiting - Genitourinary (Female) Genitourinary: Denies dysuria, Denies hematuria - Genitourinary (Male) Genitourinary: Denies dysuria, Denies hematuria - Musculoskeletal Musculoskeletal: Denies myalgias - Integumentary Integumentary: Denies pruritus, Denies rash - Neurological Neurological: Denies numbness, Denies weakness - Psychiatric Psychiatric: Denies anxiety, Denies depression - Endocrine Endocrine: Denies fatigue, Denies weight change Past Medical History Past Medical History: Blood Disorder, Cancer, Deep Vein Thrombosis (DVT), GERD/Reflux, Musculoskeletal Disorder, Osteoarthritis (OA), Prostate Disorder Additional Past Medical History / Comment(s): ENLARGED PROSTATE, 7 crushed vertebrae, BACK PAIN FROM PINCHED NERVES IN BACK- past hx drop foot sharif feet, esophogeal strictures, Achalasia, has peg-tube, hx of kidney stones, has had kidney failure with sepsis in past, hx skin ca History of Any Multi-Drug Resistant Organisms: C-DIFF Date of last positivie culture/infection: 2015 MDRO Source:: stool Past Surgical History: Prostate Surgery Additional Past Surgical History / Comment(s): recent bladder stones removed, laparoscopic christopher fundoplasty. Hydrocele repair, EGD. EPIDURAL STEROID INJECTIONS WITH DR. DIAZ. skin cancer -LESIONS removed, SEVERAL BRONCHOSCOPIES, SEBACEOUS CYST ON BACK REMOVED, esophagus dilations, PEG tube dec 2016, sharif cataracts Past Anesthesia/Blood Transfusion Reactions: No Reported Reaction Smoking Status: Former smoker - Past Family History Brother(s) Family Medical History: Cancer Additional Family Medical History / Comment(s): COLON CANCER Father Family Medical History: Cancer Additional Family Medical History / Comment(s): FROM RESP FAILURE AT AGE 91 Sister(s) Family Medical History: Cancer Additional Family Medical History / Comment(s): LUNG CANCER Mother Family Medical History: Cancer Additional Family Medical History / Comment(s): COLON CANCER Medications and Allergies Home Medications Medication Instructions Recorded Confirmed Type No Known Home Medications 12/10/18 12/10/18 History Allergies Allergy/AdvReac Type Severity Reaction Status Date / Time adhesive tape AdvReac Severe tears skin Verified 12/10/18 15:35 chicken derived [Chicken] AdvReac Nausea & Verified 12/10/18 15:35 Vomiting & Diarrhea Surgical - Exam - General well developed, well nourished - Eyes PERRL - ENT no hearing loss - Neck trachea midline - Respiratory normal expansion, normal respiratory effort - Cardiovascular Rhythm: regular - Abdomen Abdomen: soft, non tender - Genitourinary normal penis with no external lesions, testicles present - Integumentary no rash, no growths - Neurologic normal coordination, normal sensation - Musculoskeletal normal gait, normal posture - Psychiatric oriented to time, oriented to person, oriented to place, speech is normal, memory intact Assessment and Plan Assessment: Impression: Bilateral distal ureteral stones. BPH, large Plan Cysto with bilateral ureteroscopy with laser lithotripsy
[~2018-12-16 09:09] MED LIST changes: +AMPICILLIN 1,000 MG in SODIUM CHLORIDE 0.9% 50 ML IVPB ONE; +GENTAMICIN 100 MG in SODIUM CHLORIDE 0.9% 100 ML IVPB ONE; +HYDROmorphone 0.5 MG/0.5 ML SYRINGE IVP PRN; -LIDOCAINE 1% 20 ML VIAL (10MG/ML) FOR IV START INTRADERMA PRN; +ONDANSETRON 4 MG/2 ML VIAL IVP ONE
[2018-12-16] MEDS ORDERED: LACTATED RINGERS 1,000 ML IV ONE (09:50)
[2018-12-16] MEDS ORDERED: LIDOCAINE 1% 20 ML VIAL (10MG/ML) FOR IV START INTRADERMA ONE (09:51)
--- NOTE | 2018-12-16 10:00 | XR ---
EXAMINATION TYPE: XR KUB DATE OF EXAM: 12/16/2018 COMPARISON: CT 11/24/2018 HISTORY: Kidney stone, pain TECHNIQUE: One view abdominal series FINDINGS: There is a catheter overlying the left upper quadrant. Diffuse osteopenia and degenerative changes sp ine with chronic appearing compression deformities. Postsurgical change right hip with bilateral arth ropathy of the hips. Appears to be a 3 mm calcification overlying the midpole the left kidney. Calcif ications in the pelvis are nonspecific. IMPRESSION: 1. Limited exam. Calcifications in the pelvis are difficult to assess due to patient rotation. 2. Left-sided nephrolithiasis.
[2018-12-16] MEDS ORDERED: ePHEDrine SULFATE/0.9% NACL/PF 50 MG/5 ML SYRINGE IV ONE (12:04)
[2018-12-16] MEDS ORDERED: PROPOFOL 10 MG/ML 20 ML VIAL IV ONE (12:04)
[2018-12-16] MEDS ORDERED: SUCCINYLCHOLINE CHLORIDE 100 MG/5 ML SYR IV ONE (12:04)
[2018-12-16] MEDS ORDERED: LIDOCAINE 1% INJ 10MG/ML (20 ML MDV) ONE (12:04)
[2018-12-16] MEDS ORDERED: fentaNYL (PF) 50 MCG/ML 2 ML AMP ONE (12:04)
[2018-12-16] MEDS ORDERED: IOPAMIDOL-370 50ML BTL IRRIGATION ONE (12:36)
--- NOTE | 2018-12-16 14:02 | P.OP ---
Date of Procedure: 12/16/18 Preoperative Diagnosis: Bilateral ureteral calculi Postoperative Diagnosis: Same Procedure(s) Performed: Cystoscopy with bilateral ureteroscopy and bilateral laser lithotripsy, bilateral double-J catheter placement 6 x 24 Anesthesia: HERMINIA Surgeon: Jason Encarnacion Pathology: other (Stone) Condition: stable Disposition: PACU Indications for Procedure: The patient is a healthy 88-year-old gentleman who presented with gross hematuria. A computed tomography scan showed bilateral distal ureteral stones and multiple bladder stones. Last week at the outpatient surgery center he had cystolithotripsy but I was unable to access each ureter because of edema, hematuria from the cystolithotripsy and a very large prostate. The stones of the bladder remove the procedure is terminated and he now comes for hopeful ureteroscopy and laser lithotripsy. Description of Procedure: The patient is brought to the operating suite. He is given general endotracheal anesthesia. He's placed lithotomy position with a sterile prep and drape. Under direct vision the 22-American sheath Foroblique lens cystoscope was introduced in the bladder. The prostates obstructed with an intravesical middle lobe. The bladder is heavily trabeculated with multiple cellules. There is no stone remaining in the bladder. Each ureteral orifice is identified but at a very difficult angle due to the intravesical middle lobe. Eventually I approached the right ureteral orifice with the semirigid ureteroscope and I'm able to eventually manipulate an 035 wire up into the renal pelvis. I then backloaded the wire onto the cystoscope and over the wire pass a 5-15-American dilating ureteral catheter to dilate ureteral orifice. This allows me to pass a semirigid scope up to the stone and with the 365 laser probe break the stone into tiny fragments and then basket the fragments out. I then backloaded the wire onto the cystoscope. Over the cystoscope wire is then passed a 6 x 24 double-J catheter that coils in the renal pelvis and the bladder. I approached the left side. Again I require the ureteroscope to intubate the orifice and passed the wire up into the kidney. This again is very difficult. I then backloaded the wire onto the cystoscope and over the wire pass a dilating balloon to dilate the distal left ureteral orifice. Then am able to pass a semirigid ureteroscope to the stone and break it up into tiny pieces and flushed out of the ureter. I then backloaded the wire onto the cystoscope and over the wire pass a 6 x 24 double-J cath that coils in the renal pelvis and the bladder. Bladder is emptied fragments of stone. The patient's awake and returned recovery in good condition. He tolerated the procedure well be discharged home upon recovery. I remove the stents in the office in about one week. We'll address his prostate as an outpatient. Blood loss is about 25 mL.
[2018-12-16 14:10] VITALS: TEMP 97.6
--- NOTE | 2018-12-16 14:12 | FL ---
EXAMINATION TYPE: FL guidance operating room DATE OF EXAM: 12/16/2018 HISTORY: Flouroscopy time 40 seconds of fluoroscopy provided. IMPRESSION: 1. Fluoroscopy time.
[2018-12-16 14:33] VITALS: RESP 16
[2018-12-16 15:25] VITALS: BP 111/62
[2018-12-16 15:36] VITALS: PULSE 61
== END 2018-12-16 16:19 | disposition home or self-care (01) ==
LOC: OR 09:09
PROVIDERS: ATTEND Urology
DX: N20.1 Calculus of ureter (principal); N32.89 Other specified disorders of bladder; N40.1 Benign prostatic hyperplasia with lower urinary tract symptoms; N13.8 Other obstructive and reflux uropathy; N28.9 Disorder of kidney and ureter, unspecified; I45.2 Bifascicular block; K21.9 Gastro-esophageal reflux disease without esophagitis; K22.2 Esophageal obstruction; K22.0 Achalasia of cardia; Z93.1 Gastrostomy status; M54.9 Dorsalgia, unspecified; M19.90 Unspecified osteoarthritis, unspecified site; D75.9 Disease of blood and blood-forming organs, unspecified; Z87.891 Personal history of nicotine dependence; Z86.718 Personal history of other venous thrombosis and embolism; Z91.018 Allergy to other foods; Z91.048 Other nonmedicinal substance allergy status; Z97.2 Presence of dental prosthetic device (complete) (partial); Z85.828 Personal history of other malignant neoplasm of skin; Z80.0 Family history of malignant neoplasm of digestive organs; Z80.1 Family history of malignant neoplasm of trachea, bronchus and lung; Z98.42 Cataract extraction status, left eye; Z98.41 Cataract extraction status, right eye
CPT/HCPCS: 52356; 88300; 82365; 74018; C2625; C1769; J2405; J2001; J3010; J1580; J0290; J0330; J2704; Q9967

== ENCOUNTER → 2019-02-04 | Outpatient (CLI) | payer MEDICARE, OTHER ==
--- NOTE | 2019-02-04 16:02 | US ---
EXAMINATION TYPE: US kidneys/renal and bladder DATE OF EXAM: 02/04/2019 COMPARISON: CT 11/24/2018 CLINICAL HISTORY: N13.30 ARMIN HYDRONEPHROSIS. Hx bilateral renal stones. Patient states no pain at th is time. Patient has a feeding tube in left abdomen, limiting scanning windows. Patient states havin g hx of enlarged prostate. EXAM MEASUREMENTS: Right Kidney: 8.4 x 3.9 x 4.8 cm Left Kidney: 10.6 x 5.8 x 6.0 cm Right Kidney: Small in size. Echogenic. Cortical thinning. Multiple cystic appearing lesions visua lized, largest measured. 1: Upper = 2.6 x 2.4 x 2.7 cm. 2: Medial mid-1.1 x 1.1 x 1.2 cm Left Kidney: Multiple cystic appearing lesions visualized, largest measured. 1: upper - 2.6 x 3.6 x 2.9 cm. 2: Mid medial with septations - 2.4 x 2.0 x 1.8 cm. 3: Lower- 3.2 x 3.0 x 2.8 cm. Bladder: Wall appears thickened = 6.0 mm. Moderately distended. Prominent prostate. Bilateral Jets not seen IMPRESSION: 1. 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 2. 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 3. Prostate hypertrophy
== END | disposition home or self-care (01) ==
LOC: RADUSWWP 15:02
PROVIDERS: ATTEND Urology
DX: N28.1 Cyst of kidney, acquired (principal); N40.0 Benign prostatic hyperplasia without lower urinary tract symptoms; Z91.048 Other nonmedicinal substance allergy status
CPT/HCPCS: 76770